=== PATIENT | male | born 1945 | race Caucasian/White ===

== ENCOUNTER 2017-01-11 02:00 | Inpatient (IN) | payer SELFPAY ==
[~2017-01-11] VITALS: Ht 182.9 cm; Wt 85.3 kg
[2017-01-11] VITALS (7 sets, daily range): BP systolic 130–189; BP diastolic 72–105
--- NOTE | 2017-01-11 02:24 | NUR ---
Pt taken to bed 3.
--- NOTE | 2017-01-11 02:40 | NUR ---
71Y/M PRESENTS TO ER C/O WEAKNESS, AND ITCHING. PMH HTN, DM. NKA. PT STATES HE WAS GETTING OUT OF BED WHEN HE FELL, PT DENIES HITTING HIS HEAD OR LOC. PT STATES HE FELL BECAUSE HIS "SUGARS ARE LOW AND PRESSURE IS LOW". PT STATES HE HAS HAD ITCHING "ALL OVER" FOR 3 MONTHS. PT HAS BL EDEMA TO LOWER LEGS, SCALING, AND DRY SKIN, W/ DARKENING OF SKIN. PT DENIES PAIN AT THIS TIME. PT AA&O X4, VSS, ER NOTIFIED OF PT STATUS, FAMILY AT BEDSIDE. Addendum: 01/11/17 at 0432 by MEDWL weeping of serous fluid noted on bl lower legs
--- NOTE | 2017-01-11 02:55 | NUR ---
Dr. Winters evaluating patient at bedside.
[2017-01-11] MEDS ORDERED: ALBUTEROL SULFATE/IPRATROPIU 3 ML SOL IH ONE (03:00)
--- NOTE | 2017-01-11 03:25 | NUR ---
X-Ray at bedside.
[2017-01-11 03:26] LABS: BASOPHILS # (AUTO) 0.1 K/uL (0.00-0.22); BASOPHILS % (AUTO) 0.9 % (0.0-2.0); EOSINOPHILS # (AUTO) 0.4 K/uL (0-0.4); EOSINOPHILS % (AUTO) 4.3 % (0.0-4.0); HEMATOCRIT 31.5 % (36-52); HEMOGLOBIN 10.2 g/dL (12.0-18.0); LYMPHOCYTES # (AUTO) 0.9 K/uL (2.0-11.5); LYMPHOCYTES % (AUTO) 10.1 % (20.5-51.1); MEAN CORPUSCULAR HEMOGLOBIN 30 pg (27-31); MEAN CORPUSCULAR HGB CONC 32 g/dL (33-37); MEAN CORPUSCULAR VOLUME 93 fL (80-94); MONOCYTES # (AUTO) 0.9 K/uL (0.8-1.0); MONOCYTES % (AUTO) 9.4 % (1.7-9.3); NEUTROPHILS # (AUTO) 6.8 K/uL (1.8-7.7); NEUTROPHILS % (AUTO) 75.3 % (42.2-75.2); PLATELET COUNT (AUTO) 235 K/uL (140-450); RED CELL DISTRIBUTION WIDTH 14.8 % (11.6-13.7); WHITE BLOOD COUNT (AUTO) 9.1 K/uL (4.8-10.8)
[2017-01-11 03:38] LABS: ALBUMIN 2.8 g/dL (3.4-5.0); ANION GAP 14.9 (8-16); ASPARTATE AMINOTRANSFERASE 31 U/L (15-37); CARBON DIOXIDE 25.4 mmol/L (21-32); CHLORIDE 108 mmol/L (98-107); GLUCOSE 133 mg/dL (74-106); LIPASE 119 U/L (73-393); POTASSIUM 5.3 mmol/L (3.5-5.1); SODIUM SERUM 143 mmol/L (136-145); TOTAL BILIRUBIN 0.3 mg/dL (0.0-1.0); UREA NITROGEN, BLOOD 57 mg/dL (7-18)
[2017-01-11 03:45] LABS: CREATINE KINASE MB 3.9 ng/mL (0-3.6)
[2017-01-11] MEDS ORDERED: NACL 0.9% 1,000 ML IV ONE (04:00)
[2017-01-11] MEDS ORDERED: SODIUM POLYSTYRENE 15 GM/60 ML UDBTL PO ONE ×2 (04:00→16:05)
[2017-01-11] MEDS ORDERED: LANTUS SUBQ (04:11)
--- NOTE | 2017-01-11 05:15 | NUR ---
PER TELE FLOOR ASKED TO WAIT TO CALL REPORT TILL 0600
[2017-01-11] MEDS ORDERED: ONDANSETRON 4 MG/2 ML VIAL IVP PRN (05:20)
[2017-01-11] MEDS ORDERED: ACETAMINOPHEN 325 MG TAB PO PRN (05:20)
[2017-01-11] MEDS ORDERED: HYDROcodone/APAP 7.5/325 MG 1 TAB PO PRN (05:20)
[2017-01-11] MEDS ORDERED: MECLIZINE 25 MG TAB PO PRN (05:30)
--- NOTE | 2017-01-11 06:11 | NUR ---
PER CHARGE NURSE, MANJEET, ON TELE ASKED TO WAIT TO TRANSFER PT TILL .
[2017-01-11 06:45] LABS: PROTHROMBIN TIME 10.1 secs (10.8-13.4)
--- NOTE | 2017-01-11 06:46 | NUR ---
Patient will be admitted to [facility] Admited to TELE. Will go to room 114. Belongings list completed. Report to MANJEET.
--- NOTE | 2017-01-11 07:00 | NUR ---
RECEIVED PATIENT IN BED. NO S/S OF DISTRESS NOTED. PATIENT AWAKE, ALERT, ORIENTED AND AMBULATORY. PATIENT DENIES PAIN. PATIENT ON ROOM AIR. DRYNESS NOTED TO BLE. IV LINE NOTED TO THE LEFT AC. PATIENT PLACED ON TELE MONITORING. BED LOWERED WITH CALL LIGHT WITHIN REACH. WILL CONTINUE TO MONITOR
[2017-01-11] MEDS ORDERED: DEXTROSE 50% 50 ML SYR IVP PRN (07:05)
[2017-01-11 07:11] LABS: FREE T4 (FREE THYROXINE) 0.94 ng/dL (0.76-1.46); MAGNESIUM 2.8 mg/dL (1.8-2.4); PHOSPHORUS 5.4 mg/dL (2.5-4.9); THYROID STIMULATING HORMONE 2.32 uIU/mL (0.34-3.74)
[2017-01-11] MEDS: PANTOPRAZOLE 40 MG INJ VIAL IVP SCH (10:28)
[2017-01-11] MEDS: NACL 0.9% 1,000 ML IV SCH ×2 (10:28→21:02)
[2017-01-11] MEDS: DOCUSATE SODIUM 100 MG GELCAP PO SCH ×2 (10:29→21:01)
--- NOTE | 2017-01-11 10:30 | NUR ---
MADE DR FELTON AWARE OF PATIENT'S BP
[2017-01-11] MEDS ORDERED: LOSA50TA39 PO (10:44)
[2017-01-11] MEDS ORDERED: hydrALAZINE 20 MG/ML VIAL IVP PRN (10:45)
[2017-01-11] MEDS ORDERED: hydrALAZINE 20 MG/ML VIAL IVP SCH (11:04)
[2017-01-11] MEDS ORDERED: LOSARTAN 50 MG TAB PO SCH (11:15)
[2017-01-11] MEDS ORDERED: hydrALAZINE 20 MG/ML VIAL IVP ONE (12:40)
--- NOTE | 2017-01-11 14:30 | NUR ---
PATIENT SITTING IN THE CHAIR AT BEDSIDE. NO S/S OF DISTRESS NOTED. FAMILY MEMBERS IN THE ROOM
--- NOTE | 2017-01-11 14:45 | NUR ---
PATIENT ASLEEP NO S/S OF DISTRESS NOTED
[2017-01-11 14:49] LABS: CHOL/HDL RATIO 2.7 (1-4.5)
[2017-01-11] MEDS: BLOOD GLUCOSE MONITORING 1 DEV DEV FS SCH ×2 (16:37→21:43)
[2017-01-11] MEDS ORDERED: CALCIUM ACETATE 667 MG TAB PO SCH (17:00)
[2017-01-11] MEDS ORDERED: diphenhydrAMINE 50 MG/ML VIAL IVP SCH (17:00)
--- NOTE | 2017-01-11 19:29 | NUR ---
PATIENT REPORT GIVEN AT BEDSIDE. PATIENT ENDORSED IN STABLE CONDITION
--- NOTE | 2017-01-11 19:30 | NUR ---
RECEIVED PT SLEEPING, AROUSABLE BUT DROWSY, SERBIAN SPEAKING ONLY, DENIES ANY PAIN, VITAL SIGNS STABLE, IVF INFUSING WELL, SAFETY MEASURES IN PLACE, BED ALARM ON, CALL LIGHT WITHIN REACH, FRIEND AT BEDSIDE.
--- NOTE | 2017-01-11 21:00 | NUR ---
PT SLEEPING, AROUSABLE BUT DROWSY, BLOOD SUGAR CHECKED WITH 25 RESULT, PT INSTRUCTED TO EAT DINNER, COMPLIANT AND CONSUMED 100%, PT FEELING MUCH BETTER, MORE AWAKE AND CONVERSANT, DUE MEDS TAKEN, WILL RECHECKED BLOOD SUGAR.
[2017-01-11] MEDS: LOSARTAN 50 MG TAB PO SCH (21:01)
--- NOTE | 2017-01-11 21:45 | NUR ---
PT SLEEPING, EASILY AROUSABLE, BLOOD SUGAR RECHECKED WITH 101 RESULT, NO SIGNS OF DISTRESS, IVF INFUSING WELL, MONITORED CLOSELY.
[2017-01-12] VITALS: BP 141/77
--- NOTE | 2017-01-12 | NUR ---
PT AMBULATED TO BR AND VOIDED FREELY, VITAL SIGNS STABLE, DENIES ANY PAIN, IVF INFUSING WELL, CONTINUE TO MONITOR CLOSELY.
[2017-01-12] MEDS: NACL 0.9% 1,000 ML IV SCH ×2 (01:12→05:30)
[2017-01-12 04:00] VITALS: BP 148/79
--- NOTE | 2017-01-12 05:50 | NUR ---
BLOOD SUGAR CHECKED WITH 22 RESULT, PT EASILY AROUSABLE, VERBALLY RESPONSIVE, D50 1 AMP GIVEN IVP, [facility] DR Naida CROFT MADE AWARE, WITH NEW ORDER TO DC LEVIMIR INSULIN, MONITORED CLOSELY.
--- NOTE | 2017-01-12 06:15 | NUR ---
PT JUST FINISHED EATING 1/2 HAM SANDWICH AND 2 APPLE JUICE, BLOOD SUGAR RECHECKED WITH 90 RESULT, DR FELTON IN THE ROOM IS AWARE, PT AAOX4, NO DISTRESS NOTED.
[2017-01-12 06:29] LABS: BASOPHILS # (AUTO) 0.2 K/uL (0.00-0.22); BASOPHILS % (AUTO) 3.2 % (0.0-2.0); EOSINOPHILS # (AUTO) 0.8 K/uL (0-0.4); LYMPHOCYTES # (AUTO) 1.1 K/uL (2.0-11.5); LYMPHOCYTES % (AUTO) 13.8 % (20.5-51.1); MEAN CORPUSCULAR HEMOGLOBIN 29 pg (27-31); MEAN CORPUSCULAR HGB CONC 31 g/dL (33-37); MEAN CORPUSCULAR VOLUME 93 fL (80-94); MONOCYTES # (AUTO) 1.5 K/uL (0.8-1.0); MONOCYTES % (AUTO) 18.9 % (1.7-9.3); NEUTROPHILS # (AUTO) 4.1 K/uL (1.8-7.7); NEUTROPHILS % (AUTO) 53.1 % (42.2-75.2); PLATELET COUNT (AUTO) 212 K/uL (140-450); RED BLOOD CELL COUNT(AUTO) 3.14 MIL/uL (4.20-6.10); RED CELL DISTRIBUTION WIDTH 14.8 % (11.6-13.7); WHITE BLOOD COUNT (AUTO) 7.7 K/uL (4.8-10.8)
[2017-01-12] MEDS: BLOOD GLUCOSE MONITORING 1 DEV DEV FS SCH ×4 (06:37→20:46)
--- NOTE | 2017-01-12 07:20 | NUR ---
PT SLEEPING, NO SIGNS OF DISTRESS, REPORT GIVEN TO ARLENE HICKS FOR CONTINUITY OF CARE.
--- NOTE | 2017-01-12 07:21 | NUR ---
RECEIVED REPORT FROM BOTTOM SAW OPERATOR NURSE ANDREA AT BEDSIDE FOR CONTINUITY OF CARE. PT IS AWAKE AND ORIENTED. INTRODUCED SELF AND UPDATED BOARD. FAMILY MEMBER IS AT BEDSIDE AND TRANSLATED FOR PT IN MICRONESIAN. PT DENIES PAIN OR WEAKNESS WILL CONTINUE TO MONITOR.
[2017-01-12 07:24] LABS: MAGNESIUM 2.4 mg/dL (1.8-2.4); PHOSPHORUS 5.6 mg/dL (2.5-4.9)
[2017-01-12 07:37] LABS: ANION GAP 14.9 (8-16); CARBON DIOXIDE 23.4 mmol/L (21-32); CHLORIDE 110 mmol/L (98-107); POTASSIUM 4.3 mmol/L (3.5-5.1); SODIUM SERUM 144 mmol/L (136-145); UREA NITROGEN, BLOOD 46 mg/dL (7-18)
[2017-01-12 07:46] LABS: CREATININE 4.8 mg/dL (0.7-1.3); GLUCOSE 37 mg/dL (74-106)
[2017-01-12 08:00] VITALS: BP 141/77
--- NOTE | 2017-01-12 08:00 | NUR ---
CHECKED PT'S BLOOD GLUCOSE 116. PT IS EATING BREAKFAST TRAY RIGHT NOW. NO S/SX OF HYPOGLYCEMIA. WILL CONTINUE TO MONITOR.
[2017-01-12] MEDS: ASPIRIN 81 MG TAB.CHEW PO SCH (09:00)
[2017-01-12] MEDS ORDERED: INSULIN DETEMIR 100 UNITS/ML 10 ML VIAL SUBQ SCH (09:00)
[2017-01-12] MEDS: amLODIPine 5 MG TAB PO SCH (09:00)
[2017-01-12] MEDS: CALCIUM ACETATE 667 MG TAB PO SCH ×2 (09:00→20:05)
[2017-01-12] MEDS: PANTOPRAZOLE 40 MG INJ VIAL IVP SCH (09:00)
[2017-01-12] MEDS: DOCUSATE SODIUM 100 MG GELCAP PO SCH ×2 (09:00→20:04)
[2017-01-12] MEDS: LOSARTAN 50 MG TAB PO SCH ×2 (09:00→20:05)
--- NOTE | 2017-01-12 10:23 | NUR ---
PATIENT HAS BEEN SCREENED AND CATEGORIZED HIGH NUTRITION RISK. PATIENT WILL BE SEEN WITHIN 1-2 DAYS OF ADMISSION. 01/11/17 - 01/12/17 LORETO OCHOA MBA, RD
[2017-01-12 10:31] LABS: APPEARANCE,URINE HAZY (CLEAR); BILIRUBIN,URINE NEGATIVE (NEGATIVE); BLOOD, URINE 1+ (NEGATIVE); COLOR,URINE YELLOW (YELLOW); LEUKOCYTE ESTERASE ,URINE NEGATIVE (NEGATIVE); NITRITE, URINE NEGATIVE (NEGATIVE); UGLUCOSE NEGATIVE (NEGATIVE)
[2017-01-12 10:34] LABS: BARBITURATE, URINE NEG. ng/ml (NEG <=200); BENZODIAZEPINE, URINE NEG. ng/mL (NEG <=200); CANNABINOID, URINE NEG. ng/mL (NEG <=50); COCAINE, URINE NEG. ng/mL (NEG <=300); OPIATE, URINE NEG. ng/mL (NEG <=2000); PHENCYCLIDINE SCREEN,URINE NEG. ng/mL (NEG <=25)
[2017-01-12] MEDS: DEXT 5% / NACL 0.45% 1,000 ML IV SCH ×3 (10:46→22:42)
[2017-01-12 11:00] LABS: RBC,URINE 20-50 /HPF (0-5); WBC,URINE 0-5 (RARE) /HPF (0-5)
[2017-01-12 12:00] VITALS: BP 158/98
[2017-01-12 16:00] VITALS: BP 151/84
--- NOTE | 2017-01-12 16:30 | NUR ---
PT FAMILY MEMBERS ARE AT BEDSIDE. PT IS SITTING IN CHAIR RIGHT NOW. ASKED IF HE NEEDED ANYTHING PT STATED NO. BS IS 97. NO S/SX OF HYPOGLYCEMIA. PLACED CALL LIGHT NEXT TO PT. WILL CONTINUE TO MONITOR.
--- NOTE | 2017-01-12 16:37 | NUR ---
01/12/17 RD INITIAL ASSESSMENT COMPLETED. PLEASE REFER TO NUTRITION PROGRESS NOTES UNDER CARE ACTIVITY FOR ESTIMATED NUTRITIONAL NEEDS. RD RECOMMENDATIONS: 1- RECOMMEND CONTINUE 60G CCHO DIET 2- F/U 3-5 DAYS; MODERATE RISK. LORETO OCHOA MBA, RD
[2017-01-12] MEDS ORDERED: CALCIUM ACETATE 667 MG TAB PO SCH (17:00)
[2017-01-12] MEDS ORDERED: TETRAHYDROZOLINE 0.05% OP 15 ML BTL OP PRN (17:15)
[2017-01-12] MEDS ORDERED: PNEUMOCOCCAL VACCINE 23 MCG/0.5 ML VIAL IMVAC SCH (17:15)
[2017-01-12] MEDS ORDERED: INFLUENZA VIRUS VACCINE QUAD 0.5 ML SYR IMVAC SCH (17:15)
--- NOTE | 2017-01-12 19:29 | NUR ---
ENDORSED PT TO MANDOLIN REPAIR PERSON NURSE ANDREA AT BEDSIDE FOR CONTINUITY OF CARE. PT IN STABLE CONDITION.
--- NOTE | 2017-01-12 19:30 | NUR ---
RECEIVED PT SITTING ON SIDE OF BED, AAOX4, VITAL SIGNS TAKEN, BP SLIGHTLY ELEVATED, ASYMPTOMATIC, DENIES ANY PAIN, NO SOB NOTED, WILL GIVE DUE BP MEDICATION, IVF INFUSING WELL, SAFETY MEASURES IN PLACE, ENCOURAGE TO USE CALL LIGHT FOR ASSISTANCE, CALL LIGHT WITHIN REACH, VISITOR IN THE ROOM.
[2017-01-12 20:00] VITALS: BP 164/85
--- NOTE | 2017-01-12 20:30 | NUR ---
BLOOD SUGAR CHECKED WITH 104 RESULT, SNACK PROVIDED, DUE MEDS ADMINISTERED, ALL NEEDS ATTENDED.
--- NOTE | 2017-01-12 23:40 | NUR ---
PT SLEEPING, EASILY AROUSABLE, VITAL SIGNS STABLE, DENIES ANY PAIN, IVF INFUSING WELL, FAMILY MEMBER AT BEDSIDE, CONTINUE TO MONITOR CLOSELY.
[2017-01-13] VITALS: BP 133/84
--- NOTE | 2017-01-13 02:40 | NUR ---
SEEN AWAKE SITTING ON BEDSIDE CHAIR WATCHING TV, NO SIGNS OF DISTRESS, MONITORED CLOSELY.
[2017-01-13 04:00] VITALS: BP 151/76
--- NOTE | 2017-01-13 04:00 | NUR ---
PT SLEEPING, EASILY AROUSABLE, VITAL SIGNS TAKEN, BP SLIGHTLY ELEVATED, ASYMPTOMATIC, MONITORED CLOSELY.
--- NOTE | 2017-01-13 06:00 | NUR ---
PT SLEEPING, EASILY AROUSABLE, BLOOD SUGAR CHECKED WITH 75 RESULT, IVF INFUSING WELL, MONITORED CLOSELY.
[2017-01-13] MEDS: DEXT 5% / NACL 0.45% 1,000 ML IV SCH ×2 (06:15→16:15)
--- NOTE | 2017-01-13 07:10 | NUR ---
PT SLEEPING, NO SIGNS OF DISTRESS, REPORT GIVEN TO ARLENE HICKS FOR CONTINUITY OF CARE.
--- NOTE | 2017-01-13 07:11 | NUR ---
RECEIVED REPORT FROM PRIMER INSERTING MACHINE ADJUSTER NURSE ANDREA AT BEDSIDE FOR CONTINUITY OF CARE. PT IS SLEEPING RIGHT NOW. IN STABLE CONDITION.
[2017-01-13 07:17] LABS: BASOPHILS # (AUTO) 0.1 K/uL (0.00-0.22); BASOPHILS % (AUTO) 1.2 % (0.0-2.0); EOSINOPHILS # (AUTO) 1.1 K/uL (0-0.4); EOSINOPHILS % (AUTO) 13.4 % (0.0-4.0); HEMATOCRIT 30.7 % (36-52); HEMOGLOBIN 9.8 g/dL (12.0-18.0); LYMPHOCYTES # (AUTO) 1.4 K/uL (2.0-11.5); LYMPHOCYTES % (AUTO) 17.9 % (20.5-51.1); MEAN CORPUSCULAR HEMOGLOBIN 29 pg (27-31); MEAN CORPUSCULAR HGB CONC 32 g/dL (33-37); MEAN CORPUSCULAR VOLUME 91 fL (80-94); MONOCYTES # (AUTO) 1.1 K/uL (0.8-1.0); NEUTROPHILS # (AUTO) 4.3 K/uL (1.8-7.7); NEUTROPHILS % (AUTO) 53.5 % (42.2-75.2); PLATELET COUNT (AUTO) 230 K/uL (140-450); RED BLOOD CELL COUNT(AUTO) 3.39 MIL/uL (4.20-6.10); RED CELL DISTRIBUTION WIDTH 14.7 % (11.6-13.7)
[2017-01-13] MEDS: BLOOD GLUCOSE MONITORING 1 DEV DEV FS SCH ×4 (07:19→20:46)
[2017-01-13 07:44] LABS: MAGNESIUM 2.1 mg/dL (1.8-2.4); PHOSPHORUS 5.3 mg/dL (2.5-4.9)
[2017-01-13 07:46] LABS: ANION GAP 15.6 (8-16); CARBON DIOXIDE 21.9 mmol/L (21-32); CHLORIDE 107 mmol/L (98-107); GLUCOSE 83 mg/dL (74-106); POTASSIUM 4.5 mmol/L (3.5-5.1); SODIUM SERUM 140 mmol/L (136-145); UREA NITROGEN, BLOOD 41 mg/dL (7-18)
[2017-01-13 07:48] LABS: CREATININE 4.8 mg/dL (0.7-1.3)
[2017-01-13 08:00] VITALS: BP 164/88
[2017-01-13] MEDS ORDERED: ALBUTEROL SULFATE/IPRATROPIU 3 ML SOL IH PRN (08:15)
[2017-01-13] MEDS: PANTOPRAZOLE 40 MG INJ VIAL IVP SCH (08:30)
[2017-01-13] MEDS: amLODIPine 5 MG TAB PO SCH (08:31)
[2017-01-13] MEDS: LOSARTAN 50 MG TAB PO SCH ×2 (08:31→20:37)
[2017-01-13] MEDS: DOCUSATE SODIUM 100 MG GELCAP PO SCH ×2 (08:31→20:37)
[2017-01-13] MEDS: ASPIRIN 81 MG TAB.CHEW PO SCH (08:31)
[2017-01-13] MEDS ORDERED: CALCIUM ACETATE 667 MG TAB PO SCH (09:00)
[2017-01-13] MEDS ORDERED: diphenhydrAMINE 50 MG CAP PO SCH (10:03)
[2017-01-13] MEDS: CALCIUM ACETATE 667 MG TAB PO SCH ×2 (11:50→17:28)
[2017-01-13 12:00] VITALS: BP 151/83
--- NOTE | 2017-01-13 13:14 | NUR ---
PHYSICAL THERAPY WITH PT UP OUT OF BED WALKING DOWN THE HALLWAY WITH STEADY GAIT.
[2017-01-13] MEDS ORDERED: FUROSEMIDE 20 MG/2 ML VIAL IVP SCH (14:58)
--- NOTE | 2017-01-13 15:15 | NUR ---
PHYSICAL THERAPY CO-SIGN The Physical Therapy Progress Notes documented by Foundry Worker General have been reviewed. Reviewed/Co-Signed by: Pam Conte PT Documentation Done by:MABEL CAZARES IMPORT DISPATCHER POC REVIEWED W/ IMPORT DISPATCHER; PROGRESSING W/ FUNC MOB & GAIT ENDURANCE. Addendum: 01/14/17 at 1516 by Pam Conte PT Amended: Links added.
[2017-01-13] MEDS: ALBUTEROL SULFATE/IPRATROPIU 3 ML SOL IH SCH ×2 (15:17→19:21)
--- NOTE | 2017-01-13 15:44 | NUR ---
PHYSICAL THERAPY CO-SIGN The Physical Therapy Progress Notes documented by Slide Fastener Repairer have been reviewed. Reviewed/Co-Signed by: Pam Conte PT Documentation Done by:MABEL CAZARES RESPIRATORY THERAPY ASSISTANT POC REVIEWED W/ RESPIRATORY THERAPY ASSISTANT; WILL BENEFIT W/P.T.; PROGRESSING W/ FUNC MOB.
--- NOTE | 2017-01-13 15:45 | NUR ---
STARTED IV ON RIGHT HAND 22G. PT TOLERATED WELL. ADMINISTERED LASIX IVP. D5 1/2NS INFUSING AT 10ML/HR. ARACELIS BONDS TRANSLATED FOR PT ON INSTRUCTIONS FOR STRICT I/O. PT TO USE URINAL AND NURSING WOULD MEASURE OUTPUT. PT VERBALIZED UNDERSTANDING. NO SIGNS OF DISTRESS. CALL LIGHT WITHIN REACH
[2017-01-13 16:00] VITALS: BP 145/60
--- NOTE | 2017-01-13 19:30 | NUR ---
ENDORSED PT TO GAMEWELL OPERATOR NURSE MADHU AT BEDSIDE FOR CONTINUITY OF CARE. PT'S FAMILY MEMBERS AT BEDSIDE. PT IN STABLE CONDITION.
--- NOTE | 2017-01-13 19:31 | NUR ---
RECEIVED REPORT FROM DAY SHIFT RN. PT IS A/OX4, ON ROOM AIR, ONLY SPEAKS BOTS[place]NAN. PT HAS A RIGHT HAND 22G IV, INFUSING D5 0.45%NS@10ML/HR. SKIN INTACT, BUT PT HAS BLE DISCOLORATION AND XEROSIS. PT IS ON BEDREST. SAFETY PRECAUTIONS IN PLACE. UPDATED BOARD. DISCUSSED PLAN OF CARE WITH PT, PT VERBALIZED UNDERSTANDING. VITAL SIGNS WITHIN NORMAL LIMITS. VITAL SIGNS ARE WITHIN NORMAL LIMITS. PT IN STABLE CONDITION, NO SIGNS OF DISTRESS NOTED. BED IN LOW POSITION, CALL LIGHT WITHIN REACH. WILL CONTINUE TO MONITOR.
--- NOTE | 2017-01-13 19:45 | NUR ---
SPOKE WITH DR CROFT BECAUSE PT C/O SEVERE ITCHINESS. WILL ORDER BENADRYL.
[2017-01-13 19:50] VITALS: BP 152/78
[2017-01-13] MEDS: PIPER/TAZO 2.25GM/D5W PREMIX 50 ML IV SCH (20:38)
--- NOTE | 2017-01-13 20:47 | NUR ---
ADMINISTERED SCHEDULED MEDICATIONS, PT TOLERATED WELL. PT IN STABLE CONDITION, NO SIGNS OF DISTRESS NOTED. BED IN LOW POSITION, CALL LIGHT WITHIN REACH. WILL CONTINUE TO MONITOR.
[2017-01-13] MEDS: INSULIN LISPRO SLIDING SCALE 100 UNITS/ML VIAL SUBQ PRN (20:49)
--- NOTE | 2017-01-13 21:40 | NUR ---
SPOKE WITH DR CROFT ABOUT ORDERING BENADRYL FOR PT C/O ITCHINESS BECAUSE THERE HAS BEEN NO ORDER YET. SAID SHE WILL ORDER RIGHT AWAY.
[2017-01-13] MEDS ORDERED: diphenhydrAMINE 50 MG/ML VIAL IVP SCH (21:45)
--- NOTE | 2017-01-13 22:10 | NUR ---
ADMINISTERED ORDERED IVP NELL, PT TOLERATED WELL. ADVISED FAMILY VISITING HOURS WERE OVER AND PT'S SON STATED THEY WANTED TO SPEND THE NIGHT BECAUSE HE HAS BEEN SPENDING THE LAST FEW NIGHTS HERE. TOLD PT'S SON HE COULD STAY BUT THE LITTLE GIRL WITH HIM HAD TO GO, HE VERBALIZED UNDERSTANDING AND SAID HE WOULD HAVE SOMEONE PICK HER UP.
[2017-01-14] VITALS: BP 129/87
[2017-01-14 04:00] VITALS: BP 114/55
[2017-01-14] MEDS: PIPER/TAZO 2.25GM/D5W PREMIX 50 ML IV SCH ×2 (04:54→12:20)
--- NOTE | 2017-01-14 06:21 | NUR ---
PT BLOOD SUGAR IS 78, PT IS ASYMPTOMATIC BUT HE ASKED FOR A JUICE BECAUSE HE'S WORRIED HE WILL BECOME HYPOGLYCEMIC. GAVE PT ONE CRANBERRY JUICE. PT IN STABLE CONDITION, NO SIGNS OF DISTRESS NOTED. BED IN LOW POSITION, CALL LIGHT WITHIN REACH. WILL CONTINUE TO MONITOR.
[2017-01-14] MEDS: ALBUTEROL SULFATE/IPRATROPIU 3 ML SOL IH SCH ×2 (06:30→13:14)
[2017-01-14] MEDS: BLOOD GLUCOSE MONITORING 1 DEV DEV FS SCH ×2 (06:39→11:32)
--- NOTE | 2017-01-14 07:05 | NUR ---
RECEIVED PATIENT REPORT AT BEDSIDE. PATIENT AWAKE, ALERT AND ORIENTED. NO S/S OF DISTRESS NOTED. NO C/O PAIN AT THIS TIME. IV LINE NOTED TO THE RIGHT HAND WITH IVF INFUSING WELL. BED LOWERED WITH CALL LIGHT WITHIN REACH. WILL CONTINUE TO MONITOR
--- NOTE | 2017-01-14 07:15 | NUR ---
ENDORSED PT TO DAY SHIFT RN FOR CONTINUITY OF CARE. PT IN STABLE CONDITION.
[2017-01-14 07:46] LABS: BASOPHILS # (AUTO) 0.1 K/uL (0.00-0.22); BASOPHILS % (AUTO) 1.7 % (0.0-2.0); EOSINOPHILS # (AUTO) 0.8 K/uL (0-0.4); EOSINOPHILS % (AUTO) 9.7 % (0.0-4.0); HEMATOCRIT 28.9 % (36-52); HEMOGLOBIN 9.1 g/dL (12.0-18.0); LYMPHOCYTES # (AUTO) 0.7 K/uL (2.0-11.5); LYMPHOCYTES % (AUTO) 8.3 % (20.5-51.1); MEAN CORPUSCULAR HEMOGLOBIN 29 pg (27-31); MEAN CORPUSCULAR HGB CONC 32 g/dL (33-37); MEAN CORPUSCULAR VOLUME 91 fL (80-94); MONOCYTES # (AUTO) 1.1 K/uL (0.8-1.0); MONOCYTES % (AUTO) 13.3 % (1.7-9.3); NEUTROPHILS # (AUTO) 5.4 K/uL (1.8-7.7); PLATELET COUNT (AUTO) 223 K/uL (140-450); RED BLOOD CELL COUNT(AUTO) 3.18 MIL/uL (4.20-6.10); RED CELL DISTRIBUTION WIDTH 15.1 % (11.6-13.7); WHITE BLOOD COUNT (AUTO) 8.1 K/uL (4.8-10.8)
[2017-01-14 08:00] VITALS: BP 152/92
[2017-01-14 08:20] LABS: ANION GAP 15.4 (8-16); CARBON DIOXIDE 22.2 mmol/L (21-32); CHLORIDE 108 mmol/L (98-107); GLUCOSE 81 mg/dL (74-106); POTASSIUM 4.6 mmol/L (3.5-5.1); SODIUM SERUM 141 mmol/L (136-145); UREA NITROGEN, BLOOD 46 mg/dL (7-18)
[2017-01-14 08:23] LABS: CREATININE 5.1 mg/dL (0.7-1.3)
[2017-01-14 08:26] LABS: MAGNESIUM 2.1 mg/dL (1.8-2.4); PHOSPHORUS 5.7 mg/dL (2.5-4.9)
[2017-01-14] MEDS ORDERED: FUROSEMIDE 20 MG/2 ML VIAL IVP SCH (09:00)
--- NOTE | 2017-01-14 09:00 | NUR ---
ADMINISTERED DUE MEDICATIONS. PATIENT TOLERATED WELL
[2017-01-14] MEDS: ASPIRIN 81 MG TAB.CHEW PO SCH (09:19)
[2017-01-14] MEDS: CALCIUM ACETATE 667 MG TAB PO SCH ×2 (09:19→12:19)
[2017-01-14] MEDS: DOCUSATE SODIUM 100 MG GELCAP PO SCH (09:19)
[2017-01-14] MEDS: LOSARTAN 50 MG TAB PO SCH (09:20)
[2017-01-14] MEDS: PANTOPRAZOLE 40 MG INJ VIAL IVP SCH (09:20)
[2017-01-14] MEDS: amLODIPine 5 MG TAB PO SCH (09:20)
[2017-01-14] MEDS: DEXT 5% / NACL 0.45% 1,000 ML IV SCH (10:33)
[2017-01-14 12:00] VITALS: BP 145/72
[2017-01-14] MEDS: INSULIN LISPRO SLIDING SCALE 100 UNITS/ML VIAL SUBQ PRN (12:20)
--- NOTE | 2017-01-14 13:14 | NUR ---
PT SITTING IN CHAIR REFUSED BREATHING TX NO SIGNS OF DISTRESS NOTED AT THIS TIME
[2017-01-14] MEDS ORDERED: LEVOFLOXACIN 750 MG TAB PO SCH (13:30)
[2017-01-14] MEDS ORDERED: PHO667 PO (13:42)
[2017-01-14] MEDS ORDERED: AMLO-27 PO (13:42)
[2017-01-14] MEDS ORDERED: LEVO750T2 PO (13:42)
[2017-01-14] MEDS ORDERED: glucometer (13:42)
[2017-01-14] MEDS ORDERED: [UNRECOGNIZED DRUG - SUPPLY] (13:42)
[2017-01-14] MEDS ORDERED: [UNRECOGNIZED DRUG - CODE] MC (13:42)
[2017-01-14] MEDS ORDERED: CLIN300C2 PO (13:42)
[2017-01-14] MEDS ORDERED: HUMSLIDE SQ ×3 (13:42→14:07)
[2017-01-14] MEDS ORDERED: PRON INH (13:44)
--- NOTE | 2017-01-14 14:00 | NUR ---
PATIENT SITTING IN THE CHAIR. NO S/S OF DISTRESS NOTED
[2017-01-14] MEDS ORDERED: PNEUMOCOCCAL VACCINE 23 MCG/0.5 ML VIAL IMVAC SCH (14:30)
[2017-01-14] MEDS ORDERED: INFLUENZA VIRUS VACCINE QUAD 0.5 ML SYR IMVAC SCH (14:30)
--- NOTE | 2017-01-14 15:19 | NUR ---
PHYSICAL THERAPY CO-SIGN The Physical Therapy Progress Notes documented by Sales Representative Trainee have been reviewed. Reviewed/Co-Signed by: Pam Conte PT Documentation Done by:MABEL CAZARES RESEARCH TECH PROGRESSING W/ FUNC MOB & GAIT ENDURANCE; POC REVIEWED W/RESEARCH TECH. Addendum: 01/14/17 at 1520 by Pam Conte PT Amended: Links added.
--- NOTE | 2017-01-14 15:45 | NUR ---
PATIENT DISCHARGED TO HOME. DISCHARGE INSTRUCTIONS AND DISCHARGE PRESCRIPTIONS GIVEN. PATIENT VERBALIZED UNDERSTANDING. IV LINE DISCONTINUED. TELE LEADS TAKEN OFF. PATIENT LEFT WITH ALL HIS BELONGINGS AND DISCHARGE PAPERS. PATIENT LEFT IN STABLE CONDITION
== END 2017-01-14 15:20 | disposition home or self-care (01) | DRG 73 ==
LOC: MED 02:00 → MTU 05:28
PROVIDERS: ADMIT Family Medicine; ATTEND Family Medicine
PROC: 3E0234Z Introduction of Serum, Toxoid and Vaccine into Muscle, Percutaneous Approach (ICD-10-PCS; principal; 2017-01-14)
PROC: 3E0234Z Introduction of Serum, Toxoid and Vaccine into Muscle, Percutaneous Approach (ICD-10-PCS; 2017-01-14)
DX: G90.9 Disorder of the autonomic nervous system, unspecified (principal); N17.0 Acute kidney failure with tubular necrosis; E44.0 Moderate protein-calorie malnutrition; D68.59 Other primary thrombophilia; E11.65 Type 2 diabetes mellitus with hyperglycemia; E11.51 Type 2 diabetes mellitus with diabetic peripheral angiopathy without gangrene; N19 Unspecified kidney failure; I16.9 Hypertensive crisis, unspecified; R55 Syncope and collapse; E66.3 Overweight; E87.5 Hyperkalemia; F17.210 Nicotine dependence, cigarettes, uncomplicated; E87.8 Other disorders of electrolyte and fluid balance, not elsewhere classified; E83.41 Hypermagnesemia; E83.51 Hypocalcemia; E83.39 Other disorders of phosphorus metabolism; Z68.25 Body mass index [BMI] 25.0-25.9, adult; Z23 Encounter for immunization
CPT/HCPCS: 36415; 70450; 71010; 76770; 80048; 80053; 80305; 81001; 82140; 82150; 82550; 82553; 82948; 83036; 83605; 83690; 83735; 83880; 84100; 84439; 84443; 84484; 85025; 85610; 85730; 87081; 90658; 90732; 93005; 93880; 93925; 93970; 94640; 96360; 96361; 97110; 97116; 97530; 99285; C9113; J0360; J1200; J1815; J1940; J2543; J7030; J7620; Q0092; Q0163

== ENCOUNTER 2017-01-22 20:45 | Inpatient (IN) | payer MEDICAID, OTHER ==
--- NOTE | 2017-01-20 21:30 | NUR ---
PT IN BED, WATCHING TV. PT ASKED FOR SNACK. SNACK GIVEN. NO C/O PAIN OR DISCOMFORT. NO SOB NOTED. CALL LIGHT WITHIN REACH.
[~2017-01-22] VITALS: Ht 172.7 cm; Wt 89.8 kg
[~2017-01-22 20:45] MED LIST: AMLO-27 PO; CLIN300C2 PO; HUMSLIDE SQ; LEVO750T2 PO; LOSA50TA39 PO; PHO667 PO; PRON INH; [UNRECOGNIZED DRUG - CODE] MC; [UNRECOGNIZED DRUG - SUPPLY]; glucometer
[2017-01-22 20:47] VITALS: BP 116/62
--- NOTE | 2017-01-22 21:04 | NUR ---
Dr. Romero evaluating patient at bedside.
--- NOTE | 2017-01-22 21:04 | NUR ---
72/M BIB DAUGHTER C/O SOB AND CHEST TIGHTNESS X 1 WEEK. DENIES COUGHING, DENIES CHEST PAIN AT THIS TIME. WHEEZING THROUGHOUT LUNGS NOTED,16RR EVEN AND LABORED, PT SATS 92% ON 2LPMNC, HOB ELEVATED. RT CALLED. PT PLACED ON CARDIAC MONITORING AND PULSE OX. PMH: HTN, DM CURRENT BS 120
--- NOTE | 2017-01-22 21:04 | NUR ---
PT TAKEN TO BED 8
[2017-01-22] MEDS ORDERED: ALBUTEROL SULFATE/IPRATROPIU 3 ML SOL IH ONE (21:10)
[2017-01-22] MEDS ORDERED: NACL 0.9% 1,000 ML IV ONE (21:10)
[2017-01-22] MEDS ORDERED: methylPREDNISolone SS 125 MG/2 ML VIAL IVP ONE (21:10)
--- NOTE | 2017-01-22 21:19 | NUR ---
Respiratory Therapist at bedside for respiratory intervention.
--- NOTE | 2017-01-22 21:21 | NUR ---
PT MOVED TO BED 10
[2017-01-22] MEDS ORDERED: ALBUTEROL 0.083% 2.5 MG/3 ML NEBU INH ONE (21:35)
[2017-01-22 21:38] LABS: BASOPHILS # (AUTO) 0.1 K/uL (0.00-0.22); BASOPHILS % (AUTO) 0.9 % (0.0-2.0); EOSINOPHILS # (AUTO) 0.1 K/uL (0-0.4); HEMATOCRIT 30.1 % (36-52); HEMOGLOBIN 9.4 g/dL (12.0-18.0); LYMPHOCYTES # (AUTO) 0.5 K/uL (2.0-11.5); MEAN CORPUSCULAR HEMOGLOBIN 28 pg (27-31); MEAN CORPUSCULAR HGB CONC 31 g/dL (33-37); MEAN CORPUSCULAR VOLUME 91 fL (80-94); MONOCYTES # (AUTO) 0.9 K/uL (0.8-1.0); NEUTROPHILS # (AUTO) 7.6 K/uL (1.8-7.7); NEUTROPHILS % (AUTO) 82.4 % (42.2-75.2); PLATELET COUNT (AUTO) 245 K/uL (140-450); RED BLOOD CELL COUNT(AUTO) 3.31 MIL/uL (4.20-6.10); RED CELL DISTRIBUTION WIDTH 15.4 % (11.6-13.7); WHITE BLOOD COUNT (AUTO) 9.2 K/uL (4.8-10.8)
[2017-01-22] MEDS ORDERED: hydrALAZINE 20 MG/ML VIAL IVP ONE (21:45)
[2017-01-22 21:55] LABS: ALBUMIN 2.8 g/dL (3.4-5.0); ANION GAP 12.7 (8-16); ASPARTATE AMINOTRANSFERASE 22 U/L (15-37); CARBON DIOXIDE 22.8 mmol/L (21-32); CHLORIDE 104 mmol/L (98-107); GLUCOSE 123 mg/dL (74-106); POTASSIUM 5.5 mmol/L (3.5-5.1); SODIUM SERUM 134 mmol/L (136-145); TOTAL BILIRUBIN 0.2 mg/dL (0.0-1.0)
[2017-01-22 21:56] LABS: LYMPHOCYTES % (AUTO) 5.7 % (20.5-51.1)
[2017-01-22] MEDS ORDERED: VANCOMYCIN 1,000 MG in DEXTROSE 5% 250 ML IV ONE (22:10)
[2017-01-22] MEDS ORDERED: PIPERACILLIN/TAZOBACTAM 3.375 GM in DEXTROSE 5% 50 ML IV ONE (22:10)
[2017-01-22 22:16] LABS: UREA NITROGEN, BLOOD 74 mg/dL (7-18)
[2017-01-22 22:17] LABS: CREATININE 6.2 mg/dL (0.7-1.3)
[2017-01-22] MEDS ORDERED: VANCOMYCIN 1,000 MG VIAL ONE ×2 (22:25→22:33)
[2017-01-22] MEDS ORDERED: PIPERACILLIN/TAZOBACTAM 3.375 GM VIAL IV ONE (22:25)
--- NOTE | 2017-01-22 22:30 | NUR ---
PT DESATS TO 86-88% ON 4LPMNC, PT PUT ON HIGHFLO, SATS 98%. ER AWARE
[2017-01-22] MEDS ORDERED: DEXTROSE 50% 50 ML SYR IVP ONE (22:35)
[2017-01-22] MEDS ORDERED: INSULIN HUMAN REGULAR 100 UNITS/ML 10 ML VIAL IVP ONE (22:35)
[2017-01-22] MEDS ORDERED: SODIUM POLYSTYRENE 15 GM/60 ML UDBTL PR ONE (22:35)
[2017-01-22] MEDS ORDERED: SODIUM POLYSTYRENE 15 GM/60 ML UDBTL PO ONE (22:45)
[2017-01-22] MEDS ORDERED: ONDANSETRON 4 MG/2 ML VIAL IM/IVP PRN (22:50)
[2017-01-22] MEDS ORDERED: DOCUSATE SODIUM 100 MG GELCAP PO PRN (22:50)
[2017-01-22] MEDS ORDERED: ACETAMINOPHEN 325 MG TAB PO PRN (22:50)
[2017-01-22] MEDS ORDERED: NACL 0.9% 1,000 ML IV SCH (22:50)
--- NOTE | 2017-01-22 23:02 | NUR ---
Derek mast in [facility] - 01/22/17 at 2302 by ALAN PT TAKEN TO BED 10
--- NOTE | 2017-01-22 23:02 | NUR ---
PT TAKEN TO CT
--- NOTE | 2017-01-22 23:03 | NUR ---
Derek mast in [facility] - 01/22/17 at 2303 by ZULLY PT TAKEN TO CT
--- NOTE | 2017-01-22 23:11 | NUR ---
PT RETURN FROM CT
--- NOTE | 2017-01-22 23:24 | NUR ---
Patient will be admitted to care of PARAG. Admited to TELE. Will go to room 121A. Belongings list completed. TRANSPORTED VIA GURNEY WITH CARDIAC MONITORING, PT STABLE UPON TRANSFER, IV INFUSING, BENEDICT JACOBS INFORMED TO FINISH MEDICATION ON FLOOR. BEDSIDE Report to BENEDICT JACOBS.
--- NOTE | 2017-01-22 23:35 | NUR ---
PT ARRIVED TO UNIT VIA GURNEY ACCOMPANIED BY ER NURSE AND TECH. RECEIVED REPORT AT BEDSIDE. PT IS A/OX4, ON HIGH FLOW O2 VIA NONREBREATHER MASK. PT HAS AN 18G LEFT AC IV. SKIN INTACT, BUT THERE IS XEROSIS TO LOWER EXTREMITIES BILATERALLY. PT AMBULATES WITH ASSIST. SAFETY PRECAUTIONS IN PLACE, FALL RISK PROTOCOL INITIATED. MRSA SWAB OBTAINED. UPDATED BOARD. DISCUSSED PLAN OF CARE WITH PT, PT VERBALIZED UNDERSTANDING. VITAL SIGNS WITHIN NORMAL LIMITS. PT IN STABLE CONDITION, NO SIGNS OF DISTRESS NOTED. BED IN LOW POSITION, CALL LIGHT WITHIN REACH. WILL CONTINUE TO MONITOR.
[2017-01-22 23:39] LABS: FREE T4 (FREE THYROXINE) 0.96 ng/dL (0.76-1.46); MAGNESIUM 3.7 mg/dL (1.8-2.4); PHOSPHORUS 5.6 mg/dL (2.5-4.9); THYROID STIMULATING HORMONE 1.56 uIU/mL (0.34-3.74)
[2017-01-22 23:56] LABS: PROTHROMBIN TIME 10.3 secs (10.8-13.4)
[2017-01-23] MEDS: amLODIPine 5 MG TAB PO SCH ×2 (00:31→08:36)
[2017-01-23 00:57] VITALS: BP 157/68
[2017-01-23] MEDS ORDERED: SODIUM PHOSPHATE 118 ML ENEM RC ONE (01:20)
--- NOTE | 2017-01-23 01:55 | NUR ---
SPOKE TO DR ACOSTA TO VERIFY THAT HE WANTS THE ENEMA, LIPITOR, AND HEPARIN TO BE ADMINISTERED AT THIS TIME, DR ACOSTA SAID "YES."
[2017-01-23] MEDS ORDERED: ATORVASTATIN 20 MG TAB PO SCH (02:00)
[2017-01-23] MEDS: ATORVASTATIN 20 MG TAB PO SCH ×2 (02:12→08:37)
[2017-01-23 04:00] VITALS: BP 146/89
[2017-01-23] MEDS: PIPER/TAZO 2.25GM/D5W PREMIX 50 ML IV SCH ×2 (05:29→11:51)
[2017-01-23] MEDS ORDERED: PIPERACILLIN/TAZOBACTAM 2.25 GM VIAL IV ONE (05:35)
[2017-01-23] MEDS: INSULIN LISPRO SLIDING SCALE 100 UNITS/ML VIAL SUBQ PRN ×4 (06:17→21:10)
[2017-01-23] MEDS: BLOOD GLUCOSE MONITORING 1 DEV DEV FS SCH ×4 (06:17→20:54)
[2017-01-23 06:56] LABS: BASOPHILS % (AUTO) 0.2 % (0.0-2.0); EOSINOPHILS % (AUTO) 0.3 % (0.0-4.0); HEMATOCRIT 29.3 % (36-52); HEMOGLOBIN 9.3 g/dL (12.0-18.0); LYMPHOCYTES # (AUTO) 0.2 K/uL (2.0-11.5); LYMPHOCYTES % (AUTO) 2.8 % (20.5-51.1); MEAN CORPUSCULAR HEMOGLOBIN 29 pg (27-31); MEAN CORPUSCULAR HGB CONC 32 g/dL (33-37); MEAN CORPUSCULAR VOLUME 93 fL (80-94); MONOCYTES % (AUTO) 0.5 % (1.7-9.3); NEUTROPHILS # (AUTO) 7.5 K/uL (1.8-7.7); NEUTROPHILS % (AUTO) 96.2 % (42.2-75.2); PLATELET COUNT (AUTO) 226 K/uL (140-450); RED BLOOD CELL COUNT(AUTO) 3.17 MIL/uL (4.20-6.10); RED CELL DISTRIBUTION WIDTH 16.2 % (11.6-13.7)
[2017-01-23 07:13] LABS: MAGNESIUM 3.4 mg/dL (1.8-2.4); PHOSPHORUS 6.2 mg/dL (2.5-4.9)
--- NOTE | 2017-01-23 07:15 | NUR ---
ENDORSED PT TO DAY SHIFT RN FOR CONTINUITY OF CARE. PT IN STABLE CONDITION.
[2017-01-23 07:16] LABS: ANION GAP 16.5 (8-16); CARBON DIOXIDE 21.7 mmol/L (21-32); CHLORIDE 105 mmol/L (98-107); GLUCOSE 283 mg/dL (74-106); POTASSIUM 5.2 mmol/L (3.5-5.1); SODIUM SERUM 138 mmol/L (136-145)
--- NOTE | 2017-01-23 07:20 | NUR ---
PT BEDSIDE REPORT RECEIVED FROM MOLDING AND TRIM INSTALLER RN. PT IS A/OX4, ON 15L O2 VIA NONREBREATHER MASK. PT HAS AN 18G LEFT AC IV, INFUSING WELL, NO SWELLING OR INFILTRATION. SKIN INTACT, BUT THERE IS XEROSIS TO LOWER EXTREMITIES BILATERALLY. SKIN COLOR IS DUSKY ON BLE. NON PITTING EDEMA NOTED TO THE BLE AND BOTH HANDS. PT AMBULATES WITH ASSIST. FALL RISK PROTOCOL IN PLACE. UPDATED BOARD. DISCUSSED PLAN OF CARE WITH PT, PT VERBALIZED UNDERSTANDING. PT IN STABLE CONDITION, NO S/S OF DISTRESS NOTED. BED IN LOW POSITION, CALL LIGHT WITHIN REACH. WILL CONTINUE TO MONITOR.
[2017-01-23 07:22] LABS: CREATININE 6.2 mg/dL (0.7-1.3); UREA NITROGEN, BLOOD 73 mg/dL (7-18)
[2017-01-23 07:28] LABS: WHITE BLOOD COUNT (AUTO) 7.7 K/uL (4.8-10.8)
[2017-01-23 08:00] VITALS: BP 144/69
[2017-01-23] MEDS ORDERED: CALCIUM ACETATE 667 MG TAB PO SCH ×2 (08:00→08:20)
[2017-01-23] MEDS: ALBUTEROL SULFATE/IPRATROPIU 3 ML SOL IH PRN ×2 (08:26→21:15)
--- NOTE | 2017-01-23 08:29 | NUR ---
RECEIVED PT ON NON REBREATHER. PT REMOVED FROM MASK AND PLACED ON 3L NC. PT IS NOT SOB AND NOT IN RESPIRATORY DISTRESS AT THIS TIME. NRB NOT INDICATED AT THIS TIME. SPO2 94% ON 3L NC. EXPIRATORY WHEEZING HEARD ON AUSCULTATION PRN BREATHING TX ADMINISTERED.
[2017-01-23] MEDS: LACTOBACILLUS RHAMNOSUS GG 1 EACH CAP PO SCH (08:37)
[2017-01-23] MEDS: ASPIRIN 81 MG TAB.CHEW PO SCH (08:38)
[2017-01-23] MEDS ORDERED: SODIUM POLYSTYRENE 15 GM/60 ML UDBTL PO SCH (08:45)
--- NOTE | 2017-01-23 09:00 | NUR ---
PT IS ON 3L O2 VIA NC, O2 SAT IS 93%. NO S/S OF DISTRESS NOTED.
--- NOTE | 2017-01-23 09:30 | NUR ---
PT HAS BEEN SEEN BY SHAREE SUPERVISOR FIREARMS. DR RECOMMENDED HEMODIALYSIS AND ORDERED LASIX.
--- NOTE | 2017-01-23 10:00 | NUR ---
SPUTUM AND URINE CULTURE COLLECTED, SAMPLES SENT TO THE LAB.
[2017-01-23] MEDS ORDERED: FUROSEMIDE 100 MG/10 ML VIAL IV SCH (11:10)
[2017-01-23 11:28] LABS: BILIRUBIN,URINE NEGATIVE (NEGATIVE); BLOOD, URINE 2+ (NEGATIVE); COLOR,URINE YELLOW (YELLOW); LEUKOCYTE ESTERASE ,URINE NEGATIVE (NEGATIVE); NITRITE, URINE NEGATIVE (NEGATIVE); UGLUCOSE 1+ (NEGATIVE)
[2017-01-23 11:38] LABS: BARBITURATE, URINE NEG. ng/ml (NEG <=200); BENZODIAZEPINE, URINE NEG. ng/mL (NEG <=200); CANNABINOID, URINE NEG. ng/mL (NEG <=50); COCAINE, URINE NEG. ng/mL (NEG <=300); OPIATE, URINE POS. ng/mL (NEG <=2000); PHENCYCLIDINE SCREEN,URINE NEG. ng/mL (NEG <=25)
[2017-01-23 11:40] LABS: RBC,URINE 11-20 (MOD) /HPF (0-5); WBC,URINE 0-5 (RARE) /HPF (0-5)
[2017-01-23 11:41] LABS: APPEARANCE,URINE SLIGHTLY HAZY (CLEAR)
[2017-01-23 12:00] VITALS: BP 150/84
[2017-01-23 13:20] LABS: ANION GAP 17.8 (8-16); CHLORIDE 103 mmol/L (98-107); GLUCOSE 311 mg/dL (74-106); POTASSIUM 4.8 mmol/L (3.5-5.1); SODIUM SERUM 137 mmol/L (136-145)
[2017-01-23 13:24] LABS: CREATININE 6.1 mg/dL (0.7-1.3); UREA NITROGEN, BLOOD 70 mg/dL (7-18)
[2017-01-23] MEDS: HYDROcodone/APAP 7.5/325 MG 1 TAB PO PRN (14:05)
[2017-01-23] MEDS ORDERED: methylPREDNISolone SS 40 MG/ML VIAL IVP SCH (14:35)
--- NOTE | 2017-01-23 14:39 | NUR ---
PATIENT HAS BEEN SCREENED AND CATEGORIZED MODERATE NUTRITION RISK. PATIENT WILL BE SEEN WITHIN 3-5 DAYS OF ADMISSION. 01/25/17- CONNIE PURI RD Addendum: 01/23/17 at [address] DATE CORRECTION: 01/25/17 - 01/27/[address]
--- NOTE | 2017-01-23 15:00 | NUR ---
PT'S DAUGHTER LAVELL AND PT'S AT BEDSIDE. PT AGREES WITH TUNNEL CATH PLACEMENT FOR DIALYSIS.
[2017-01-23] MEDS: LEVOFLOXACIN 250 MG/D5 PREMIX 50 ML IV SCH (15:25)
[2017-01-23 16:00] VITALS: BP 160/98
--- NOTE | 2017-01-23 16:30 | NUR ---
PT SLEEPING. NO S/S OF DISTRESS NOTED.
[2017-01-23] MEDS: CALCIUM ACETATE 667 MG TAB PO SCH (17:33)
--- NOTE | 2017-01-23 19:26 | NUR ---
RECEIVED REPORT AT BEDSIDE FROM DAY SHIFT RN. PT IS A/OX4, ON 3L O2 VIA NASAL CANNULA. PT HAS AN 18G LEFT AC IV. SKIN INTACT, BUT THERE IS XEROSIS TO LOWER EXTREMITIES BILATERALLY. PT AMBULATES WITH ASSIST. SAFETY PRECAUTIONS IN PLACE. UPDATED BOARD. DISCUSSED PLAN OF CARE WITH PT, PT VERBALIZED UNDERSTANDING. VITAL SIGNS WITHIN NORMAL LIMITS. PT IN STABLE CONDITION, NO SIGNS OF DISTRESS NOTED. BED IN LOW POSITION, CALL LIGHT WITHIN REACH. WILL CONTINUE TO MONITOR.
--- NOTE | 2017-01-23 19:30 | NUR ---
ENDORSED PT TO TABLET TESTER. PT IN STABLE CONDITION.
[2017-01-23 19:55] VITALS: BP 128/63
[2017-01-23] MEDS: methylPREDNISolone SS 40 MG/ML VIAL IVP SCH (20:55)
[2017-01-23] MEDS: FUROSEMIDE 100 MG/10 ML VIAL IV SCH (20:56)
[2017-01-23] MEDS: BUDESONIDE 0.5 MG/2 ML NEBU INH SCH (21:15)
--- NOTE | 2017-01-23 21:16 | NUR ---
ADMINISTERED SCHEDULED MEDICATIONS, PUSHED LASIX OVER TWO MINUTES INDICATED. PT TOLERATED WELL. HELD HEPARIN BECAUSE PT MIGHT HAVE SURGERY TO PLACE A TUNNEL CATH TOMORROW. PT IN STABLE CONDITION, NO SIGNS OF DISTRESS NOTED. BED IN LOW POSITION, CALL LIGHT WITHIN REACH. WILL CONTINUE TO MONITOR.
[2017-01-24] VITALS: BP 133/69
[2017-01-24 04:00] VITALS: BP 139/71
[2017-01-24] MEDS: methylPREDNISolone SS 40 MG/ML VIAL IVP SCH ×3 (05:13→20:33)
[2017-01-24 06:25] LABS: BASOPHILS % (AUTO) 0.6 % (0.0-2.0); EOSINOPHILS # (AUTO) 0.1 K/uL (0-0.4); EOSINOPHILS % (AUTO) 0.9 % (0.0-4.0); HEMATOCRIT 29.3 % (36-52); HEMOGLOBIN 9.2 g/dL (12.0-18.0); LYMPHOCYTES # (AUTO) 0.3 K/uL (2.0-11.5); LYMPHOCYTES % (AUTO) 5.2 % (20.5-51.1); MEAN CORPUSCULAR HEMOGLOBIN 29 pg (27-31); MEAN CORPUSCULAR HGB CONC 31 g/dL (33-37); MEAN CORPUSCULAR VOLUME 91 fL (80-94); MONOCYTES # (AUTO) 0.3 K/uL (0.8-1.0); MONOCYTES % (AUTO) 4.3 % (1.7-9.3); NEUTROPHILS # (AUTO) 5.9 K/uL (1.8-7.7); PLATELET COUNT (AUTO) 247 K/uL (140-450); RED BLOOD CELL COUNT(AUTO) 3.22 MIL/uL (4.20-6.10); RED CELL DISTRIBUTION WIDTH 15.3 % (11.6-13.7); WHITE BLOOD COUNT (AUTO) 6.6 K/uL (4.8-10.8)
[2017-01-24] MEDS: BLOOD GLUCOSE MONITORING 1 DEV DEV FS SCH ×6 (06:35→20:31)
[2017-01-24] MEDS: INSULIN LISPRO SLIDING SCALE 100 UNITS/ML VIAL SUBQ PRN ×4 (06:36→20:36)
[2017-01-24 06:59] LABS: CARBON DIOXIDE 23.7 mmol/L (21-32); CHLORIDE 102 mmol/L (98-107); GLUCOSE 248 mg/dL (74-106); POTASSIUM 3.7 mmol/L (3.5-5.1); SODIUM SERUM 138 mmol/L (136-145)
[2017-01-24] MEDS: BUDESONIDE 0.5 MG/2 ML NEBU INH SCH ×2 (07:10→19:22)
[2017-01-24] MEDS: ALBUTEROL SULFATE/IPRATROPIU 3 ML SOL IH PRN (07:10)
--- NOTE | 2017-01-24 07:14 | NUR ---
RECEIVED A CRITICAL LAB RESULT FROM THE LAB. BUN IS 77 AND CREATININE IS 6.3. MADE DR WORLEY AWARE WHO SAID SHE WILL LET DR HUNT KNOW. DOCTORS ARE CURRENTLY ROUNDING. NO NEW ORDERS AT THIS TIME.
[2017-01-24 07:15] LABS: CREATININE 6.3 mg/dL (0.7-1.3); UREA NITROGEN, BLOOD 77 mg/dL (7-18)
--- NOTE | 2017-01-24 07:29 | NUR ---
ENDORSED PT TO DAY SHIFT RN FOR CONTINUITY OF CARE. PT IN STABLE CONDITION
--- NOTE | 2017-01-24 07:30 | NUR ---
RECEIVED REPORT FROM NIGHT RN. PATIENT IS RESTING IN BED AT THIS TIME. CURRENTLY RECEIVING A BREATHING TREATMENT. RESPIRATORY EFFORT EVEN AND UNLABORED. NO SIGNS AND SYMPTOMS OF DISTRESS NOTED AT THIS TIME. PATIENT HAS 18G TO LEFT AC, CURRENTLY SALINE LOCK. IV SITE IS CLEAN, DRY, PATENT AND INTACT. BEDSIDE COMMODE IS NEXT TO BED. BED IN LOWEST POSITION, SIDERAILS UP X2, CALL LIGHT PLACED WITHIN REACH. WILL CONTINUE TO MONITOR PATIENT.
[2017-01-24 08:00] VITALS: BP 157/84
[2017-01-24] MEDS: ATORVASTATIN 20 MG TAB PO SCH (08:40)
[2017-01-24] MEDS: LACTOBACILLUS RHAMNOSUS GG 1 EACH CAP PO SCH (08:40)
[2017-01-24] MEDS: CALCIUM ACETATE 667 MG TAB PO SCH ×3 (08:40→17:00)
[2017-01-24] MEDS: FAMOTIDINE 20 MG TAB PO SCH (08:41)
[2017-01-24] MEDS: amLODIPine 5 MG TAB PO SCH (08:41)
[2017-01-24] MEDS: ASPIRIN 81 MG TAB.CHEW PO SCH (08:41)
[2017-01-24] MEDS: HYDRAGUARD CREAM TP SCH ×2 (08:42→20:34)
[2017-01-24] MEDS: FUROSEMIDE 100 MG/10 ML VIAL IV SCH ×2 (08:43→20:31)
--- NOTE | 2017-01-24 11:25 | NUR ---
NOTIFIED DIALYSIS CENTER SPOKE WITH JAQUI REGARDING NEW DIALYSIS TODAY AFTER PATIENT HAS ACCESS
--- NOTE | 2017-01-24 11:30 | NUR ---
PATIENTS BLOOD SUGAR WAS 337. WILL ADMINISTER INSULIN. PATIENT HAS NO SIGNS AND SYMPTOMS OF DISTRESS NOTED AT THIS TIME.
[2017-01-24 12:00] VITALS: BP 148/84
[2017-01-24 12:19] LABS: T4 (THYROXINE) 6.2 ug/dL (4.5-12.0)
[2017-01-24] MEDS ORDERED: TUBERCULIN 5 TU/0.1 ML VIAL ID SCH (13:00)
--- NOTE | 2017-01-24 15:40 | NUR ---
PPD GIVEN TO PATIENT ON RIGHT FOREARM
[2017-01-24 16:00] VITALS: BP 152/74
--- NOTE | 2017-01-24 16:30 | NUR ---
PATIENTS BLOOD SUGAR 281, WILL COVER WITH INSULIN.
[2017-01-24] MEDS ORDERED: BUPIVACAINE-MPF 0.25% 30 ML VIAL INJ ONE (17:38)
[2017-01-24] MEDS ORDERED: LIDOCAINE 1% 50 ML ONE (17:38)
--- NOTE | 2017-01-24 17:40 | NUR ---
OR STAFF HERE TO DIRECTIONAL BORE OPERATOR PATIENT. CONSENT IS SIGNED AND IN THE CHART.
[2017-01-24] MEDS: NACL 0.9% 1,000 ML IV SCH (17:56)
[2017-01-24] MEDS ORDERED: ONDANSETRON 4 MG/2 ML VIAL IVP PRN (18:00)
[2017-01-24] MEDS ORDERED: HYDROmorphone PFS 2 MG/ML SYR IVP PRN (18:00)
[2017-01-24] MEDS ORDERED: diphenhydrAMINE 50 MG/ML VIAL IVP PRN (18:00)
[2017-01-24] MEDS ORDERED: fentaNYL 0.05 MG/ML VIAL ONE (18:08)
[2017-01-24] MEDS ORDERED: MIDAZOLAM 2 MG/2 ML VIAL ONE (18:08)
--- NOTE | 2017-01-24 19:26 | NUR ---
ENDORSED PATIENT TO RESIDENTIAL MORTGAGE MANAGER RN FOR CONTINUITY OF CARE. PATIENT NOT BACK YET FROM OR.
--- NOTE | 2017-01-24 19:30 | NUR ---
RECEIVED REPORT FROM AM NURSE. PT IS OUT OF THE UNIT AT THIS TIME FOR TUNNELED CATH PLACEMENT.
--- NOTE | 2017-01-24 19:45 | NUR ---
RECEIVED REPORT FROM OR NURSE. PT'S FAMILY AT BEDSIDE. PT BACK TO BED, AOX4, AMBULATORY WITH ASSIST, ABLE TO VERBALIZE NEEDS. LEATHER STITCHER IN PLACE. PT DENIES CHEST PAIN, PT REPORTS SLIGHT SOB, SPO2 98% ON O2 3L NC, RR 22 EVEN AND SLIGHTLY LABORED, PT PLACED ON HIGH AQUINO'S, WILL MONITOR. BUE AND BLE EDEMA NOTED. DRYNESS AND TIGHT SKIN NOTED ON BLE. IV ACCESS ASYMPTOMATIC, PATENT AND INTACT. WILL HOLD IVF AT THIS TIME DUE TO PT ABOUT TO RECEIVED DIALYSIS. DISCUSSED AND REVIEWED PLAN OF CARE WITH PT AND PT'S FAMILY WHO VERBALIZES UNDERSTANDING. ALL NEEDS MET. SAFETY MEASURES ENSURED. CALL LIGHT WITHIN REACH. WILL CONTINUE TO MONITOR.
--- NOTE | 2017-01-24 19:50 | NUR ---
PER OR DR CATERINA CARY HAS SEEN AND APPROVED USE OF R UPPER CHEST TUNNELED CATH.
[2017-01-24 20:00] VITALS: BP 157/83
--- NOTE | 2017-01-24 20:00 | NUR ---
USED SPA RECEPTIONIST PHONE SERVICE, MARCUS, [id number], IN OBTAINING HEMODIALYSIS CONSENT. RISK AND BENEFITS EXPLAINED BY DR LLANOS TO PT AND PT'S FAMILY WHO VERBALIZED UNDERSTANDING, ALL QUESTIONS AND CONCERNS ANSWERED. CONSENT FOR HEMODIALYSIS SIGNED BY PT.
--- NOTE | 2017-01-24 20:40 | NUR ---
HELD DUE MED LASIX IVP DUE TO PT ABOUT TO HAVE HEMODIALYSIS. BLOOD GLUCOSE 241, ADMINISTERED INSULIN COVERAGE AND REMAINING DUE MEDS WITH EDUCATION. PT VERBALIZED UNDERSTANDING, TOLERATED MEDS WELL. ALL NEEDS MET. SAFETY MEASURES ENSURED. CALL LIGHT WITHIN REACH. WILL CONTINUE TO MONITOR.
[2017-01-25] VITALS (8 sets, daily range): BP systolic 124–174; BP diastolic 58–92
[2017-01-25] MEDS: FUROSEMIDE 100 MG/10 ML VIAL IV SCH ×2 (01:37→09:00)
--- NOTE | 2017-01-25 01:43 | NUR ---
SPOKE WITH DR LLANOS, MADE AWARE THAT 2100 MED LASIX WAS HELD AT DUE TO PT'S HEMODIALYSIS, AND PT'S BP 154/82, HR 97 AT THIS TIME. RECEIVED ORDERS TO GIVE 2100 MED LASIX IVP AT THIS TIME. ADMINISTERED LASIX IVP WITH EDUCATION. PT VERBALIZED UNDERSTANDING, TOLERATED MED WELL. ALL NEEDS MET. SAFETY MEASURES ENSURED. CALL LIGHT WITHIN REACH. WILL CONTINUE TO MONITOR.
[2017-01-25] MEDS: methylPREDNISolone SS 40 MG/ML VIAL IVP SCH ×3 (04:17→20:16)
--- NOTE | 2017-01-25 04:20 | NUR ---
PT SLEEPING COMFORTABLY, EASILY AROUSABLE TO NAME, NO S/S OF ACUTE DISTRESS, SPO2 96% ON O2 3L NC, RR 22 EVEN AND AT BASELINE. ADMINISTERED DUE MED SOLUMEDROL IVP ORDERED WITH EDUCATION. PT STATED "OK," TOLERATED MED WELL. ALL NEEDS MET. IVF TKO. SAFETY MEASURES ENSURED. CALL LIGHT WITHIN REACH. WILL CONTINUE TO MONITOR.
[2017-01-25] MEDS: BLOOD GLUCOSE MONITORING 1 DEV DEV FS SCH ×4 (06:49→20:18)
[2017-01-25] MEDS: INSULIN LISPRO SLIDING SCALE 100 UNITS/ML VIAL SUBQ PRN ×4 (06:51→20:20)
[2017-01-25 07:10] LABS: HEPATITIS A ANTIBODY IGM Negative (Negative); HEPATITIS B CORE AB TOTAL Negative (Negative); HEPATITIS B SURFACE ANTIBODY Non Reactive (.); HEPATITIS B SURFACE ANTIGEN Negative (Negative)
--- NOTE | 2017-01-25 07:15 | NUR ---
ENDORSED PLAN OF CARE TO AM NURSE. CONDITION STABLE.
[2017-01-25 07:16] LABS: BASOPHILS % (AUTO) 0.3 % (0.0-2.0); EOSINOPHILS % (AUTO) 0.2 % (0.0-4.0); HEMATOCRIT 27.4 % (36-52); HEMOGLOBIN 8.9 g/dL (12.0-18.0); LYMPHOCYTES # (AUTO) 0.3 K/uL (2.0-11.5); LYMPHOCYTES % (AUTO) 3.2 % (20.5-51.1); MEAN CORPUSCULAR HEMOGLOBIN 29 pg (27-31); MEAN CORPUSCULAR HGB CONC 32 g/dL (33-37); MEAN CORPUSCULAR VOLUME 91 fL (80-94); MONOCYTES # (AUTO) 0.4 K/uL (0.8-1.0); MONOCYTES % (AUTO) 4.4 % (1.7-9.3); NEUTROPHILS # (AUTO) 9.2 K/uL (1.8-7.7); PLATELET COUNT (AUTO) 219 K/uL (140-450); RED BLOOD CELL COUNT(AUTO) 3.03 MIL/uL (4.20-6.10); RED CELL DISTRIBUTION WIDTH 15.3 % (11.6-13.7); WHITE BLOOD COUNT (AUTO) 9.9 K/uL (4.8-10.8)
--- NOTE | 2017-01-25 07:20 | NUR ---
RECEIVED PT REPORT AT BEDSIDE FROM NIGHT NURSE. PT IS SLEEPING AND EASILY AROUSABLE. PT AWOKEN AND IS AAOX4. PT DENIES PAIN. PT ON O2 @ 3L VIA NC. PT HAS NON PITTING EDEMA ON BUE/BLE EXTREMITIES WITH XEROSIS DRY AND TIGHT SKIN. PT ON TELE MONITOR. NOTED IV ON THE L AC PATENT AND INTACT AND RT UPPER CHEST TUNNELED CATH FOR HD. PT WAS EXPLAINED POC FOR TODAY AND VERBALIZED UNDERSTANDING. THE BED IS IN LOW POSITION WITH CALL LIGHT WITHIN REACH.
[2017-01-25] MEDS: BUDESONIDE 0.5 MG/2 ML NEBU INH SCH ×2 (07:22→19:45)
[2017-01-25 08:00] LABS: ANION GAP 12.9 (8-16); CARBON DIOXIDE 28.1 mmol/L (21-32); CHLORIDE 103 mmol/L (98-107); GLUCOSE 176 mg/dL (74-106); SODIUM SERUM 141 mmol/L (136-145)
[2017-01-25 08:06] LABS: NEUTROPHILS % (AUTO) 91.9 % (42.2-75.2)
[2017-01-25 08:08] LABS: MAGNESIUM 2.9 mg/dL (1.8-2.4); PHOSPHORUS 7.3 mg/dL (2.5-4.9)
[2017-01-25 08:14] LABS: UREA NITROGEN, BLOOD 64 mg/dL (7-18)
[2017-01-25] MEDS ORDERED: LACTOBACILLUS RHAMNOSUS GG 1 EACH CAP PO SCH (09:00)
[2017-01-25] MEDS: HYDRAGUARD CREAM TP SCH ×2 (09:00→20:16)
[2017-01-25] MEDS: amLODIPine 5 MG TAB PO SCH (09:00)
--- NOTE | 2017-01-25 10:00 | NUR ---
ADMINISTERED SCHEDULED MEDICATIONS. PT SWALLOWED WITH NO DIFFICULTY. FAMILY AT BEDSIDE AND WERE EXPLAINED FOR TODAY. PT BP AND LASIX 80 MG IVP WERE HELD D/T HD LATER TODAY.
[2017-01-25] MEDS: CALCIUM ACETATE 667 MG TAB PO SCH ×3 (10:07→16:39)
[2017-01-25] MEDS: VIT-B COMP/VIT-C/FOLIC ACID 1 TAB PO SCH (10:07)
[2017-01-25] MEDS: ASPIRIN 81 MG TAB.CHEW PO SCH (10:07)
[2017-01-25] MEDS: LACTOBACILLUS RHAMNOSUS GG 1 EACH CAP PO SCH (10:08)
[2017-01-25] MEDS: FAMOTIDINE 20 MG TAB PO SCH (10:08)
[2017-01-25] MEDS: ATORVASTATIN 20 MG TAB PO SCH (10:08)
--- NOTE | 2017-01-25 10:15 | NUR ---
PT BEING SEEN BY DR TOLLIVER.
[2017-01-25] MEDS ORDERED: POTASSIUM CHLORIDE 10 MEQ TABER PO SCH (11:15)
[2017-01-25] MEDS ORDERED: FUROSEMIDE 100 MG/10 ML VIAL IV SCH (12:40)
[2017-01-25] MEDS ORDERED: amLODIPine 5 MG TAB PO SCH (12:40)
--- NOTE | 2017-01-25 12:50 | NUR ---
CAME INTO PATIENT'S ROOM AND IV WAS FOUND DISCONTINUED WITH CANNULA INTACT. NEW IV WAS INSERTED ON THE LT AC 22 G. ADMINISTERED SCHEDULED MEDICATIONS. PATIENT SWALLOWED WITHOUT DIFFICULTY. PATIENT'S FAMILY AT BEDSIDE. PATIENT'S BP IS 174/84. PT'S BP MEDICATIONS WERE GIVEN AMLODIPINE 10 MG PO AND IV LASIX [address] HONEY OCAMPO. WILL REASSESS BP IN ONE HR.
--- NOTE | 2017-01-25 14:00 | NUR ---
PT BP IS 155/79 HR 94. PT DENIES CHEST PAIN AND SOB. PT ON O2 @ 3L VIA NC.
[2017-01-25] MEDS: LEVOFLOXACIN 250 MG/D5 PREMIX 50 ML IV SCH (14:44)
--- NOTE | 2017-01-25 15:55 | NUR ---
PT BLOOD SUGAR ELEVATED 448, DR MÉNDEZ IS AWARE ORDERED TO GIVE 10 UNITS OF HUMALOG INSULIN FROM SLIDING SCALE.
--- NOTE | 2017-01-25 16:00 | NUR ---
HD NURSE ON UNIT BEGAN HD.
--- NOTE | 2017-01-25 17:23 | NUR ---
PT IS SLEEPING, CURRENTLY GETTING HD. PATIENT'S BP IS 139/84, HR 88, O2 @ 3L VIA NC, RESPIRATIONS 20. THE BED IS IN LOW POSITION WITH CALL LIGHT WITHIN REACH. WILL CONTINUE TO MONITOR.
[2017-01-25] MEDS: NACL 0.9% 1,000 ML IV SCH (18:08)
--- NOTE | 2017-01-25 18:59 | NUR ---
PT FINISHED HD, OUTPUT OF 3L. PT IS IN STABLE CONDITION, V/S WNL AND CHARTED, DENIES PAIN. FAMILY AT BEDSIDE. WILL CONTINUE TO MONITOR.
--- NOTE | 2017-01-25 19:00 | NUR ---
PATIENT'S REPORT WAS GIVEN AT BEDSIDE TO NIGHT NURSE. PT ENDORSED IN STABLE CONDITION.
--- NOTE | 2017-01-25 19:10 | NUR ---
RECEIVED PT IN STABLE CONDITION FROM AM NURSE. AWAKE ,ALERT AND ORIENTED X4. L[place] SPEAKING. ON TELE MONITOR. HD JUST FINISHED FEW MINUTES AGO. HD STILL INSIDE ROOM. ACCESS ON THE RT INTERNAL JUGULAR TUNNELED CATHETER. WITH DRESSING DRY AND INTACT. NO C/O ANY PAIN NOTED. WITH EDEMA ON BUE. BLE WITH DARK THICK SKIN DISORDER. PLAN OF CARE DISCUSSED AND VERBALIZED UNDERSTANDING. IVF INFUSING WELL ON THE LT AC#22. CLEAR AND INTACT. BED ON LOW POSITION. CALL LIGHT PLACED WITHIN EASY REACH. HAS [employer]. INSTRUCTED TO CALL IF NEED ANY ASSISTANCE. WILL CONTINUE TO MONITOR.
[2017-01-25] MEDS: ALBUTEROL SULFATE/IPRATROPIU 3 ML SOL IH PRN (19:45)
--- NOTE | 2017-01-25 20:20 | NUR ---
BLOOD SUGAR WAS CHECKED RESULT 276. INSULIN COVERAGE GIVEN SUBQ. PROVIDED WITH SOME SNACK. WILL CONTINUE TO MONITOR.
--- NOTE | 2017-01-25 22:00 | NUR ---
ASSISTED PT TO POSITIONED WELL ON BED READY TO GET SOME SLEEP.
[2017-01-26 00:10] VITALS: BP 134/56
--- NOTE | 2017-01-26 00:10 | NUR ---
MADE ROUNDS. VITAL SIGNS TAKEN. STABLE. NO C/O ANY DISCOMFORT NOR PAIN NOTED. WILL CONTINUE TO MONITOR.
--- NOTE | 2017-01-26 02:05 | NUR ---
MADE ROUNDS. PT IS ASLEEP NO S/S OF ANY DISCOMFORT NOR DISTRESS NOTED. ON O23L/NC. WILL CONTINUE TO MONITOR.
[2017-01-26 03:54] VITALS: BP 141/70
[2017-01-26] MEDS: methylPREDNISolone SS 40 MG/ML VIAL IVP SCH ×3 (04:25→20:51)
[2017-01-26] MEDS: BLOOD GLUCOSE MONITORING 1 DEV DEV FS SCH ×4 (06:05→20:28)
[2017-01-26] MEDS: INSULIN LISPRO SLIDING SCALE 100 UNITS/ML VIAL SUBQ PRN (06:06)
[2017-01-26 06:52] LABS: BASOPHILS % (AUTO) 0.2 % (0.0-2.0); EOSINOPHILS % (AUTO) 0.2 % (0.0-4.0); HEMATOCRIT 27.8 % (36-52); HEMOGLOBIN 9.1 g/dL (12.0-18.0); LYMPHOCYTES # (AUTO) 0.3 K/uL (2.0-11.5); LYMPHOCYTES % (AUTO) 3.8 % (20.5-51.1); MEAN CORPUSCULAR HEMOGLOBIN 29 pg (27-31); MEAN CORPUSCULAR HGB CONC 33 g/dL (33-37); MEAN CORPUSCULAR VOLUME 90 fL (80-94); MONOCYTES # (AUTO) 0.4 K/uL (0.8-1.0); MONOCYTES % (AUTO) 5.3 % (1.7-9.3); NEUTROPHILS # (AUTO) 6.5 K/uL (1.8-7.7); NEUTROPHILS % (AUTO) 90.5 % (42.2-75.2); PLATELET COUNT (AUTO) 209 K/uL (140-450); RED BLOOD CELL COUNT(AUTO) 3.08 MIL/uL (4.20-6.10); RED CELL DISTRIBUTION WIDTH 15.3 % (11.6-13.7); WHITE BLOOD COUNT (AUTO) 7.2 K/uL (4.8-10.8)
[2017-01-26 07:08] LABS: ANION GAP 11.9 (8-16); CARBON DIOXIDE 27.9 mmol/L (21-32); CHLORIDE 99 mmol/L (98-107); GLUCOSE 343 mg/dL (74-106); POTASSIUM 3.8 mmol/L (3.5-5.1); SODIUM SERUM 135 mmol/L (136-145); UREA NITROGEN, BLOOD 56 mg/dL (7-18)
[2017-01-26 07:10] LABS: CREATININE 4.1 mg/dL (0.7-1.3)
--- NOTE | 2017-01-26 07:20 | NUR ---
ENDORSED PT IN STABLE CONDITION TO AM NURSE.
--- NOTE | 2017-01-26 07:22 | NUR ---
RECEIVED PATIENT FROM [place] HELPER RN AT BEDSIDE FOR CONTINUITY OF CARE. PATIENT AWAKE, ORIENTED X4, PATIENT ON BEDREST WITH BEDSIDE COMMODE. SAFETY PRECAUTIONS IN PLACE. CALL LIGHT WITHIN REACH.
[2017-01-26 07:24] LABS: MAGNESIUM 2.4 mg/dL (1.8-2.4); PHOSPHORUS 5.5 mg/dL (2.5-4.9)
[2017-01-26 07:46] VITALS: BP 156/79
--- NOTE | 2017-01-26 07:50 | NUR ---
AWAKE AND ALERT PATIENT WITH BREAKFAST TRAY PATIENT C/O SOB
[2017-01-26] MEDS: ALBUTEROL SULFATE/IPRATROPIU 3 ML SOL IH PRN ×2 (07:52→20:23)
[2017-01-26] MEDS: BUDESONIDE 0.5 MG/2 ML NEBU INH SCH ×2 (07:52→20:23)
[2017-01-26] MEDS: VIT-B COMP/VIT-C/FOLIC ACID 1 TAB PO SCH (08:09)
[2017-01-26] MEDS: LACTOBACILLUS RHAMNOSUS GG 1 EACH CAP PO SCH (08:10)
[2017-01-26] MEDS: CALCIUM ACETATE 667 MG TAB PO SCH ×3 (08:10→17:38)
[2017-01-26] MEDS: ATORVASTATIN 20 MG TAB PO SCH (08:10)
[2017-01-26] MEDS: amLODIPine 5 MG TAB PO SCH (08:10)
[2017-01-26] MEDS: ASPIRIN 81 MG TAB.CHEW PO SCH (08:11)
[2017-01-26] MEDS: FAMOTIDINE 20 MG TAB PO SCH (08:11)
[2017-01-26] MEDS: FUROSEMIDE 100 MG/10 ML VIAL IV SCH (08:13)
[2017-01-26] MEDS: HYDRAGUARD CREAM TP SCH ×2 (08:15→20:51)
--- NOTE | 2017-01-26 08:30 | NUR ---
PT SITTING ON BED, FINISHED BREAKFAST. DENIES ANY PAIN OR DISCOMFORT AT THIS TIME. PT COOPERATIVE. NO SIGNS AND SYMPTOMS OF DISTRESS.
--- NOTE | 2017-01-26 11:34 | NUR ---
PT ALERT, AWAKE. ABLE TO MAKE NEEDS KNOWN. BLOOD SUGAR LEVEL CHECKED AT 537MG/DL. DR. WORLEY MADE AWARE, TO LET DR. MÉNDEZ KNOW. WILL FOLLOW UP.
[2017-01-26 11:44] VITALS: BP 154/76
--- NOTE | 2017-01-26 11:55 | NUR ---
DR. MÉNDEZ MADE AWARE OF LATEST BLOOD SUGAR LEVEL. WITH ORDERS MADE AND CARRIED OUT.
[2017-01-26] MEDS ORDERED: INSULIN LISPRO 100 UNITS/ML VIAL SUBQ SCH ×3 (12:00→20:45)
--- NOTE | 2017-01-26 14:00 | NUR ---
PPD SITE ON LEFT UPPER ARM CHECKED WITH 0 INDURATION AND NO REACTION NOTED. PT DENIES ANY SIGNS AND SYMPTOMS OF DISCOMFORT AT THIS TIME. WILL LET MD KNOW. Addendum: 01/26/17 at 1736 by Toshia Quiñonez RN PPD SITE AT RIGHT UPPER ARM NOT ON LEFT ARM.
--- NOTE | 2017-01-26 14:47 | NUR ---
CALLED JAQUI [phone] FOR DIALYSIS SCHEDULE TOMORROW 01-27-17 AT 0900, MADE AWARE.
[2017-01-26 16:00] VITALS: BP 160/88
--- NOTE | 2017-01-26 16:12 | NUR ---
DR. WORLEY MADE AWARE OF LATEST BLOOD SUGAR OF 518 MG/DL, AND NOTICED THAT PT HAS OCCASIONAL DRY COUGH, AND LATEST BLOOD PRESSURE 160/88. PT ASYMPTOMATIC. NO SOB NOTED MAINTAINED ON 02 AT 3LPM. DENIES ANY PAIN OR DISCOMFORT AT THIS TIME. TO PUT ORDER.
--- NOTE | 2017-01-26 17:40 | NUR ---
DR. MÉNDEZ MADE AWARE OF LATEST BLOOD SUGAR 518 MG/DL. ORDERS JUST MADE AND CARRIED OUT. DR. MÉNDEZ AWARE OF BLOOD PRESSURE OF 160/88 HR 95 BPM, WITH NO NEW ORDERS.
[2017-01-26] MEDS ORDERED: INSULIN DETEMIR 100 UNITS/ML 10 ML VIAL SUBQ SCH (19:00)
--- NOTE | 2017-01-26 19:18 | NUR ---
PATIENT BLOOD SUGAR LEVEL OF 594 MG/DL AT 1840. LEVEMIR [address] PAEZ MADE AWARE. MD WOULD WANT TO CHECK BLOOD SUGAR AT 2000 AND WILL PUT IN AN ORDER.
--- NOTE | 2017-01-26 19:30 | NUR ---
RECEIVED PT REPORT FROM AM NURSE. PT IS SITTING UP IN THE CHAIR, WITH AT BEDSIDE. ON 03 24 VIA CO. NO SIGNS OF ACUTE DISTRESS NOTED.RESPIRATIONS EVEN AND UNLABORED. SKIN COLOR APPROPRIATE TO ETHNICITY. HAS PITTING EDEMA ON BUE/BLE. IV ACCESS ON LEFT AC INTACT, PATENT AND ASYMPTOMATIC. RIGHT UPPER CHEST CATH FOR HEMODIALYSIS. PLAN OF CARE DISCUSSED, PT VERBALIZED UNDERSTANDING. BED IN LOW POSITION, BILATERAL HALF SIDE RAILS UP, CALL LIGHT WITHIN REACH, WILL CONTINUE TO MONITOR.
--- NOTE | 2017-01-26 19:35 | NUR ---
PT KEPT CLEAN, DRY, AND COMFORTABLE. NEEDS ATTENDED. ENDORSED TO NEXT SHIFT. PT ON STABLE CONDITION. FOR CONTINUITY OF CARE. ENDORSED TO RECHECK BLOOD SUGAR AT 1999 AND LET MD KNOW.
[2017-01-26 20:00] VITALS: BP 157/89
--- NOTE | 2017-01-26 20:44 | NUR ---
DR. LLANOS NOTIFIED OF PT BLOOD SUGAR OF 578. DR LLANOS STATED SHE WILL LET ME KNOW WHAT WILL BE DONE AND NOTIFY ME OF ANY NEW ORDERS.
[2017-01-26] MEDS: CARVEDILOL 6.25 MG TAB PO SCH (20:50)
--- NOTE | 2017-01-26 22:00 | NUR ---
PER DR LLANOS, TO ADMINISTER 10 UNITS OF HUMALOG FOR BLOOD SUGAR OF 578. 10 UNITS ADMINISTERED, PT TOLERATED WELL. WILL CONTINUE TO MONITOR.
[2017-01-27] VITALS: BP 141/75
--- NOTE | 2017-01-27 02:35 | NUR ---
DR LLANOS, ORDERED TO CHECK PT BLOOD SUGAR AGAIN, AND ADMINISTER INSULIN BASED ON SLIDING SCALE. NOTED, WILL CARRY OUT.
--- NOTE | 2017-01-27 02:46 | NUR ---
BLOOD SUGAR IS 359. WILL ADMINISTER HUMALOG INSULIN 15 UNITS BASED ON SLIDING SCALE.
[2017-01-27] MEDS: INSULIN LISPRO SLIDING SCALE 100 UNITS/ML VIAL SUBQ PRN ×5 (02:48→21:56)
--- NOTE | 2017-01-27 02:55 | NUR ---
ADMINISTERED 15 UNITS INSULIN FOR BLOOD SUGAR OF 359. PT TOLERATED WELL, WILL CONTINUE TO MONITOR.
--- NOTE | 2017-01-27 03:25 | NUR ---
PT SLEEPING, AROUSABLE TO VOICE. RESPIRATIONS EVEN AND UNLABORED. NO SIGNS OF ACUTE DISTRESS NOTED. BED IN LOW POSITION, BILATERAL HALF SIDE RAILS UP, CALL LIGHT WITHIN REACH, WILL CONTINUE TO MONITOR.
[2017-01-27 04:00] VITALS: BP 145/70
--- NOTE | 2017-01-27 04:10 | NUR ---
RECHECKED BLOOD SUGAR. RESULTS OF 259. NOTIFIED DR. LLANOS OF RESULTS. NO NEED TO ADMINISTER MORE INSULIN AT THIS TIME. WILL RECHECK BLOOD SUGAR AT 0730 AND IF NEEDED ADMINISTER INSULIN THEN.
[2017-01-27 05:58] LABS: BASOPHILS % (AUTO) 0.3 % (0.0-2.0); EOSINOPHILS # (AUTO) 0.1 K/uL (0-0.4); EOSINOPHILS % (AUTO) 0.7 % (0.0-4.0); HEMOGLOBIN 9.2 g/dL (12.0-18.0); LYMPHOCYTES # (AUTO) 0.2 K/uL (2.0-11.5); MEAN CORPUSCULAR HEMOGLOBIN 29 pg (27-31); MEAN CORPUSCULAR HGB CONC 32 g/dL (33-37); MEAN CORPUSCULAR VOLUME 91 fL (80-94); MONOCYTES # (AUTO) 0.7 K/uL (0.8-1.0); MONOCYTES % (AUTO) 8.1 % (1.7-9.3); NEUTROPHILS % (AUTO) 87.9 % (42.2-75.2); PLATELET COUNT (AUTO) 196 K/uL (140-450); RED CELL DISTRIBUTION WIDTH 14.8 % (11.6-13.7)
[2017-01-27] MEDS: BLOOD GLUCOSE MONITORING 1 DEV DEV FS SCH ×4 (06:40→21:53)
[2017-01-27 06:46] LABS: ANION GAP 13.1 (8-16); CARBON DIOXIDE 26.4 mmol/L (21-32); CHLORIDE 96 mmol/L (98-107); GLUCOSE 244 mg/dL (74-106); POTASSIUM 3.5 mmol/L (3.5-5.1); SODIUM SERUM 132 mmol/L (136-145)
[2017-01-27 07:00] LABS: CREATININE 5.1 mg/dL (0.7-1.3); UREA NITROGEN, BLOOD 85 mg/dL (7-18)
--- NOTE | 2017-01-27 07:05 | NUR ---
ENDORSED PT TO AM NURSE FOR CONTINUITY OF CARE. PT IS IN STABLE CONDITION.
--- NOTE | 2017-01-27 07:13 | NUR ---
RECEIVED PT IN BED. AWAKE. ALERT ORIENTEDX4. NO SOB NOTED. DENIES ANY PAIN OR DISCOMFORT AT THIS TIME. AMBULATORY. SAFETY PRECAUTION IN PLACE. CALL LIGHT WITHIN REACH.
[2017-01-27] MEDS: BUDESONIDE 0.5 MG/2 ML NEBU INH SCH ×2 (07:51→20:02)
[2017-01-27] MEDS: CALCIUM ACETATE 667 MG TAB PO SCH ×3 (07:59→16:54)
[2017-01-27] MEDS: HYDROcodone/APAP 7.5/325 MG 1 TAB PO PRN (07:59)
[2017-01-27 08:00] VITALS: BP 135/62
[2017-01-27] MEDS: ATORVASTATIN 20 MG TAB PO SCH (08:19)
[2017-01-27] MEDS: VIT-B COMP/VIT-C/FOLIC ACID 1 TAB PO SCH (08:19)
[2017-01-27] MEDS: LACTOBACILLUS RHAMNOSUS GG 1 EACH CAP PO SCH (08:19)
[2017-01-27] MEDS: FAMOTIDINE 20 MG TAB PO SCH (08:20)
[2017-01-27] MEDS: ASPIRIN 81 MG TAB.CHEW PO SCH (08:20)
--- NOTE | 2017-01-27 08:24 | NUR ---
DIALYSIS NURSE CAME TO SEE PT FOR DIALYSIS TREATMENT. HELD LASIX AND BLOOD PRESSURE MEDS.
[2017-01-27] MEDS: FUROSEMIDE 100 MG/10 ML VIAL IV SCH (08:25)
[2017-01-27] MEDS: CARVEDILOL 6.25 MG TAB PO SCH ×2 (08:26→22:01)
[2017-01-27] MEDS: amLODIPine 5 MG TAB PO SCH (08:26)
--- NOTE | 2017-01-27 08:56 | NUR ---
DR. MÉNDEZ MADE AWARE OF LATEST BLOOD SUGAR 136 MG/DL AND PT HAS SCHEDULED LEVEMIR [address] MÉNDEZ SHE WILL CHANGE ORDER TO LEVEMIR AT HS.
[2017-01-27] MEDS ORDERED: INSULIN DETEMIR 100 UNITS/ML 10 ML VIAL SUBQ SCH ×3 (09:00→21:00)
[2017-01-27] MEDS: HYDRAGUARD CREAM TP SCH ×2 (09:00→21:00)
--- NOTE | 2017-01-27 09:49 | NUR ---
DIALYSIS NURSE NIHARIKA CAME WITH TORB FROM DR. TOLLIVER FOR HEPARIN 5,000 UNITS ONCE FOR HEMODIALYSIS. WITH ORDERS MADE AND CARRIED OUT.
[2017-01-27 12:00] VITALS: BP 133/72
--- NOTE | 2017-01-27 12:00 | NUR ---
DIALYSIS FINISHED WITH AN OUTPUT OF 3L. PT AWAKE. ALERT ORIENTEDX4. MAINTAINED ON 02 AT 3LPM NC. DENIES ANY PAIN OR DISCOMFORT AT THIS TIME.
--- NOTE | 2017-01-27 14:25 | NUR ---
01/27/17 RD INITIAL ASSESSMENT COMPLETED PLEASE REFER TO NUTRITION ASSESSMENT UNDER CARE ACTIVITY FOR ESTIMATED NUTRITIONAL NEEDS. 1. CONTINUE RENAL, CCHO 60 GM DIET TOLERATED PER MD -APPROPRIATE DIET FOR MEDICAL HISTORY -PT MEETING 100% OF ESTIMATED KCAL AND PROTEIN NEEDS 2. RD PROVIDED PT WITH RENAL DIET EDUCATION 3. RD TO FOLLOW-UP 5-7 DAYS, LOW RISK VIRY BRADSHAW, RD
[2017-01-27] MEDS: LEVOFLOXACIN 250 MG/D5 PREMIX 50 ML IV SCH (15:13)
--- NOTE | 2017-01-27 15:22 | NUR ---
RECEIVED A CALL FROM PHARMACIST REGARDING LEVAQUIN ORDER THAT NEEDS TO BE RENEWED. DR. MÉNDEZ MADE AWARE AND SAID WILL LOOK INTO IT.
[2017-01-27 15:59] VITALS: BP 142/74
--- NOTE | 2017-01-27 17:00 | NUR ---
DAUGHTER FIDEL CAME TO SEE PT. REQUESTED TO TALK TO DOCTOR. DR. MÉNDEZ MADE AWARE AND CAME TO SEE PT'S FAMILY.
--- NOTE | 2017-01-27 18:25 | NUR ---
PT KEPT CLEAN, DRY AND COMFORTABLE. NEEDS ATTENDED, WILL ENDORSE TO NEXT SHIFT. PT ON STABLE CONDITION FOR CONTINUITY OF CARE.
--- NOTE | 2017-01-27 19:15 | NUR ---
RECEIVED PT REPORT FROM AM NURSE. PT IS SITTING UP IN THE CHAIR, WITH FAMILY MEMBER AT BEDSIDE. NO SIGNS OF ACUTE DISTRESS NOTED. RESPIRATIONS EVEN AND UNLABORED. SKIN COLOR APPROPRIATE TO ETHNICITY. HAS PITTING EDEMA ON BUE/BLE. IV ACCESS ON LEFT AC INTACT, PATENT AND ASYMPTOMATIC. RIGHT UPPER CHEST CATH FOR HEMODIALYSIS. PLAN OF CARE DISCUSSED, PT VERBALIZED UNDERSTANDING. BED IN LOW POSITION, BILATERAL HALF SIDE RAILS UP, CALL LIGHT WITHIN REACH, WILL CONTINUE TO MONITOR
[2017-01-27 20:00] VITALS: BP 137/68
[2017-01-28] VITALS (8 sets, daily range): BP systolic 92–142; BP diastolic 46–73
[2017-01-28] MEDS: BLOOD GLUCOSE MONITORING 1 DEV DEV FS SCH ×4 (06:58→20:28)
--- NOTE | 2017-01-28 06:59 | NUR ---
BLOOD SUGAR RESULTS OF 69. PER HUMALOG SLIDING SCALE NO INSULIN COVERAGE NEEDED. GAVE PT ORANGE JUICE TO HELP BRING UP BLOOD SUGAR. NO SIGNS OF ACUTE DISTRESS, PT STATES HE FEELS WELL. WILL CONTINUE TO MONITOR.
[2017-01-28 07:07] LABS: BASOPHILS # (AUTO) 0.1 K/uL (0.00-0.22); BASOPHILS % (AUTO) 0.8 % (0.0-2.0); EOSINOPHILS # (AUTO) 0.1 K/uL (0-0.4); EOSINOPHILS % (AUTO) 0.8 % (0.0-4.0); HEMATOCRIT 29.4 % (36-52); HEMOGLOBIN 9.5 g/dL (12.0-18.0); LYMPHOCYTES # (AUTO) 1.4 K/uL (2.0-11.5); LYMPHOCYTES % (AUTO) 11.6 % (20.5-51.1); MEAN CORPUSCULAR HEMOGLOBIN 29 pg (27-31); MEAN CORPUSCULAR HGB CONC 32 g/dL (33-37); MEAN CORPUSCULAR VOLUME 90 fL (80-94); MONOCYTES # (AUTO) 1.1 K/uL (0.8-1.0); MONOCYTES % (AUTO) 8.9 % (1.7-9.3); NEUTROPHILS # (AUTO) 9.6 K/uL (1.8-7.7); NEUTROPHILS % (AUTO) 77.9 % (42.2-75.2); PLATELET COUNT (AUTO) 184 K/uL (140-450); RED BLOOD CELL COUNT(AUTO) 3.26 MIL/uL (4.20-6.10); RED CELL DISTRIBUTION WIDTH 14.8 % (11.6-13.7); WHITE BLOOD COUNT (AUTO) 12.3 K/uL (4.8-10.8)
--- NOTE | 2017-01-28 07:10 | NUR ---
RECEIVED PT REPORT AT BEDSIDE FROM NIGHT NURSE. PT IS SLEEPING AND EASILY AROUSABLE. PT AWOKEN AND IS AAOX3. PT STATED PAIN AT BOTH HIPS 6/10. PT ON ROOM AIR. PT HAS NON PITTING EDEMA ON BUE/BLE EXTREMITIES WITH XEROSIS DRY AND TIGHT SKIN. PT ON TELE MONITOR. NOTED IV ON THE L AC PATENT AND INTACT AND RT UPPER CHEST TUNNELED CATH FOR HD. PT WAS EXPLAINED POC FOR TODAY AND VERBALIZED UNDERSTANDING. THE BED IS IN LOW POSITION WITH CALL LIGHT WITHIN REACH.
[2017-01-28 07:19] LABS: CARBON DIOXIDE 29.2 mmol/L (21-32); CHLORIDE 100 mmol/L (98-107); GLUCOSE 91 mg/dL (74-106); POTASSIUM 3.2 mmol/L (3.5-5.1); SODIUM SERUM 136 mmol/L (136-145)
[2017-01-28 07:26] LABS: UREA NITROGEN, BLOOD 64 mg/dL (7-18)
[2017-01-28 07:27] LABS: CREATININE 4.1 mg/dL (0.7-1.3)
[2017-01-28] MEDS: BUDESONIDE 0.5 MG/2 ML NEBU INH SCH ×2 (07:30→20:02)
[2017-01-28 07:40] LABS: MAGNESIUM 2.2 mg/dL (1.8-2.4); PHOSPHORUS 4.5 mg/dL (2.5-4.9)
[2017-01-28] MEDS ORDERED: POTASSIUM CHLORIDE 10 MEQ TABER PO SCH (08:15)
[2017-01-28] MEDS: DEXTROSE 50% 50 ML SYR IVP PRN (08:50)
--- NOTE | 2017-01-28 08:50 | NUR ---
PT BLOOD SUGAR WAS 55. ADMINISTERED 50% DEXTROSE ORDERED FOR BLOOD SUGAR LESS THAN 60. PT DENIES SHAKINESS, DIZZINESS OR HUNGER. PT WAS SAT UP AND ENCOURAGED TO EAT BREAKFAST. PT SHOWS NO S/S OF ACUTE DISTRESS ON ROOM AIR. PT WAS GIVEN PAIN MEDICATION FOR BILATERAL HIP PAIN OF 6/10, WILL REASSESS IN ONE HR. BED IN LOW POSITION. WILL CONTINUE TO MONITOR.
[2017-01-28] MEDS: CALCIUM ACETATE 667 MG TAB PO SCH ×3 (08:51→17:54)
[2017-01-28] MEDS: FAMOTIDINE 20 MG TAB PO SCH (08:52)
[2017-01-28] MEDS: ASPIRIN 81 MG TAB.CHEW PO SCH (08:52)
[2017-01-28] MEDS: VIT-B COMP/VIT-C/FOLIC ACID 1 TAB PO SCH (08:52)
[2017-01-28] MEDS: LACTOBACILLUS RHAMNOSUS GG 1 EACH CAP PO SCH (08:52)
[2017-01-28] MEDS: ATORVASTATIN 20 MG TAB PO SCH (08:52)
[2017-01-28] MEDS: amLODIPine 5 MG TAB PO SCH (08:53)
[2017-01-28] MEDS: CARVEDILOL 6.25 MG TAB PO SCH ×2 (08:55→20:31)
[2017-01-28] MEDS: FUROSEMIDE 100 MG/10 ML VIAL IV SCH (08:56)
[2017-01-28] MEDS: HYDROcodone/APAP 7.5/325 MG 1 TAB PO PRN (09:06)
[2017-01-28] MEDS: HYDRAGUARD CREAM TP SCH ×2 (09:06→20:37)
--- NOTE | 2017-01-28 09:18 | NUR ---
PT BLOOD SUGAR IS NOW 170 POST MEAL AND 50% DEXTROSE. WILL CONTINUE TO MONITOR.
--- NOTE | 2017-01-28 11:59 | NUR ---
ADMINISTERED SCHEDULED MEDICATIONS. PT SWALLOWED WITHOUT DIFFICULTY. PT SITTING IN CHAIF AND SHOWS NO S/S OF ACUTE DISTRESS ON ROOM AIR. PATIENT'S FAMILY AT BEDSIDE.
--- NOTE | 2017-01-28 13:40 | NUR ---
PT IS RESTING IN CHAIR AND SHOWS NO S/S OF ACUTE DISTRESS ON ROOM AIR. FAMILY PRESENT AT SIDE. ALL OF PATIENT'S NEEDS MET AT THIS TIME. WILL CONTINUE TO MONITOR.
--- NOTE | 2017-01-28 15:35 | NUR ---
PT IS RESTING IN CHAIR AND SHOWS NO S/S OF ACUTE DISTRESS ON ROOM AIR. FAMILY PRESENT AT SIDE AND WATCHING TV. ALL OF PATIENT'S NEEDS MET AT THIS TIME. WILL CONTINUE TO MONITOR.
--- NOTE | 2017-01-28 16:11 | NUR ---
SPOKE WITH DR MÉNDEZ REGARDING PT NOT BEING ON ABX'S AT THIS TIME. IS AWARE.
[2017-01-28] MEDS: INSULIN LISPRO SLIDING SCALE 100 UNITS/ML VIAL SUBQ PRN ×2 (17:59→20:29)
--- NOTE | 2017-01-28 18:00 | NUR ---
ADMINISTERED SCHEDULED MEDICATIONS. PT SWALLOWED WITH NO DIFFICULTY. FAMILY IS AT BEDSIDE. PATIENT DENIES PAIN AND SOB. ALL OF PATIENT'S NEEDS ARE MET AT THIS TIME WILL CONTINUE TO MONITOR.
--- NOTE | 2017-01-28 19:15 | NUR ---
RECEIVED PT IN STABLE CONDITION FROM AM NURSE. AWAKE,ALERT AND ORIENTED X4. INDONESIAN SPEAKING. ON TELE MONITOR -SR. AMBULATORY TO BR WITH NO ACUTE RESPIRATORY DISTRESS NOTED. HAS HL ON THE LT AC#22, CLEAR AND PATENT. PT HAS ESRD , WITH RT INTERNAL JUGULAR CRISTINO SPLIT TUNNELED CATH. DRESSING CLEAN AND DRY. WITH BLE SKIN MARIVEL AND THICKNESS. PLAN OF CARE DISCUSSED AND VERBALIZED UNDERSTANDING. BED ON LOW POSITION, CALL LIGHT PLACED WITHIN EASY REACH. WILL CONTINUE TO MONITOR.
--- NOTE | 2017-01-28 20:42 | NUR ---
BLOOD SUGAR TONIGHT IS 216. HUMALOG 6 UNITS SUBQ COVERAGE GIVEN. DR. LLANOS,RESIDENT MADE AWARE THAT PT BS DROPPED TODAY LIKE ONLY 55. PT HAS LEVEMIR ORDER. SHE SAID SHE IS GOING TO CHANGE THE DOSAGE.
[2017-01-28] MEDS: INSULIN DETEMIR 100 UNITS/ML 10 ML VIAL SUBQ SCH (20:56)
--- NOTE | 2017-01-28 20:56 | NUR ---
BLOOD SUGAR WAS 216. INSULIN COVERAGE AND LEVEMIR ORDERED GIVEN SUB Q. PROVIDED SOME SNACK ,PIECE OF BREAD, APPLE JUICE. WILL CONTINUE TO MONITOR.
[2017-01-28] MEDS ORDERED: INSULIN DETEMIR 100 UNITS/ML 10 ML VIAL SUBQ SCH (21:00)
--- NOTE | 2017-01-28 22:00 | NUR ---
MADE ROUNDS. PT IS ASLEEP. NO S/S OF ANY DISCOMFORT NOR DISTRESS NOTED. WILL CONTINUE TO MONITOR.
--- NOTE | 2017-01-29 02:00 | NUR ---
MADE ROUNDS. PT ASLEEP. NO S/S OF ANY DISCOMFORT NOR PAIN NOTED.
[2017-01-29 03:50] VITALS: BP 142/75
[2017-01-29] MEDS: BLOOD GLUCOSE MONITORING 1 DEV DEV FS SCH ×4 (06:04→21:57)
[2017-01-29] MEDS: INSULIN LISPRO SLIDING SCALE 100 UNITS/ML VIAL SUBQ PRN ×4 (06:06→21:59)
--- NOTE | 2017-01-29 06:06 | NUR ---
BLOOD SUGAR WAS CHECKED THIS AM RESULT 160. INSULIN COVERAGE GIVEN.
[2017-01-29 07:04] LABS: HEMATOCRIT 29.6 % (36-52); HEMOGLOBIN 9.4 g/dL (12.0-18.0); MEAN CORPUSCULAR HEMOGLOBIN 29 pg (27-31); MEAN CORPUSCULAR HGB CONC 32 g/dL (33-37); MEAN CORPUSCULAR VOLUME 91 fL (80-94); PLATELET COUNT (AUTO) 178 K/uL (140-450); RED BLOOD CELL COUNT(AUTO) 3.27 MIL/uL (4.20-6.10); RED CELL DISTRIBUTION WIDTH 15.1 % (11.6-13.7)
--- NOTE | 2017-01-29 07:10 | NUR ---
ENDORSED PT IN STABLE CONDITION TO AM NURSE.
[2017-01-29 07:14] LABS: ANION GAP 11.3 (8-16); CARBON DIOXIDE 28.3 mmol/L (21-32); CHLORIDE 97 mmol/L (98-107); GLUCOSE 158 mg/dL (74-106); POTASSIUM 3.6 mmol/L (3.5-5.1); SODIUM SERUM 133 mmol/L (136-145)
[2017-01-29 07:15] LABS: MAGNESIUM 2.1 mg/dL (1.8-2.4); PHOSPHORUS 4.9 mg/dL (2.5-4.9)
[2017-01-29 07:23] LABS: CREATININE 4.7 mg/dL (0.7-1.3); UREA NITROGEN, BLOOD 80 mg/dL (7-18)
[2017-01-29] MEDS: BUDESONIDE 0.5 MG/2 ML NEBU INH SCH ×2 (07:30→20:40)
[2017-01-29 08:00] VITALS: BP 132/58
[2017-01-29] MEDS: amLODIPine 5 MG TAB PO SCH (08:28)
[2017-01-29] MEDS: VIT-B COMP/VIT-C/FOLIC ACID 1 TAB PO SCH (08:28)
[2017-01-29] MEDS: CALCIUM ACETATE 667 MG TAB PO SCH ×3 (08:28→16:12)
[2017-01-29] MEDS: CARVEDILOL 6.25 MG TAB PO SCH ×2 (08:29→20:15)
[2017-01-29] MEDS: LACTOBACILLUS RHAMNOSUS GG 1 EACH CAP PO SCH (08:29)
[2017-01-29] MEDS: ASPIRIN 81 MG TAB.CHEW PO SCH (08:29)
[2017-01-29] MEDS: HYDRAGUARD CREAM TP SCH ×2 (08:29→21:24)
[2017-01-29] MEDS: ATORVASTATIN 20 MG TAB PO SCH (08:29)
[2017-01-29] MEDS: FAMOTIDINE 20 MG TAB PO SCH (08:29)
[2017-01-29] MEDS: HYDROcodone/APAP 7.5/325 MG 1 TAB PO PRN ×2 (08:30→20:15)
--- NOTE | 2017-01-29 08:30 | NUR ---
ADMINISTERED SCHEDULED MEDICATION. PATIENT SWALLOWED WITHOUT DIFFICULTY. PT WAS GIVEN PAIN MEDICATION FOR BILATERAL HIP PAIN OF 6/10, WILL REASSESS IN ONE HR. BED IN LOW POSITION. WILL CONTINUE TO MONITOR.
[2017-01-29 08:34] LABS: BASOPHILS % (MANUAL) 0 % (0-2); EOSINOPHILS % (MANUAL) 3 % (0-4); LYMPHOCYTES % (MANUAL) 9 % (20-46); MONOCYTES % (MANUAL) 12 % (5-12)
--- NOTE | 2017-01-29 10:30 | NUR ---
PATIENT IS RESTING IN BED AND SHOWS NO S/S OF ACUTE DISTRESS ON ROOM AIR. THE BED IS IN LOW POSITION WITH CALL LIGHT WITHIN REACH. FAMILY MEMBER AT BEDSIDE.
--- NOTE | 2017-01-29 11:40 | NUR ---
SCHEDULED MEDICATIONS ADMINISTERED. PATIENT SWALLOWED WITH NO DIFFICULTY. FAMILY AT BEDSIDE. ALL OF PATIENT'S NEEDS MET AT THIS TIME.
[2017-01-29 12:00] VITALS: BP 112/51
--- NOTE | 2017-01-29 13:00 | NUR ---
PATIENT WAS TAKEN OF TELE, NOW ON MS. PATIENT IS RESTING COMFORTABLY ON SIDE OF THE BED. PATIENT'S FAMILY AT BEDSIDE. PATIENT DENIES PAIN AND SOB. WILL CONTINUE TO MONITOR.
--- NOTE | 2017-01-29 14:40 | NUR ---
PATIENT HAS FAMILY AT BEDSIDE. PATIENT DENIES SOB, DYSPNEA, AND PAIN. ALL OF PATIENT'S NEEDS MET AT THIS TIME. WILL CONTINUE TO MONITOR.
--- NOTE | 2017-01-29 15:30 | NUR ---
PATIENT SITTING AT SIDE OF THE BED. PATIENT DENIES SOB, DYSPNEA, AND PAIN. ALL OF PATIENT'S NEEDS MET AT THIS TIME. WILL CONTINUE TO MONITOR.
[2017-01-29 16:00] VITALS: BP 114/63
--- NOTE | 2017-01-29 16:30 | NUR ---
ADMINISTERED SCHEDULED MEDICATIONS. PATIENT SITTING ON CHAIR AT BEDSIDE. FAMILY AT BEDSIDE. PT DENIES PAIN AND SOB. WILL CONTINUE TO MONITOR.
--- NOTE | 2017-01-29 17:15 | NUR ---
PATIENT IS RESTING IN CHAIR AT BEDSIDE WITH FAMILY PRESENT AT SIDE. PATIENT IS AAOX3 AND DENIES SOB, DYSPNEA, AND PAIN. ALL OF PATIENTS NEEDS MET AT THIS TIME. WILL CONTINUE TO MONITOR.
--- NOTE | 2017-01-29 17:45 | NUR ---
DR TOLLIVER PLACED ORDERS FOR HD TOMORROW. JAQUI WAS NOTIFIED OF HD ORDER FOR TOMORROW AT 0800.
--- NOTE | 2017-01-29 19:10 | NUR ---
GAVE REPORT AT BEDSIDE TO NIGHT NURSE. PATIENT ENDORSED IN STABLE CONDITION.
--- NOTE | 2017-01-29 19:11 | NUR ---
PATIENT IS CURRENTLY AWAKE ALERT AND ORIENTED SITTING IN A CHAIR DENIES PAIN AT THIS TIME. AND DAUGHTER AT BEDSIDE TALKING TO THE PATIENT.IV SL CURRENTLY IN PLACE AND HAS A TUNNELED PERM A CATHETER TO HIS RT UPPER CHEST IN PLACE DRESSING REMAINS DRY AND INTACT.PATIENT HAS SOME WEAKNESS WHEN WALKING AND ENCOURAGED TO ASK FOR ASSISTANCE PATIENT VERBALIZES UNDERSTANDING I OFFERED THE URINAL TO THE PATIENT BUT PATIENT REFUSED.BOTH LOWER EXTREMITIES ARE VERY DRY AND SCALY.PATIENT NEEDS MET AT THIS TIME.WILL CONTINUE TO MONITOR.CALL LIGHT WITHIN REACH.
[2017-01-29 20:00] VITALS: BP 129/90
--- NOTE | 2017-01-29 20:00 | NUR ---
Patient's Plan of Care was discussed and reviewed with NARROW GAUGE ENGINEER: TAMIR FRANZ
--- NOTE | 2017-01-29 21:26 | NUR ---
PATIENT WAS GIVEN HIS ROUTINE MEDS PATIENT IS CALM AND VERY COMPLIANT. REINFORCEMENT DONE TO CALL FOR ASSISTANCE PATIENT VERBALIZES UNDERSTANDING.
[2017-01-29] MEDS: INSULIN DETEMIR 100 UNITS/ML 10 ML VIAL SUBQ SCH (22:00)
--- NOTE | 2017-01-29 22:10 | NUR ---
PATIENT WAS A GIVEN A HS SNACK AND WAS EDUCATED ON THE IMPORTANCE OF EATING HIS HS SNACK AND PATIENT VERBALIZES UNDERSTANDING HE SAID HE WILL EAT IT.WILL CONTINUE TO MONITOR.
--- NOTE | 2017-01-29 23:30 | NUR ---
I CALLED AND SPOKE TO JAQUI AND SHE TOLD ME SHE KNOWS AND ITS THE THIRD TIME SHE HAS BEEN CALLED TO BE INFORMED THAT PATIENT WILL HAVE DIALYSIS TOMORROW.
[2017-01-30 00:55] VITALS: BP 127/63
--- NOTE | 2017-01-30 00:55 | NUR ---
PATIENT IS SLEEPING COMFORTABLY IN BED WAS WOKEN UP FOR VITAL SIGNS PATIENT DENIES PAIN AND ANY SOB AT THIS TIME.WILL CONTINUE TO MONITOR.CALL LIGHT WITHIN REACH.
--- NOTE | 2017-01-30 02:38 | NUR ---
PATIENT IS CURRENTLY SLEEPING WELL IN BED NEEDS MET WILL CONTINUE TO MONITOR.
--- NOTE | 2017-01-30 03:40 | NUR ---
PATIENT SLEEPING IN BED COVERED WITH HIS BLANKETS. NO DISTRESS WILL CONTINUE TO MONITOR.
[2017-01-30] MEDS: BLOOD GLUCOSE MONITORING 1 DEV DEV FS SCH ×4 (05:49→21:06)
[2017-01-30] MEDS: INSULIN LISPRO SLIDING SCALE 100 UNITS/ML VIAL SUBQ PRN ×4 (05:51→21:13)
--- NOTE | 2017-01-30 06:00 | NUR ---
PATIENT STABLE SLEEPING IN BED.WILL CONTINUE TO MONITOR.
[2017-01-30 06:18] LABS: BASOPHILS # (AUTO) 0.1 K/uL (0.00-0.22); EOSINOPHILS # (AUTO) 0.5 K/uL (0-0.4); HEMATOCRIT 27.3 % (36-52); HEMOGLOBIN 8.8 g/dL (12.0-18.0); LYMPHOCYTES # (AUTO) 1.2 K/uL (2.0-11.5); LYMPHOCYTES % (AUTO) 10.2 % (20.5-51.1); MEAN CORPUSCULAR HEMOGLOBIN 29 pg (27-31); MEAN CORPUSCULAR HGB CONC 32 g/dL (33-37); MEAN CORPUSCULAR VOLUME 91 fL (80-94); MONOCYTES # (AUTO) 1.2 K/uL (0.8-1.0); MONOCYTES % (AUTO) 10.7 % (1.7-9.3); NEUTROPHILS # (AUTO) 8.6 K/uL (1.8-7.7); NEUTROPHILS % (AUTO) 74.1 % (42.2-75.2); PLATELET COUNT (AUTO) 164 K/uL (140-450); RED BLOOD CELL COUNT(AUTO) 3.01 MIL/uL (4.20-6.10); RED CELL DISTRIBUTION WIDTH 14.7 % (11.6-13.7); WHITE BLOOD COUNT (AUTO) 11.6 K/uL (4.8-10.8)
[2017-01-30 06:44] LABS: ANION GAP 12.9 (8-16); CARBON DIOXIDE 26.9 mmol/L (21-32); CHLORIDE 96 mmol/L (98-107); GLUCOSE 196 mg/dL (74-106); POTASSIUM 3.8 mmol/L (3.5-5.1); SODIUM SERUM 132 mmol/L (136-145)
[2017-01-30 06:47] LABS: CREATININE 5.7 mg/dL (0.7-1.3); UREA NITROGEN, BLOOD 94 mg/dL (7-18)
--- NOTE | 2017-01-30 07:30 | NUR ---
RECEIVED PT IN BED. ASLEEP. AROUSABLE TO VOICE. ALERT ORIENTED X4. NO SOB NOTED. DENIES ANY PAIN OR DISCOMFORT AT THIS TIME. PT AMBULATORY WITH ASSIST WITH BRP. SAFETY PRECAUTION IN PLACE. CALL LIGHT WITHIN REACH.
--- NOTE | 2017-01-30 07:33 | NUR ---
PATIENT STABLE REPORT ENDORSED TO ARLENE VERDUGO SHE WILL RESUME CARE OF THE PATIENT.
[2017-01-30] MEDS: BUDESONIDE 0.5 MG/2 ML NEBU INH SCH ×2 (07:45→19:30)
[2017-01-30 07:57] VITALS: BP 139/70
[2017-01-30] MEDS: CALCIUM ACETATE 667 MG TAB PO SCH ×3 (08:32→16:36)
[2017-01-30] MEDS: VIT-B COMP/VIT-C/FOLIC ACID 1 TAB PO SCH (08:32)
[2017-01-30] MEDS: FAMOTIDINE 20 MG TAB PO SCH (08:32)
[2017-01-30] MEDS: ATORVASTATIN 20 MG TAB PO SCH (08:33)
[2017-01-30] MEDS: ASPIRIN 81 MG TAB.CHEW PO SCH (08:33)
[2017-01-30] MEDS: amLODIPine 5 MG TAB PO SCH (08:37)
[2017-01-30] MEDS: CARVEDILOL 6.25 MG TAB PO SCH ×2 (08:37→21:08)
--- NOTE | 2017-01-30 08:58 | NUR ---
FOLLOWED UP WITH PHARMACY SPOKE WITH MARCELLUS REGARDING MEDICATION CULTURELLE CAP, OUT OF STOCK. HE SAID HE IS ALREADY AWARE.
--- NOTE | 2017-01-30 09:02 | NUR ---
CALLED JAQUI (DIALYSIS NURSE) [phone], TO FOLLOW UP WITH DIALYSIS SCHEDULE. ACCORDING TO HER SHE WILL COME AT AROUND 4PM TODAY AND ACCORDING TO HER PER LATEST BLOOD PRESSURE JUST HOLD BLOOD PRESSURE MEDICATION FOR NOW.
[2017-01-30] MEDS: HYDRAGUARD CREAM TP SCH ×2 (09:22→21:11)
[2017-01-30] MEDS: LACTOBACILLUS RHAMNOSUS GG 1 EACH CAP PO SCH (11:22)
--- NOTE | 2017-01-30 11:32 | NUR ---
FAMILY WITH PT. PT AWAKE. ALERT, ABLE TO MAKE NEEDS KNOWN. DAUGHTER FIDEL VERBALIZED THAT SHE IS HAPPY THAT HER FATHER LOOKS BETTER THAN THE PAST FEW DAYS. PT KEPT CLEAN, DRY , AND COMFORTABLE. GOOD SKIN CARE PROVIDED.
[2017-01-30] MEDS ORDERED: EPOETIN ALFA 2,000 UNITS/ML VIAL IV SCH (13:19)
--- NOTE | 2017-01-30 13:31 | NUR ---
CALLED PHARMACY REGARDING PROCRIT IV ORDER. PER PHARMACIST NYLA PROCRIT IV CAN BE GIVEN SLOW IV PUSH AFTER DIALYSIS.
[2017-01-30] MEDS: PIPER/TAZO 2.25GM/D5W PREMIX 50 ML IV SCH ×2 (14:47→21:10)
[2017-01-30 15:39] VITALS: BP 146/74
--- NOTE | 2017-01-30 16:17 | NUR ---
GIUSEPPE, HEMODIALYSIS NURSE, CAME TO SEE PT. PROVIDED WITH MD ORDER AND LATEST LABS.
--- NOTE | 2017-01-30 16:23 | NUR ---
HANDED PROCRIT 2000UNITS/ML IV TO DIALYSIS NURSE GIUSEPPE TO BE GIVEN TOWARDS THE END OF DIALYSIS TREATMENT.
--- NOTE | 2017-01-30 18:58 | NUR ---
DIALYSIS STILL ON GOING. FAMILY AT BEDSIDE. NO SIGNS AND SYMPTOMS OF ACUTE PAIN OR DISCOMFORT AT THIS TIME. NO SOB NOTED. DENIES ANY PAIN OR DISCOMFORT. PT KEPT CLEAN, DRY AND COMFORTABLE, NEEDS ATTENDED WILL ENDORSE TO NEXT SHIFT, PT ON STABLE CONDITION FOR CONTINUITY OF CARE.
--- NOTE | 2017-01-30 19:15 | NUR ---
RECEIVED REPORT FROM AM NURSE. PT IS AA0X4, ON ROOM AIR. PT IS CURRENTLY RECEIVING DIALYSIS, WITH DIALYSIS NURSE AT THE BEDSIDE. FAMILY AT THE BEDSIDE WELL. NO SIGNS OF ACUTE DISTRESS NOTED, RESPIRATIONS EVEN AND UNLABORED. SKIN COLOR APPROPRIATE TO ETHNICITY. PT DENIES ANY PAIN AT THIS TIME. IV ACCESS PATENT AND ASYMPTOMATIC SALINE LOCK. PLAN OF CARE DISCUSSED, PT VERBALIZED UNDERSTANDING. BED IN LOW POSITION, BILATERAL HALF SIDE RAILS UP, CALL LIGHT WITHIN REACH, WILL CONTINUE TO MONITOR.
--- NOTE | 2017-01-30 19:50 | NUR ---
PER DIALYSIS NURSE, TOTAL OUTPUT WAS 2.5L.
[2017-01-30] MEDS: INSULIN DETEMIR 100 UNITS/ML 10 ML VIAL SUBQ SCH (21:13)
--- NOTE | 2017-01-30 23:35 | NUR ---
PT SLEEPING, AROUSABLE TO VOICE. NO SIGNS OF ACUTE DISTRESS NOTED, RESPIRATIONS EVEN AND UNLABORED. BED IN LOW POSITION, BILATERAL HALF SIDE RAILS UP, CALL LIGHT WITHIN REACH, WILL CONTINUE TO MONITOR.
[2017-01-31] VITALS: BP 139/65
[2017-01-31] MEDS: PIPER/TAZO 2.25GM/D5W PREMIX 50 ML IV SCH ×3 (05:22→21:04)
[2017-01-31] MEDS: DEXTROSE 50% 50 ML SYR IVP PRN (06:35)
[2017-01-31] MEDS: BLOOD GLUCOSE MONITORING 1 DEV DEV FS SCH ×4 (06:39→20:56)
--- NOTE | 2017-01-31 06:39 | NUR ---
BLOOD SUGAR WAS 53. PUSHED 50% DEXTROSE. PT IS ALERT, NO SIGNS OF ACUTE DISTRESS NOTED. WILL RE-CHECK BLOOD SUGAR AND CONTINUE TO MONITOR.
--- NOTE | 2017-01-31 06:45 | NUR ---
RE-CHECKED PT BLOOD SUGAR. RESULTS ARE 165. PT IS AAOX4, NO SIGNS OF ACUTE DISTRESS NOTED. WILL CONTINUE TO MONITOR.
[2017-01-31] MEDS: BUDESONIDE 0.5 MG/2 ML NEBU INH SCH ×2 (06:49→20:12)
--- NOTE | 2017-01-31 07:13 | NUR ---
ENDORSED PT FOR CONTINUITY OF CARE. PT IS IN STABLE CONDITION.
--- NOTE | 2017-01-31 07:16 | NUR ---
ASSUMED CONTINUITY OF CARE. NO SIGNS AND SYMPTOMS OF ACUTE DISTRESS NOTED. INITIAL ASSESSMENT DONE. KEEP COMFORTABLE ON BED. EDEMA BUE AND BLE, NOTED. EXPLAINED DIAGNOSIS, PLAN OF CARE, PAIN MANAGEMENT TEACHING, USE OF CALL LIGHT/TV/BATHROOM. VERBALIZED UNDERSTANDING. CALL LIGHT WITHIN REACH.
[2017-01-31 07:34] LABS: BASOPHILS # (AUTO) 0.1 K/uL (0.00-0.22); BASOPHILS % (AUTO) 0.7 % (0.0-2.0); EOSINOPHILS # (AUTO) 0.3 K/uL (0-0.4); EOSINOPHILS % (AUTO) 3.1 % (0.0-4.0); HEMATOCRIT 29.2 % (36-52); HEMOGLOBIN 9.3 g/dL (12.0-18.0); LYMPHOCYTES # (AUTO) 1.1 K/uL (2.0-11.5); LYMPHOCYTES % (AUTO) 10.2 % (20.5-51.1); MEAN CORPUSCULAR HEMOGLOBIN 29 pg (27-31); MEAN CORPUSCULAR HGB CONC 32 g/dL (33-37); MEAN CORPUSCULAR VOLUME 91 fL (80-94); MONOCYTES # (AUTO) 1.6 K/uL (0.8-1.0); MONOCYTES % (AUTO) 14.5 % (1.7-9.3); NEUTROPHILS # (AUTO) 7.8 K/uL (1.8-7.7); NEUTROPHILS % (AUTO) 71.5 % (42.2-75.2); PLATELET COUNT (AUTO) 168 K/uL (140-450); RED CELL DISTRIBUTION WIDTH 14.8 % (11.6-13.7); WHITE BLOOD COUNT (AUTO) 10.9 K/uL (4.8-10.8)
[2017-01-31 08:00] VITALS: BP 125/72
--- NOTE | 2017-01-31 08:00 | NUR ---
Patient's Plan of Care was discussed and reviewed with NURSE LICENSED PRACTICAL: BLANCA HOBBS
[2017-01-31] MEDS: CALCIUM ACETATE 667 MG TAB PO SCH ×3 (08:36→17:09)
[2017-01-31 08:37] LABS: ANION GAP 11.7 (8-16); CARBON DIOXIDE 26.4 mmol/L (21-32); CHLORIDE 100 mmol/L (98-107); GLUCOSE 131 mg/dL (74-106); POTASSIUM 4.1 mmol/L (3.5-5.1); SODIUM SERUM 134 mmol/L (136-145); UREA NITROGEN, BLOOD 59 mg/dL (7-18)
[2017-01-31] MEDS: amLODIPine 5 MG TAB PO SCH (08:37)
[2017-01-31] MEDS: VIT-B COMP/VIT-C/FOLIC ACID 1 TAB PO SCH (08:37)
[2017-01-31] MEDS: ATORVASTATIN 20 MG TAB PO SCH (08:37)
[2017-01-31] MEDS: ASPIRIN 81 MG TAB.CHEW PO SCH (08:37)
[2017-01-31] MEDS: FAMOTIDINE 20 MG TAB PO SCH (08:38)
[2017-01-31] MEDS: LACTOBACILLUS RHAMNOSUS GG 1 EACH CAP PO SCH (08:39)
[2017-01-31] MEDS: CARVEDILOL 6.25 MG TAB PO SCH ×2 (08:39→20:56)
[2017-01-31 08:41] LABS: CREATININE 4.3 mg/dL (0.7-1.3)
[2017-01-31] MEDS: HYDRAGUARD CREAM TP SCH ×2 (08:44→21:07)
[2017-01-31] MEDS ORDERED: CYCLOBENZAPRINE 10 MG TAB PO PRN (10:10)
--- NOTE | 2017-01-31 10:20 | NUR ---
WENT TO BATHROOM WITHOUT ASSISTANCE. TOLERATED WELL. NO C/O PAIN. NO SOB, NOTED.
[2017-01-31] MEDS: INSULIN LISPRO SLIDING SCALE 100 UNITS/ML VIAL SUBQ PRN ×2 (11:03→21:14)
[2017-01-31 12:00] VITALS: BP 102/58
--- NOTE | 2017-01-31 14:27 | NUR ---
SPOKE WITH JAYDON FROM [facility], [phone]. FAXED INFORMATION TO HER ABOUT SETTING UP OUT PATIENT DIALYSIS. FAX [phone]. TOLD HER THAT HANNAH DO FROM [facility] IS ASSISTING IN GETTING MEDICAL.
--- NOTE | 2017-01-31 14:30 | NUR ---
CALLED DR. TOLLIVER AND SPOKE TO YUNIER REGARDING VERIFICATION OF HD ORDER. LEFT CALL BACK NUMBER.
--- NOTE | 2017-01-31 14:35 | NUR ---
DR. TOLLIVER CALLED BACK, VERIFIED ORDER OF PT HD. PER DR. TOLLIVER, HD ORDER IS FOR TOMORROW 02/01/17. INFORMED CHARGE NURSE DARRELL GODOY.
--- NOTE | 2017-01-31 14:37 | NUR ---
CALLED JAQUI CARRILLO AT AND INFORMED ABOUT DR. TOLLIVER ORDER OF PT. HD 02/01/17 AT 0800. INFORMED CHARGE NURSE DARRELL GODOY.
--- NOTE | 2017-01-31 19:13 | NUR ---
BEDSIDE REPORT GIVEN TO EMILY HENRIQUEZ -ARLENE. IN STABLE CONDITION.
--- NOTE | 2017-01-31 19:14 | NUR ---
REPORT RECEIVED FROM DAY NURSE BLANCA ESQUIVEL, PT IS IN STABLE CONDITION. NO S/S OF DISTRESS NOTED. PT IS AAOX3, ON ROOM AIR. EDEMA NOTED ON BUE AND BLE, NON PITTING. DRY SCALEY SKIN NOTED ON ON BLE. SKIN IS INTACT. SKIN IS WARM AND DRY TO TOUCH, COLOR WNL. INITIAL ASSESSMENT COMPLETED. PLAN OF CARE DISCUSSED WITH PT AT THE BEDSIDE, VERBALIZED UNDERSTANDING. ALL SAFETY PRECAUTIONS MET, CALL LIGHT WITHIN REACH, WILL CONTINUE TO MONITOR
[2017-01-31] MEDS: ALBUTEROL SULFATE/IPRATROPIU 3 ML SOL IH PRN (20:12)
[2017-01-31] MEDS: INSULIN DETEMIR 100 UNITS/ML 10 ML VIAL SUBQ SCH (20:59)
--- NOTE | 2017-01-31 21:00 | NUR ---
RING PACKER [id number] USED FOR MEDICATION ADMINISTRATION. EDUCATION GIVEN ON MEDICATION PURPOSE, EDUCATION ON SIDE EFFECTS EXPLAINED. PT VERBALIZED UNDERSTANDING
[2017-02-01] VITALS: BP 126/62
[2017-02-01] MEDS: PIPER/TAZO 2.25GM/D5W PREMIX 50 ML IV SCH ×3 (05:17→21:59)
--- NOTE | 2017-02-01 06:00 | NUR ---
PTS IV CAME OUT, NEW IV STARTED BY ANTONY MARTINEZ RN IN R AC 22G, ONLY 1 ATTEMPT. PATENT AND INTACT, INFUSING WELL.PT TOLERATED WELL.
[2017-02-01] MEDS: BLOOD GLUCOSE MONITORING 1 DEV DEV FS SCH ×4 (06:29→21:25)
--- NOTE | 2017-02-01 07:30 | NUR ---
GAVE REPORT TO DAY NURSE AT THE BEDSIDE FOR CONTINUITY OF CARE, PT IN STABLE CONDITION NO S/S OF DISTRESS NOTED
--- NOTE | 2017-02-01 07:35 | NUR ---
RECEIVED REPORT FROM ROBOTICS APPLICATION ENGINEER NURSE, PT IS SLEEPING IN BED, BUT EASILY AWAKEN, PT IS A/OX4, AMBULATORY, PT HAS IV ON THE LEFT AC, PATENT, INTACT, FLUSHING WELL, PT HAS AV SHUNT ON THE LEFT SIDE, MILDRED LOWER EXT DRYNESS NOTED, NO S/S OF RESPIRATORY DISTRESS OR DISCOMFORT NOTED, DISCUSSED PLAN OF CARE WITH PT, PT VERBALIZED UNDERSTANDING, CALL LIGHT IS WITHIN REACH, WILL CONTINUE TO MONITOR.
[2017-02-01 07:40] LABS: BASOPHILS # (AUTO) 0.1 K/uL (0.00-0.22); BASOPHILS % (AUTO) 0.6 % (0.0-2.0); EOSINOPHILS # (AUTO) 0.8 K/uL (0-0.4); EOSINOPHILS % (AUTO) 7.8 % (0.0-4.0); LYMPHOCYTES # (AUTO) 1.3 K/uL (2.0-11.5); LYMPHOCYTES % (AUTO) 12.9 % (20.5-51.1); MEAN CORPUSCULAR HEMOGLOBIN 29 pg (27-31); MEAN CORPUSCULAR HGB CONC 32 g/dL (33-37); MEAN CORPUSCULAR VOLUME 92 fL (80-94); MONOCYTES # (AUTO) 1.2 K/uL (0.8-1.0); MONOCYTES % (AUTO) 11.8 % (1.7-9.3); NEUTROPHILS # (AUTO) 6.6 K/uL (1.8-7.7); NEUTROPHILS % (AUTO) 66.9 % (42.2-75.2); PLATELET COUNT (AUTO) 205 K/uL (140-450); RED BLOOD CELL COUNT(AUTO) 3.06 MIL/uL (4.20-6.10); RED CELL DISTRIBUTION WIDTH 15.3 % (11.6-13.7)
[2017-02-01 08:00] VITALS: BP 102/44
[2017-02-01 08:08] LABS: ANION GAP 11.7 (8-16); CARBON DIOXIDE 27.8 mmol/L (21-32); CHLORIDE 100 mmol/L (98-107); GLUCOSE 60 mg/dL (74-106); POTASSIUM 4.5 mmol/L (3.5-5.1); SODIUM SERUM 135 mmol/L (136-145)
[2017-02-01 08:11] LABS: CREATININE 5.1 mg/dL (0.7-1.3); UREA NITROGEN, BLOOD 70 mg/dL (7-18)
[2017-02-01 08:26] LABS: PHOSPHORUS 4.7 mg/dL (2.5-4.9)
[2017-02-01] MEDS: BUDESONIDE 0.5 MG/2 ML NEBU INH SCH ×2 (08:30→19:35)
[2017-02-01] MEDS: HYDRAGUARD CREAM TP SCH ×2 (09:00→21:46)
[2017-02-01] MEDS: ASPIRIN 81 MG TAB.CHEW PO SCH (09:00)
[2017-02-01] MEDS: amLODIPine 5 MG TAB PO SCH (09:00)
[2017-02-01] MEDS: CARVEDILOL 6.25 MG TAB PO SCH ×2 (09:00→21:24)
[2017-02-01] MEDS: VIT-B COMP/VIT-C/FOLIC ACID 1 TAB PO SCH (10:10)
[2017-02-01] MEDS: FAMOTIDINE 20 MG TAB PO SCH (10:11)
[2017-02-01] MEDS: LACTOBACILLUS RHAMNOSUS GG 1 EACH CAP PO SCH (10:11)
[2017-02-01] MEDS: ATORVASTATIN 20 MG TAB PO SCH (10:11)
[2017-02-01] MEDS: CALCIUM ACETATE 667 MG TAB PO SCH ×3 (10:11→17:00)
--- NOTE | 2017-02-01 10:11 | NUR ---
DUE MEDICATIONS GIVEN, PT TOLERATED WELL, CALL LIGHT WITHIN REACH.
[2017-02-01] MEDS: EPOETIN ALFA 2,000 UNITS/ML VIAL IV SCH (10:12)
--- NOTE | 2017-02-01 13:15 | NUR ---
PT RESTING IN BED WATCHING TV, CALL LIGHT IS WITHIN REACH.
[2017-02-01 16:00] VITALS: BP 133/72
[2017-02-01] MEDS: INSULIN LISPRO SLIDING SCALE 100 UNITS/ML VIAL SUBQ PRN ×2 (16:37→21:30)
--- NOTE | 2017-02-01 17:00 | NUR ---
FAMILY IS AT PATIENT BEDSIDE AT THIS TIME, DIALYSIS NURSE ALSO AT BEDSIDE, CALL LIGHT WITHIN REACH.
--- NOTE | 2017-02-01 18:00 | NUR ---
2.5 LITER OUTPUT FROM DIALYSIS.
--- NOTE | 2017-02-01 19:34 | NUR ---
ENDORSED PT TO ROLL ON WORKER NURSE FOR CONTINUITY OF CARE, PT STABLE AT THIS TIME.
--- NOTE | 2017-02-01 19:35 | NUR ---
RECD. SITTING ON BED, AWAKE, A/OX4. RESPIRATION EVEN AND UNLABORED.NO COUGHING NOTED. IV SALINE LOCK AT THE LEFT AC, G22, PATENT. WITH AV SHUNT AT THE RIGHT UPPER ARM. AMBULATING WITHOUT ASSISTANCE. PLAN OF CARE DISCUSSED. VERBALIZED UNDERSTANDING. DENIES PAIN 0/10. FAMILY AT THE BEDSIDE.
--- NOTE | 2017-02-01 20:00 | NUR ---
Patient's Plan of Care was discussed and reviewed with DESIGN SALES CONSULTANT: NOELLE.
--- NOTE | 2017-02-01 21:24 | NUR ---
DUE PO MEDICATIONS GIVEN. ATE 100% OF SNACK.
[2017-02-01] MEDS: INSULIN DETEMIR 100 UNITS/ML 10 ML VIAL SUBQ SCH (21:29)
[2017-02-02] VITALS: BP 146/72
--- NOTE | 2017-02-02 | NUR ---
SLEEPING COMFORTABLY IN BED.
--- NOTE | 2017-02-02 04:00 | NUR ---
NO COMPLAINT OF PAIN 0/10. COMFORTABLE IN BED.
[2017-02-02] MEDS: PIPER/TAZO 2.25GM/D5W PREMIX 50 ML IV SCH ×3 (04:28→20:47)
[2017-02-02] MEDS: BLOOD GLUCOSE MONITORING 1 DEV DEV FS SCH ×4 (06:13→20:39)
--- NOTE | 2017-02-02 06:55 | NUR ---
SITTING ON BED, WITH UNPRODUCTIVE COUGHING NOTED. NO RESPIRATORY DISTRESS NOTED DURING SHIFT. CONDITION REMAIN STABLE. WILL ENDORSE TO AM NURSE FOR CONTINUITY OF CARE.
--- NOTE | 2017-02-02 07:25 | NUR ---
ECEIVED REPORT FROM AERIAL LINEMAN NURSE, PT IS SLEEPING IN BED, BUT EASILY AWAKEN, PT IS A/OX4, AMBULATORY, PT HAS IV ON THE LEFT AC, PATENT, INTACT, FLUSHING WELL, PT HAS AV SHUNT ON THE RIGHT SIDE, MILDRED LOWER EXT DRYNESS NOTED, NO S/S OF RESPIRATORY DISTRESS OR DISCOMFORT NOTED, DISCUSSED PLAN OF CARE WITH PT, PT VERBALIZED UNDERSTANDING, SAFETY/FALL PRECAUTIONS ARE IN PLACE, CALL LIGHT IS WITHIN REACH, WILL CONTINUE TO MONITOR.
[2017-02-02 07:28] LABS: BASOPHILS # (AUTO) 0.1 K/uL (0.00-0.22); BASOPHILS % (AUTO) 0.5 % (0.0-2.0); EOSINOPHILS # (AUTO) 0.7 K/uL (0-0.4); EOSINOPHILS % (AUTO) 7.3 % (0.0-4.0); HEMATOCRIT 28.2 % (36-52); HEMOGLOBIN 9.2 g/dL (12.0-18.0); LYMPHOCYTES # (AUTO) 1.3 K/uL (2.0-11.5); LYMPHOCYTES % (AUTO) 12.5 % (20.5-51.1); MEAN CORPUSCULAR HEMOGLOBIN 30 pg (27-31); MEAN CORPUSCULAR HGB CONC 33 g/dL (33-37); MEAN CORPUSCULAR VOLUME 91 fL (80-94); MONOCYTES # (AUTO) 1.5 K/uL (0.8-1.0); MONOCYTES % (AUTO) 14.6 % (1.7-9.3); NEUTROPHILS # (AUTO) 6.5 K/uL (1.8-7.7); NEUTROPHILS % (AUTO) 65.1 % (42.2-75.2); PLATELET COUNT (AUTO) 193 K/uL (140-450); RED BLOOD CELL COUNT(AUTO) 3.09 MIL/uL (4.20-6.10); RED CELL DISTRIBUTION WIDTH 14.9 % (11.6-13.7); WHITE BLOOD COUNT (AUTO) 10.1 K/uL (4.8-10.8)
[2017-02-02 07:39] LABS: ANION GAP 12.6 (8-16); CARBON DIOXIDE 28.7 mmol/L (21-32); CHLORIDE 99 mmol/L (98-107); GLUCOSE 113 mg/dL (74-106); POTASSIUM 4.3 mmol/L (3.5-5.1); SODIUM SERUM 136 mmol/L (136-145); UREA NITROGEN, BLOOD 44 mg/dL (7-18)
[2017-02-02 07:43] LABS: MAGNESIUM 1.7 mg/dL (1.8-2.4); PHOSPHORUS 4.4 mg/dL (2.5-4.9)
[2017-02-02 08:00] VITALS: BP 151/69
[2017-02-02 08:03] LABS: CREATININE 4.2 mg/dL (0.7-1.3)
[2017-02-02] MEDS: amLODIPine 5 MG TAB PO SCH (08:39)
[2017-02-02] MEDS: ATORVASTATIN 20 MG TAB PO SCH (08:39)
[2017-02-02] MEDS: CARVEDILOL 6.25 MG TAB PO SCH ×2 (08:39→20:47)
[2017-02-02] MEDS: CALCIUM ACETATE 667 MG TAB PO SCH ×3 (08:40→17:10)
[2017-02-02] MEDS: ASPIRIN 81 MG TAB.CHEW PO SCH (08:40)
[2017-02-02] MEDS: FAMOTIDINE 20 MG TAB PO SCH (08:40)
[2017-02-02] MEDS: VIT-B COMP/VIT-C/FOLIC ACID 1 TAB PO SCH (08:40)
[2017-02-02] MEDS: LACTOBACILLUS RHAMNOSUS GG 1 EACH CAP PO SCH (08:40)
[2017-02-02] MEDS: HYDRAGUARD CREAM TP SCH ×2 (09:15→21:00)
[2017-02-02] MEDS ORDERED: MAG SULF 2000 MG/WATER PREMIX 50 ML IV SCH (11:21)
--- NOTE | 2017-02-02 14:36 | NUR ---
CALLED DIALYSIS NURSE, JAQUI I LET HER KNOW THERE WAS A DIALYSIS ORDER FOR TOMORROW.
[2017-02-02 16:00] VITALS: BP 124/72
[2017-02-02] MEDS: INSULIN LISPRO SLIDING SCALE 100 UNITS/ML VIAL SUBQ PRN ×2 (17:09→20:56)
[2017-02-02] MEDS: BUDESONIDE 0.5 MG/2 ML NEBU INH SCH (18:59)
--- NOTE | 2017-02-02 19:10 | NUR ---
ENDORSED PT TO ABATEMENT WORKER NURSE FOR CONTINUITY OF CARE, PT STABLE AT THIS TIME.
--- NOTE | 2017-02-02 19:11 | NUR ---
PATIENT REPORT RECEIVED FROM MORNING NURSE. PATIENT IS AWAKE, ALERT AND ORIENTED. PATIENT'S FAMILY IS AT BEDSIDE. NO SIGNS AND SYMPTOMS OF DISTRESS NOTED. NO COMPLAINTS OF PAIN AT THIS TIME. IV SITE NOTED ON LEFT AC, IVF INFUSING WELL. RIJ TUNNELED CATH IN PLACE FOR DIALYSIS ACCESS. BED IN LOWEST POSITION, SIDE RAILS UP AND CALL LIGHT WITHIN REACH. WILL CONTINUE TO MONITOR.
[2017-02-02] MEDS: INSULIN DETEMIR 100 UNITS/ML 10 ML VIAL SUBQ SCH (20:55)
[2017-02-03] VITALS: BP 138/70
--- NOTE | 2017-02-03 | NUR ---
CHECKED ON PATIENT. PATIENT IS ASLEEP. NO SIGNS AND SYMPTOMS OF DISTRESS NOTED. BED IN LOWEST POSITION. SIDE RAILS UP AND CALL LIGHT WITHIN REACH. WILL CONTINUE TO MONITOR.
--- NOTE | 2017-02-03 03:30 | NUR ---
CHECKED ON PATIENT. PATIENT IS ASLEEP. NO SIGNS AND SYMPTOMS OF DISTRESS NOTED. BREATHING EVEN AND UNLABORED. BED IN LOWEST POSITION, SIDE RAILS UP AND CALL LIGHT WITHIN REACH. WILL CONTINUE TO MONITOR.
[2017-02-03] MEDS: PIPER/TAZO 2.25GM/D5W PREMIX 50 ML IV SCH ×3 (04:07→21:46)
[2017-02-03] MEDS: BLOOD GLUCOSE MONITORING 1 DEV DEV FS SCH ×5 (06:53→21:44)
--- NOTE | 2017-02-03 07:21 | NUR ---
PATIENT REPORT GIVEN TO MORNING NURSE AT BEDSIDE. PATIENT IS IN STABLE CONDITION.
--- NOTE | 2017-02-03 07:28 | NUR ---
ENDORSEMENT RECEIVED FROM JINGLE WRITER NURSE. PATIENT IS AWAKE, ALERT, SITTING ON THE CHAIR. RESPIRATION EVEN, UNLABOR. SKIN DRY AND WARM. CALL LIGHT WITHIN REACH. WILL CONTINUE TO MONITOR
[2017-02-03] MEDS: BUDESONIDE 0.5 MG/2 ML NEBU INH SCH ×2 (07:30→19:47)
[2017-02-03 07:41] LABS: BASOPHILS % (AUTO) 0.3 % (0.0-2.0); EOSINOPHILS % (AUTO) 8.9 % (0.0-4.0); HEMATOCRIT 26.6 % (36-52); HEMOGLOBIN 8.7 g/dL (12.0-18.0); LYMPHOCYTES # (AUTO) 1.2 K/uL (2.0-11.5); MEAN CORPUSCULAR HEMOGLOBIN 30 pg (27-31); MEAN CORPUSCULAR HGB CONC 33 g/dL (33-37); MEAN CORPUSCULAR VOLUME 91 fL (80-94); MONOCYTES # (AUTO) 1.3 K/uL (0.8-1.0); MONOCYTES % (AUTO) 11.5 % (1.7-9.3); NEUTROPHILS # (AUTO) 7.5 K/uL (1.8-7.7); NEUTROPHILS % (AUTO) 68.3 % (42.2-75.2); PLATELET COUNT (AUTO) 204 K/uL (140-450); RED BLOOD CELL COUNT(AUTO) 2.94 MIL/uL (4.20-6.10)
--- NOTE | 2017-02-03 07:54 | NUR ---
PT DOES NOT WANT BREATHING TX AT THIS TIME, PT STATES HE WANTS TO EAT. PT IS NOT SOB AND NOT IN RESPIRATORY DISTRESS. WILL CHECK AGAIN AT A LATER TIME IF PT WANTS TX. PT REMAINS ON ROOM AIR.
[2017-02-03 08:00] VITALS: BP 131/61
[2017-02-03] MEDS: ATORVASTATIN 20 MG TAB PO SCH (08:29)
[2017-02-03] MEDS: VIT-B COMP/VIT-C/FOLIC ACID 1 TAB PO SCH (08:29)
[2017-02-03] MEDS: CALCIUM ACETATE 667 MG TAB PO SCH ×3 (08:30→17:45)
[2017-02-03] MEDS: ASPIRIN 81 MG TAB.CHEW PO SCH (08:30)
[2017-02-03] MEDS: FAMOTIDINE 20 MG TAB PO SCH (08:30)
[2017-02-03] MEDS: LACTOBACILLUS RHAMNOSUS GG 1 EACH CAP PO SCH (08:30)
[2017-02-03] MEDS: EPOETIN ALFA 2,000 UNITS/ML VIAL IV SCH (08:31)
[2017-02-03] MEDS: HYDRAGUARD CREAM TP SCH ×2 (08:32→21:47)
[2017-02-03] MEDS: CARVEDILOL 6.25 MG TAB PO SCH ×2 (08:39→21:47)
[2017-02-03] MEDS: amLODIPine 5 MG TAB PO SCH (08:39)
[2017-02-03 09:20] LABS: MAGNESIUM 2.2 mg/dL (1.8-2.4); PHOSPHORUS 4.7 mg/dL (2.5-4.9)
[2017-02-03 09:25] LABS: SODIUM SERUM 136 mmol/L (136-145)
[2017-02-03 09:26] LABS: ANION GAP 12.5 (8-16); CARBON DIOXIDE 29.2 mmol/L (21-32); CHLORIDE 99 mmol/L (98-107); GLUCOSE 90 mg/dL (74-106); POTASSIUM 4.7 mmol/L (3.5-5.1); UREA NITROGEN, BLOOD 56 mg/dL (7-18)
[2017-02-03 09:27] LABS: CREATININE 5.1 mg/dL (0.7-1.3)
--- NOTE | 2017-02-03 10:45 | NUR ---
PATIENT IS AWAKE, ALERT. RESPIRATION EVEN, UNLABOR. DENIED PAIN AT THIS TIME. REQUEST TO SHOWER. FAMILY AT BEDSIDE. CALL LIGHT WITHIN REACH. WILL CONTINUE TO MONITOR
--- NOTE | 2017-02-03 12:00 | NUR ---
PATIENT IS IN THE SHOWER, UNABLE TO GIVE ZOSYN DUE TO DIALYSIS.
--- NOTE | 2017-02-03 12:30 | NUR ---
PATIENT IS AWAKE, ALERT. RESPIRATION EVEN, UNLABOR. NO DISTRESS NOTED. DENIED PAIN AT THIS TIME. FAMILY AT BEDSIDE. GLASS CYLINDER FLANGER IS AT BEDSIDE. MEDS WERE GIVEN PER ORDER. CALL LIGHT WITHIN REACH. WILL CONTINUE TO MONITOR
[2017-02-03] MEDS: INSULIN LISPRO SLIDING SCALE 100 UNITS/ML VIAL SUBQ PRN ×2 (12:37→22:07)
--- NOTE | 2017-02-03 14:15 | NUR ---
PATIENT IS SLEEPING, RESPIRATION EVEN, UNLABOR. NO DISTRESS NOTED. DIALYSIS AT BEDSIDE. FAMILY AT BEDSIDE. CALL LIGHT WITHIN REACH. WILL CONTINUE TO MONITOR
--- NOTE | 2017-02-03 14:20 | NUR ---
02/03/17 RD FOLLOW UP ASSESSMENT COMPLETED PLEASE REFER TO NUTRITION ASSESSMENT UNDER CARE ACTIVITY FOR ESTIMATED NUTRITIONAL NEEDS. 1. CONTINUE RENAL, CCHO 60 GM DIET TOLERATED PER MD -APPROPRIATE DIET FOR MEDICAL HISTORY -PT MEETING 100% OF ESTIMATED KCAL AND PROTEIN NEEDS 2. RD TO FOLLOW-UP 5-7 DAYS, LOW RISK VIRY BRADSHAW, RD
[2017-02-03 16:00] VITALS: BP 132/70
--- NOTE | 2017-02-03 16:00 | NUR ---
PATIENT AWAKE, ALERT. RESPIRATION EVEN, UNLABOR, DENIED PAIN AT THIS TIME. FAMILY AND DIALYSIS AT BEDSIDE. CALL LIGHT WITHIN REACH. WILL CONTINUE TO MONITOR
--- NOTE | 2017-02-03 16:37 | NUR ---
I CALLED JAYDON FROM [facility] THIS MORNING AND INFORMED HER WE ARE STILL WAITING FOR MEDICAL
--- NOTE | 2017-02-03 18:35 | NUR ---
PATIENT AWAKE, ALERT, EATING DINNER. RESPIRATION EVEN, UNLABOR. DENIED PAIN AT THIS TIME. FAMILY AT BEDSIDE. CALL LIGHT WITHIN REACH. WILL CONTINUE TO MONITOR
--- NOTE | 2017-02-03 19:16 | NUR ---
ENDORSEMENT GIVEN TO THE PLUMBER HELPER NURSE. PATIENT IS STABLE AT THIS TIME
--- NOTE | 2017-02-03 19:17 | NUR ---
PATIENT REPORT RECEIVED AT BEDSIDE FROM MORNING NURSE. PATIENT IS AWAKE, ALERT AND ORIENTED. NO SIGNS AND SYMPTOMS OF DISTRESS NOTED. NO COMPLAINTS OF PAIN AT THIS TIME. IV SITE NOTED ON LEFT AC, SALINE LOCKED. FAMILY IS AT BEDSIDE. PLAN OF CARE DISCUSSED, PATIENT AND PATIENT'S FAMILY VERBALIZED UNDERSTANDING. BED IN LOWEST POSITION, SIDE RAILS UP AND CALL LIGHT WITHIN REACH. WILL CONTINUE TO MONITOR.
[2017-02-03] MEDS: INSULIN DETEMIR 100 UNITS/ML 10 ML VIAL SUBQ SCH (21:00)
[2017-02-04] VITALS: BP 111/64
--- NOTE | 2017-02-04 07:06 | NUR ---
PATIENT REPORT GIVEN TO MORNING NURSE AT BEDSIDE. PATIENT IS IN STABLE CONDITION
--- NOTE | 2017-02-04 07:07 | NUR ---
ENDORSEMENT RECEIVED FROM RESIDENT INTERN NURSE. PATIENT'S RESPIRATION EVEN, UNLABOR. SKIN DRY AND WARM. CALL LIGHT WITHIN REACH. WILL CONTINUE TO MONITOR
[2017-02-04 07:16] LABS: BASOPHILS # (AUTO) 0.1 K/uL (0.00-0.22); BASOPHILS % (AUTO) 0.6 % (0.0-2.0); EOSINOPHILS # (AUTO) 0.8 K/uL (0-0.4); EOSINOPHILS % (AUTO) 6.8 % (0.0-4.0); HEMATOCRIT 26.9 % (36-52); HEMOGLOBIN 8.7 g/dL (12.0-18.0); LYMPHOCYTES # (AUTO) 1.4 K/uL (2.0-11.5); LYMPHOCYTES % (AUTO) 12.7 % (20.5-51.1); MEAN CORPUSCULAR HEMOGLOBIN 29 pg (27-31); MEAN CORPUSCULAR HGB CONC 32 g/dL (33-37); MEAN CORPUSCULAR VOLUME 91 fL (80-94); MONOCYTES # (AUTO) 1.5 K/uL (0.8-1.0); MONOCYTES % (AUTO) 13.8 % (1.7-9.3); NEUTROPHILS # (AUTO) 7.3 K/uL (1.8-7.7); NEUTROPHILS % (AUTO) 66.1 % (42.2-75.2); PLATELET COUNT (AUTO) 201 K/uL (140-450); RED BLOOD CELL COUNT(AUTO) 2.95 MIL/uL (4.20-6.10); RED CELL DISTRIBUTION WIDTH 15.1 % (11.6-13.7); WHITE BLOOD COUNT (AUTO) 11.1 K/uL (4.8-10.8)
[2017-02-04] MEDS: BUDESONIDE 0.5 MG/2 ML NEBU INH SCH ×2 (07:20→19:23)
[2017-02-04 07:30] LABS: MAGNESIUM 1.8 mg/dL (1.8-2.4); PHOSPHORUS 4.1 mg/dL (2.5-4.9)
[2017-02-04 07:55] LABS: ANION GAP 13.1 (8-16); CHLORIDE 101 mmol/L (98-107); CREATININE 3.6 mg/dL (0.7-1.3); GLUCOSE 116 mg/dL (74-106); POTASSIUM 4.1 mmol/L (3.5-5.1); SODIUM SERUM 139 mmol/L (136-145); UREA NITROGEN, BLOOD 30 mg/dL (7-18)
[2017-02-04 08:00] VITALS: BP 149/87
[2017-02-04] MEDS: VIT-B COMP/VIT-C/FOLIC ACID 1 TAB PO SCH (08:31)
[2017-02-04] MEDS: ATORVASTATIN 20 MG TAB PO SCH (08:31)
[2017-02-04] MEDS: amLODIPine 5 MG TAB PO SCH (08:32)
[2017-02-04] MEDS: FAMOTIDINE 20 MG TAB PO SCH (08:32)
[2017-02-04] MEDS: ASPIRIN 81 MG TAB.CHEW PO SCH (08:32)
[2017-02-04] MEDS: CARVEDILOL 6.25 MG TAB PO SCH ×2 (08:33→21:04)
[2017-02-04] MEDS: LACTOBACILLUS RHAMNOSUS GG 1 EACH CAP PO SCH (08:33)
[2017-02-04] MEDS: CALCIUM ACETATE 667 MG TAB PO SCH ×3 (08:33→16:40)
[2017-02-04] MEDS: HYDRAGUARD CREAM TP SCH ×2 (08:36→21:11)
--- NOTE | 2017-02-04 11:15 | NUR ---
PATIENT IS SITTING AND SLEEPING ON THE CHAIR, EASILY AROUSABLE BY NAME. RESPIRATION EVEN, UNLABOR. NO DISTRESS NOTED. DENIED PAIN AT THIS TIME. CALL LIGHT WITHIN REACH. WILL CONTINUE TO MONITOR
[2017-02-04] MEDS: BLOOD GLUCOSE MONITORING 1 DEV DEV FS SCH ×3 (11:29→21:12)
[2017-02-04] MEDS: INSULIN LISPRO SLIDING SCALE 100 UNITS/ML VIAL SUBQ PRN ×3 (11:59→21:01)
--- NOTE | 2017-02-04 13:20 | NUR ---
ENDORSEMENT GIVEN TO SHANE JACOBS. PATIENT IS STABLE AT THIS TIME
--- NOTE | 2017-02-04 13:25 | NUR ---
RECEIVED PATIENT REPORT FROM TEODORO JACOBS. PATIENT IS SITTING IN CHAIR. PATIENT IS AAOX3 AND SHOWS NO S/S OF ACUTE DISTRESS ON ROOM AIR. PATIENT DENIES PAIN AT THIS TIME. SKIN INTACT WITH NOTABLE DARK FLAKY DRY SKIN AT BLE. IV NOTED ON THE L AC SL. CALL LIGHT WITHIN REACH. SAFETY AND FALL PRECAUTIONS IN PLACE.. PATIENT WAS EXPLAINED POC FOR TODAY. WILL CONTINUE TO MONITOR.
--- NOTE | 2017-02-04 15:15 | NUR ---
Patient's Plan of Care was discussed and reviewed with E LEARNING SPECIALIST: BLANCA CONLEY.
--- NOTE | 2017-02-04 15:16 | NUR ---
ASSUMED CONTINUITY OF CARE FROM SHANE GODOY. PT. SITTING ON CHAIR. NO DISCOMFORT NOTED. PT. ON BEDSIDE.
[2017-02-04 16:00] VITALS: BP 135/70
--- NOTE | 2017-02-04 19:14 | NUR ---
BEDSIDE REPORT GIVEN TO MINNIE GODOY. IN STABLE CONDITION. PT. ON BEDSIDE.
--- NOTE | 2017-02-04 19:16 | NUR ---
RECEIVED PT FROM DAY SHIFT NURSE. PT STANDING IN THE ROOM WITH HIS WALKER, AT PT'S SIDE. NO DISTRESS NOTED. IV TO LEFT AC #22G, SALINE LOCK. RIGHT UPPER CHEST TUNNELED CATH, CLEAN AND INTACT. DISCUSSED PLAN OF CARE, PT VERBALIZED UNDERSTANDING. CALL LIGHT WITHIN REACH. WILL CONTINUE TO MONITOR.
[2017-02-04] MEDS: INSULIN DETEMIR 100 UNITS/ML 10 ML VIAL SUBQ SCH (21:00)
--- NOTE | 2017-02-04 21:45 | NUR ---
PT SITTING ON BED AND ASKED FOR SNACK. SNACK GIVEN. NO DISTRESS NOTED. CALL LIGHT WITHIN REACH.
[2017-02-05] VITALS: BP 135/60
--- NOTE | 2017-02-05 00:30 | NUR ---
PT SLEEPING IN BED. NO S/S OF PAIN OR DISCOMFORT. CALL LIGHT WITHIN REACH.
--- NOTE | 2017-02-05 03:20 | NUR ---
PT SITTING AND SLEEPING ON A CHAIR BUT WAKES EASILY. NO S/S DISTRESS. CALL LIGHT WITHIN REACH.
--- NOTE | 2017-02-05 06:10 | NUR ---
PT IN BED, AWAKE. BLOOD SUGAR CHECKED 85. PT ASKED FOR SNACK. SNACK GIVEN. NO C/O PAIN OR DISCOMFORT NOTED. CALL LIGHT WITHIN REACH.
[2017-02-05] MEDS: BLOOD GLUCOSE MONITORING 1 DEV DEV FS SCH ×4 (06:40→21:00)
--- NOTE | 2017-02-05 07:10 | NUR ---
ENDORSED PT TO DAY SHIFT NURSE. PT IN STABLE CONDITION.
--- NOTE | 2017-02-05 07:10 | NUR ---
ASSUMED CONTINUITY OF CARE. NO SIGNS AND SYMPTOMS OF ACUTE DISTRESS NOTED. INITIAL ASSESSMENT DONE. KEEP COMFORTABLE ON BED. FALL PRECAUTION APPLIED. CALL LIGHT WITHIN REACH.
[2017-02-05 07:47] LABS: BASOPHILS # (AUTO) 0.2 K/uL (0.00-0.22); BASOPHILS % (AUTO) 1.4 % (0.0-2.0); EOSINOPHILS % (AUTO) 7.7 % (0.0-4.0); HEMATOCRIT 26.2 % (36-52); HEMOGLOBIN 8.6 g/dL (12.0-18.0); LYMPHOCYTES # (AUTO) 1.3 K/uL (2.0-11.5); LYMPHOCYTES % (AUTO) 10.2 % (20.5-51.1); MEAN CORPUSCULAR HEMOGLOBIN 30 pg (27-31); MEAN CORPUSCULAR HGB CONC 33 g/dL (33-37); MEAN CORPUSCULAR VOLUME 91 fL (80-94); MONOCYTES # (AUTO) 1.4 K/uL (0.8-1.0); NEUTROPHILS # (AUTO) 8.8 K/uL (1.8-7.7); NEUTROPHILS % (AUTO) 69.7 % (42.2-75.2); PLATELET COUNT (AUTO) 192 K/uL (140-450); RED BLOOD CELL COUNT(AUTO) 2.89 MIL/uL (4.20-6.10); WHITE BLOOD COUNT (AUTO) 12.7 K/uL (4.8-10.8)
[2017-02-05 07:57] LABS: ANION GAP 12.9 (8-16); CARBON DIOXIDE 27.8 mmol/L (21-32); CHLORIDE 102 mmol/L (98-107); GLUCOSE 81 mg/dL (74-106); POTASSIUM 4.7 mmol/L (3.5-5.1); SODIUM SERUM 138 mmol/L (136-145); UREA NITROGEN, BLOOD 45 mg/dL (7-18)
[2017-02-05 08:00] VITALS: BP_SYST 107; BP_SYST 133; BP_DIAS 67; BP_DIAS 80
[2017-02-05 08:00] LABS: CREATININE 4.6 mg/dL (0.7-1.3)
--- NOTE | 2017-02-05 08:00 | NUR ---
Patient's Plan of Care was discussed and reviewed with TELESALES REPRESENTATIVE: BLANCA
[2017-02-05 08:05] LABS: MAGNESIUM 1.9 mg/dL (1.8-2.4); PHOSPHORUS 4.8 mg/dL (2.5-4.9)
[2017-02-05] MEDS: amLODIPine 5 MG TAB PO SCH (08:51)
[2017-02-05] MEDS: FAMOTIDINE 20 MG TAB PO SCH (08:52)
[2017-02-05] MEDS: ATORVASTATIN 20 MG TAB PO SCH (08:53)
[2017-02-05] MEDS: ASPIRIN 81 MG TAB.CHEW PO SCH (08:53)
[2017-02-05] MEDS: CARVEDILOL 6.25 MG TAB PO SCH ×2 (08:54→20:43)
[2017-02-05] MEDS: BUDESONIDE 0.5 MG/2 ML NEBU INH SCH ×2 (08:54→19:02)
[2017-02-05] MEDS: LACTOBACILLUS RHAMNOSUS GG 1 EACH CAP PO SCH (08:54)
[2017-02-05] MEDS: ALBUTEROL SULFATE/IPRATROPIU 3 ML SOL IH PRN ×2 (08:54→19:02)
[2017-02-05] MEDS: CALCIUM ACETATE 667 MG TAB PO SCH ×3 (08:54→16:47)
[2017-02-05] MEDS: VIT-B COMP/VIT-C/FOLIC ACID 1 TAB PO SCH (08:55)
[2017-02-05] MEDS: HYDRAGUARD CREAM TP SCH ×2 (09:22→20:50)
[2017-02-05 12:00] VITALS: BP 116/59
[2017-02-05] MEDS: INSULIN LISPRO SLIDING SCALE 100 UNITS/ML VIAL SUBQ PRN ×2 (12:36→20:48)
--- NOTE | 2017-02-05 14:15 | NUR ---
DR. GALEANA CAME AND SEEN PT.. NO ORDER RECEIVED.
--- NOTE | 2017-02-05 14:27 | NUR ---
CALLED JAQUI CARRILLO FROM [facility] AT AND INFORMED REGARDING MD ORDER FOR PT. HD 02/06/17. INFORMED CHARGE NURSE NOHELIA GODOY.
[2017-02-05 16:00] VITALS: BP 124/61
--- NOTE | 2017-02-05 17:06 | NUR ---
AMBULATES ON HALLWAY WITH FRONT WHEEL WALKER. TOLERATED WELL. NO SOB, NOTED.
--- NOTE | 2017-02-05 19:23 | NUR ---
REPORT GIVEN TO CHARGE NURSE STANLEY INIGUEZ -ARLENE. IN STABLE CONDITION.
--- NOTE | 2017-02-05 19:58 | NUR ---
RECEIVED REPORT FROM CHARGE NURSE. PT LYING IN BED, WATCHING TV. IV TO LEFT AC #22G, SALINE LOCK. RIGHT UPPER CHEST TUNNELED CATH, CLEAN, DRY AND INTACT. CALL LIGHT WITHIN REACH. WILL CONTINUE TO MONITOR.
[2017-02-05] MEDS: INSULIN DETEMIR 100 UNITS/ML 10 ML VIAL SUBQ SCH (20:45)
--- NOTE | 2017-02-05 21:15 | NUR ---
DUE MEDS GIVEN. BLOOD SUGAR CHECKED 159. INSULIN COVERAGE ADMINISTERED SQ. PROVIDED PT WITH SOME SNACK. ALL NEEDS MET AT THIS TIME. CALL LIGHT WITHIN REACH.
[2017-02-06] VITALS: BP 115/62
--- NOTE | 2017-02-06 00:03 | NUR ---
PT IN BED, WATCHING. NO C/O PAIN OR DISCOMFORT NOTED. CALL LIGHT WITHIN REACH.
--- NOTE | 2017-02-06 03:45 | NUR ---
PT SLEEPING. NO S/S OF DISTRESS NOTED. CALL LIGHT WITHIN REACH.
[2017-02-06] MEDS: BLOOD GLUCOSE MONITORING 1 DEV DEV FS SCH ×4 (05:27→21:36)
--- NOTE | 2017-02-06 06:00 | NUR ---
BLOOD SUGAR CHECKED 127. NO INSULIN COVERAGE NEEDED. NO C/O PAIN OR DISCOMFORT. NO SOB NOTED. CALL LIGHT WITHIN REACH.
--- NOTE | 2017-02-06 07:15 | NUR ---
RECEIVED PATIENT REPORT AT BEDSIDE. PATIENT AWAKE, ALERT AND ORIENTED. NO S/S OF DISTRESS NOTED. PATIENT ON ROOM AIR. IV LINE NOTED TO THE LEFT AC SALINE LOCKED. DIALYSIS ACCESS NOTED TO THE RIGHT UPPER CHEST. PATIENT SCHEDULED TO HAVE HEMODIALYSIS TODAY. DRYNESS NOTED TO BLE. BED LOWERED WITH CALL LIGHT WITHIN REACH. WILL CONTINUE TO MONITOR
--- NOTE | 2017-02-06 07:15 | NUR ---
ENDORSED PT TO DAY SHIFT NURSE. PT IN STABLE CONDITION.
[2017-02-06 07:34] LABS: ANION GAP 13.3 (8-16); CHLORIDE 101 mmol/L (98-107); GLUCOSE 123 mg/dL (74-106); POTASSIUM 4.3 mmol/L (3.5-5.1); SODIUM SERUM 135 mmol/L (136-145); UREA NITROGEN, BLOOD 57 mg/dL (7-18)
[2017-02-06 07:39] LABS: CREATININE 5.4 mg/dL (0.7-1.3)
[2017-02-06 08:00] VITALS: BP 140/69
[2017-02-06] MEDS: CALCIUM ACETATE 667 MG TAB PO SCH ×3 (08:00→16:46)
[2017-02-06] MEDS: BUDESONIDE 0.5 MG/2 ML NEBU INH SCH ×2 (08:17→19:03)
--- NOTE | 2017-02-06 08:17 | NUR ---
HEMODIALYSIS PROCEDURE IN PROGRESS
[2017-02-06] MEDS: amLODIPine 5 MG TAB PO SCH (09:00)
[2017-02-06] MEDS: CARVEDILOL 6.25 MG TAB PO SCH ×2 (09:00→21:04)
[2017-02-06] MEDS: EPOETIN ALFA 2,000 UNITS/ML VIAL IV SCH (09:45)
[2017-02-06] MEDS: HYDRAGUARD CREAM TP SCH ×2 (09:47→21:36)
--- NOTE | 2017-02-06 10:40 | NUR ---
HEMODIALYSIS DONE. 2L OUT. BP: 120/57 HR: 76 TEMP: 98.6. NO S/S OF DISTRESS NOTED
[2017-02-06] MEDS: LACTOBACILLUS RHAMNOSUS GG 1 EACH CAP PO SCH (10:57)
[2017-02-06] MEDS: ATORVASTATIN 20 MG TAB PO SCH (10:57)
[2017-02-06] MEDS: ASPIRIN 81 MG TAB.CHEW PO SCH (10:58)
[2017-02-06] MEDS: VIT-B COMP/VIT-C/FOLIC ACID 1 TAB PO SCH (10:58)
[2017-02-06] MEDS: FAMOTIDINE 20 MG TAB PO SCH (10:58)
[2017-02-06 16:00] VITALS: BP 126/63
[2017-02-06] MEDS: INSULIN LISPRO SLIDING SCALE 100 UNITS/ML VIAL SUBQ PRN (17:36)
[2017-02-06] MEDS: ALBUTEROL SULFATE/IPRATROPIU 3 ML SOL IH PRN (19:03)
--- NOTE | 2017-02-06 19:11 | NUR ---
PATIENT REPORT GIVEN AT BEDSIDE. PATIENT ENDORSED IN STABLE CONDITION
--- NOTE | 2017-02-06 19:12 | NUR ---
RECD. SITTING ON CHAIR, AWAKE, A/OX4. RESPIRATION AND UNLABORED. DIALYSIS LINE AT RIGHT UPPER CHEST TUNNEL CATH, INTACT. IV SALINE LOCK AT THE LEFT AC G 22, PATENT AND INTACT. PLAN OF CARE FOR THE SHIFT DISCUSSED. VERBALIZED UNDERSTANDING. DENIES PAIN 0/10. AT THE BEDSIDE.
[2017-02-06 20:00] VITALS: BP 159/75
--- NOTE | 2017-02-06 20:00 | NUR ---
Patient's Plan of Care was discussed and reviewed with AERIAL GUNNER: JOSÉ ANTONIO DRAKE
--- NOTE | 2017-02-06 21:05 | NUR ---
DUE PO MEDICATION GIVEN, ATE 100% OF SNACK FOR THE NIGHT.
[2017-02-06] MEDS: INSULIN DETEMIR 100 UNITS/ML 10 ML VIAL SUBQ SCH (21:18)
[2017-02-07] VITALS: BP 115/81
--- NOTE | 2017-02-07 | NUR ---
SLEEPING COMFORTABLY IN BED.
--- NOTE | 2017-02-07 06:00 | NUR ---
ABLE TO SLEEP WELL. BS CHECKED - 73, 2 PACKS CRANBERRY JUICES GIVEN.
[2017-02-07 06:04] LABS: BASOPHILS # (AUTO) 0.1 K/uL (0.00-0.22); BASOPHILS % (AUTO) 1.3 % (0.0-2.0); EOSINOPHILS # (AUTO) 0.8 K/uL (0-0.4); EOSINOPHILS % (AUTO) 8.3 % (0.0-4.0); HEMATOCRIT 24.6 % (36-52); HEMOGLOBIN 7.8 g/dL (12.0-18.0); LYMPHOCYTES # (AUTO) 1.2 K/uL (2.0-11.5); LYMPHOCYTES % (AUTO) 11.4 % (20.5-51.1); MEAN CORPUSCULAR HEMOGLOBIN 29 pg (27-31); MEAN CORPUSCULAR HGB CONC 32 g/dL (33-37); MEAN CORPUSCULAR VOLUME 92 fL (80-94); MONOCYTES # (AUTO) 1.3 K/uL (0.8-1.0); MONOCYTES % (AUTO) 12.3 % (1.7-9.3); NEUTROPHILS # (AUTO) 6.8 K/uL (1.8-7.7); NEUTROPHILS % (AUTO) 66.7 % (42.2-75.2); PLATELET COUNT (AUTO) 152 K/uL (140-450); RED BLOOD CELL COUNT(AUTO) 2.69 MIL/uL (4.20-6.10); RED CELL DISTRIBUTION WIDTH 15.6 % (11.6-13.7); WHITE BLOOD COUNT (AUTO) 10.2 K/uL (4.8-10.8)
[2017-02-07] MEDS: BLOOD GLUCOSE MONITORING 1 DEV DEV FS SCH ×4 (06:10→21:21)
[2017-02-07 06:47] LABS: ANION GAP 9.4 (8-16); CARBON DIOXIDE 31.4 mmol/L (21-32); CHLORIDE 101 mmol/L (98-107); GLUCOSE 82 mg/dL (74-106); POTASSIUM 3.8 mmol/L (3.5-5.1); SODIUM SERUM 138 mmol/L (136-145); UREA NITROGEN, BLOOD 43 mg/dL (7-18)
--- NOTE | 2017-02-07 06:49 | NUR ---
CONDITION REMAIN STABLE. WILL ENDORSED TO AM NURSE FOR CONTINUITY OF CARE.
[2017-02-07 07:10] LABS: CREATININE 4.3 mg/dL (0.7-1.3)
--- NOTE | 2017-02-07 07:10 | NUR ---
ENDORSED TO ARLENE HARRELL FOR CONTINUITY OF CARE.
--- NOTE | 2017-02-07 07:11 | NUR ---
RECEIVED REPORT FROM PROFESSOR OF PRACTICE NURSE. PATIENT LYING IN BED SLEEPING, AROUSABLE BY VOICE. IN STABLE CONDITION. NO DISTRESS NOTED. RESPIRATIONS EVEN, UNLABORED, ON ROOM AIR. AAOX4, CALM, COOPERATIVE, SKIN COLOR APPROPRIATE TO ETHNICITY, WARM TO TOUCH. DENIES ANY PAIN AT THIS TIME. SKIN IS INTACT. HAS DIALYSIS ACCESS DEVICE ON RIGHT UPPER CHEST, DRESSING IS INTACT. IV SITE IS INTACT, PATENT, ON SALINE LOCK. ABDOMEN SOFT, NON-DISTENDED. LUNGS CTA ON ALL LOBES. REVIEWED PLAN OF CARE WITH PATIENT. PATIENT VERBALIZED UNDERSTANDING. SAFETY MEASURES IN PLACE, CALL LIGHT WITHIN REACH. WILL CONTINUE TO MONITOR.
[2017-02-07] MEDS: BUDESONIDE 0.5 MG/2 ML NEBU INH SCH (07:34)
[2017-02-07 08:00] VITALS: BP 145/74
[2017-02-07] MEDS: amLODIPine 5 MG TAB PO SCH (09:00)
[2017-02-07] MEDS: VIT-B COMP/VIT-C/FOLIC ACID 1 TAB PO SCH (09:11)
[2017-02-07] MEDS: FAMOTIDINE 20 MG TAB PO SCH (09:11)
[2017-02-07] MEDS: LACTOBACILLUS RHAMNOSUS GG 1 EACH CAP PO SCH (09:11)
[2017-02-07] MEDS: ATORVASTATIN 20 MG TAB PO SCH (09:11)
[2017-02-07] MEDS: ASPIRIN 81 MG TAB.CHEW PO SCH (09:12)
[2017-02-07] MEDS: CARVEDILOL 6.25 MG TAB PO SCH ×2 (09:12→21:14)
[2017-02-07] MEDS: CALCIUM ACETATE 667 MG TAB PO SCH ×3 (09:16→16:40)
[2017-02-07] MEDS: HYDRAGUARD CREAM TP SCH ×2 (09:16→21:21)
--- NOTE | 2017-02-07 09:20 | NUR ---
PATIENT SITTING IN CHAIR WATCHING TV. NO DISTRESS NOTED. DENIES ANY PAIN. CONDITION UNCHANGED. SCHEDULED MEDICATIONS DUE GIVEN. SAFETY MEASURES IN PLACE, CALL LIGHT WITHIN REACH. WILL CONTINUE TO MONITOR.
--- NOTE | 2017-02-07 10:50 | NUR ---
PATIENT SITTING IN CHAIR WATCHING TV WITH AT BEDSIDE. NO DISTRESS NOTED. DENIES ANY PAIN. CONDITION UNCHANGED. WILL CONTINUE TO MONITOR.
--- NOTE | 2017-02-07 12:07 | NUR ---
PATIENT SITTING IN CHAIR NEXT TO WINDOW WITH AT BEDSIDE. NO DISTRESS NOTED. DENIES ANY PAIN AT THIS TIME. RESPIRATIONS EVEN, UNLABORED, ON ROOM AIR. SCHEDULED MEDICATIONS DUE GIVEN. SAFETY MEASURES IN PLACE. WILL CONTINUE TO MONITOR.
--- NOTE | 2017-02-07 13:39 | NUR ---
PATIENT SITTING IN CHAIR TALKING TO AT BEDSIDE. ABLE TO AMBULATE WITH STEADY GAIT AROUND ROOM. NO DISTRESS NOTED. DENIES ANY PAIN. CONDITION UNCHANGED. SAFETY MEASURES IN PLACE, CALL LIGHT WITHIN REACH. WILL CONTINUE TO MONITOR.
--- NOTE | 2017-02-07 13:57 | NUR ---
CALLED [facility] AND SPOKE WITH JAYDON, . SHE SAID SHE HAS EVERYTHING FOR THIS PATIENT EXCEPT THE INSURANCE. PLAN [facility] ON [place] WHEN WE GET MEDICAL NUMBER, [phone].
--- NOTE | 2017-02-07 14:05 | NUR ---
DID CALL HANNAH FROM [employer]. HE WILL BE CALLING TODAY TO SEE IF THERE IS A MEDICAL NUMBER YET.
[2017-02-07 16:00] VITALS: BP 145/75
[2017-02-07] MEDS: INSULIN LISPRO SLIDING SCALE 100 UNITS/ML VIAL SUBQ PRN ×2 (16:40→21:20)
--- NOTE | 2017-02-07 16:45 | NUR ---
PATIENT SITTING IN CHAIR WITH AT BEDSIDE. NO DISTRESS NOTED. DENIES ANY PAIN. CONDITION UNCHANGED. SCHEDULED MEDICATIONS DUE GIVEN. SAFETY MEASURES IN PLACE, CALL LIGHT WITHIN REACH. WILL CONTINUE TO MONITOR.
--- NOTE | 2017-02-07 17:00 | NUR ---
PATIENT TAKING A SHOWER INSIDE ROOM. AT BEDSIDE TO ASSIST PATIENT. WILL CONTINUE TO MONITOR.
--- NOTE | 2017-02-07 17:46 | NUR ---
PATIENT SITTING AT BEDSIDE WITH DINNER TRAY IN FRONT. FAMILY MEMBERS AT BEDSIDE. NO DISTRESS NOTED. DENIES ANY PAIN. CONDITION UNCHANGED. SAFETY MEASURES IN PLACE, CALL LIGHT WITHIN REACH. WILL CONTINUE TO MONITOR.
--- NOTE | 2017-02-07 18:37 | NUR ---
PATIENT SITTING IN BED WATCHING TV WITH FAMILY MEMBERS AT BEDSIDE. NO DISTRESS NOTED. DENIES ANY PAIN. CONDITION UNCHANGED. SAFETY MEASURES IN PLACE, CALL LIGHT WITHIN REACH. WILL CONTINUE TO MONITOR.
--- NOTE | 2017-02-07 19:29 | NUR ---
GAVE REPORT TO INSTRUCTIONAL TECHNOLOGY COORDINATOR NURSE FOR CONTINUITY OF CARE. PATIENT IN STABLE CONDITION.
--- NOTE | 2017-02-07 19:30 | NUR ---
Recieved patient on bed alertand oreinted x4 breathing even and unlabored or room air. Willcontinue monitor patient.
[2017-02-07 20:00] VITALS: BP 150/74
[2017-02-07] MEDS: INSULIN DETEMIR 100 UNITS/ML 10 ML VIAL SUBQ SCH (21:20)
[2017-02-07 23:30] VITALS: BP 154/74
[2017-02-08] MEDS: BLOOD GLUCOSE MONITORING 1 DEV DEV FS SCH ×4 (07:12→21:07)
--- NOTE | 2017-02-08 07:25 | NUR ---
RECEIVED REPORT FROM ORDER SCHEDULE CLERK NURSE. PATIENT SITTING IN BED WATCHING TV. IN STABLE CONDITION. NO DISTRESS NOTED. RESPIRATIONS EVEN, UNLABORED, ON ROOM AIR. AAOX4, CALM, COOPERATIVE, SKIN COLOR APPROPRIATE TO ETHNICITY, WARM TO TOUCH. DENIES ANY PAIN AT THIS TIME. SKIN IS INTACT. HAS DIALYSIS ACCESS DEVICE ON RIGHT UPPER CHEST, DRESSING IS INTACT. PATIENT PULLED OUT NEW IV LINE INSERTED BY ORDER SCHEDULE CLERK NURSE. NO IV LINE ACCESS AT THIS TIME. WILL START ONE LATER. ABDOMEN SOFT, NON-DISTENDED. LUNGS CTA ON ALL LOBES. REVIEWED PLAN OF CARE WITH PATIENT. PATIENT VERBALIZED UNDERSTANDING. SAFETY MEASURES IN PLACE, CALL LIGHT WITHIN REACH. WILL CONTINUE TO MONITOR.
[2017-02-08 08:00] VITALS: BP 131/62
[2017-02-08] MEDS: VIT-B COMP/VIT-C/FOLIC ACID 1 TAB PO SCH (08:46)
[2017-02-08] MEDS: LACTOBACILLUS RHAMNOSUS GG 1 EACH CAP PO SCH (08:46)
[2017-02-08] MEDS: CALCIUM ACETATE 667 MG TAB PO SCH ×3 (08:46→16:37)
[2017-02-08] MEDS: FAMOTIDINE 20 MG TAB PO SCH (08:46)
[2017-02-08] MEDS: ATORVASTATIN 20 MG TAB PO SCH (08:46)
[2017-02-08] MEDS: ASPIRIN 81 MG TAB.CHEW PO SCH (08:46)
--- NOTE | 2017-02-08 08:55 | NUR ---
PATIENT SITTING IN CHAIR BY THE WINDOW. NO DISTRESS NOTED. DENIES ANY PAIN. ABLE TO AMBULATE INDEPENDENTLY WITH STEADY GAIT. CONDITION UNCHANGED. SCHEDULED MEDICATIONS DUE GIVEN. SAFETY MEASURES IN PLACE, CALL LIGHT WITHIN REACH. WILL CONTINUE TO MONITOR.
[2017-02-08] MEDS: CARVEDILOL 6.25 MG TAB PO SCH ×3 (09:00→23:06)
[2017-02-08] MEDS: amLODIPine 5 MG TAB PO SCH (09:00)
--- NOTE | 2017-02-08 09:15 | NUR ---
MS. NAILS, HEMODIALYSIS NURSE, NOTIFIED OF PATIENT'S SCHEDULED HEMODIALYSIS TODAY. MS. NAILS VERBALIZED THAT A HEMODIALYSIS NURSE WOULD BE COMING AROUND [id number] TODAY. WILL CONTINUE TO MONITOR.
[2017-02-08] MEDS: HYDRAGUARD CREAM TP SCH ×2 (09:49→21:19)
--- NOTE | 2017-02-08 11:50 | NUR ---
PATIENT SITTING IN CHAIR NEXT TO THE WINDOW WATCHING TV WITH FAMILY MEMBER AT BEDSIDE. NO DISTRESS NOTED. DENIES ANY PAIN. CONDITION UNCHANGED. NEW IV LINE STARTED ON LEFT HAND ON FIRST ATTEMPT DUE TO PATIENT PULLING OUT OLD IV LINE. SCHEDULED MEDICATIONS DUE GIVEN. PATIENT SCHEDULED FOR HEMODIALYSIS TODAY AND PATIENT IS AWARE. PROCRIT VIA IV SCHEDULED AT 0900 HELD AND TO BE GIVEN AFTER HEMODIALYSIS PER PHARMACISTNYLA, INSTRUCTED. SAFETY MEASURES IN PLACE, CALL LIGHT WITHIN REACH. WILL CONTINUE TO MONITOR.
--- NOTE | 2017-02-08 12:30 | NUR ---
CALLED MS. NAILS, HEMODIALYSIS NURSE FOR THE HOSPITAL, REGARDING HEMODIALYSIS TIME FOR PATIENT TODAY. MS. NAILS CONFIRMED VIA PHONE THAT SHE WAS AWARE THAT PATIENT IS SCHEDULED FOR HEMODIALYSIS TODAY AND THAT A HEMODIALYSIS NURSE WOULD BE COMING SOME TIME LATER TODAY. NO APPROXIMATE TIME GIVEN BY MS. NAILS. WILL CONTINUE TO MONITOR.
--- NOTE | 2017-02-08 14:20 | NUR ---
PATIENT LYING IN BED WATCHING TV. NO DISTRESS NOTED. DENIES ANY PAIN. CONDITION UNCHANGED. SAFETY MEASURES IN PLACE, CALL LIGHT WITHIN REACH. WILL CONTINUE TO MONITOR.
--- NOTE | 2017-02-08 15:00 | NUR ---
PATIENT WALKING AROUND HALLWAYS IN MST UNIT WITH STEADY GAIT. WILL CONTINUE TO MONITOR.
[2017-02-08 16:00] VITALS: BP 155/85
--- NOTE | 2017-02-08 16:00 | NUR ---
CALLED MS. NAILS, HEMODIALYSIS NURSE, TO VERIFY IF HEMODIALYSIS NURSE WAS COMING TODAY. MS. NAILS VERBALIZED THAT A HEMODIALYSIS NURSE WOULD BE COMING LATER TODAY ABOUT 2100. WILL CONTINUE TO MONITOR.
--- NOTE | 2017-02-08 17:15 | NUR ---
PATIENT SITTING IN CHAIR WITH FAMILY MEMBER AT BEDSIDE. NO DISTRESS NOTED. DENIES ANY PAIN. CONDITION UNCHANGED. SCHEDULED MEDICATIONS DUE GIVEN. SAFETY MEASURES IN PLACE, CALL LIGHT WITHIN REACH. WILL CONTINUE TO MONITOR.
--- NOTE | 2017-02-08 18:00 | NUR ---
PATIENT SITTING IN CHAIR WITH DINNER TRAY IN FRONT. FAMILY MEMBERS AT BEDSIDE. NO DISTRESS NOTED. DENIES ANY PAIN. CONDITION UNCHANGED. WILL CONTINUE TO MONITOR.
--- NOTE | 2017-02-08 19:20 | NUR ---
GAVE REPORT TO PIPE INSULATOR HELPER NURSE FOR CONTINUITY OF CARE. PATIENT IN STABLE CONDITION.
--- NOTE | 2017-02-08 19:21 | NUR ---
RECD. RESTING IN BED, AWAKE, A/OX4. RESPIRATION EVEN AND UNLABORED. AV SHUNT AT THE RIGHT UPPER ARM, INTACT. IV SALINE LOCK AT THE LEFT WRIST G22, PATENT AND INTACT. WAITING FOR DIALYSIS NURSE TO COME. AT THE BEDSIDE. DENIES PAIN 0.10.
--- NOTE | 2017-02-08 19:22 | NUR ---
Patient's Plan of Care was discussed and reviewed with GAMEROOM TECHNICIAN: JOSÉ ANTONIO DRAKE
--- NOTE | 2017-02-08 19:35 | NUR ---
DIALYSIS NURSE GIUSEPPE CAME TO DIALYZE PATIENT.
--- NOTE | 2017-02-08 21:07 | NUR ---
DIALYSIS ON-GOING. SNACK FOR THE NIGHT GIVEN, ATE 100%.
[2017-02-08] MEDS: INSULIN LISPRO SLIDING SCALE 100 UNITS/ML VIAL SUBQ PRN (21:09)
[2017-02-08] MEDS: INSULIN DETEMIR 100 UNITS/ML 10 ML VIAL SUBQ SCH (21:13)
--- NOTE | 2017-02-08 23:00 | NUR ---
DIALYSIS FINISHED, ABLE TO TAKE OUT 2 LITERS FLUID.
[2017-02-08] MEDS: EPOETIN ALFA 2,000 UNITS/ML VIAL IV SCH (23:06)
--- NOTE | 2017-02-08 23:06 | NUR ---
PROCRIT GIVEN BY DIALYSIS NURSE THROUGH DIALYSIS TUNNEL CATH. PATIENT RESTING COMFORTABLY IN BED.
[2017-02-09] VITALS: BP 138/93
--- NOTE | 2017-02-09 00:30 | NUR ---
SITTING ON BED, UNABLE TO SLEEP DUE TO ITCHINESS, SCRATCHING ARMS AND BACK, WILL INFORM DR. MÉNDEZ.
--- NOTE | 2017-02-09 02:31 | NUR ---
MEDICATED WITH BENADRYL 25 MG. PO ORDERED.
--- NOTE | 2017-02-09 03:30 | NUR ---
NO ITCHINESS NOTED, SLEEPING COMFORTABLY IN BED.
[2017-02-09] MEDS: BLOOD GLUCOSE MONITORING 1 DEV DEV FS SCH ×4 (06:27→21:29)
--- NOTE | 2017-02-09 07:04 | NUR ---
CONDITION REMAIN STABLE. WILL ENDORSE TO AM NURSE FOR CONTINUITY OF CARE.
--- NOTE | 2017-02-09 07:15 | NUR ---
ENDORSED TO ALVIN RIOS FOR CONTINUITY OF CARE.
--- NOTE | 2017-02-09 07:16 | NUR ---
ASSUMED CONTINUITY OF CARE. NO SIGNS AND SYMPTOMS OF ACUTE DISTRESS NOTICED. INITIAL ASSESSMENT DONE. KEEP COMFORTABLE ON BED. EXPLAINED DIAGNOSIS, PLAN OF CARE, PAIN MANAGEMENT TEACHING, USE OF CALL LIGHT/BED/TV/BATHROOM. VERBALIZED UNDERSTANDING. FALL PRECAUTION APPLIED. CALL LIGHT WITHIN REACH.
[2017-02-09 07:25] LABS: BASOPHILS # (AUTO) 0.1 K/uL (0.00-0.22); BASOPHILS % (AUTO) 1.5 % (0.0-2.0); EOSINOPHILS # (AUTO) 0.7 K/uL (0-0.4); EOSINOPHILS % (AUTO) 8.6 % (0.0-4.0); HEMATOCRIT 24.1 % (36-52); HEMOGLOBIN 7.9 g/dL (12.0-18.0); LYMPHOCYTES # (AUTO) 1.1 K/uL (2.0-11.5); LYMPHOCYTES % (AUTO) 14.5 % (20.5-51.1); MEAN CORPUSCULAR HEMOGLOBIN 30 pg (27-31); MEAN CORPUSCULAR HGB CONC 33 g/dL (33-37); MEAN CORPUSCULAR VOLUME 92 fL (80-94); MONOCYTES % (AUTO) 12.9 % (1.7-9.3); NEUTROPHILS # (AUTO) 4.9 K/uL (1.8-7.7); NEUTROPHILS % (AUTO) 62.5 % (42.2-75.2); PLATELET COUNT (AUTO) 135 K/uL (140-450); RED BLOOD CELL COUNT(AUTO) 2.64 MIL/uL (4.20-6.10); RED CELL DISTRIBUTION WIDTH 15.4 % (11.6-13.7); WHITE BLOOD COUNT (AUTO) 7.8 K/uL (4.8-10.8)
[2017-02-09 07:50] LABS: ANION GAP 10.2 (8-16); CARBON DIOXIDE 31.8 mmol/L (21-32); CHLORIDE 101 mmol/L (98-107); CREATININE 3.9 mg/dL (0.7-1.3); GLUCOSE 91 mg/dL (74-106); SODIUM SERUM 139 mmol/L (136-145); UREA NITROGEN, BLOOD 38 mg/dL (7-18)
--- NOTE | 2017-02-09 07:51 | NUR ---
Patient's Plan of Care was discussed and reviewed with HOUSE FELLOW: BLANCA CONLEY
[2017-02-09 08:00] VITALS: BP 142/73
[2017-02-09] MEDS: CALCIUM ACETATE 667 MG TAB PO SCH ×3 (08:44→16:35)
[2017-02-09] MEDS: amLODIPine 5 MG TAB PO SCH (08:45)
[2017-02-09] MEDS: ATORVASTATIN 20 MG TAB PO SCH (08:45)
[2017-02-09] MEDS: ASPIRIN 81 MG TAB.CHEW PO SCH (08:45)
[2017-02-09] MEDS: CARVEDILOL 6.25 MG TAB PO SCH ×2 (08:45→21:26)
[2017-02-09] MEDS: VIT-B COMP/VIT-C/FOLIC ACID 1 TAB PO SCH (08:46)
[2017-02-09] MEDS: LACTOBACILLUS RHAMNOSUS GG 1 EACH CAP PO SCH (08:46)
[2017-02-09] MEDS: FAMOTIDINE 20 MG TAB PO SCH (08:46)
[2017-02-09] MEDS: HYDRAGUARD CREAM TP SCH ×2 (08:59→21:38)
[2017-02-09 12:00] VITALS: BP 121/60
--- NOTE | 2017-02-09 15:15 | NUR ---
CALLED JAQUI CARRILLO AT AND INFORMED MD ORDER OF PT. HD FOR TOMORROW 02/10/17. INFORMED CHARGE NURSE DARRELL GODOY.
--- NOTE | 2017-02-09 16:25 | NUR ---
AMBULATES ON HALLWAY WITH FRONT WHEEL WALKER. TOLERATED WELL.
--- NOTE | 2017-02-09 19:10 | NUR ---
BEDSIDE REPORT GIVEN TO MAYLIN GODOY. IN STABLE CONDITION.
--- NOTE | 2017-02-09 19:11 | NUR ---
RECEIVED REPORT FROM AM NURSE. AA0X4, ON ROOM AIR. NO SIGNS OF ACUTE DISTRESS NOTED, RESPIRATIONS EVEN AND UNLABORED. AV SHUNT AT THE RIGHT UPPER ARM. IV ACCESS INTACT PATENT AND ASYMPTOMATIC, SL. PLAN OF CARE DISCUSSED, PT VERBALIZED UNDERSTANDING. BED IN LOW POSITION, BILATERAL HALF SIDE RAILS UP, CALL LIGHT WITHIN REACH, WILL CONTINUE TO MONITOR.
[2017-02-09] MEDS: INSULIN LISPRO SLIDING SCALE 100 UNITS/ML VIAL SUBQ PRN (21:34)
[2017-02-09] MEDS: INSULIN DETEMIR 100 UNITS/ML 10 ML VIAL SUBQ SCH (21:35)
[2017-02-10] VITALS: BP_SYST 107; BP_SYST 146; BP_DIAS 43; BP_DIAS 83
--- NOTE | 2017-02-10 02:20 | NUR ---
PT IS AWAKE, SITTING UP IN BED. NO SIGNS OF ACUTE DISTRESS NOTED. RESPIRATIONS EVEN AND UNLABORED. BED IN LOW POSITION, BILATERAL HALF SIDE RAILS UP, CALL LIGHT WITHIN REACH, WILL CONTINUE TO MONITOR.
[2017-02-10] MEDS: BLOOD GLUCOSE MONITORING 1 DEV DEV FS SCH ×4 (07:03→20:21)
--- NOTE | 2017-02-10 07:20 | NUR ---
ENDORSED PT TO AM NURSE FOR CONTINUITY OF CARE. PT IS IN STABLE CONDITION, CURRENTLY RECEIVING DIALYSIS WITH RN NURSE AT THE BEDSIDE.
--- NOTE | 2017-02-10 07:21 | NUR ---
RECEIVED REPORT FROM NIGHT RN. PATIENT IS RESTING IN BED AT THIS TIME. CURRENTLY RECEIVING DIALYSIS. RESPIRATORY EFFORT EVEN AND UNLABORED. NO SIGNS AND SYMPTOMS OF DISTRESS NOTED AT THIS TIME. PATIENT HAS 22G TO LEFT HAND, CURRENTLY SALINE LOCK. IV SITE IS CLEAN, DRY, PATENT AND INTACT. BED IN LOWEST POSITION, SIDERAILS UP X2, CALL LIGHT PLACED WITHIN REACH. WILL CONTINUE TO MONITOR PATIENT.
[2017-02-10 08:00] VITALS: BP 138/67
[2017-02-10] MEDS: HYDRAGUARD CREAM TP SCH ×2 (09:00→20:29)
--- NOTE | 2017-02-10 10:05 | NUR ---
DIALYSIS NURSE FINISHED. 1.6 L REMOVED. WILL CONTINUE TO MONITOR PATIENT.
[2017-02-10] MEDS: VIT-B COMP/VIT-C/FOLIC ACID 1 TAB PO SCH (10:20)
[2017-02-10] MEDS: FAMOTIDINE 20 MG TAB PO SCH (10:20)
[2017-02-10] MEDS: CALCIUM ACETATE 667 MG TAB PO SCH ×3 (10:20→16:22)
[2017-02-10] MEDS: amLODIPine 5 MG TAB PO SCH (10:21)
[2017-02-10] MEDS: LACTOBACILLUS RHAMNOSUS GG 1 EACH CAP PO SCH (10:21)
[2017-02-10] MEDS: ASPIRIN 81 MG TAB.CHEW PO SCH (10:21)
[2017-02-10] MEDS: ATORVASTATIN 20 MG TAB PO SCH (10:21)
[2017-02-10] MEDS: CARVEDILOL 6.25 MG TAB PO SCH ×2 (10:22→20:17)
[2017-02-10] MEDS: EPOETIN ALFA 2,000 UNITS/ML VIAL IV SCH (10:22)
[2017-02-10] MEDS: INSULIN LISPRO SLIDING SCALE 100 UNITS/ML VIAL SUBQ PRN ×3 (12:28→20:29)
--- NOTE | 2017-02-10 14:04 | NUR ---
02/10/17 RD FOLLOW UP COMPLETED PLEASE REFER TO NUTRITION PROGRESS NOTE UNDER CARE ACTIVITY FOR ESTIMATED NUTRITION NEEDS. 1. CONTINUE RENAL, CCHO 60 GM DIET TOLERATED PER MD -APPROPRIATE DIET FOR MEDICAL HISTORY -PT MEETING >90% OF ESTIMATED KCAL AND PROTEIN NEEDS 2. RD TO FOLLOW-UP 5-7 DAYS, LOW RISK MEGAN BUCHANAN, RD
[2017-02-10 16:00] VITALS: BP 120/52
--- NOTE | 2017-02-10 19:26 | NUR ---
ENDORSED PATIENT TO MANAGER MEMBERSHIP RN. PATIENT IN STABLE CONDITION.
--- NOTE | 2017-02-10 19:28 | NUR ---
RECEIVED REPORT FROM AM NURSE. PT IS SITTING UP IN BED. FAMILY AT BEDSIDE. AAOX4. ON ROOM AIR. NO SIGNS OF ACUTE DISTRESS NOTED, RESPIRATIONS EVEN AND UNLABORED. PLAN OF CARE DISCUSSED, PT VERBALIZED UNDERSTANDING. BED IN LOW POSITION, BILATERAL HALF SIDE RAILS UP, CALL LIGHT WITHIN REACH, WILL CONTINUE TO MONITOR.
[2017-02-10 20:00] VITALS: BP 134/96
[2017-02-10] MEDS: INSULIN DETEMIR 100 UNITS/ML 10 ML VIAL SUBQ SCH (20:28)
[2017-02-11] VITALS: BP 110/51
--- NOTE | 2017-02-11 02:45 | NUR ---
PT IS SLEEPING, AROUSABLE TO VOICE. NO SIGNS OF ACUTE DISTRESS, RESPIRATIONS EVEN AND UNLABORED. BED IN LOW POSITION, BILATERAL HALF SIDE RAILS UP, CALL LIGHT WITHIN REACH, WILL CONTINUE TO MONITOR.
[2017-02-11] MEDS: BLOOD GLUCOSE MONITORING 1 DEV DEV FS SCH ×5 (06:45→22:13)
--- NOTE | 2017-02-11 07:20 | NUR ---
ENDORSED PT TO AM NURSE FOR CONTINUITY OF CARE. PT IS IN STABLE CONDITION.
--- NOTE | 2017-02-11 07:30 | NUR ---
RECEIVED REPORT FROM COAGULATING OPERATOR NURSE. PT IS AWAKE ALERT, OX4. NO S/S OF ACUTE DISTRESS NOTED ON ROOM AIR. PLAN OF CARE DISCUSSED, PT VERBALIZED UNDERSTANDING. IV LEFT HAND G22, PATENT AND INTACT. PICC LINE NOTED TO THE RIGHT UPPER CHEST. BED IN LOW POSITION, CALL LIGHT WITHIN REACH, WILL CONTINUE TO MONITOR.
[2017-02-11 08:00] VITALS: BP 125/70
[2017-02-11] MEDS: VIT-B COMP/VIT-C/FOLIC ACID 1 TAB PO SCH (08:30)
[2017-02-11] MEDS: ASPIRIN 81 MG TAB.CHEW PO SCH (08:31)
[2017-02-11] MEDS: CARVEDILOL 6.25 MG TAB PO SCH ×2 (08:32→21:42)
[2017-02-11] MEDS: ATORVASTATIN 20 MG TAB PO SCH (08:32)
[2017-02-11] MEDS: amLODIPine 5 MG TAB PO SCH (08:32)
[2017-02-11] MEDS: FAMOTIDINE 20 MG TAB PO SCH (08:32)
[2017-02-11] MEDS: LACTOBACILLUS RHAMNOSUS GG 1 EACH CAP PO SCH (08:32)
[2017-02-11] MEDS: CALCIUM ACETATE 667 MG TAB PO SCH ×3 (08:32→17:23)
[2017-02-11] MEDS: HYDRAGUARD CREAM TP SCH ×2 (08:59→21:43)
[2017-02-11] MEDS: INSULIN LISPRO SLIDING SCALE 100 UNITS/ML VIAL SUBQ PRN ×2 (12:29→22:16)
--- NOTE | 2017-02-11 15:00 | NUR ---
PT IS WALKING WITH WALKER AROUND THE UNIT. NO S/S OF ACUTE DISTRESS. WILL CONTINUE TO MONITOR.
[2017-02-11 16:00] VITALS: BP 123/75
--- NOTE | 2017-02-11 17:05 | NUR ---
PT CHATTING WITH FAMILY MEMBER AND FRIENDS. NO S/S OF ACUTE DISTRESS NOTED. WILL CONTINUE TO MONITOR.
--- NOTE | 2017-02-11 19:36 | NUR ---
ENDORSED PT TO BURNER TECHNICIAN NURSE. PT IN STABLE CONDITION.
--- NOTE | 2017-02-11 19:37 | NUR ---
Patient's Plan of Care was discussed and reviewed with POWER LINEMAN: TAMIR FRANZ
[2017-02-11 20:00] VITALS: BP 133/80
[2017-02-11] MEDS: INSULIN DETEMIR 100 UNITS/ML 10 ML VIAL SUBQ SCH (22:14)
--- NOTE | 2017-02-11 22:22 | NUR ---
PATIENT STABLE WATCHING TV AT THIS TIME. WAS GIVEN AND HS SNACK.WILL CONTINUE TO MONITOR.CALL LIGHT WITHIN REACH.
--- NOTE | 2017-02-12 00:25 | NUR ---
PATIENT WOKEN UP FOR VITAL SIGNS PATIENT CALM AND COOPERATIVE DENIES PAIN AND DISCOMFORT.WILL CONTINUE TO MONITOR.CALL LIGHT WITHIN REACH.
[2017-02-12 00:30] VITALS: BP 96/52
--- NOTE | 2017-02-12 02:41 | NUR ---
PATIENT CURRENTLY SLEEPING AND STABLE WILL CONTINUE TO MONITOR.
--- NOTE | 2017-02-12 04:02 | NUR ---
PATIENT STABLE RESTING IN BED AT THIS TIME.
--- NOTE | 2017-02-12 05:30 | NUR ---
PATIENT SEEN AMBULATING IN THE HALLWAY DOING FINE.
[2017-02-12] MEDS: BLOOD GLUCOSE MONITORING 1 DEV DEV FS SCH ×3 (06:21→20:31)
--- NOTE | 2017-02-12 07:30 | NUR ---
RECEIVED REPORT FROM TREASURY SPECIALIST NURSE. PT IS AWAKE ALERT, OX4. NO S/S OF ACUTE DISTRESS NOTED ON ROOM AIR. PLAN OF CARE DISCUSSED, PT VERBALIZED UNDERSTANDING. IV LEFT HAND G22, PATENT AND INTACT. PICC LINE NOTED TO THE RIGHT UPPER CHEST. BED IN LOW POSITION, CALL LIGHT WITHIN REACH, WILL CONTINUE TO MONITOR.
--- NOTE | 2017-02-12 07:34 | NUR ---
PATIENT AWAKE AND STABLE REPORT ENDORSED TO ARLENE BALLARD. HE WILL RESUME CARE.
[2017-02-12 08:00] VITALS: BP 146/95
[2017-02-12] MEDS: FAMOTIDINE 20 MG TAB PO SCH (08:35)
[2017-02-12] MEDS: CALCIUM ACETATE 667 MG TAB PO SCH ×3 (08:35→17:37)
[2017-02-12] MEDS: CARVEDILOL 6.25 MG TAB PO SCH ×2 (08:36→20:31)
[2017-02-12] MEDS: ATORVASTATIN 20 MG TAB PO SCH (08:36)
[2017-02-12] MEDS: VIT-B COMP/VIT-C/FOLIC ACID 1 TAB PO SCH (08:36)
[2017-02-12] MEDS: ASPIRIN 81 MG TAB.CHEW PO SCH (08:37)
[2017-02-12] MEDS: LACTOBACILLUS RHAMNOSUS GG 1 EACH CAP PO SCH (08:37)
[2017-02-12] MEDS: amLODIPine 5 MG TAB PO SCH (08:37)
--- NOTE | 2017-02-12 10:08 | NUR ---
PT IS WALKING WITH WALKER AROUND THE UNIT. NO S/S OF ACUTE DISTRESS. WILL CONTINUE TO MONITOR.
--- NOTE | 2017-02-12 10:50 | NUR ---
HYDRAGUARD APPLIED TO BLE. SKIN IS DUSKY AND SCALY. WILL CONTINUE TO MONITOR.
--- NOTE | 2017-02-12 12:20 | NUR ---
PT IS SITTING BY THE WINDOW AND EATING LUNCH. NO S/S OF ACUTE DISTRESS NOTED. WILL CONTINUE TO MONITOR.
[2017-02-12] MEDS: HYDRAGUARD CREAM TP SCH ×2 (12:59→20:33)
[2017-02-12] MEDS: INSULIN LISPRO SLIDING SCALE 100 UNITS/ML VIAL SUBQ PRN ×3 (13:06→20:35)
[2017-02-12 16:00] VITALS: BP 131/72
--- NOTE | 2017-02-12 17:08 | NUR ---
PT'S FAMILY MEMBERS AT BEDSIDE, CHATTING WITH PT. NO S/S OF ACUTE DISTRESS NOTED. WILL CONTINUE TO MONITOR.
--- NOTE | 2017-02-12 19:10 | NUR ---
RECEIVED REPORT FROM DAY RN, PATIENT IS SITTING UP IN BED, NO S/S OF DISTRESS NOTED, RESPIRATION EVEN AND UNLABORED, PLAN OF CARE DISCUSSED, PATIENT VERBALIZED UNDERSTANDING. CALL LIGHT WITHIN REACH, SAFETY MEASURE ENSURED, WILL CONTINUE TO MONITOR.
--- NOTE | 2017-02-12 19:30 | NUR ---
ENDORSED PT TO EXTERMINATOR HELPER. PT IS IN STABLE CONDITION.
[2017-02-12] MEDS: INSULIN DETEMIR 100 UNITS/ML 10 ML VIAL SUBQ SCH (20:33)
--- NOTE | 2017-02-12 20:35 | NUR ---
DUE MEDICATION GIVEN, PATIENT TOLERATED WELL, NO S/S OF DISTRESS NOTED, RESPIRATION EVEN AND UNLABORED, CALL LIGHT WITHIN REACH, SAFETY MEASURE ENSURED, WILL CONTINUE TO MONITOR.
--- NOTE | 2017-02-12 21:27 | NUR ---
IV ON LEFT HAND IS NOT PATENT, STARTED NEW IV 22G ON LT FOREARM, PATIENT TOLERATED WELL, OLD IV TAKEN OUT, TIP INTACT, NO ACTIVE BLEEDING AT THE IV SITE. WILL CONTINUE TO MONITOR.
[2017-02-13 00:05] VITALS: BP 129/66
--- NOTE | 2017-02-13 00:08 | NUR ---
PATIENT WAS SLEEPING, BUT EASY TO AROUSE, NO S/S OF DISTRESS NOTED, VITAL SIGNS ARE WITHIN NORMAL RANGE. CALL LIGHT WITHIN REACH, SAFETY MEASURE ENSURED, WILL CONTINUE TO MONITOR.
--- NOTE | 2017-02-13 02:19 | NUR ---
NO CHANGE IN CONDITION, PATIENT IS SLEEPING, RESPIRATION EVEN AND UNLABORED, CALL LIGHT WITHIN REACH, SAFETY MEASURE ENSURED ,WILL CONTINUE TO MONITOR.
--- NOTE | 2017-02-13 04:13 | NUR ---
PATIENT IS SLEEPING, RESPIRATION EVEN AND UNLABORED, CALL LIGHT WITHIN REACH, SAFETY MEASURE ENSURED ,WILL CONTINUE TO MONITOR.
--- NOTE | 2017-02-13 05:50 | NUR ---
NO CHANGE IN CONDITION, PATIENT IS SLEEPING, RESPIRATION EVEN AND UNLABORED, NO S/S OF DISTRESS NOTED, CALL LIGHT WITHIN REACH, SAFETY MEASURE ENSURED, WILL CONTINUE TO MONITOR.
--- NOTE | 2017-02-13 06:34 | NUR ---
DIALYSIS NURSE IS AT BEDSIDE, PATIENT RESTING IN BED, NO S/S OF DISTRESS NOTED AT THIS TIME.
[2017-02-13] MEDS: BLOOD GLUCOSE MONITORING 1 DEV DEV FS SCH ×4 (06:46→21:59)
--- NOTE | 2017-02-13 07:04 | NUR ---
DIALYSIS NURSE AT BEDSIDE. AND PT WITH ORDER FOR TIGHT HEPARIN PER DR. ANDREIA ROACH, WITH ORDERS MADE AND CARRIED OUT TORB.
--- NOTE | 2017-02-13 07:05 | NUR ---
RECEIVED PT CURRENTLY UNDERGOING DIALYSIS. ASLEEP. AROUSABLE TO VOICE. ALERT [id number]. NO SOB NOTED. DENIES ANY PAIN OR DISCOMFORT AT THIS TIME. DIALYSIS NURSE AT BEDSIDE. SAFETY PRECAUTION IN PLACE. CALL LIGHT WITHIN REACH.
[2017-02-13 07:08] LABS: ANION GAP 13.2 (8-16); CARBON DIOXIDE 26.7 mmol/L (21-32); CHLORIDE 101 mmol/L (98-107); GLUCOSE 116 mg/dL (74-106); POTASSIUM 3.9 mmol/L (3.5-5.1); SODIUM SERUM 137 mmol/L (136-145); UREA NITROGEN, BLOOD 57 mg/dL (7-18)
[2017-02-13 07:12] LABS: CREATININE 6.5 mg/dL (0.7-1.3)
--- NOTE | 2017-02-13 07:14 | NUR ---
ENDORSED PLAN OF CARE TO DAY RN, PATIENT IS IN STABLE CONDITION.
--- NOTE | 2017-02-13 07:31 | NUR ---
PER DIALYSIS NURSE CHANTAL, HEMODIALYSIS ORDER SHOULD BE UNDER ANDREIA SANTIAGO, TORB RECEIVED BY DIALYSIS NURSE AND CARRIED OUT. AND ORDER FOR TIGHT HEPARIN MADE TORB AND CARRIED OUT.
[2017-02-13 08:00] VITALS: BP 116/60
[2017-02-13] MEDS: ATORVASTATIN 20 MG TAB PO SCH (08:41)
[2017-02-13] MEDS: CALCIUM ACETATE 667 MG TAB PO SCH ×3 (08:41→16:57)
[2017-02-13] MEDS: VIT-B COMP/VIT-C/FOLIC ACID 1 TAB PO SCH (08:41)
[2017-02-13] MEDS: ASPIRIN 81 MG TAB.CHEW PO SCH (08:41)
[2017-02-13] MEDS: LACTOBACILLUS RHAMNOSUS GG 1 EACH CAP PO SCH (08:41)
[2017-02-13] MEDS: FAMOTIDINE 20 MG TAB PO SCH (08:41)
--- NOTE | 2017-02-13 08:45 | NUR ---
BLOOD PRESSURE MEDICATION HELD DUE TO ONGOING DIALYSIS. DIALYSIS NURSE AWARE. PROCRIT ORDERED IV HANDED TO DIALYSIS NURSE TO BE GIVEN AFTER PT DIALYSIS. ORDERED TIGHT HEPARIN DOSE GIVEN TO DIALYSIS NURSE.
[2017-02-13] MEDS: CARVEDILOL 6.25 MG TAB PO SCH ×2 (08:47→21:55)
[2017-02-13] MEDS: amLODIPine 5 MG TAB PO SCH (08:47)
[2017-02-13] MEDS: HYDRAGUARD CREAM TP SCH ×2 (08:48→21:55)
[2017-02-13] MEDS ORDERED: EPOETIN ALFA 2,000 UNITS/ML VIAL IV SCH (09:00)
--- NOTE | 2017-02-13 10:07 | NUR ---
DIALYSIS FINISHED. 2L OUTPUT FROM DIALYSIS TAKEN PER DIALYSIS NURSE CHANTAL.
--- NOTE | 2017-02-13 15:34 | NUR ---
FAMILY AT BEDSIDE. PT DENIES ANY PAIN OR DISCOMFORT AT THIS TIME. NO SOB NOTED. NEEDS ATTENDED.
[2017-02-13 16:00] VITALS: BP 147/72
[2017-02-13] MEDS: INSULIN LISPRO SLIDING SCALE 100 UNITS/ML VIAL SUBQ PRN ×2 (16:59→22:00)
--- NOTE | 2017-02-13 18:16 | NUR ---
PT KEPT CLEAN, DRY AND COMFORTABLE, NEEDS ATTENDED. FAMILY AT BEDSIDE. NO SOB NOTED. DENIES ANY PAIN OR DISCOMFORT AT THIS TIME. WILL ENDORSE TO NEXT SHIFT. PT ON STABLE CONDITION. FOR CONTINUITY OF CARE.
--- NOTE | 2017-02-13 19:10 | NUR ---
RECD. RESTING IN BED, AWAKE, A/OX4. RESPIRATION EVEN AND UNLABORED. DIALYSIS ACCESS AT THE RIGHT UPPER CHEST WITH DRESSING DRY AND INTACT.SALINE LOCK AT THE LEFT FOREARM G22, PATENT AND INTACT. PLAN OF CARE FOR THE SHIFT DISCUSSED. VERBALIZED UNDERSTANDING. DENIES PAIN 0/10. AT THE BEDSIDE.
--- NOTE | 2017-02-13 21:20 | NUR ---
ENDORSED TO ARLENE PARRA FOR CONTINUITY OF CARE.
--- NOTE | 2017-02-13 21:30 | NUR ---
RECEIVED REPORT FROM AM NURSE. PT RESTING COMFORTABLY, AOX4, AMBULATORY, ABLE TO VERBALIZE NEEDS. R UPPER CHEST DIALYSIS ACCESS NOTED, EXTREMITY RESTRICTIONS FOLLOWED. BLE XEROSIS NOTED. IV ACCESS ASYMPTOMATIC, PATENT AND INTACT. SALINE LOCKED. DISCUSSED AND REVIEWED PLAN OF CARE WITH PT. PT VERBALIZED UNDERSTANDING. ALL NEEDS MET. SAFETY MEASURES ENSURED. CALL LIGHT WITHIN REACH. WILL CONTINUE TO MONITOR.
[2017-02-13] MEDS: INSULIN DETEMIR 100 UNITS/ML 10 ML VIAL SUBQ SCH (21:56)
--- NOTE | 2017-02-13 22:00 | NUR ---
BLOOD GLUCOSE 160, ADMINISTERED INSULIN COVERAGE WITH EDUCATION. ADMINISTERED REMAINING DUE MEDS WITH EDUCATION. PT VERBALIZED UNDERSTANDING, ABLE TO TOLERATE MEDS WELL. ALL NEEDS MET. SAFETY MEASURES ENSURED. CALL LIGHT WITHIN REACH. WILL CONTINUE TO MONITOR.
[2017-02-14] VITALS: BP 133/60
--- NOTE | 2017-02-14 02:15 | NUR ---
PT RESTING COMFORTABLY IN BED, NO S/S OF ACUTE DISTRESS. ALL NEEDS MET. SAFETY MEASURES ENSURED. CALL LIGHT WITHIN REACH. WILL CONTINUE TO MONITOR.
[2017-02-14] MEDS: BLOOD GLUCOSE MONITORING 1 DEV DEV FS SCH ×4 (06:23→20:44)
[2017-02-14] MEDS: INSULIN LISPRO SLIDING SCALE 100 UNITS/ML VIAL SUBQ PRN ×4 (06:28→20:50)
[2017-02-14 06:29] LABS: BASOPHILS # (AUTO) 0.1 K/uL (0.00-0.22); BASOPHILS % (AUTO) 0.5 % (0.0-2.0); EOSINOPHILS # (AUTO) 0.9 K/uL (0-0.4); EOSINOPHILS % (AUTO) 8.5 % (0.0-4.0); HEMATOCRIT 24.8 % (36-52); HEMOGLOBIN 8.1 g/dL (12.0-18.0); LYMPHOCYTES # (AUTO) 1.3 K/uL (2.0-11.5); LYMPHOCYTES % (AUTO) 12.8 % (20.5-51.1); MEAN CORPUSCULAR HEMOGLOBIN 30 pg (27-31); MEAN CORPUSCULAR HGB CONC 33 g/dL (33-37); MEAN CORPUSCULAR VOLUME 93 fL (80-94); MONOCYTES % (AUTO) 10.1 % (1.7-9.3); NEUTROPHILS % (AUTO) 68.1 % (42.2-75.2); PLATELET COUNT (AUTO) 172 K/uL (140-450); RED BLOOD CELL COUNT(AUTO) 2.69 MIL/uL (4.20-6.10); RED CELL DISTRIBUTION WIDTH 15.5 % (11.6-13.7); WHITE BLOOD COUNT (AUTO) 10.3 K/uL (4.8-10.8)
--- NOTE | 2017-02-14 06:34 | NUR ---
BLOOD GLUCOSE 157, INSULIN COVERAGE ADMINISTERED WITH EDUCATION. PT VERBALIZED UNDERSTANDING, TOLERATED MED WELL. ALL NEEDS MET. SAFETY MEASURES ENSURED. CALL LIGHT WITHIN REACH. WILL CONTINUE TO MONITOR.
--- NOTE | 2017-02-14 07:15 | NUR ---
ENDORSED PLAN OF CARE TO AM NURSE. CONDITION STABLE.
--- NOTE | 2017-02-14 07:19 | NUR ---
RECEIVED PT IN BED. AWAKE. ALERT ORIENTEDX4. NO SOB NOTED. DENIES ANY PAIN OR DISCOMFORT AT THIS TIME. PT AMBULATORY. SAFETY PRECAUTION IN PLACE. CALL LIGHT WITHIN REACH.
[2017-02-14 08:00] VITALS: BP 125/56
[2017-02-14] MEDS: VIT-B COMP/VIT-C/FOLIC ACID 1 TAB PO SCH (08:20)
[2017-02-14] MEDS: CARVEDILOL 6.25 MG TAB PO SCH ×2 (08:21→20:44)
[2017-02-14] MEDS: LACTOBACILLUS RHAMNOSUS GG 1 EACH CAP PO SCH (08:21)
[2017-02-14] MEDS: FAMOTIDINE 20 MG TAB PO SCH (08:21)
[2017-02-14] MEDS: amLODIPine 5 MG TAB PO SCH (08:21)
[2017-02-14] MEDS: CALCIUM ACETATE 667 MG TAB PO SCH ×3 (08:21→17:14)
[2017-02-14] MEDS: ASPIRIN 81 MG TAB.CHEW PO SCH (08:22)
[2017-02-14] MEDS: ATORVASTATIN 20 MG TAB PO SCH (08:22)
[2017-02-14] MEDS: HYDRAGUARD CREAM TP SCH ×2 (08:26→20:56)
[2017-02-14 16:00] VITALS: BP 140/74
--- NOTE | 2017-02-14 16:00 | NUR ---
CALLED KEVIN THIS MORNING FROM [facility] AND TOLD HER WE STILL DIDN'T HAVE MEDICAL NUMBER YET. I CALLED HANNAH FROM [employer], AND LEFT 2 MESSAGE ABOUT THE MEDICAL NUMBER. NO CALL BACK.
--- NOTE | 2017-02-14 16:11 | NUR ---
PT REQUESTED FOR A SHOWER. PROVIDED WITH SHOWER MATERIALS. COVERED IV SITE AND DIALYSIS PORT TO PROTECT FROM WATER, SECURED WITH TAPE.
--- NOTE | 2017-02-14 17:00 | NUR ---
PT AMBULATING ALONG THE HALLWAY WITH A WALKER. ACTIVITY TOLERATED WELL. NO SOB NOTED. PT DENIES ANY PAIN OR DISCOMFORT AT THIS TIME.
--- NOTE | 2017-02-14 18:18 | NUR ---
PT KEPT CLEAN, DRY AND COMFORTABLE. NEEDS ATTENDED. NO SOB NOTED ON SHIFT. DENIES ANY PAIN OR DISCOMFORT AT THIS TIME. WILL ENDORSE TO NEXT SHIFT. PT ON STABLE CONDITION, FOR CONTINUITY OF CARE.
--- NOTE | 2017-02-14 19:10 | NUR ---
RECD. SITTING ON CHAIR, A/OX4. RESPIRATION EVEN AND UNLABORED. IV SALINE LOCK AT THE LEFT FOREARM G22, PATENT AND INTACT. WITH DIALYSIS LINE AT THE RIGHT UPPER CHEST INTACT. AMBULATORY TO BR. WITH DISCOLORATION OF BLE, SKIN SEEMS THICK AND HARD. PLAN OF CARE FOR THE SHIFT DISCUSSED. VERBALIZED UNDERSTANDING. DENIES PAIN 0/10.
--- NOTE | 2017-02-14 19:11 | NUR ---
Patient's Plan of Care was discussed and reviewed with FEDERAL AID COORDINATOR: JOSÉ ANTONIO DRAKE LVN
--- NOTE | 2017-02-14 20:44 | NUR ---
DUE PO MEDICATIONS GIVEN. INSTRUCTED TO ALWAYS CLEAN WITH TOWEL BLE BEFORE APPLYING LOTION. VERBALIZED UNDERSTANDING. ATE 100% OF SNACK FOR THE NIGHT.
[2017-02-14] MEDS: INSULIN DETEMIR 100 UNITS/ML 10 ML VIAL SUBQ SCH (20:48)
--- NOTE | 2017-02-14 23:00 | NUR ---
SLEEPING COMFORTABLY IN BED.
[2017-02-15] VITALS: BP 129/62
--- NOTE | 2017-02-15 04:00 | NUR ---
AMBULATED TO BR, HAD BM. BACK TO BED AND WENT BACK TO SLEEP.
--- NOTE | 2017-02-15 06:48 | NUR ---
CONDITION REMAIN STABLE. WILL ENDORSE TO AM NURSE FOR CONTINUITY OF CARE.
--- NOTE | 2017-02-15 07:10 | NUR ---
ENDORSED TO ARLENE CONDON FOR CONTINUITY OF CARE.
[2017-02-15] MEDS: BLOOD GLUCOSE MONITORING 1 DEV DEV FS SCH ×4 (07:19→21:09)
[2017-02-15 08:00] VITALS: BP 128/56
--- NOTE | 2017-02-15 08:37 | NUR ---
RECEIVED A CALL FROM RENZO FROM [employer]. THE CASE NUMBER FOR MEDICAL IS [id number]. THE CASE WOKER IS FIDEL HENLEY [phone]. I CALLED JAYDON FROM [facility] AND INFORMED HER. I SENT THE LAST PROGRESS NOTES, LAST HD RUN AND LABS TO HER AT [phone] PHONE [phone]
[2017-02-15] MEDS: amLODIPine 5 MG TAB PO SCH (09:00)
[2017-02-15] MEDS: CARVEDILOL 6.25 MG TAB PO SCH ×2 (09:00→21:03)
[2017-02-15] MEDS ORDERED: EPOETIN ALFA 4,000 UNITS/ML VIAL HD SCH (09:12)
[2017-02-15] MEDS: LACTOBACILLUS RHAMNOSUS GG 1 EACH CAP PO SCH (09:30)
[2017-02-15] MEDS: CALCIUM ACETATE 667 MG TAB PO SCH ×3 (09:30→16:50)
[2017-02-15] MEDS: VIT-B COMP/VIT-C/FOLIC ACID 1 TAB PO SCH (09:31)
[2017-02-15] MEDS: ATORVASTATIN 20 MG TAB PO SCH (09:31)
[2017-02-15] MEDS: FAMOTIDINE 20 MG TAB PO SCH (09:31)
[2017-02-15] MEDS: ASPIRIN 81 MG TAB.CHEW PO SCH (09:34)
[2017-02-15] MEDS: HYDRAGUARD CREAM TP SCH ×2 (09:35→21:09)
--- NOTE | 2017-02-15 09:35 | NUR ---
SPOKE WITH JAQUI REGARDING TIME FOR DIALYSIS. SHE STATED THEY WILL BE HERE AROUND 12. HOLDING PATIENTS BLOOD PRESSURE MEDICATION AND EPOGEN UNTIL AFTER DIALYSIS.
--- NOTE | 2017-02-15 13:30 | NUR ---
PATIENT RECEIVING DIALYSIS. DIALYSIS NURSE AT THE BEDSIDE. WILL CONTINUE TO MONITOR.
[2017-02-15 15:11] LABS: ANION GAP 12.5 (8-16); CARBON DIOXIDE 27.8 mmol/L (21-32); CHLORIDE 99 mmol/L (98-107); GLUCOSE 183 mg/dL (74-106); POTASSIUM 3.3 mmol/L (3.5-5.1); SODIUM SERUM 136 mmol/L (136-145); UREA NITROGEN, BLOOD 47 mg/dL (7-18)
[2017-02-15 15:14] LABS: CREATININE 4.6 mg/dL (0.7-1.3)
--- NOTE | 2017-02-15 15:19 | NUR ---
RECEIVED A CALL FROM JAYDON FROM [facility]. SHE SAID SHE STILL NEEDED THE JOSÉ MIGUEL ID NUMBER. I GAVE HER THE PHONE NUMBER TO HANNAH. I CALLED HANNAH AND ALSO TOLD HIM THAT HE NEEDED TO CALL JAYDON AT [facility]. I LATER CALLED JAYDON AND SHE SAID SHE SPOKE WITH HANNAH FROM [facility] AND HE IS WORKING ON GETTING THE JOSÉ MIGUEL ID NUMBER.
[2017-02-15 16:00] VITALS: BP 145/58
--- NOTE | 2017-02-15 16:40 | NUR ---
PATIENT DONE BEING DIALYZED. 2.5L REMOVED. PATIENT HAS NO SIGNS AND SYMPTOMS OF ACUTE DISTRESS NOTED AT THIS TIME.
[2017-02-15] MEDS: INSULIN LISPRO SLIDING SCALE 100 UNITS/ML VIAL SUBQ PRN (16:53)
--- NOTE | 2017-02-15 19:22 | NUR ---
ENDORSED PATIENT TO LINE CONSTRUCTION SUPERINTENDENT NURSE FOR CONTINUITY OF CARE. PATIENT IN STABLE CONDITION.
--- NOTE | 2017-02-15 19:23 | NUR ---
RECD. SITTING ON CHAIR, AWAKE, A/OX4. RESPIRATION EVEN AND UNLABORED. SALINE LOCK AT THE LEFT FOREARM G22, PATENT AND INTACT. WITH RIGHT UPPER CHEST TUNNELED CATH FOR DIALYSIS. PLAN OF CARE FOR THE SHIFT DISCUSSED. VERBALIZED UNDERSTANDING. DENIES PAIN 0/10. AT THE BEDSIDE.
--- NOTE | 2017-02-15 19:30 | NUR ---
INQUIRED TO LUIS MCMULLEN NURSE REGARDING HEPARIN 1000 UNITS AND BENADRYL 25 MG. PO STILL PINKISH IN THE EMAR. STATED DIALYSIS NURSE GAVE THE HEPARIN AFTER AND DIALYSIS AND SHE GAVE THE BENADRYL PO.
--- NOTE | 2017-02-15 20:00 | NUR ---
Patient's Plan of Care was discussed and reviewed with UNDERWRITING ANALYST: NOELLE
--- NOTE | 2017-02-15 21:03 | NUR ---
DUE PO MEDICATION GIVEN. ATE 100% OF THE SNACK FOR THE NIGHT.
[2017-02-15] MEDS: INSULIN DETEMIR 100 UNITS/ML 10 ML VIAL SUBQ SCH (21:08)
--- NOTE | 2017-02-15 22:30 | NUR ---
SLEEPING COMFORTABLY IN BED.
[2017-02-16] VITALS: BP 130/62
--- NOTE | 2017-02-16 04:00 | NUR ---
AWAKE IN BED, WATCHING TV.
--- NOTE | 2017-02-16 06:00 | NUR ---
SLEEPING COMFORTABLY IN BED.
--- NOTE | 2017-02-16 06:53 | NUR ---
CONDITION REMAIN STABLE. WILL ENDORSE TO AM NURSE FOR CONTINUITY OF CARE.
[2017-02-16] MEDS: BLOOD GLUCOSE MONITORING 1 DEV DEV FS SCH ×4 (07:08→20:57)
--- NOTE | 2017-02-16 07:25 | NUR ---
RECEIVED REPORT FROM HIDE SORTER NURSE, PT IS SITTING ON CHAIR AT BEDSIDE, PT IS A/OX4, AMBULATORY, PT HAS IV ON HIS LEFT FA, PATENT, INTACT, FLUSHING WELL, PT HAS DRYNESS ON MILDRED LOWER EXT, NO S/S OF RESPIRATORY DISTRESS OR DISCOMFORT NOTED, DISCUSSED PLAN OF CARE WITH PT, PT VERBALIZED UNDERSTANDING, CALL LIGHT IS WITHIN REACH, WILL CONTINUE TO MONITOR.
[2017-02-16 07:41] LABS: BASOPHILS # (AUTO) 0.1 K/uL (0.00-0.22); BASOPHILS % (AUTO) 0.7 % (0.0-2.0); EOSINOPHILS # (AUTO) 1.1 K/uL (0-0.4); EOSINOPHILS % (AUTO) 14.6 % (0.0-4.0); HEMATOCRIT 25.2 % (36-52); HEMOGLOBIN 8.4 g/dL (12.0-18.0); LYMPHOCYTES # (AUTO) 1.4 K/uL (2.0-11.5); LYMPHOCYTES % (AUTO) 18.5 % (20.5-51.1); MEAN CORPUSCULAR HEMOGLOBIN 30 pg (27-31); MEAN CORPUSCULAR HGB CONC 33 g/dL (33-37); MEAN CORPUSCULAR VOLUME 90 fL (80-94); MONOCYTES % (AUTO) 13.8 % (1.7-9.3); NEUTROPHILS # (AUTO) 3.9 K/uL (1.8-7.7); NEUTROPHILS % (AUTO) 52.4 % (42.2-75.2); PLATELET COUNT (AUTO) 160 K/uL (140-450); RED BLOOD CELL COUNT(AUTO) 2.82 MIL/uL (4.20-6.10); RED CELL DISTRIBUTION WIDTH 15.5 % (11.6-13.7); WHITE BLOOD COUNT (AUTO) 7.5 K/uL (4.8-10.8)
[2017-02-16 07:45] LABS: ANION GAP 9.7 (8-16); CHLORIDE 100 mmol/L (98-107); GLUCOSE 82 mg/dL (74-106); POTASSIUM 3.7 mmol/L (3.5-5.1); SODIUM SERUM 137 mmol/L (136-145); UREA NITROGEN, BLOOD 47 mg/dL (7-18)
[2017-02-16 08:00] VITALS: BP 137/71
[2017-02-16] MEDS: CARVEDILOL 6.25 MG TAB PO SCH ×2 (08:24→20:49)
[2017-02-16 08:25] LABS: CREATININE 4.9 mg/dL (0.7-1.3)
[2017-02-16] MEDS: amLODIPine 5 MG TAB PO SCH (08:25)
[2017-02-16] MEDS: ASPIRIN 81 MG TAB.CHEW PO SCH (08:25)
[2017-02-16] MEDS: CALCIUM ACETATE 667 MG TAB PO SCH ×3 (08:25→16:43)
[2017-02-16] MEDS: FAMOTIDINE 20 MG TAB PO SCH (08:26)
[2017-02-16] MEDS: ATORVASTATIN 20 MG TAB PO SCH (08:26)
[2017-02-16] MEDS: LACTOBACILLUS RHAMNOSUS GG 1 EACH CAP PO SCH (08:26)
[2017-02-16] MEDS: VIT-B COMP/VIT-C/FOLIC ACID 1 TAB PO SCH (08:26)
[2017-02-16] MEDS: HYDRAGUARD CREAM TP SCH ×2 (09:02→20:49)
--- NOTE | 2017-02-16 11:31 | NUR ---
PT SITTING ON CHAIR AT BEDSIDE WATCHING TV, CALL LIGHT WITHIN REACH.
[2017-02-16] MEDS: INSULIN LISPRO SLIDING SCALE 100 UNITS/ML VIAL SUBQ PRN ×2 (12:49→16:42)
--- NOTE | 2017-02-16 14:19 | NUR ---
CALLED DIALYSIS NURSE, JAQUI, I REACHED HER VOICEMAIL, I LEFT HER A MESSAGE LETTING HER KNOW I WAS CALLING FROM [facility] TO CONFIRM DIALYSIS FOR PATIENT TOMORROW.
--- NOTE | 2017-02-16 14:35 | NUR ---
PT IS SITTING ON CHAIR AT BEDSIDE, WATCHING TV, CALL LIGHT IS WITHIN REACH.
[2017-02-16 16:00] VITALS: BP 110/57
--- NOTE | 2017-02-16 18:30 | NUR ---
PT IS SITTING ON CHAIR AT BEDSIDE, PATIENT'S IS ALSO AT BEDSIDE, CALL LIGHT WITHIN REACH.
--- NOTE | 2017-02-16 19:25 | NUR ---
ENDORSED PT TO SHRIMP PICKER NURSE FOR CONTINUITY OF CARE, PT STABLE AT THIS TIME.
--- NOTE | 2017-02-16 19:26 | NUR ---
Patient's Plan of Care was discussed and reviewed with INSTRUMENTAL MUSIC TEACHER: TAMIR FRANZ
--- NOTE | 2017-02-16 19:26 | NUR ---
PATIENT IS CURRENTLY SITTING IN HIS CHAIR FAMILY AT BEDSIDE WITH THE PATIENT.PATIENT DENIES ANY PAIN OR DISCOMFORT AT THIS TIME AND IS CURRENTLY WATCHING TV AND INTERACTING WITH HIS FAMILY.CALL LIGHT WITHIN REACH.
[2017-02-16 20:00] VITALS: BP 125/52
[2017-02-16] MEDS: INSULIN DETEMIR 100 UNITS/ML 10 ML VIAL SUBQ SCH (20:58)
--- NOTE | 2017-02-16 21:45 | NUR ---
PATIENT WAS GIVEN HIS MEDS ALREADY AND ALSO WAS GIVEN SOME WARM TEA AND A HS SNACK.NEEDS MET WILL CONTINUE TO MONITOR.CALL LIGHT WITHIN REACH.
--- NOTE | 2017-02-17 00:45 | NUR ---
PATIENT SLEEPING COMFORTABLY IN BED NEEDS MET.CALL LIGHT WITHIN REACH.
--- NOTE | 2017-02-17 01:30 | NUR ---
PATIENT SLEEPING COMFORTABLY IN BED IN NO DISTRESS WILL CONTINUE TO MONITOR.
--- NOTE | 2017-02-17 03:39 | NUR ---
PATIENT CURRENTLY STABLE AWAKE SITTING IN BED WATCHING TV NEEDS MET WILL CONTINUE TO MONITOR.
--- NOTE | 2017-02-17 04:41 | NUR ---
PATIENT RESTING IN BED IN NO DISTRESS WILL CONTINUE TO MONITOR.
[2017-02-17] MEDS: BLOOD GLUCOSE MONITORING 1 DEV DEV FS SCH ×4 (06:05→20:00)
[2017-02-17] MEDS: INSULIN LISPRO SLIDING SCALE 100 UNITS/ML VIAL SUBQ PRN ×3 (06:06→20:03)
--- NOTE | 2017-02-17 06:38 | NUR ---
PATIENT SLEEPING IN BED AT THIS TIME IN NO DISTRESS NEEDS MET WILL CONTINUE TO MONITOR.CALL LIGHT WITHIN REACH.
--- NOTE | 2017-02-17 06:44 | NUR ---
I CALLED [facility] AND I SPOKE TO JAQUI AND I INFORMED HER THAT PATIENT NEEDS DIALYSIS TODAY AND JAQUI SAYS SHE IS AWARE ALREADY.
--- NOTE | 2017-02-17 07:29 | NUR ---
PATIENT STABLE REPORT ENDORSED AT BEDSIDE TO ARLENE BARKER PATIENT STABLE SHE WILL RESUME CARE OF THE PATIENT.
--- NOTE | 2017-02-17 07:30 | NUR ---
ENDORSEMENT RECEIVED FROM PAYROLL REPRESENTATIVE NURSE. PATIENT IS AWAKE, ALERT. RESPIRATION EVEN, UNLABOR. SKIN DRY AND WARM. IV PATENT AND INTACT. DENIED PAIN, N/V AT THIS TIME. PLAN OF CARE WAS DISCUSSED WITH PATIENT. BED AT LOW POSITION, SIDE RAILS UP. CALL LIGHT WITHIN REACH. WILL CONTINUE TO MONITOR
[2017-02-17 08:00] VITALS: BP 115/62
[2017-02-17] MEDS: ATORVASTATIN 20 MG TAB PO SCH (08:42)
[2017-02-17] MEDS: LACTOBACILLUS RHAMNOSUS GG 1 EACH CAP PO SCH (08:43)
[2017-02-17] MEDS: ASPIRIN 81 MG TAB.CHEW PO SCH (08:43)
[2017-02-17] MEDS: CALCIUM ACETATE 667 MG TAB PO SCH ×3 (08:43→16:48)
[2017-02-17] MEDS: VIT-B COMP/VIT-C/FOLIC ACID 1 TAB PO SCH (08:43)
[2017-02-17] MEDS: FAMOTIDINE 20 MG TAB PO SCH (08:43)
[2017-02-17] MEDS: EPOETIN ALFA 4,000 UNITS/ML VIAL IV SCH (08:44)
[2017-02-17] MEDS: HYDRAGUARD CREAM TP SCH ×2 (08:49→20:04)
[2017-02-17] MEDS: CARVEDILOL 6.25 MG TAB PO SCH ×2 (08:49→20:03)
[2017-02-17] MEDS: amLODIPine 5 MG TAB PO SCH (08:49)
--- NOTE | 2017-02-17 12:00 | NUR ---
PATIENT IS AWAKE, ALERT. RESPIRATION EVEN, UNLABOR. DENIED PAIN, N/V. DIALYSIS IS AT BEDSIDE. CALL LIGHT WITHIN REACH. WILL CONTINUE TO MONITOR
--- NOTE | 2017-02-17 15:23 | NUR ---
02/17/17 RD FOLLOW UP COMPLETED PLEASE REFER TO NUTRITION PROGRESS NOTE UNDER CARE ACTIVITY FOR ESTIMATED NUTRITION NEEDS. 1. CONTINUE RENAL, CCHO 60 GM DIET TOLERATED PER MD -APPROPRIATE DIET FOR MEDICAL HISTORY -PT MEETING 100% OF ESTIMATED KCAL AND PROTEIN NEEDS 2. RD TO FOLLOW-UP 2-3 DAYS, HIGH RISK MEGAN BUCHANAN, RD
[2017-02-17 16:00] VITALS: BP 135/62
--- NOTE | 2017-02-17 16:52 | NUR ---
PATIENT IS AWAKE, ALERT, SITTING ON THE CHAIR. RESPIRATION EVEN, UNLABOR. DENIED PAIN, SOB. MED WAS GIVEN PER ORDER. CALL LIGHT WITHIN REACH.FAMILY AT BEDSIDE
--- NOTE | 2017-02-17 19:24 | NUR ---
ENDORSEMENT IS GIVEN TO THE FIELD SALES CONSULTANT NURSE. PATIENT IS STABLE AT THIS TIME
--- NOTE | 2017-02-17 19:30 | NUR ---
RECEIVED REPORT FROM AM NURSE. PT SITTING COMFORTABLY IN CHAIR, AOX4, AMBULATORY, ABLE TO VERBALIZE NEEDS. R UPPER CHEST DIALYSIS ACCESS NOTED, EXTREMITY RESTRICTIONS FOLLOWED. BLE XEROSIS NOTED. IV ACCESS ASYMPTOMATIC, PATENT AND INTACT. SALINE LOCKED. DISCUSSED AND REVIEWED PLAN OF CARE WITH PT. PT VERBALIZED UNDERSTANDING. ALL NEEDS MET. SAFETY MEASURES ENSURED. CALL LIGHT WITHIN REACH. WILL CONTINUE TO MONITOR.
[2017-02-17 20:00] VITALS: BP 137/72
[2017-02-17] MEDS: INSULIN DETEMIR 100 UNITS/ML 10 ML VIAL SUBQ SCH (20:01)
--- NOTE | 2017-02-17 20:05 | NUR ---
BLOOD GLUCOSE 164, INSULIN COVERAGE ADMINISTERED WITH EVENING SNACK. REMAINING DUE MEDS ADMINISTERED WITH EDUCATION. PT VERBALIZED UNDERSTANDING, TOLERATED MEDS WELL. ALL NEEDS MET. SAFETY MEASURES ENSURED. CALL LIGHT WITHIN REACH. WILL CONTINUE TO MONITOR.
--- NOTE | 2017-02-17 21:16 | NUR ---
PT C/O CONSTIPATION, ADMINISTERED COLACE PO PRN ORDERED WITH EDUCATION. PT VERBALIZED UNDERSTANDING, TOLERATED MED WELL.
--- NOTE | 2017-02-17 23:30 | NUR ---
PT SLEEPING COMFORTABLY, NO S/S OF ACUTE DISTRESS. SPO2 100% ON ROOM AIR, RR 16 EVEN AND UNLABORED. ALL NEEDS MET. SAFETY MEASURES ENSURED. CALL LIGHT WITHIN REACH. WILL CONTINUE TO MONITOR.
[2017-02-18] VITALS: BP 128/65
--- NOTE | 2017-02-18 04:30 | NUR ---
PT SLEEPING COMFORTABLY, NO S/S OF ACUTE DISTRESS. ALL NEEDS MET. SAFETY MEASURES ENSURED. CALL LIGHT WITHIN REACH. WILL CONTINUE TO MONITOR.
[2017-02-18] MEDS: BLOOD GLUCOSE MONITORING 1 DEV DEV FS SCH ×5 (06:27→21:57)
--- NOTE | 2017-02-18 06:28 | NUR ---
BLOOD GLUCOSE 66, PT ASYMPTOMATIC, ABLE TO COMMUNICATE WELL AND AMBULATE. PROVIDED SNACKS. WILL RECHECK BLOOD GLUCOSE.
--- NOTE | 2017-02-18 07:15 | NUR ---
BLOOD GLUCOSE 113, CONDITION STABLE. ENDORSED PLAN OF CARE TO AM NURSE.
--- NOTE | 2017-02-18 07:16 | NUR ---
RECEIVED REPORT FROM WHEAT WASHER NURSE FIDEL AT BEDSIDE FOR CONTINUITY OF CARE. PT IS AWAKE AND ORIENTED. INTRODUCED SELF AND UPDATED BOARD. PT IS SITTING IN CHAIR BY WINDOW. NO SIGNS OF DISTRESS. DENIES PAIN. CALL LIGHT WITHIN REACH. WILL CONTINUE TO MONITOR.
[2017-02-18 08:00] VITALS: BP 127/75
[2017-02-18] MEDS: ASPIRIN 81 MG TAB.CHEW PO SCH (08:27)
[2017-02-18] MEDS: CALCIUM ACETATE 667 MG TAB PO SCH ×3 (08:27→17:33)
[2017-02-18] MEDS: CARVEDILOL 6.25 MG TAB PO SCH ×2 (08:28→21:54)
[2017-02-18] MEDS: ATORVASTATIN 20 MG TAB PO SCH (08:28)
[2017-02-18] MEDS: LACTOBACILLUS RHAMNOSUS GG 1 EACH CAP PO SCH (08:28)
[2017-02-18] MEDS: FAMOTIDINE 20 MG TAB PO SCH (08:28)
[2017-02-18] MEDS: VIT-B COMP/VIT-C/FOLIC ACID 1 TAB PO SCH (08:28)
[2017-02-18] MEDS: amLODIPine 5 MG TAB PO SCH (08:37)
[2017-02-18] MEDS: HYDRAGUARD CREAM TP SCH ×2 (08:37→21:00)
--- NOTE | 2017-02-18 12:00 | NUR ---
PT IS SITTING UP IN CHAIR RIGHT NOW. NO SIGNS OF DISTRESS. FAMILY AT BEDSIDE. WILL CONTINUE TO MONITOR.
[2017-02-18 16:00] VITALS: BP 143/70
[2017-02-18] MEDS: INSULIN LISPRO SLIDING SCALE 100 UNITS/ML VIAL SUBQ PRN ×2 (17:32→22:03)
--- NOTE | 2017-02-18 17:35 | NUR ---
CHECKED PT'S BS WAS 199. ADMINISTERED 3UNITS INSULIN PER SLIDING SCALE AND SCHEDULED MEDS. PT TOLERATED WELL. FAMILY IS AT BEDSIDE. PT HAS NO COMPLAINTS AT THIS TIME. DENIES PAIN. WILL CONTINUE TO MONITOR.
[2017-02-18] MEDS ORDERED: MAGNESIUM CITRATE 300 ML BTL PO SCH (18:00)
--- NOTE | 2017-02-18 19:05 | NUR ---
ENDORSED PT TO ENERGY PROFESSIONAL NURSE AT BEDSIDE FOR CONTINUITY OF CARE. PT IN STABLE CONDITION. FAMILY AT BEDSIDE.
--- NOTE | 2017-02-18 19:30 | NUR ---
RECEIVED REPORT FROM AM NURSE. PT IS AAOX4. ON ROOM AIR. IV ACCESS INTACT, PATENT AND ASYMPTOMATIC. NO SIGNS OF ACUTE DISTRESS NOTED, RESPIRATIONS EVEN AND UNLABORED. PLAN OF CARE DISCUSSED, PT VERBALIZED UNDERSTANDING. BED IN LOW POSITION, BILATERAL HALF SIDE RAIL UP, CALL LIGHT WITHIN REACH, WILL CONTINUE TO MONITOR.
[2017-02-18] MEDS: INSULIN DETEMIR 100 UNITS/ML 10 ML VIAL SUBQ SCH (21:00)
[2017-02-19] VITALS: BP 117/57
[2017-02-19] MEDS: BLOOD GLUCOSE MONITORING 1 DEV DEV FS SCH ×4 (06:53→21:24)
--- NOTE | 2017-02-19 07:14 | NUR ---
ENDORSED TO AM NURSE FOR CONTINUITY OF CARE. PT IN STABLE IN CONDITION.
--- NOTE | 2017-02-19 07:30 | NUR ---
RECEIVED REPORT FROM RECONSIGNMENT CLERK NURSE. PT IS AWAKE, ALERT, ORIENTEDX4. ON ROOM AIR. NO S/S OF DISTRESS NOTED. IV ACCESS INTACT, PATENT AND ASYMPTOMATIC. PLAN OF CARE DISCUSSED, PT VERBALIZED UNDERSTANDING. BED IN LOW POSITION, CALL LIGHT WITHIN REACH, WILL CONTINUE TO MONITOR.
[2017-02-19 08:00] VITALS: BP 125/68
[2017-02-19] MEDS: CARVEDILOL 6.25 MG TAB PO SCH ×2 (08:38→21:22)
[2017-02-19] MEDS: VIT-B COMP/VIT-C/FOLIC ACID 1 TAB PO SCH (08:38)
[2017-02-19] MEDS: amLODIPine 5 MG TAB PO SCH (08:39)
[2017-02-19] MEDS: CALCIUM ACETATE 667 MG TAB PO SCH ×3 (08:39→17:42)
[2017-02-19] MEDS: LACTOBACILLUS RHAMNOSUS GG 1 EACH CAP PO SCH (08:39)
[2017-02-19] MEDS: ATORVASTATIN 20 MG TAB PO SCH (08:39)
[2017-02-19] MEDS: ASPIRIN 81 MG TAB.CHEW PO SCH (08:40)
[2017-02-19] MEDS: FAMOTIDINE 20 MG TAB PO SCH (08:40)
[2017-02-19 08:42] LABS: BASOPHILS # (AUTO) 0.1 K/uL (0.00-0.22); BASOPHILS % (AUTO) 1.2 % (0.0-2.0); EOSINOPHILS % (AUTO) 11.6 % (0.0-4.0); HEMATOCRIT 28.9 % (36-52); HEMOGLOBIN 9.4 g/dL (12.0-18.0); LYMPHOCYTES # (AUTO) 1.5 K/uL (2.0-11.5); LYMPHOCYTES % (AUTO) 17.2 % (20.5-51.1); MEAN CORPUSCULAR HEMOGLOBIN 30 pg (27-31); MEAN CORPUSCULAR HGB CONC 33 g/dL (33-37); MEAN CORPUSCULAR VOLUME 91 fL (80-94); MONOCYTES # (AUTO) 1.1 K/uL (0.8-1.0); MONOCYTES % (AUTO) 13.2 % (1.7-9.3); NEUTROPHILS # (AUTO) 4.8 K/uL (1.8-7.7); NEUTROPHILS % (AUTO) 56.8 % (42.2-75.2); PLATELET COUNT (AUTO) 215 K/uL (140-450); RED BLOOD CELL COUNT(AUTO) 3.19 MIL/uL (4.20-6.10); RED CELL DISTRIBUTION WIDTH 15.8 % (11.6-13.7); WHITE BLOOD COUNT (AUTO) 8.4 K/uL (4.8-10.8)
[2017-02-19] MEDS: HYDRAGUARD CREAM TP SCH ×2 (09:00→21:25)
[2017-02-19 09:32] LABS: CARBON DIOXIDE 32.6 mmol/L (21-32); CHLORIDE 99 mmol/L (98-107); GLUCOSE 105 mg/dL (74-106); POTASSIUM 4.6 mmol/L (3.5-5.1); SODIUM SERUM 138 mmol/L (136-145); UREA NITROGEN, BLOOD 58 mg/dL (7-18)
[2017-02-19 09:33] LABS: CREATININE 5.9 mg/dL (0.7-1.3)
[2017-02-19 09:36] LABS: MAGNESIUM 2.5 mg/dL (1.8-2.4); PHOSPHORUS 3.9 mg/dL (2.5-4.9)
--- NOTE | 2017-02-19 12:00 | NUR ---
HYDRAGUARD APPLIED TO BLE. PT TOLERATE WELL.
[2017-02-19] MEDS: INSULIN LISPRO SLIDING SCALE 100 UNITS/ML VIAL SUBQ PRN ×3 (12:54→21:57)
--- NOTE | 2017-02-19 13:00 | NUR ---
DIALYSIS NURSE IS HERE TO START DIALYSIS. LAB REPORT AND MD ORDER PROVIDED. DIALYSIS NURSE REQUESTED 3600 UNITS HEPARIN FLUSH, 1800 UNITS PER PORTX2. WILL ASK DR SCHAEFER TO PUT IN THE ORDER.
[2017-02-19 16:00] VITALS: BP 119/64
--- NOTE | 2017-02-19 16:00 | NUR ---
DIALYSIS FINISHED. VITALS TAKEN. 1L WAS REMOVED PER DIALYSIS NURSE.
--- NOTE | 2017-02-19 19:24 | NUR ---
ENDORSED PT TO LICENSED EMBALMER RN. PT IS IN STABLE CONDITION, NO DISTRESS NOTED.
--- NOTE | 2017-02-19 19:30 | NUR ---
RECEIVED REPORT FROM AM NURSE. PT IS AWAKE, SITTING UP IN BED. NO SIGNS OF ACUTE DISTRESS NOTED, RESPIRATIONS EVEN AND UNLABORED. IV ACCES INTACT, PATENT AND ASYMPTOMATIC. PLAN OF CARE DISCUSSED, PT VERBALIZED UNDERSTANDING. BED IN LOW POSITION, BILATERAL HALF SIDE RAIL UP, CALL LIGHT WITHIN REACH, WILL CONTINUE TO MONITOR.
[2017-02-19 20:00] VITALS: BP 133/65
[2017-02-19] MEDS: INSULIN DETEMIR 100 UNITS/ML 10 ML VIAL SUBQ SCH (21:56)
[2017-02-20] VITALS: BP 128/67
[2017-02-20] MEDS: BLOOD GLUCOSE MONITORING 1 DEV DEV FS SCH ×4 (06:18→20:55)
--- NOTE | 2017-02-20 06:28 | NUR ---
BLOOD SUGAR RESULT WAS 59. GAVE PATIENT APPLE JUICE TO DRINK AND WILL RECHECK BLOOD SUGAR IN 15 MINUTES.
--- NOTE | 2017-02-20 06:48 | NUR ---
RECHECKED PT BLOOD SUGAR, IT IS NOW 73. PATIENT IS STABLE, NO SIGNS OF ACUTE DISTRESS NOTED. PT STATES HE FEELS WELL. WILL CONTINUE TO MONITOR.
[2017-02-20 07:21] LABS: ANION GAP 7.2 (8-16); CARBON DIOXIDE 31.8 mmol/L (21-32); CHLORIDE 102 mmol/L (98-107); GLUCOSE 79 mg/dL (74-106); SODIUM SERUM 137 mmol/L (136-145); UREA NITROGEN, BLOOD 32 mg/dL (7-18)
[2017-02-20 07:25] LABS: BASOPHILS # (AUTO) 0.1 K/uL (0.00-0.22); BASOPHILS % (AUTO) 1.9 % (0.0-2.0); EOSINOPHILS # (AUTO) 0.9 K/uL (0-0.4); EOSINOPHILS % (AUTO) 14.1 % (0.0-4.0); HEMATOCRIT 25.6 % (36-52); HEMOGLOBIN 8.4 g/dL (12.0-18.0); LYMPHOCYTES # (AUTO) 1.6 K/uL (2.0-11.5); LYMPHOCYTES % (AUTO) 23.6 % (20.5-51.1); MEAN CORPUSCULAR HEMOGLOBIN 30 pg (27-31); MEAN CORPUSCULAR HGB CONC 33 g/dL (33-37); MEAN CORPUSCULAR VOLUME 91 fL (80-94); MONOCYTES # (AUTO) 1.1 K/uL (0.8-1.0); MONOCYTES % (AUTO) 16.3 % (1.7-9.3); NEUTROPHILS # (AUTO) 2.9 K/uL (1.8-7.7); NEUTROPHILS % (AUTO) 44.1 % (42.2-75.2); PLATELET COUNT (AUTO) 194 K/uL (140-450); RED BLOOD CELL COUNT(AUTO) 2.81 MIL/uL (4.20-6.10); RED CELL DISTRIBUTION WIDTH 15.2 % (11.6-13.7); WHITE BLOOD COUNT (AUTO) 6.6 K/uL (4.8-10.8)
--- NOTE | 2017-02-20 07:25 | NUR ---
ENDORSED PT TO AM NURSE FOR CONTINUITY OF CARE. PT IN STABLE CONDITION.
--- NOTE | 2017-02-20 07:30 | NUR ---
RECEIVED REPORT FROM MUD MILL TENDER NURSE. PT IS AWAKE, ALERT, ORIENTEDX4. ON ROOM AIR. NO S/S OF DISTRESS NOTED. IV ACCESS INTACT, PATENT AND ASYMPTOMATIC. PLAN OF CARE DISCUSSED, PT VERBALIZED UNDERSTANDING. BED IN LOW POSITION, CALL LIGHT WITHIN REACH, WILL CONTINUE TO MONITOR.
[2017-02-20 07:32] LABS: MAGNESIUM 2.2 mg/dL (1.8-2.4); PHOSPHORUS 3.3 mg/dL (2.5-4.9)
[2017-02-20 07:54] LABS: CREATININE 4.1 mg/dL (0.7-1.3)
[2017-02-20 08:00] VITALS: BP 131/56
[2017-02-20] MEDS: LACTOBACILLUS RHAMNOSUS GG 1 EACH CAP PO SCH (09:00)
[2017-02-20] MEDS: HYDRAGUARD CREAM TP SCH ×2 (09:00→20:52)
[2017-02-20] MEDS: amLODIPine 5 MG TAB PO SCH (10:00)
[2017-02-20] MEDS: ASPIRIN 81 MG TAB.CHEW PO SCH (10:00)
[2017-02-20] MEDS: FAMOTIDINE 20 MG TAB PO SCH (10:01)
[2017-02-20] MEDS: VIT-B COMP/VIT-C/FOLIC ACID 1 TAB PO SCH (10:01)
[2017-02-20] MEDS: CALCIUM ACETATE 667 MG TAB PO SCH ×3 (10:01→16:10)
[2017-02-20] MEDS: CARVEDILOL 6.25 MG TAB PO SCH ×2 (10:01→20:51)
[2017-02-20] MEDS: ATORVASTATIN 20 MG TAB PO SCH (10:02)
[2017-02-20] MEDS: EPOETIN ALFA 4,000 UNITS/ML VIAL IV SCH (10:04)
--- NOTE | 2017-02-20 10:30 | NUR ---
HYDRAGUARD APPLIED TO BLE. PT TOLERATE WELL. NO S/S OF DISTRESS.
[2017-02-20 16:00] VITALS: BP 140/62
--- NOTE | 2017-02-20 19:25 | NUR ---
RECEIVED REPORT FROM AM NURSE. PT IS AAOX4, ON ROOM AIR. NO SIGNS OF ACUTE DISTRESS NOTED, RESPIRATIONS EVEN AND UNLABORED. AT BEDSIDE. PLAN OF CARE DISCUSSED, PT VERBALIZED UNDERSTANDING. BED IN LOW POSITION, BILATERAL HALF SIDE RAILS UP, CALL LIGHT WITHIN REACH, WILL CONTINUE TO MONITOR.
--- NOTE | 2017-02-20 19:42 | NUR ---
ENDORSED PT TO FACING MACHINE OPERATOR RN. PT IS IN STABLE CONDITION, NO DISTRESS NOTED.
[2017-02-20 20:00] VITALS: BP 133/65
[2017-02-20] MEDS: INSULIN LISPRO SLIDING SCALE 100 UNITS/ML VIAL SUBQ PRN (21:01)
[2017-02-20] MEDS: INSULIN DETEMIR 100 UNITS/ML 10 ML VIAL SUBQ SCH (21:01)
[2017-02-21] VITALS: BP 118/58
--- NOTE | 2017-02-21 03:25 | NUR ---
PT IS SLEEPING, AROUSABLE TO VOICE. NO SIGNS OF ACUTE DISTRESS NOTED, RESPIRATIONS EVEN AND UNLABORED. BED IN LOW POSITION, BILATERAL HALF SIDE RAILS UP, CALL LIGHT WITHIN REACH, WILL CONTINUE TO MONITOR.
[2017-02-21] MEDS: BLOOD GLUCOSE MONITORING 1 DEV DEV FS SCH ×4 (06:38→21:41)
--- NOTE | 2017-02-21 06:40 | NUR ---
PT BLOOD SUGAR IS 53. GAVE PT APPLE JUICE WILL RE CHECK IN 15 MINUTES. PT STATES HE FEELS WELL, NO SIGNS OF ACUTE DISTRESS NOTED.
--- NOTE | 2017-02-21 07:05 | NUR ---
RECHECKED BLOOD SUGAR, BLOOD SUGAR IS NOW 100. PT STATES HE FEELS WELL, NO SIGNS OF ACUTE DISTRESS NOTED.
--- NOTE | 2017-02-21 07:15 | NUR ---
ENDORSED PT TO AM NURSE FOR CONTINUITY OF CARE. PT IS IN STABLE CONDITION.
--- NOTE | 2017-02-21 07:20 | NUR ---
RECEIVED REPORT FROM TRAFFIC MAINTENANCE OFFICER NURSE, PT IS RESTING IN BED, RECEIVING DIALYSIS AT THIS TIME, A/OX4, AMBULATORY, IV IS ON THE LEFT FOREARM, PATENT, INTACT, FLUSHING WELL, PT IS HAS BILATERAL LOWER EXT DRYNESS, NO S/S OF RESPIRATORY DISTRESS OR DISCOMFORT NOTED, DISCUSSED PLAN OF CARE WITH PT, PT VERBALIZED UNDERSTANDING, SAFETY/FALL PRECAUTIONS ARE IN PLACE, CALL LIGHT IS WITHIN REACH, WILL CONTINUE TO MONITOR.
[2017-02-21 08:00] VITALS: BP 111/60
[2017-02-21] MEDS: CALCIUM ACETATE 667 MG TAB PO SCH ×3 (08:00→16:41)
[2017-02-21] MEDS: CARVEDILOL 6.25 MG TAB PO SCH ×2 (08:13→21:38)
[2017-02-21] MEDS: LACTOBACILLUS RHAMNOSUS GG 1 EACH CAP PO SCH (08:13)
[2017-02-21] MEDS: ASPIRIN 81 MG TAB.CHEW PO SCH (08:13)
[2017-02-21 08:14] LABS: BASOPHILS # (AUTO) 0.1 K/uL (0.00-0.22); BASOPHILS % (AUTO) 1.6 % (0.0-2.0); EOSINOPHILS # (AUTO) 0.9 K/uL (0-0.4); EOSINOPHILS % (AUTO) 10.6 % (0.0-4.0); HEMATOCRIT 28.5 % (36-52); HEMOGLOBIN 9.1 g/dL (12.0-18.0); LYMPHOCYTES # (AUTO) 1.7 K/uL (2.0-11.5); LYMPHOCYTES % (AUTO) 20.3 % (20.5-51.1); MEAN CORPUSCULAR HEMOGLOBIN 30 pg (27-31); MEAN CORPUSCULAR HGB CONC 32 g/dL (33-37); MEAN CORPUSCULAR VOLUME 92 fL (80-94); MONOCYTES # (AUTO) 1.3 K/uL (0.8-1.0); MONOCYTES % (AUTO) 15.7 % (1.7-9.3); NEUTROPHILS # (AUTO) 4.2 K/uL (1.8-7.7); NEUTROPHILS % (AUTO) 51.8 % (42.2-75.2); PLATELET COUNT (AUTO) 222 K/uL (140-450); RED CELL DISTRIBUTION WIDTH 15.7 % (11.6-13.7); WHITE BLOOD COUNT (AUTO) 8.2 K/uL (4.8-10.8)
[2017-02-21] MEDS: ATORVASTATIN 20 MG TAB PO SCH (08:14)
[2017-02-21] MEDS: FAMOTIDINE 20 MG TAB PO SCH (08:14)
[2017-02-21] MEDS: VIT-B COMP/VIT-C/FOLIC ACID 1 TAB PO SCH (08:14)
[2017-02-21] MEDS: amLODIPine 5 MG TAB PO SCH (08:14)
[2017-02-21] MEDS: HYDRAGUARD CREAM TP SCH ×2 (08:15→21:41)
[2017-02-21 08:35] LABS: MAGNESIUM 2.5 mg/dL (1.8-2.4); PHOSPHORUS 4.3 mg/dL (2.5-4.9)
[2017-02-21 08:48] LABS: CARBON DIOXIDE 29.3 mmol/L (21-32); CHLORIDE 101 mmol/L (98-107); GLUCOSE 54 mg/dL (74-106); POTASSIUM 4.3 mmol/L (3.5-5.1); SODIUM SERUM 137 mmol/L (136-145); UREA NITROGEN, BLOOD 50 mg/dL (7-18)
[2017-02-21 08:51] LABS: CREATININE 5.8 mg/dL (0.7-1.3)
--- NOTE | 2017-02-21 12:00 | NUR ---
PT RESTING ON CHAIR AT BEDSIDE, PATIENT'S DAUGHTER IS ALSO AT BEDSIDE, CALL LIGHT WITHIN REACH.
[2017-02-21] MEDS: INSULIN LISPRO SLIDING SCALE 100 UNITS/ML VIAL SUBQ PRN ×2 (12:06→21:43)
[2017-02-21 16:00] VITALS: BP 132/70
--- NOTE | 2017-02-21 19:30 | NUR ---
RECEIVED FROM AM RN IN THE CHAIR SITTING AND WATCHING TV. A/O X 4. ROM X 4. CLEAR SPEECH. JAPANESE SPEAKING. RE-ORIENTED TO CALL LIGHT USE FOR ANY HELP HE MAY NEED OR IF IN PAIN. GOOD AFFECT. NO PAIN COMPLAINTS DONE.
--- NOTE | 2017-02-21 19:39 | NUR ---
ENDORSED PT TO HEALTH INFORMATION CLERK NURSE FOR CONTINUITY OF CARE, PT STABLE AT THIS TIME.
--- NOTE | 2017-02-21 21:30 | NUR ---
PT. SITTING IN CHAIR WATCHING TV. STATED NOT SLEEPY YET. ENCOURAGED TO CALL FOR ANY HELP HE MAY NEED. PT. ASKING WHAT TIME HE CAN GO HOME TOMORROW. EXCITED TO GO HOME. NO COMPLAINTS DONE. HD ACCESS RIGHT UPPER CHEST INTACT. NO BLEEDING.
[2017-02-21 21:35] VITALS: BP 133/70
[2017-02-21] MEDS: INSULIN DETEMIR 100 UNITS/ML 10 ML VIAL SUBQ SCH (21:44)
--- NOTE | 2017-02-22 02:05 | NUR ---
SLEEPING. NO RESTLESSNESS NOTED. INDEPENDENT. CALL LIGHT WITH IN REACH.
--- NOTE | 2017-02-22 04:33 | NUR ---
SLEEPING WELL THIS SHIFT. NO COMPLAINTS DONE . CALL LIGHT WITH IN REACH.
[2017-02-22] MEDS: BLOOD GLUCOSE MONITORING 1 DEV DEV FS SCH ×4 (06:22→21:22)
--- NOTE | 2017-02-22 06:23 | NUR ---
PT. BLOOD SUGAR 71 MG/DL PER FINGERSTICK. GAVE 120 ML OF APPLE JUICE TO SUSTAIN HIM TILL BREAKFAST.
--- NOTE | 2017-02-22 07:27 | NUR ---
ENDORSED TO THE NEXT RN FOR CONTINUITY OF CARE. PT. AWAKE AT THIS TIME AND SITTING IN CHAIR WATCHING TV. DENIES ANY PAIN THIS SHIFT.
--- NOTE | 2017-02-22 07:35 | NUR ---
RECEIVED PATIENT REPORT AT BEDSIDE FROM NIGHT NURSE. PATIENT IS AAOX4 AND SHOWS NO S/S OF ACUTE DISTRESS ON ROOM AIR. DENIES PAIN AT THIS TIME. IV NOTED ON THE LFT FA SL. BLE WITH DARK DISCOLORATION FLAKY SKIN. POC WAS DISCUSSED WITH PATIENT AND HE VERBALIZED UNDERSTANDING. SAFETY AND FALL RISK PRECAUTIONS ENFORCED. THE BED IS IN LOW POSITION WITH CALL LIGHT WITHIN REACH. ALL NEEDS MET AT THIS TIME.
[2017-02-22 07:41] LABS: ANION GAP 9.9 (8-16); CARBON DIOXIDE 31.2 mmol/L (21-32); CHLORIDE 101 mmol/L (98-107); GLUCOSE 63 mg/dL (74-106); POTASSIUM 4.1 mmol/L (3.5-5.1); SODIUM SERUM 138 mmol/L (136-145); UREA NITROGEN, BLOOD 34 mg/dL (7-18)
[2017-02-22 07:51] LABS: CREATININE 4.3 mg/dL (0.7-1.3)
[2017-02-22 07:57] LABS: HEMOGLOBIN 9.4 g/dL (12.0-18.0); MEAN CORPUSCULAR HEMOGLOBIN 30 pg (27-31); MEAN CORPUSCULAR HGB CONC 32 g/dL (33-37); MEAN CORPUSCULAR VOLUME 92 fL (80-94); PLATELET COUNT (AUTO) 189 K/uL (140-450); RED BLOOD CELL COUNT(AUTO) 3.17 MIL/uL (4.20-6.10); RED CELL DISTRIBUTION WIDTH 15.6 % (11.6-13.7); WHITE BLOOD COUNT (AUTO) 6.9 K/uL (4.8-10.8)
[2017-02-22 08:00] VITALS: BP 126/59
[2017-02-22] MEDS: ASPIRIN 81 MG TAB.CHEW PO SCH (08:44)
[2017-02-22] MEDS: FAMOTIDINE 20 MG TAB PO SCH (08:44)
[2017-02-22] MEDS: LACTOBACILLUS RHAMNOSUS GG 1 EACH CAP PO SCH (08:44)
[2017-02-22] MEDS: VIT-B COMP/VIT-C/FOLIC ACID 1 TAB PO SCH (08:44)
[2017-02-22] MEDS: CALCIUM ACETATE 667 MG TAB PO SCH ×3 (08:44→17:19)
[2017-02-22] MEDS: CARVEDILOL 6.25 MG TAB PO SCH ×2 (08:45→21:18)
[2017-02-22] MEDS: ATORVASTATIN 20 MG TAB PO SCH (08:45)
[2017-02-22] MEDS: amLODIPine 5 MG TAB PO SCH (08:45)
[2017-02-22] MEDS: EPOETIN ALFA 4,000 UNITS/ML VIAL IV SCH (08:45)
[2017-02-22] MEDS: HYDRAGUARD CREAM TP SCH ×2 (08:46→21:27)
--- NOTE | 2017-02-22 08:59 | NUR ---
PATIENT BLOOD SUGAR IS 109 AFTER EATING BREAKFAST AND SHOWS NO S/S OF ACUTE DISTRESS ON ROOM AIR. PATIENT WAS GIVEN SCHEDULED MEDICATIONS. PATIENT SWALLOWED WITHOUT DIFFICULTY. IV MEDICATION WAS ADMINISTERED AND IV IS PATENT, INTACT AND SHOWS NO S/S OF INFILTRATION. PATIENT'S NEEDS MET AT THIS TIME. WILL CONTINUE TO MONITOR.
[2017-02-22 09:44] LABS: EOSINOPHILS % (MANUAL) 2 % (0-4); LYMPHOCYTES % (MANUAL) 23 % (20-46); MONOCYTES % (MANUAL) 10 % (5-12)
--- NOTE | 2017-02-22 12:00 | NUR ---
ADMINISTERED SCHEDULED MEDICATIONS. PATIENT SWALLOWED WITHOUT DIFFICULTY. FAMILY AT BEDSIDE. ALL NEEDS MET AT THIS TIME.
--- NOTE | 2017-02-22 15:35 | NUR ---
PATIENT IS SITTING IN CHAIR BY WINDOW AND SHOWS NO S/S OF ACUTE DISTRESS ON ROOM AIR. PATIENT DENIES PAIN. ALL NEEDS MET AT THIS TIME.
[2017-02-22 16:00] VITALS: BP 129/80
--- NOTE | 2017-02-22 17:20 | NUR ---
ADMINISTERED SCHEDULED MEDICATIONS. PATIENT SWALLOWED WITHOUT DIFFICULTY. FAMILY AT BEDSIDE. ALL NEEDS MET AT THIS TIME.
[2017-02-22] MEDS ORDERED: ONDANSETRON 4 MG/2 ML VIAL IVP PRN (17:50)
[2017-02-22] MEDS ORDERED: ACETAMINOPHEN 650 MG/20.3 ML UDC PO PRN (17:50)
[2017-02-22] MEDS ORDERED: DEXTROSE 50% 50 ML SYR IVP PRN (17:50)
[2017-02-22] MEDS: INSULIN LISPRO SLIDING SCALE 100 UNITS/ML VIAL SUBQ PRN ×2 (18:44→21:29)
--- NOTE | 2017-02-22 19:10 | NUR ---
GAVE PATIENT REPORT AT BEDSIDE TO NIGHT NURSE. PATIENT ENDORSED IN STABLE CONDITION.
--- NOTE | 2017-02-22 19:15 | NUR ---
RECEIVED FROM AM RN IN THE SHOWER WITH FAMILY MEMBERS VISITING. NO COMPLAINTS DONE BY FAMILY MEMBERS. PT. AWAKE AND ALERT. NO SOB. DENIES ANY PAIN AT HIS TIME. DX. O F BILATERAL PNA AND ON SCHEDULED HEMODIALYSIS . CALL LIGHT WITH IN REACH.
[2017-02-22] MEDS: INSULIN DETEMIR 100 UNITS/ML 10 ML VIAL SUBQ SCH (21:26)
--- NOTE | 2017-02-22 21:35 | NUR ---
STILL AWAKE AND WATCHING TV. CALL LIGHT WITH IN REACH. NO COMPLAINTS DONE. NO SOB. ENCOURAGED TO CALL FOR ANY HELP HE MAY NEED OR IF IN PAIN.
[2017-02-23 00:20] VITALS: BP 136/60
--- NOTE | 2017-02-23 00:26 | NUR ---
SLEEPING WELL. NO RESTLESSNESS NOTED. CALL LIGHT WITH IN REACH. ABLE TO VERBALIZE NEEDS WELL. NO SOB.
--- NOTE | 2017-02-23 02:37 | NUR ---
SLEEPING. NO RESTLESSNESS. NO SOB. CALL LIGHT WITH IN REACH.
[2017-02-23] MEDS: BLOOD GLUCOSE MONITORING 1 DEV DEV FS SCH ×4 (05:45→21:20)
--- NOTE | 2017-02-23 05:47 | NUR ---
SLEPT WELL THIS SHIFT. LATEST BLOOD SUGAR CHECK 148 MG/DL. NO RISS COVERAGE.
--- NOTE | 2017-02-23 07:00 | NUR ---
[facility] CALLED AND STATED SHE WILL COME TO DO THE DIALYSIS TODAY AT 1000 HRS. PT MADE AWARE, VERBALIZED UNDERSTANDING. Addendum: 02/23/17 at 1653 by Alva Lennon RN DISREGARD ABOVE NOTES, WRONG TIME.
--- NOTE | 2017-02-23 07:30 | NUR ---
RECEIVED ON BED AAOX4. NO SOB NOTED. NO C/O PAIN AT THIS TIME. IV TO LT FOREARM PATENT AND INTACT. WITH RT CHEST NATAN CATH IN PLACE, SITE CLEAN AND DRY. CHEST CLEAR. ABDOMEN SOFT, BOWEL SOUNDS PRESENT. NO EDEMA NOTED. INSTRUCTED PT TO CALL FOR ASSISTANCE, CALL LIGHT WITHIN REACH. PT VERBALIZED UNDERSTANDING.
[2017-02-23 08:00] VITALS: BP 128/74
--- NOTE | 2017-02-23 08:00 | NUR ---
[facility] CALLED AND STATED SHE WILL COME TO DO THE DIALYSIS TODAY AT 1000 HRS. PT MADE AWARE, VERBALIZED UNDERSTANDING.
[2017-02-23] MEDS: CARVEDILOL 6.25 MG TAB PO SCH ×2 (09:00→21:20)
[2017-02-23] MEDS: amLODIPine 5 MG TAB PO SCH (09:00)
[2017-02-23] MEDS: FAMOTIDINE 20 MG TAB PO SCH (09:21)
[2017-02-23] MEDS: CALCIUM ACETATE 667 MG TAB PO SCH ×3 (09:21→17:53)
[2017-02-23] MEDS: ASPIRIN 81 MG TAB.CHEW PO SCH (09:21)
[2017-02-23] MEDS: LACTOBACILLUS RHAMNOSUS GG 1 EACH CAP PO SCH (09:30)
[2017-02-23] MEDS: VIT-B COMP/VIT-C/FOLIC ACID 1 TAB PO SCH (09:30)
[2017-02-23] MEDS: HYDRAGUARD CREAM TP SCH ×2 (09:30→21:20)
--- NOTE | 2017-02-23 10:40 | NUR ---
HEMODIALYSIS STARTED AT THE BEDSIDE.
[2017-02-23] MEDS: INSULIN LISPRO SLIDING SCALE 100 UNITS/ML VIAL SUBQ PRN ×2 (12:45→17:45)
--- NOTE | 2017-02-23 14:20 | NUR ---
HEMODIALYSIS ENDED. PT STABLE, NO SOB NOTED. NO COMPLAINTS MADE.
--- NOTE | 2017-02-23 14:25 | NUR ---
HD OUTPUT 1.6 LITERS.
[2017-02-23 16:00] VITALS: BP 128/73
--- NOTE | 2017-02-23 19:00 | NUR ---
PT AWAKE. NO SOB NOTED. NO COMPLAINTS MADE. WILL ENDORSE TO NEXT SHIFT NURSE TO CONTINUE WITH THE DISCHARGE PROCESS.
--- NOTE | 2017-02-23 20:13 | NUR ---
RECEIVED FROM AM RN IN BED SITTING UP AND WATCHING TV. FAMILY MEMBERS IN HERE VISITING. CALL LIGHT WITH IN REACH. NO SOB. DENIES PAIN AT THIS TIME. RIGHT NATAN CATH INTACT AND NO BLEEDING. IVF SITE TO LEFT FOREARM INTACT AND PATENT. ROM X 4. ORIENTED X 4. ABLE TO VERBALIZE SIMPLE NEEDS WELL. HD TODAY DONE.
[2017-02-23 21:08] VITALS: BP 132/70
[2017-02-23] MEDS: INSULIN DETEMIR 100 UNITS/ML 10 ML VIAL SUBQ SCH (21:22)
[2017-02-23] MEDS: DOCUSATE SODIUM 100 MG GELCAP PO PRN (21:25)
--- NOTE | 2017-02-24 | NUR ---
PT. SLEEPING AT THIS TIME. NO RESTLESSNESS. FLACC 0-. PT. ABLE TO VERBALIZE SIMPLE NEEDS WELL IN [place]. ROM X 4.
[2017-02-24] MEDS: BLOOD GLUCOSE MONITORING 1 DEV DEV FS SCH ×2 (05:45→11:30)
--- NOTE | 2017-02-24 06:47 | NUR ---
STILL SLEEPING. BLOOD SUGAR TAKEN EARLIER AND FED WITH SNACK REQUESTED. BLOOD SUGAR PER FINGERSTICK WNL. NO REGULAR INSULIN COVERAGE GIVEN.
[2017-02-24 08:00] VITALS: BP 139/68
[2017-02-24] MEDS: CALCIUM ACETATE 667 MG TAB PO SCH ×2 (08:59→12:46)
[2017-02-24] MEDS: DOCUSATE SODIUM 100 MG GELCAP PO PRN (08:59)
[2017-02-24] MEDS: VIT-B COMP/VIT-C/FOLIC ACID 1 TAB PO SCH (09:00)
[2017-02-24] MEDS: FAMOTIDINE 20 MG TAB PO SCH (09:00)
[2017-02-24] MEDS: CARVEDILOL 6.25 MG TAB PO SCH (09:00)
[2017-02-24] MEDS: LACTOBACILLUS RHAMNOSUS GG 1 EACH CAP PO SCH (09:00)
[2017-02-24] MEDS: ASPIRIN 81 MG TAB.CHEW PO SCH (09:00)
[2017-02-24] MEDS: amLODIPine 5 MG TAB PO SCH (09:01)
[2017-02-24] MEDS: HYDRAGUARD CREAM TP SCH (09:01)
[2017-02-24] MEDS: EPOETIN ALFA 4,000 UNITS/ML VIAL IV SCH (09:02)
[2017-02-24] MEDS: INSULIN LISPRO SLIDING SCALE 100 UNITS/ML VIAL SUBQ PRN (12:44)
--- NOTE | 2017-02-24 15:12 | NUR ---
[address] [facility] ELIGIBILITY FORM AND FAXED TO KEVIN AT [facility] [phone] PHONE [phone] AND VM LEFT. CALLED [facility] IN [place] [phone] AND SPOKE WITH IHSAN WHO REQUESTED THAT THE ELIGIBILITY FORM BE FAXED TO THE UNIT AT [phone]. IHSAN WILL CHECK ON SEAT SCHEDULE.
[2017-02-24] MEDS ORDERED: CYCL10TA14 PO (15:50)
[2017-02-24] MEDS ORDERED: LEVEMIR SUBQ (15:50)
[2017-02-24] MEDS ORDERED: CARV6.252 PO (15:50)
[2017-02-24] MEDS ORDERED: AMLO5TAB4 PO (15:50)
[2017-02-24] MEDS ORDERED: NEP PO (15:50)
[2017-02-24] MEDS ORDERED: PHO667 PO (15:50)
[2017-02-24] MEDS ORDERED: ASPI81CT95 PO (15:50)
[2017-02-24] MEDS ORDERED: FAMO20TA13 PO (15:50)
[2017-02-24 16:01] VITALS: BP 131/67
--- NOTE | 2017-02-24 16:04 | NUR ---
1525 SPOKE WITH KEVIN AT [facility] AND PT'S ASSIGNED CHAIR TIME IS MWF AT 1:15PM BUT ON MONDAY 02/27 PT NEEDS TO BE THERE AT 12:15PM AND BRING ANY FORM OF IDENTIFICATION HE HAS. [address] [id number] [phone]. 1545 MET WITH PT WITH CLAUDIA BARKEEP TO INTERPRET AND PROVIDED PT INFORMATION THAT HE NOW HAS AN ASSIGNED CHAIR TIME. INFORMED HIM THAT NURSING WILL CHECK WITH MD IF HE CAN DISCHARGE TODAY HIS LAST DIALYSIS TREATMENT WAS YESTERDAY AND HE IS NOT SCHEDULED FOR OP TILL MONDAY. INFORMED HIM OF OP SEAT DAYS AND TIME AND TO TAKE SOME FORM OF IDENTIFICATION.
--- NOTE | 2017-02-24 17:00 | NUR ---
SPOKE WITH DR. CHAHAL REGARDING PT'S FIRST DAY OF HD OUT PT, DR. CHAHAL STATED SHE ALREADY SPOKE WITH THE NON LICENSED NUCLEAR EQUIPMENT OPERATOR AND STATED IT IS OKAY TO START HD ON MONDAY.
--- NOTE | 2017-02-24 17:15 | NUR ---
DISCHARGE INSTRUCTIONS GIVEN TO PT AND DAUGHTER FIDEL. PRESCRIPTIONS WERE SENT TO PT'S PREFERRED PHARMACY, BOTH VERBALIZED UNDERSTANDING OF THE INSTRUCTIONS AND TEACHINGS GIVEN AND THE NEED TO FOLLOW UP WITH [facility] FOR FOLLOW UP APPOINTMENT. PT AND DAUGHTER ARE AWARE OF PT'S HEMODIALYSIS FIRST DAY SCHEDULE OUT PATIENT AT [facility]3]. ARM BANDS AND IV REMOVED, CANNULA TIP INTACT. PT'S DAUGHTER WHO SPEAKS INDONESIAN SIGNED THE D/C PAPERS.
--- NOTE | 2017-02-24 17:30 | NUR ---
PT ESCORTED TO THE PARKING LOT BY ARACELIS IN STABLE CONDITION. PT AMBULATORY. NO SOB NOTED. NO COMPLAINTS MADE. RT NATAN CATH IN PLACE, SITE CLEAN AND DRY. NO SIGNS OF INFECTION. PT IS D/C HOME WITH DAUGHTER FIDEL.
== END 2017-02-24 17:30 | disposition home or self-care (01) | DRG 469 ==
LOC: MED 20:45 → MTU 22:54
PROVIDERS: ADMIT Family Medicine; ATTEND Family Medicine
PROC: 02HV33Z Insertion of Infusion Device into Superior Vena Cava, Percutaneous Approach (ICD-10-PCS; 2017-01-24)
PROC: B5181ZA Fluoroscopy of Superior Vena Cava using Low Osmolar Contrast, Guidance (ICD-10-PCS; 2017-01-24)
PROC: B548ZZA Ultrasonography of Superior Vena Cava, Guidance (ICD-10-PCS; 2017-01-24)
PROC: 5A1D70Z Performance of Urinary Filtration, Intermittent, Less than 6 Hours Per Day (ICD-10-PCS; 2017-01-24)
PROC: 0JH60XZ Insertion of Tunneled Vascular Access Device into Chest Subcutaneous Tissue and Fascia, Open Approach (ICD-10-PCS; principal; 2017-01-24 12:40)
PROC: 5A1D70Z Performance of Urinary Filtration, Intermittent, Less than 6 Hours Per Day (ICD-10-PCS; 2017-01-25)
PROC: 5A1D70Z Performance of Urinary Filtration, Intermittent, Less than 6 Hours Per Day (ICD-10-PCS; 2017-01-27)
PROC: 5A1D70Z Performance of Urinary Filtration, Intermittent, Less than 6 Hours Per Day (ICD-10-PCS; 2017-01-30)
PROC: 5A1D70Z Performance of Urinary Filtration, Intermittent, Less than 6 Hours Per Day (ICD-10-PCS; 2017-02-01)
PROC: 5A1D70Z Performance of Urinary Filtration, Intermittent, Less than 6 Hours Per Day (ICD-10-PCS; 2017-02-03)
PROC: 5A1D70Z Performance of Urinary Filtration, Intermittent, Less than 6 Hours Per Day (ICD-10-PCS; 2017-02-06)
PROC: 5A1D70Z Performance of Urinary Filtration, Intermittent, Less than 6 Hours Per Day (ICD-10-PCS; 2017-02-08)
PROC: 5A1D70Z Performance of Urinary Filtration, Intermittent, Less than 6 Hours Per Day (ICD-10-PCS; 2017-02-10)
PROC: 5A1D70Z Performance of Urinary Filtration, Intermittent, Less than 6 Hours Per Day (ICD-10-PCS; 2017-02-13)
PROC: 5A1D70Z Performance of Urinary Filtration, Intermittent, Less than 6 Hours Per Day (ICD-10-PCS; 2017-02-15)
PROC: 5A1D70Z Performance of Urinary Filtration, Intermittent, Less than 6 Hours Per Day (ICD-10-PCS; 2017-02-17)
PROC: 5A1D70Z Performance of Urinary Filtration, Intermittent, Less than 6 Hours Per Day (ICD-10-PCS; 2017-02-19)
PROC: 5A1D70Z Performance of Urinary Filtration, Intermittent, Less than 6 Hours Per Day (ICD-10-PCS; 2017-02-21)
PROC: 5A1D70Z Performance of Urinary Filtration, Intermittent, Less than 6 Hours Per Day (ICD-10-PCS; 2017-02-23)
DX: N17.0 Acute kidney failure with tubular necrosis (principal); J69.0 Pneumonitis due to inhalation of food and vomit; J96.21 Acute and chronic respiratory failure with hypoxia; E43 Unspecified severe protein-calorie malnutrition; J90 Pleural effusion, not elsewhere classified; D68.59 Other primary thrombophilia; I12.0 Hypertensive chronic kidney disease with stage 5 chronic kidney disease or end stage renal disease; E11.22 Type 2 diabetes mellitus with diabetic chronic kidney disease; N18.6 End stage renal disease; E11.51 Type 2 diabetes mellitus with diabetic peripheral angiopathy without gangrene; E11.65 Type 2 diabetes mellitus with hyperglycemia; E87.5 Hyperkalemia; E83.41 Hypermagnesemia; E83.39 Other disorders of phosphorus metabolism; E86.0 Dehydration; Z68.30 Body mass index [BMI] 30.0-30.9, adult; E66.9 Obesity, unspecified; F17.210 Nicotine dependence, cigarettes, uncomplicated; E78.5 Hyperlipidemia, unspecified; E83.51 Hypocalcemia; J44.1 Chronic obstructive pulmonary disease with (acute) exacerbation; E87.1 Hypo-osmolality and hyponatremia; E87.70 Fluid overload, unspecified; D63.1 Anemia in chronic kidney disease; Z99.2 Dependence on renal dialysis; Z79.4 Long term (current) use of insulin; Z91.19 Patient's noncompliance with other medical treatment and regimen; E83.42 Hypomagnesemia; E87.6 Hypokalemia
CPT/HCPCS: 36415; 36600; 71010; 76604; 80048; 80053; 80305; 81001; 82150; 82728; 82803; 82948; 83036; 83540; 83605; 83690; 83735; 83880; 84100; 84436; 84439; 84443; 84479; 85025; 85610; 85730; 86704; 86706; 86708; 86709; 86803; 87040; 87070; 87081; 87086; 87205; 87340; 87804; 90935; 93005; 93970; 94640; 96361; 96365; 96375; 99285; C1750; J0360; J0885; J1642; J1644; J1815; J1940; J1956; J2001; J2250; J2543; J2920; J2930; J3010; J3370; J3475; J3490; J7030; J7060; J7613; J7620; J7626; Q0092; Q0163

== ENCOUNTER 2017-04-09 21:09 | Inpatient (IN) | payer MEDICAID ==
[~2017-04-09] VITALS: Ht 154.9 cm; Wt 65.8 kg
[~2017-04-09 21:09] MED LIST changes: -AMLO-27 PO; +AMLO5TAB4 PO; +ASPI81CT95 PO; +CARV6.252 PO; -CLIN300C2 PO; +CYCL10TA14 PO; +FAMO20TA13 PO; -HUMSLIDE SQ; +LEVEMIR SUBQ; -LEVO750T2 PO; -LOSA50TA39 PO; +NEP PO; -PRON INH; -[UNRECOGNIZED DRUG - CODE] MC; -[UNRECOGNIZED DRUG - SUPPLY]; -glucometer
--- NOTE | 2017-04-09 21:15 | NUR ---
BIB WHEELCHAIR TO ER BED 11
[2017-04-09 21:25] VITALS: BP 149/79
--- NOTE | 2017-04-09 21:33 | NUR ---
PT AO X1 FAMILY @ BEDSIDE. NSR 80S PT DENIES PAIN AT THIS TIME. PIV STARTED TO L AC 18 G SL. NO S/S OF DISTRESS NOTED. WILL CONTINUE TO MONITOR.
--- NOTE | 2017-04-09 21:35 | NUR ---
BLOOD DRAWN @ BEDSIDE, BY MESERET HAILE RN. PLACED IN LAB SPECIMEN SITE.
--- NOTE | 2017-04-09 22:15 | NUR ---
PT AND FAMILY INFORMED ABOUT STRAIGHT CATH PROCEDURE FOR UA, VERBALIZED UNDERSTANDING AND AGREEABLE. 300 OUTPUT CLEAR YELLOW URINE SENT TO LAB.
[2017-04-09 22:18] LABS: HEMOGLOBIN 9.7 g/dL (12.0-18.0); LYMPHOCYTES % (AUTO) 8.7 % (20.5-51.1); MEAN CORPUSCULAR HEMOGLOBIN 28 pg (27-31); MEAN CORPUSCULAR HGB CONC 32 g/dL (33-37); MEAN CORPUSCULAR VOLUME 87 fL (80-94); MONOCYTES % (AUTO) 7.9 % (1.7-9.3); NEUTROPHILS % (AUTO) 74.2 % (42.2-75.2); PLATELET COUNT (AUTO) 218 K/uL (140-450); RED BLOOD CELL COUNT(AUTO) 3.53 MIL/uL (4.20-6.10); RED CELL DISTRIBUTION WIDTH 16.5 % (11.6-13.7)
[2017-04-09 22:19] LABS: BASOPHILS # (AUTO) 0.1 K/uL (0.00-0.22); BASOPHILS % (AUTO) 0.8 % (0.0-2.0); EOSINOPHILS % (AUTO) 8.4 % (0.0-4.0); MONOCYTES # (AUTO) 0.9 K/uL (0.8-1.0)
--- NOTE | 2017-04-09 22:20 | NUR ---
DR. RAMIREZ @ BEDSIDE TALKING TO FAMILY @ PT.
--- NOTE | 2017-04-09 22:20 | NUR ---
LAB @ BEDSIDE FOR BLOOD CULTURES
--- NOTE | 2017-04-09 22:25 | NUR ---
RAD @ BEDSIDE FOR CXR.
[2017-04-09 22:27] LABS: ALBUMIN 2.5 g/dL (3.4-5.0); ANION GAP 13.9 (8-16); ASPARTATE AMINOTRANSFERASE 13 U/L (15-37); CARBON DIOXIDE 28.5 mmol/L (21-32); CHLORIDE 101 mmol/L (98-107); GLUCOSE 255 mg/dL (74-106); POTASSIUM 4.4 mmol/L (3.5-5.1); SODIUM SERUM 139 mmol/L (136-145); TOTAL BILIRUBIN 0.3 mg/dL (0.0-1.0); UREA NITROGEN, BLOOD 50 mg/dL (7-18)
[2017-04-09 22:28] LABS: APPEARANCE,URINE CLEAR (CLEAR); BILIRUBIN,URINE NEGATIVE (NEGATIVE); BLOOD, URINE 1+ (NEGATIVE); COLOR,URINE YELLOW (YELLOW); LEUKOCYTE ESTERASE ,URINE NEGATIVE (NEGATIVE); NITRITE, URINE NEGATIVE (NEGATIVE); UGLUCOSE 2+ (NEGATIVE)
[2017-04-09 22:29] LABS: CREATININE 7.2 mg/dL (0.7-1.3)
[2017-04-09 22:40] LABS: RBC,URINE 3-10 (FEW) /HPF (0-5); WBC,URINE 0-5 (RARE) /HPF (0-5)
[2017-04-09] MEDS ORDERED: MEROPENEM 1,000 MG in NACL 0.9% 100 ML IV ONE (22:55)
[2017-04-09] MEDS ORDERED: VANCOMYCIN 1,000 MG in DEXTROSE 5% 250 ML IV ONE (22:55)
[2017-04-09] MEDS ORDERED: MEROPENEM 1,000 MG VIAL IV ONE (23:02)
[2017-04-09] MEDS ORDERED: MORPHINE SULFATE 4 MG/ML SYR IVP PRN (23:15)
[2017-04-09] MEDS ORDERED: ONDANSETRON 4 MG/2 ML VIAL IM/IVP PRN (23:15)
[2017-04-09] MEDS ORDERED: ACETAMINOPHEN 325 MG TAB PO PRN (23:15)
[2017-04-09] MEDS ORDERED: DOCUSATE SODIUM 100 MG GELCAP PO PRN (23:15)
[2017-04-09] MEDS ORDERED: HYDROcodone/APAP 7.5/325 MG 1 TAB PO PRN (23:15)
--- NOTE | 2017-04-09 23:24 | NUR ---
iv abx given to pt via piv. no s/s of distress will continue to observe.
[2017-04-09] MEDS ORDERED: DEXTROSE 50% 50 ML SYR IVP PRN (23:25)
[2017-04-09 23:39] LABS: PROTHROMBIN TIME 11.1 secs (10.8-13.4)
[2017-04-09 23:41] LABS: BARBITURATE, URINE NEG. ng/ml (NEG <=200); BENZODIAZEPINE, URINE NEG. ng/mL (NEG <=200); CANNABINOID, URINE NEG. ng/mL (NEG <=50); COCAINE, URINE NEG. ng/mL (NEG <=300); OPIATE, URINE NEG. ng/mL (NEG <=2000); PHENCYCLIDINE SCREEN,URINE NEG. ng/mL (NEG <=25)
[2017-04-09 23:45] VITALS: BP 148/72
--- NOTE | 2017-04-09 23:45 | NUR ---
Admitted from ER, with chief complaint of X1 DAY GENERALIZED WEAKNESS, DX PNA; ESRD ON HD 72 y/o, Male, Guarded, PT SLEEPING, AROUSABLE TO TOUCH BUT UNWILLING TO TALK AT THIS TIME. SALES ANALYTICS MANAGER PLACED. NATAN CATH NOTED ON R UPPER CHEST. SPO2 99% RA, RR 20 EVEN AND UNLABORED. LUNG SOUNDS DIMINISHED BILATERALLY. ABD SOFT ROUND AND NONTENDER. BS ACTIVE X4 QUADRANT. IV ACCESS ASYMPTOMATIC, PATENT AND INTACT, WILL ADMINISTER IVF ORDERED. DISCUSSED AND REVIEWED PLAN OF CARE WITH PT, WILL REINFORCE. WILL orient PT to call light, bed, phone,television, bathroom, smoking policy, visiting hours, procedures IN THE AM. ID bracelet on. Belongings list checked. ALL NEEDS MET. BED ALARM AND SAFETY MEASURES ENSURED. CALL LIGHT WITHIN REACH.
[2017-04-09 23:50] LABS: CHOL/HDL RATIO 2.5 (1-4.5); FREE T4 (FREE THYROXINE) 0.85 ng/dL (0.76-1.46); MAGNESIUM 2.1 mg/dL (1.8-2.4); PHOSPHORUS 6.2 mg/dL (2.5-4.9); THYROID STIMULATING HORMONE 5.54 uIU/mL (0.34-3.74)
--- NOTE | 2017-04-09 23:50 | NUR ---
report given to floor nurse basilio. orders and meds endorsed to basilio. pt transported to bed via gurney, cardiac tele monitor in place.
[2017-04-10] MEDS: NACL 0.9% 1,000 ML IV SCH ×3 (00:14→23:15)
[2017-04-10] MEDS: BLOOD GLUCOSE MONITORING 1 DEV DEV FS SCH ×5 (00:16→21:28)
[2017-04-10] MEDS ORDERED: VANCOMYCIN 1,000 MG VIAL ONE (00:22)
--- NOTE | 2017-04-10 00:29 | NUR ---
CALLED DR ACOSTA, MADE AWARE OF BLOOD GLUCOSE 193 AT THIS TIME, ORDERS RECEIVED TO HOLD INSULIN COVERAGE AT THIS TIME, WILL RECHECK IN AM ORDERED. RECEIVED VANCO 1GM FROM CHARGE NURSE. ADMINISTERED VANCO 1GM IN D5W 250ML WITH EDUCATION, IVPB INFUSING WELL. ALL NEEDS MET. BED ALARM AND SAFETY MEASURES ENSURED. CALL LIGHT WITHIN REACH.
[2017-04-10] MEDS ORDERED: MECLIZINE 25 MG TAB PO PRN (00:50)
[2017-04-10] MEDS ORDERED: CYCLOBENZAPRINE 10 MG TAB PO PRN (03:50)
[2017-04-10 04:00] VITALS: BP 153/72
--- NOTE | 2017-04-10 04:14 | NUR ---
RECEIVED CALL FROM RADIOLOGY SERVICE FOR RESULTS OF CT HEAD W/O CONTRAST; POSTERIOR SCALP SOFT TISSUE SWELLING, NO ACUTE DISEASE, NO STROKE. REPORTED RESULTS TO DR ACOSTA, NO CHANGE IN ORDERS. PT SLEEPING COMFORTABLY, RESPIRATIONS EVEN AND UNLABORED. IVF INFUSING WELL. SAFETY MEASURES ENSURED. CALL LIGHT WITHIN REACH.
[2017-04-10] MEDS ORDERED: ALBUTEROL SULFATE/IPRATROPIU 3 ML SOL IH PRN ×2 (04:35→17:40)
[2017-04-10] MEDS ORDERED: LEVOFLOXACIN 750 MG/D5W PREMIX 150 ML IV SCH (05:00)
[2017-04-10] MEDS ORDERED: CLINDAMYCIN 600 MG/4 ML VIAL ONE (05:04)
[2017-04-10] MEDS: CLINDAMYCIN 600 MG in DEXTROSE 5% 50 ML IV SCH ×3 (05:25→21:30)
--- NOTE | 2017-04-10 05:30 | NUR ---
RECEIVED CLEOCIN 600MG VIAL AND LEVAQUIN 750MG IN 150ML D5W PREMIX FROM CHARGE NURSE. D5W 50ML UNAVAILABLE AT THIS TIME, ADMINISTERED CLEOCIN 600MG IN NS 50ML IVPB AT THIS TIME. WILL ADMINISTERED LEVAQUIN IVPB AFTER ORDERED.
[2017-04-10] MEDS: INSULIN LISPRO SLIDING SCALE 100 UNITS/ML VIAL SUBQ PRN (06:42)
--- NOTE | 2017-04-10 06:48 | NUR ---
PT IS ASLEEP UNABLE TO PERFORM IS OR GIVE SPUTUM SAMPLE WILL RETURN LATER TO HAVE PT DO THEM
--- NOTE | 2017-04-10 07:10 | NUR ---
ENDORSED PLAN OF CARE TO AM NURSE. CONDITION STABLE.
--- NOTE | 2017-04-10 07:10 | NUR ---
Patient's Plan of Care was discussed and reviewed with INDUSTRIAL PARAMEDIC: Rajendra CONLEY
[2017-04-10 08:00] VITALS: BP 115/57
[2017-04-10] MEDS: CALCIUM ACETATE 667 MG TAB PO SCH ×3 (08:00→17:00)
--- NOTE | 2017-04-10 08:29 | NUR ---
PATIENT HAS BEEN SCREENED AND CATEGORIZED MODERATE NUTRITION RISK. PATIENT WILL BE SEEN WITHIN 3-5 DAYS OF ADMISSION. 04/11/17-04/13/[address]
[2017-04-10] MEDS: CARVEDILOL 6.25 MG TAB PO SCH ×2 (09:00→21:00)
[2017-04-10] MEDS: amLODIPine 5 MG TAB PO SCH (09:00)
[2017-04-10] MEDS: FAMOTIDINE 20 MG TAB PO SCH (09:00)
[2017-04-10] MEDS: LACTOBACILLUS RHAMNOSUS GG 1 EACH CAP PO SCH (09:00)
[2017-04-10] MEDS: VIT-B COMP/VIT-C/FOLIC ACID 1 TAB PO SCH (09:00)
[2017-04-10] MEDS: ASPIRIN 81 MG TAB.CHEW PO SCH (09:00)
--- NOTE | 2017-04-10 10:00 | NUR ---
INFORMED DR. LR ABOUT SCHEDULED THAT WAS NOT GIVEN SINCE 0800 DUE TO PT. LETHARGIC CONDITION. INFORMED CHARGE NURSE SHAYLA GODOY.
[2017-04-10] MEDS ORDERED: RENAL DOSING PER PHARMACY MC PRN (10:25)
--- NOTE | 2017-04-10 10:35 | NUR ---
DR. SCHMITZ CAME, REVIEWED PT. CHART, AND SEEN PT.. INFORMED DR. SCHMITZ THAT PT. LETHARGIC SINCE THIS MORNING.
--- NOTE | 2017-04-10 11:34 | NUR ---
HYDRAULIC PRESS SERVICER TASHA CAME AND SPOKE TO PT. DAUGHTER AT BEDSIDE.
[2017-04-10 12:00] VITALS: BP 117/60
--- NOTE | 2017-04-10 13:00 | NUR ---
PT. NIECE SPOKE TO DR. LR REGARDING PT. CONDITION.
[2017-04-10 16:00] VITALS: BP 133/63
--- NOTE | 2017-04-10 16:14 | NUR ---
PT IS STILL SLEEPING UNABLE TO GET SPUTUM OR HAVE PT DO IS
--- NOTE | 2017-04-10 16:30 | NUR ---
DR. BA CAME, AND REVIEWED PT. CHART.
--- NOTE | 2017-04-10 16:37 | NUR ---
HD NURSE -CHANTAL CAME FOR PT. HD.
--- NOTE | 2017-04-10 17:30 | NUR ---
DR. BA WENT INSIDE PT. ROOM AND ASSESSED PT.. PT. FAMILY MEMBERS AND HD NURSE AT BEDSIDE.
[2017-04-10] MEDS ORDERED: ALBUTEROL SULFATE/IPRATROPIU 3 ML SOL IH SCH (18:00)
--- NOTE | 2017-04-10 19:09 | NUR ---
BEDSIDE REPORT GIVEN TO JOSEPH GODOY. IN STABLE CONDITION. ON HD NOW.
--- NOTE | 2017-04-10 19:10 | NUR ---
RECEIVED FROM AM NURSE IN BED , HEMODIALYSIS ON GOING TO RIGHT UPPER CHEST NATAN CATHETER. . NON VERBAL AT THIS TIME. CONFUSED. TENDENCY OF PULLING OUT TUBINGS. PER NURSE IN AM PT. BEEN LETHARGIC HIS SHIFT AND THAT MD AWARE OF STATUS. NEEDS WILL BE ANTICIPATED AND WILL BE MET. TOTAL CARE. BED ALARM ON.
[2017-04-10 20:00] VITALS: BP 106/66
--- NOTE | 2017-04-10 20:03 | NUR ---
DAUGHTER CRIS IN HERE AND EXPLAINED TO HER THAT WE NEED TO PUT MITTENS ON PT. RT PULLING OUT TUBINGS. AWARE AND STATED "IT IS ROSEMARY" WILL MONITOR PT. CLOSELY.
[2017-04-10] MEDS: INSULIN LANTUS 100 UNITS/ML 10 ML VIAL SUBQ SCH (21:00)
--- NOTE | 2017-04-10 21:23 | NUR ---
PT. HEMODIALYSIS DONE. 500 ML TAKEN OUT. SLEEPING. FAMILY MEMBERS INHERE EARLIER. LEFT . NO COMPLAINTS DONE. NEW IVF SITE RE-INSERTED BY CHARGE NURSE RT PT. PULLED IT OUT EARLIER IN THE SHIFT. IVF SITE/NEW TO LEFT HAND STILL #22. GOOD BLOOD RETURN.
--- NOTE | 2017-04-10 23:00 | NUR ---
PT. SLEEPING. WITH CONFUSION. TRIES TO PULL OUT TUBINGS IF AWAKE. GOES BACK TO SLEEP EASILY. NONE VERBAL AT THIS TIME. NATAN CATHETER TO RIGHT UPPER CHEST INTACT AND NO BLEEDING. IVF SITE TO LEFT HAND INTACT AND NO BLEEDING. WRAPPED WITH GAUZE TO PROTECT IT FROM PT. PULLING IT OUT. TURNED Q 2H. PILLOW SUPPORT TO PRESSURE AREAS.
[2017-04-10 23:52] VITALS: BP 142/76
--- NOTE | 2017-04-11 02:35 | NUR ---
SLEEPING. ON TELEMETRY MONITORING. O2 SAT 99 TO 100 %. ROOM AIR. TELEMETRY MONITORING. NO SOB. NO RESTLESSNESS.
[2017-04-11] MEDS: CLINDAMYCIN 600 MG in DEXTROSE 5% 50 ML IV SCH ×3 (05:26→21:47)
[2017-04-11] MEDS: BLOOD GLUCOSE MONITORING 1 DEV DEV FS SCH ×4 (05:59→21:46)
[2017-04-11 06:09] VITALS: BP 150/83
[2017-04-11 06:16] LABS: T4 (THYROXINE) 5.1 ug/dL (4.5-12.0)
[2017-04-11 06:23] LABS: BASOPHILS # (AUTO) 0.1 K/uL (0.00-0.22); BASOPHILS % (AUTO) 0.9 % (0.0-2.0); EOSINOPHILS # (AUTO) 0.7 K/uL (0-0.4); EOSINOPHILS % (AUTO) 6.3 % (0.0-4.0); HEMATOCRIT 32.6 % (36-52); HEMOGLOBIN 10.4 g/dL (12.0-18.0); LYMPHOCYTES # (AUTO) 1.4 K/uL (2.0-11.5); LYMPHOCYTES % (AUTO) 13.3 % (20.5-51.1); MEAN CORPUSCULAR HEMOGLOBIN 28 pg (27-31); MEAN CORPUSCULAR HGB CONC 32 g/dL (33-37); MEAN CORPUSCULAR VOLUME 88 fL (80-94); MONOCYTES # (AUTO) 1.1 K/uL (0.8-1.0); MONOCYTES % (AUTO) 10.2 % (1.7-9.3); NEUTROPHILS # (AUTO) 7.6 K/uL (1.8-7.7); NEUTROPHILS % (AUTO) 69.3 % (42.2-75.2); PLATELET COUNT (AUTO) 144 K/uL (140-450); RED BLOOD CELL COUNT(AUTO) 3.72 MIL/uL (4.20-6.10); RED CELL DISTRIBUTION WIDTH 17.5 % (11.6-13.7); WHITE BLOOD COUNT (AUTO) 10.9 K/uL (4.8-10.8)
--- NOTE | 2017-04-11 06:25 | NUR ---
ALL NEEDS ANTICIPATED AND MET. TOTAL CARE AT THIS TIME. MITTENS IN PLACE RT PT. WITH CONFUSION AND TRIES TO PULL OUT IVF TUBINGS. BLOOD SUGAR THIS A.M. 107 MG/DL. NO INSULIN COVERAGE GIVEN.
--- NOTE | 2017-04-11 07:15 | NUR ---
RECEIVED REPORT FROM BERRY PICKER MACHINE OPERATOR NURSE AT BEDSIDE FOR CONTINUITY OF CARE. PATIENT ASLEEP BUT AROUSABLE. THAI SPEAKING ONLY. UPDATED BOARD. RESPIRATIONS EVEN AND UNLABORED ON 2L O2 VIA NC. DENIES PAIN AT THIS TIME. IV ON L HAND 22G WITH NS AT 20 ML/HR INFUSING WELL, IV INTACT, ASYMPTOMATIC, AND PATENT. SKIN INTACT. PATIENT CAN VERBALIZE REQUESTS. ALL NEEDS MET AT THIS TIME, SAFETY PRECAUTIONS IN PLACE, BED ON LOWEST SETTING, BED ALARM ON, CALL LIGHT WITHIN REACH. WILL CONTINUE TO MONITOR PATIENT.
[2017-04-11 07:46] LABS: MAGNESIUM 1.9 mg/dL (1.8-2.4); PHOSPHORUS 4.9 mg/dL (2.5-4.9)
[2017-04-11 07:54] LABS: ANION GAP 12.5 (8-16); CARBON DIOXIDE 27.5 mmol/L (21-32); CHLORIDE 103 mmol/L (98-107); GLUCOSE 127 mg/dL (74-106); SODIUM SERUM 139 mmol/L (136-145); UREA NITROGEN, BLOOD 26 mg/dL (7-18)
[2017-04-11 07:55] LABS: CREATININE 5.1 mg/dL (0.7-1.3)
[2017-04-11 08:00] VITALS: BP 130/73
[2017-04-11] MEDS: FAMOTIDINE 20 MG TAB PO SCH (09:03)
[2017-04-11] MEDS: VIT-B COMP/VIT-C/FOLIC ACID 1 TAB PO SCH (09:03)
[2017-04-11] MEDS: ASPIRIN 81 MG TAB.CHEW PO SCH (09:03)
--- NOTE | 2017-04-11 09:03 | NUR ---
ADMINISTERED MORNING MEDICATIONS, PATIENT TOLERATED THEM WELL. NO SIGNS OF DISTRESS NOTED. BREATHING EVEN AND UNLABORED. CALL LIGHT WITHIN REACH, WILL CONTINUE TO MONITOR PATIENT.
[2017-04-11] MEDS: LACTOBACILLUS RHAMNOSUS GG 1 EACH CAP PO SCH (09:04)
[2017-04-11] MEDS: amLODIPine 5 MG TAB PO SCH (09:04)
[2017-04-11] MEDS: CARVEDILOL 6.25 MG TAB PO SCH ×2 (09:04→21:46)
[2017-04-11] MEDS: CALCIUM ACETATE 667 MG TAB PO SCH ×3 (09:04→18:04)
[2017-04-11] MEDS ORDERED: SERTRALINE 50 MG TAB PO SCH (10:00)
[2017-04-11 10:10] LABS: HEPATITIS B SURFACE ANTIBODY Non Reactive (.)
--- NOTE | 2017-04-11 11:16 | NUR ---
ADMINISTERED DUE MEDICATIONS. PATIENT TOLERATED THEM WELL. NO SIGNS OF DISTRESS NOTED. BREATHING EVEN AND UNLABORED. CALL LIGHT WITHIN REACH, WILL CONTINUE TO MONITOR PATIENT.
[2017-04-11 12:00] VITALS: BP 148/67
[2017-04-11] MEDS ORDERED: fentaNYL 0.05 MG/ML VIAL ONE (15:07)
--- NOTE | 2017-04-11 15:53 | NUR ---
PATIENT RESTING IN BED, DAUGHTER AT BEDSIDE. NO SIGNS OF DISTRESS NOTED. BREATHING EVEN AND UNLABORED. CALL LIGHT WITHIN REACH, WILL CONTINUE TO MONITOR PATIENT.
[2017-04-11 16:00] VITALS: BP 147/79
--- NOTE | 2017-04-11 18:04 | NUR ---
ADMINISTERED DUE MEDICATIONS. PATIENT TOLERATED THEM WELL. NO SIGNS OF DISTRESS NOTED. BREATHING EVEN AND UNLABORED. CALL LIGHT WITHIN REACH, WILL CONTINUE TO MONITOR PATIENT.
--- NOTE | 2017-04-11 19:05 | NUR ---
RECEIVED CRITICAL LAB VALUE, POSITIVE BLOOD CULTURE. MD AWARE. WILL AWAIT NEW ORDERS.
--- NOTE | 2017-04-11 19:25 | NUR ---
REPORT GIVEN TO GAGE DESIGNER RN AT BEDSIDE FOR CONTINUITY OF CARE. PATIENT IN STABLE CONDITION.
--- NOTE | 2017-04-11 19:26 | NUR ---
RECD. RESTING IN BED, AWAKE, A/OX2, RESPIRATION EVEN AND UNLABORED. ON 02 AT 2 LITERS VIA N/C, 02 SAT - 95%, IV OF NS AT 20 ML/HR INFUSING, LEFT HAND G22, WITH RIGHT UPPER CHEST NATAN CATH FOR DIALYSIS LINE, CLEAN AND DRY. SAFETY MEASURES ENFORCED. PLAN OF CARE FOR THE SHIFT DISCUSSED. NEEDS REINFORCEMENT. DAUGHTER AT THE BEDSIDE. DENIES PAIN 0/10.
--- NOTE | 2017-04-11 19:26 | NUR ---
Patient's Plan of Care was discussed and reviewed with MOLD STRIPPER: JOSÉ ANTONIO DRAKE
[2017-04-11 20:00] VITALS: BP 149/67
[2017-04-11] MEDS: INSULIN LANTUS 100 UNITS/ML 10 ML VIAL SUBQ SCH ×2 (21:00→21:48)
[2017-04-12] VITALS: BP 126/58
[2017-04-12] MEDS: CLINDAMYCIN 600 MG in DEXTROSE 5% 50 ML IV SCH ×3 (05:25→21:04)
[2017-04-12 05:49] LABS: BASOPHILS # (AUTO) 0.1 K/uL (0.00-0.22); BASOPHILS % (AUTO) 0.7 % (0.0-2.0); EOSINOPHILS # (AUTO) 0.8 K/uL (0-0.4); EOSINOPHILS % (AUTO) 10.3 % (0.0-4.0); HEMATOCRIT 30.4 % (36-52); HEMOGLOBIN 9.3 g/dL (12.0-18.0); LYMPHOCYTES # (AUTO) 1.9 K/uL (2.0-11.5); LYMPHOCYTES % (AUTO) 25.3 % (20.5-51.1); MEAN CORPUSCULAR HEMOGLOBIN 27 pg (27-31); MEAN CORPUSCULAR HGB CONC 31 g/dL (33-37); MEAN CORPUSCULAR VOLUME 88 fL (80-94); MONOCYTES # (AUTO) 1.1 K/uL (0.8-1.0); MONOCYTES % (AUTO) 14.9 % (1.7-9.3); NEUTROPHILS # (AUTO) 3.6 K/uL (1.8-7.7); NEUTROPHILS % (AUTO) 48.8 % (42.2-75.2); PLATELET COUNT (AUTO) 175 K/uL (140-450); RED BLOOD CELL COUNT(AUTO) 3.44 MIL/uL (4.20-6.10); RED CELL DISTRIBUTION WIDTH 17.3 % (11.6-13.7); WHITE BLOOD COUNT (AUTO) 7.5 K/uL (4.8-10.8)
[2017-04-12 06:22] LABS: ANION GAP 12.2 (8-16); CARBON DIOXIDE 27.1 mmol/L (21-32); CHLORIDE 105 mmol/L (98-107); GLUCOSE 126 mg/dL (74-106); POTASSIUM 4.3 mmol/L (3.5-5.1); SODIUM SERUM 140 mmol/L (136-145); UREA NITROGEN, BLOOD 35 mg/dL (7-18)
[2017-04-12 06:29] LABS: MAGNESIUM 1.9 mg/dL (1.8-2.4); PHOSPHORUS 5.8 mg/dL (2.5-4.9)
--- NOTE | 2017-04-12 07:20 | NUR ---
RECEIVED PATIENT REPORT AT BEDSIDE FROM NIGHT NURSE, PATIENT IS AAOX2 AND SHOWS NO S/S OF ACUTE DISTRESS ON ROOM AIR, DENIES PAIN AND SOB.NOTED DRY, DARK, SCALY SKIN ON BLE WITH NON-PITTING EDEMA, BUE WITH DRY SKIN INTACT. RIGHT UPPER CHEST NATAN CATH AND NOTED IV ON THE LEFT HAND SL. ON TELE MONITOR. DISCUSSED POC WITH PATIENT; HOWEVER PATIENT NEEDS CONSTANT REINFORCEMENT. SAFETY PRECAUTIONS IN PLACE. BED IN LOW POSITION WITH CALL LIGHT WITHIN REACH.
[2017-04-12 07:22] LABS: CREATININE 6.6 mg/dL (0.7-1.3)
[2017-04-12] MEDS: BLOOD GLUCOSE MONITORING 1 DEV DEV FS SCH ×4 (07:30→21:49)
[2017-04-12 08:00] VITALS: BP 154/74
[2017-04-12] MEDS: CALCIUM ACETATE 667 MG TAB PO SCH ×3 (08:49→16:29)
[2017-04-12] MEDS: LACTOBACILLUS RHAMNOSUS GG 1 EACH CAP PO SCH (08:50)
[2017-04-12] MEDS: CARVEDILOL 6.25 MG TAB PO SCH ×3 (08:50→21:47)
[2017-04-12] MEDS: VIT-B COMP/VIT-C/FOLIC ACID 1 TAB PO SCH (08:50)
[2017-04-12] MEDS: FAMOTIDINE 20 MG TAB PO SCH (08:50)
[2017-04-12] MEDS: ASPIRIN 81 MG TAB.CHEW PO SCH (08:50)
--- NOTE | 2017-04-12 08:50 | NUR ---
ADMINISTERED SCHEDULED MEDICATIONS, PATIENT SWALLOWED WITHOUT DIFFICULTY, BP MEDICATIONS NOT GIVEN D/T PATIENT RECEIVING HD. ALL NEEDS MET AT THIS TIME.
[2017-04-12] MEDS: NACL 0.9% 1,000 ML IV SCH ×2 (08:51→23:15)
[2017-04-12] MEDS: SERTRALINE 50 MG TAB PO SCH (08:51)
[2017-04-12] MEDS: amLODIPine 5 MG TAB PO SCH ×2 (08:51→13:15)
[2017-04-12] MEDS ORDERED: LEVOFLOXACIN 500 MG/D5W PREMIX 100 ML IV SCH (09:00)
[2017-04-12] MEDS ORDERED: SERTRALINE 50 MG TAB PO SCH (09:00)
[2017-04-12] MEDS ORDERED: ALBUMIN HUMAN 25% 100 ML IV SCH (10:00)
--- NOTE | 2017-04-12 10:00 | NUR ---
HD NURSE NOTIFIED ME OF PATIENT'S LOW BP, DR LR AWARE, PAGED DR BA. DR BA OKAYED TO GIVE ALBUMIN 25%, HD NURSE TOOK ORDER FROM DR BA. ORDERS GIVEN TO DR LR TO PLACE FOR PATIENT.
[2017-04-12 12:15] VITALS: BP 160/74
[2017-04-12] MEDS: INSULIN LISPRO SLIDING SCALE 100 UNITS/ML VIAL SUBQ PRN ×3 (13:11→22:02)
--- NOTE | 2017-04-12 13:17 | NUR ---
PATIENT'S BP IS ELEVATED AT 160/74 HR 86, DR BA NOTIFIED AND OKAYED TO GIVE PATIENT'S BP MEDICATIONS HELD FROM THIS AM FOR HD. ADMINISTERED MEDICATIONS, PATIENT SWALLOWED WITHOUT DIFFICULTY, BLOOD SUGAR WAS 200 AND INSULIS SLIDING SCALE WAS GIVEN 2 UNITS OF HUMALOG SQ. ALL NEEDS MET AT THIS TIME.
--- NOTE | 2017-04-12 14:08 | NUR ---
04/12/2017 RD INITIAL ASSESSMENT COMPLETED PLEASE REFER TO NUTRITION ASSESSMENT UNDER CARE ACTIVITY FOR ESTIMATED NUTRITIONAL NEEDS. CONTINUE CURRENT DIET ORDERED PT IS CONSUMING AN ESTIMATED 300 KCALS AND 12 GM PRO TO MEET 18% ESTIMATED ENERGY AND 17% ESTIMATED PROTEIN NEEDS PER DAY--INADEQUATE NURSING AND DIETARY STAFF TO ENCOURAGE INCREASED INTAKE RD TO FOLLOW-UP IN 3-5 DAYS PATIENT IS MODERATE RISK. MEGAN BUCHANAN, RD
--- NOTE | 2017-04-12 14:33 | NUR ---
PHYSICAL THERAPY CO-SIGN The Physical Therapy Progress Notes documented by Strike Operations Officer have been reviewed. Reviewed/Co-Signed by: Charly Lindsay PT Documentation Done by: RONALD SANDERS PTA PATIENT MAKING GOOD STEADY GAINS TOWARDS REHAB GOALS SET. Addendum: 04/12/17 at 1434 by Charly Lindsay PT Amended: Links added.
[2017-04-12 16:06] VITALS: BP 143/77
--- NOTE | 2017-04-12 19:25 | NUR ---
PATIENT REPORT GIVEN AT BEDSIDE TO NIGHT NURSE, PATIENT ENDORSED IN STABLE CONDITION.
--- NOTE | 2017-04-12 19:26 | NUR ---
RECD. RESTING IN BED, AWAKE, A/OX3, RESPIRATION EVEN AND UNLABORED. IV OF NS AT 20 ML/HR INFUSING,LEFT HAND G22. WITH RIGHT UPPER CHEST NATAN CATH FOR DIALYSIS, DRY AND INTACT. WATCHING TV. PLAN OF CARE FOR THE SHIFT DISCUSSED. VERBALIZED UNDERSTANDING. SAFETY MEASURES ENFORCED. INSTRUCTED TO CALL NURSE WHEN NEEDING HELP. VERBALIZED UNDERSTANDING. DENIES PAIN 0/10. AT THE BEDSIDE.
--- NOTE | 2017-04-12 20:00 | NUR ---
Patient's Plan of Care was discussed and reviewed with BOILING HOUSE HAND: JOSÉ ANTONIO DRAKE
[2017-04-12] MEDS ORDERED: ATORVASTATIN 20 MG TAB PO SCH (21:00)
--- NOTE | 2017-04-12 21:47 | NUR ---
SNACK FOR THE NIGHT GIVEN, ATE 100%.
[2017-04-12] MEDS: INSULIN LANTUS 100 UNITS/ML 10 ML VIAL SUBQ SCH (22:00)
--- NOTE | 2017-04-13 | NUR ---
STILL AWAKE, WATCHING TV. ADVISED TO GO TO SLEEP. STATED WILL FINISH FIRST THE MOVIE.
--- NOTE | 2017-04-13 01:00 | NUR ---
STILL AWAKE, WATCHING TV. NO RESPIRATORY DISTRESS NOTED.
--- NOTE | 2017-04-13 02:00 | NUR ---
SLEEPING COMFORTABLY IN BED.
[2017-04-13 04:00] VITALS: BP 127/69
--- NOTE | 2017-04-13 05:00 | NUR ---
FEELS CONGESTED, REQUESTED FOR BREATHING TREATMENT, RT CAME AND GIVE BREATHING TREATMENT.
[2017-04-13] MEDS: CLINDAMYCIN 600 MG in DEXTROSE 5% 50 ML IV SCH (05:14)
[2017-04-13 06:05] LABS: BASOPHILS # (AUTO) 0.1 K/uL (0.00-0.22); BASOPHILS % (AUTO) 1.1 % (0.0-2.0); EOSINOPHILS # (AUTO) 0.9 K/uL (0-0.4); HEMATOCRIT 28.6 % (36-52); HEMOGLOBIN 9.1 g/dL (12.0-18.0); LYMPHOCYTES # (AUTO) 1.5 K/uL (2.0-11.5); LYMPHOCYTES % (AUTO) 24.1 % (20.5-51.1); MEAN CORPUSCULAR HEMOGLOBIN 28 pg (27-31); MEAN CORPUSCULAR HGB CONC 32 g/dL (33-37); MEAN CORPUSCULAR VOLUME 87 fL (80-94); MONOCYTES % (AUTO) 14.9 % (1.7-9.3); NEUTROPHILS # (AUTO) 2.9 K/uL (1.8-7.7); NEUTROPHILS % (AUTO) 45.9 % (42.2-75.2); PLATELET COUNT (AUTO) 129 K/uL (140-450); RED CELL DISTRIBUTION WIDTH 17.3 % (11.6-13.7); WHITE BLOOD COUNT (AUTO) 6.4 K/uL (4.8-10.8)
[2017-04-13] MEDS: BLOOD GLUCOSE MONITORING 1 DEV DEV FS SCH (06:15)
[2017-04-13 06:23] LABS: ANION GAP 14.1 (8-16); CARBON DIOXIDE 26.7 mmol/L (21-32); CHLORIDE 101 mmol/L (98-107); GLUCOSE 144 mg/dL (74-106); POTASSIUM 3.8 mmol/L (3.5-5.1); SODIUM SERUM 138 mmol/L (136-145); UREA NITROGEN, BLOOD 26 mg/dL (7-18)
[2017-04-13 06:24] LABS: MAGNESIUM 1.7 mg/dL (1.8-2.4); PHOSPHORUS 5.2 mg/dL (2.5-4.9)
[2017-04-13 06:26] LABS: CREATININE 5.3 mg/dL (0.7-1.3)
--- NOTE | 2017-04-13 07:00 | NUR ---
CONDITION REMAIN STABLE. WANTS TO AMBULATE WITH WALKER. WILL ENDORSE TO AM NURSE TO ASK MD IF PT SERVICE CAN BE REQUESTED.
--- NOTE | 2017-04-13 07:40 | NUR ---
PATIENT IS AWAKE, ALERT. RESPIRATION EVEN, UNLABOR ON ROOM AIR. SKIN DRY AND WARM. DENIED PAIN, SOB AT THIS TIME. IV PATENT AND INTACT. PLAN OF CARE WAS DISCUSSED WITH PATIENT. BED AT LOW POSITION, SIDE RAILS UP. PT WAS AT BEDSIDE. CALL LIGHT WITHIN REACH
[2017-04-13] MEDS ORDERED: LACT1CAP63 PO (07:58)
[2017-04-13] MEDS ORDERED: CLIN300C2 PO (07:58)
[2017-04-13] MEDS ORDERED: ATOR20TA40 PO (07:58)
[2017-04-13] MEDS ORDERED: LEVO750T2 PO (07:58)
[2017-04-13 08:00] VITALS: BP 122/63
[2017-04-13] MEDS: SERTRALINE 50 MG TAB PO SCH (08:40)
[2017-04-13] MEDS: amLODIPine 5 MG TAB PO SCH (08:40)
[2017-04-13] MEDS: LACTOBACILLUS RHAMNOSUS GG 1 EACH CAP PO SCH (08:40)
[2017-04-13] MEDS: CARVEDILOL 6.25 MG TAB PO SCH (08:40)
[2017-04-13] MEDS: CALCIUM ACETATE 667 MG TAB PO SCH (08:41)
[2017-04-13] MEDS: FAMOTIDINE 20 MG TAB PO SCH (08:41)
[2017-04-13] MEDS: VIT-B COMP/VIT-C/FOLIC ACID 1 TAB PO SCH (08:41)
[2017-04-13] MEDS: ASPIRIN 81 MG TAB.CHEW PO SCH (08:41)
--- NOTE | 2017-04-13 09:30 | NUR ---
PATIENT NEEDS A WALKER TO AMBULATE PER PT. DR. AZEVEDO WAS MADE AWARE
--- NOTE | 2017-04-13 10:00 | NUR ---
I met Patient and Daughter Ellyn at bedside (Both Nepali speaking only). I informed both before discharge, Patient's need for a walker however; insurance is limited and will not cover for one at this time. Patient and Daughter agreed and stated that they will buy one for patient soon after discharge. They both thank me for my services and patient stated been ready to go home with his daughters.
--- NOTE | 2017-04-13 10:17 | NUR ---
DISCHARGE INSTRUCTION WAS GIVEN AND EXPLAINED TO PATIENT AND FAMILY. FILAMENT TESTER, DAUGHTER VERBALIZED UNDERSTANDING. IV WAS REMOVED, CATHETER TIP INTACT, NO ACTIVE BLEEDING SEEN, PATIENT TOLERATED WELL. ID BAND WAS REMOVED. ALL BELONGINGS WAS TAKEN WITH THE FAMILY. PATIENT WAS ESCORTED OUT IN WHEELCHAIR BY STAFF. PATIENT IS STABLE AT THIS TIME.
== END 2017-04-13 10:25 | disposition home or self-care (01) | DRG 137 ==
LOC: MED 21:09 → MTU 23:19
PROVIDERS: ADMIT Family Medicine Sports Medicine; ATTEND Family Medicine Sports Medicine
PROC: 5A1D70Z Performance of Urinary Filtration, Intermittent, Less than 6 Hours Per Day (ICD-10-PCS; principal; 2017-04-10)
PROC: 5A1D70Z Performance of Urinary Filtration, Intermittent, Less than 6 Hours Per Day (ICD-10-PCS; 2017-04-12)
DX: J69.0 Pneumonitis due to inhalation of food and vomit (principal); N17.0 Acute kidney failure with tubular necrosis; J96.01 Acute respiratory failure with hypoxia; E43 Unspecified severe protein-calorie malnutrition; G93.41 Metabolic encephalopathy; N18.6 End stage renal disease; D68.59 Other primary thrombophilia; I12.0 Hypertensive chronic kidney disease with stage 5 chronic kidney disease or end stage renal disease; E11.51 Type 2 diabetes mellitus with diabetic peripheral angiopathy without gangrene; I87.8 Other specified disorders of veins; E11.22 Type 2 diabetes mellitus with diabetic chronic kidney disease; E83.39 Other disorders of phosphorus metabolism; G90.9 Disorder of the autonomic nervous system, unspecified; I70.203 Unspecified atherosclerosis of native arteries of extremities, bilateral legs; F17.210 Nicotine dependence, cigarettes, uncomplicated; D63.1 Anemia in chronic kidney disease; E78.5 Hyperlipidemia, unspecified; R80.9 Proteinuria, unspecified; E11.65 Type 2 diabetes mellitus with hyperglycemia; E02 Subclinical iodine-deficiency hypothyroidism; Z99.2 Dependence on renal dialysis; Z79.899 Other long term (current) drug therapy; Z68.27 Body mass index [BMI] 27.0-27.9, adult
CPT/HCPCS: 36415; 36600; 70450; 71045; 80048; 80053; 80305; 81001; 82140; 82150; 82803; 82948; 83036; 83690; 83735; 83880; 84100; 84436; 84439; 84443; 84479; 85025; 85610; 85730; 86704; 86706; 86803; 87040; 87081; 87086; 87340; 93005; 96365; 97110; 97116; 97140; 97530; 99291; C1758; G0482; J1644; J1815; J1956; J2185; J3010; J3370; J3490; J7030; J7060; J7620; P9046; Q0092

== ENCOUNTER 2017-04-17 11:28 | Inpatient (IN) | payer MEDICAID ==
[~2017-04-17] VITALS: Ht 170.2 cm; Wt 90.7 kg
[~2017-04-17 11:28] MED LIST changes: +ATOR20TA40 PO; +CLIN300C2 PO; -CYCL10TA14 PO; +LACT1CAP63 PO; +LEVO750T2 PO
[2017-04-17 11:41] VITALS: BP 152/82
[2017-04-17] MEDS ORDERED: BACL10TA4 PO (11:47)
[2017-04-17 12:20] LABS: BASOPHILS # (AUTO) 0.1 K/uL (0.00-0.22); BASOPHILS % (AUTO) 1.5 % (0.0-2.0); EOSINOPHILS # (AUTO) 0.6 K/uL (0-0.4); HEMATOCRIT 32.5 % (36-52); HEMOGLOBIN 10.4 g/dL (12.0-18.0); LYMPHOCYTES # (AUTO) 1.5 K/uL (2.0-11.5); LYMPHOCYTES % (AUTO) 19.2 % (20.5-51.1); MEAN CORPUSCULAR HEMOGLOBIN 28 pg (27-31); MEAN CORPUSCULAR HGB CONC 32 g/dL (33-37); MEAN CORPUSCULAR VOLUME 86 fL (80-94); MONOCYTES # (AUTO) 0.6 K/uL (0.8-1.0); MONOCYTES % (AUTO) 8.1 % (1.7-9.3); NEUTROPHILS # (AUTO) 5.1 K/uL (1.8-7.7); NEUTROPHILS % (AUTO) 63.2 % (42.2-75.2); PLATELET COUNT (AUTO) 188 K/uL (140-450); RED BLOOD CELL COUNT(AUTO) 3.78 MIL/uL (4.20-6.10); RED CELL DISTRIBUTION WIDTH 17.1 % (11.6-13.7); WHITE BLOOD COUNT (AUTO) 7.9 K/uL (4.8-10.8)
--- NOTE | 2017-04-17 12:30 | NUR ---
arrived with family c/o aloc stated to have hd today butt been feeling weak and confused noted right chest hd cath c/d/i vitals stable call light in reach at bedside stroke scale neg pt with weakness but able to state name time place as well as understood who daughters where.family at bedside
[2017-04-17 12:31] LABS: ANION GAP 15.1 (8-16); CARBON DIOXIDE 28.2 mmol/L (21-32); CHLORIDE 102 mmol/L (98-107); GLUCOSE 186 mg/dL (74-106); POTASSIUM 4.3 mmol/L (3.5-5.1); SODIUM SERUM 141 mmol/L (136-145); UREA NITROGEN, BLOOD 56 mg/dL (7-18)
[2017-04-17 12:39] LABS: CREATININE 8.5 mg/dL (0.7-1.3)
[2017-04-17 12:45] LABS: ALBUMIN 2.9 g/dL (3.4-5.0); ASPARTATE AMINOTRANSFERASE 18 U/L (15-37); TOTAL BILIRUBIN 0.4 mg/dL (0.0-1.0)
[2017-04-17] MEDS ORDERED: MORPHINE SULFATE 2 MG/ML SYR IVP PRN (13:05)
[2017-04-17] MEDS ORDERED: HYDROcodone/APAP 7.5/325 MG 1 TAB PO PRN (13:05)
[2017-04-17] MEDS: NACL 0.9% 1,000 ML IV SCH (13:05)
[2017-04-17] MEDS ORDERED: ONDANSETRON 4 MG/2 ML VIAL IM/IVP PRN (13:05)
[2017-04-17] MEDS ORDERED: ACETAMINOPHEN 325 MG TAB PO PRN (13:05)
[2017-04-17] MEDS ORDERED: DOCUSATE SODIUM 100 MG GELCAP PO PRN (13:05)
[2017-04-17 13:53] LABS: CHOL/HDL RATIO 2.4 (1-4.5); FREE T4 (FREE THYROXINE) 1.02 ng/dL (0.76-1.46); MAGNESIUM 2.7 mg/dL (1.8-2.4); PHOSPHORUS 7.2 mg/dL (2.5-4.9); THYROID STIMULATING HORMONE 8.05 uIU/mL (0.34-3.74)
--- NOTE | 2017-04-17 15:26 | NUR ---
resting at this time with no s/s of distress iv attemped x2 charge nurse appled to left wrist ivf started at this time at 60ns.
--- NOTE | 2017-04-17 15:38 | NUR ---
PATIENT ARRIVED VIA GURNEY FROM ER. REPORT RECEIVED FROM ER NURSE, LUISANA, AT BEDSIDE FOR CONTINUITY OF CARE. PATIENT ASLEEP. BREATHING EVEN AND UNLABORED. NO SIGNS OF DISTRESS NOTED. FLACC-0. IV TO LEFT HAND 20G, PATENT, ASYMPTOMATIC, AND INTACT. BOWEL SOUNDS CLEAR. LUNG SOUNDS CLEAR. SKIN INTACT. COLOR DISCOLORATION OF BLE. MRSA SCREENING DONE. TELE MONITOR ATTACHED. SAFETY PRECAUTION IN PLACE, BED ON LOWEST POSITION, BED ALARM ON, CALL LIGHT WITHIN REACH. WILL CONTINUE TO MONITOR PATIENT.
--- NOTE | 2017-04-17 15:44 | NUR ---
floor nurse ky informed of need for urine. pt stable upon resport given
[2017-04-17] MEDS ORDERED: INSULIN LISPRO SLIDING SCALE 100 UNITS/ML VIAL SUBQ PRN (15:55)
[2017-04-17] MEDS ORDERED: DEXTROSE 50% 50 ML SYR IVP PRN (15:55)
[2017-04-17] MEDS: BLOOD GLUCOSE MONITORING 1 DEV DEV FS SCH ×2 (16:30→21:23)
[2017-04-17] MEDS ORDERED: LEVOFLOXACIN 500 MG/D5W PREMIX 100 ML IV SCH (17:00)
[2017-04-17] MEDS ORDERED: BACLOFEN 10 MG TAB PO SCH (17:00)
[2017-04-17] MEDS: CALCIUM ACETATE 667 MG TAB PO SCH (17:00)
--- NOTE | 2017-04-17 17:25 | NUR ---
STRAIGHT CATH PERFORMED. PATIENT TOLERATED IT WELL. PATIENT ASLEEP, FLACC-0. NO SIGNS OF DISTRESS NOTED. URINE SAMPLE OBTAINED. SAFETY PRECAUTION IN PLACE, CALL LIGHT WITHIN REACH. WILL CONTINUE TO MONITOR PATIENT.
--- NOTE | 2017-04-17 18:30 | NUR ---
ADMINISTERED LEVOQUIN, PATIENT TOLERATED IT WELL. BLOOD SUGAR 127, NO COVERAGE NEEDED. PATIENT ASLEEP, DAUGHTER AT BEDSIDE. DID NOT ADMINISTER PHOSLO BECAUSE PATIENT NOT AWAKE TO TAKE THEM. SAFETY PRECAUTION IN PLACE, CALL LIGHT WITHIN REACH. WILL CONTINUE TO MONITOR PATIENT.
[2017-04-17 18:37] LABS: APPEARANCE,URINE CLEAR (CLEAR); BILIRUBIN,URINE NEGATIVE (NEGATIVE); BLOOD, URINE 1+ (NEGATIVE); COLOR,URINE YELLOW (YELLOW); LEUKOCYTE ESTERASE ,URINE NEGATIVE (NEGATIVE); NITRITE, URINE NEGATIVE (NEGATIVE); UGLUCOSE 1+ (NEGATIVE)
[2017-04-17 19:29] LABS: RBC,URINE 0-5 (RARE) /HPF (0-5); WBC,URINE NONE SEEN /HPF (0-5)
--- NOTE | 2017-04-17 19:35 | NUR ---
GAVE REPORT TO BOY'S ADVISER RN AT BEDSIDE FOR CONTINUITY OF CARE. PATIENT IN STABLE CONDITION.
--- NOTE | 2017-04-17 19:37 | NUR ---
RECEIVED PT FROM JAYE RN PT DROWSY NOT EASY TO AROUSAL AOX1 BLE BLACKISH DISCOLORATION SCALY , DRY, NATAN CATH DIALYSIS ACCESS ON RT UPPER CHEST PT ON TELEMETRY SR, NOT SOB NOTED REPOSITIONED INITIAL ASSESSMENT DONE.
[2017-04-17 20:00] VITALS: BP 155/73
[2017-04-17] MEDS: INSULIN LANTUS 100 UNITS/ML 10 ML VIAL SUBQ SCH (21:00)
--- NOTE | 2017-04-17 21:00 | NUR ---
PT REPOSITIONED ON TELEMETRY SR , RESPOND TO PAINFUL STIMULUS , NOT DISTRESS NOTED CLEOCIN IVPB GIVEN ORDER.
[2017-04-17] MEDS: CARVEDILOL 6.25 MG TAB PO SCH (21:14)
[2017-04-17] MEDS: CLINDAMYCIN 600 MG in DEXTROSE 5% 50 ML IV SCH (21:20)
[2017-04-18] VITALS: BP 152/83
--- NOTE | 2017-04-18 01:00 | NUR ---
PT REPOSITIONED Q2H AOX1 DROWSY, ON TELEMETRY SR IV ON LEFT HAND INFUSING WELL
[2017-04-18] MEDS: NACL 0.9% 1,000 ML IV SCH ×2 (01:18→23:25)
[2017-04-18 04:00] VITALS: BP 148/72
--- NOTE | 2017-04-18 04:00 | NUR ---
SPONGE BATH GIVEN LINEN CHANGED PT SEEM MORE AWAKE AND FOLLOW COMMANDS ON TELEMETRY SRIV ON LEFT HAND INFUSING WELL
[2017-04-18] MEDS: CLINDAMYCIN 600 MG in DEXTROSE 5% 50 ML IV SCH ×3 (05:22→20:45)
[2017-04-18 06:42] LABS: T4 (THYROXINE) 6.5 ug/dL (4.5-12.0)
[2017-04-18] MEDS: BLOOD GLUCOSE MONITORING 1 DEV DEV FS SCH ×4 (06:45→20:03)
--- NOTE | 2017-04-18 06:59 | NUR ---
BLOOD SUGAR TEST 145
[2017-04-18 07:17] LABS: BASOPHILS # (AUTO) 0.1 K/uL (0.00-0.22); EOSINOPHILS # (AUTO) 0.6 K/uL (0-0.4); EOSINOPHILS % (AUTO) 8.3 % (0.0-4.0); HEMATOCRIT 30.7 % (36-52); LYMPHOCYTES # (AUTO) 1.3 K/uL (2.0-11.5); LYMPHOCYTES % (AUTO) 17.5 % (20.5-51.1); MEAN CORPUSCULAR HEMOGLOBIN 28 pg (27-31); MEAN CORPUSCULAR HGB CONC 32 g/dL (33-37); MEAN CORPUSCULAR VOLUME 87 fL (80-94); MONOCYTES # (AUTO) 0.8 K/uL (0.8-1.0); MONOCYTES % (AUTO) 10.4 % (1.7-9.3); NEUTROPHILS # (AUTO) 4.7 K/uL (1.8-7.7); NEUTROPHILS % (AUTO) 62.8 % (42.2-75.2); PLATELET COUNT (AUTO) 192 K/uL (140-450); RED BLOOD CELL COUNT(AUTO) 3.55 MIL/uL (4.20-6.10); RED CELL DISTRIBUTION WIDTH 17.2 % (11.6-13.7); WHITE BLOOD COUNT (AUTO) 7.5 K/uL (4.8-10.8)
--- NOTE | 2017-04-18 07:25 | NUR ---
REPORT RECEIVED FROM PROJECT LANDSCAPE ARCHITECT NURSE AT BEDSIDE FOR CONTINUITY OF CARE. PATIENT ASLEEP. BREATHING EVEN AND UNLABORED. NO SIGNS OF DISTRESS NOTED. FLACC-0. IV TO LEFT HAND 20G, PATENT, ASYMPTOMATIC, AND INTACT. SKIN INTACT. COLOR DISCOLORATION OF BLE. SAFETY PRECAUTION IN PLACE, BED ON LOWEST POSITION, BED ALARM ON, CALL LIGHT WITHIN REACH. WILL CONTINUE TO MONITOR PATIENT.
[2017-04-18 08:00] VITALS: BP 144/77
[2017-04-18] MEDS: CALCIUM ACETATE 667 MG TAB PO SCH ×3 (08:00→17:00)
[2017-04-18] MEDS: amLODIPine 5 MG TAB PO SCH (09:00)
[2017-04-18] MEDS: CARVEDILOL 6.25 MG TAB PO SCH ×2 (09:00→20:42)
[2017-04-18] MEDS: VIT-B COMP/VIT-C/FOLIC ACID 1 TAB PO SCH (09:00)
[2017-04-18] MEDS: LACTOBACILLUS RHAMNOSUS GG 1 EACH CAP PO SCH (09:00)
--- NOTE | 2017-04-18 09:02 | NUR ---
PATIENT HAS BEEN SCREENED AND CATEGORIZED MODERATE NUTRITION RISK. PATIENT WILL BE SEEN WITHIN 3-5 DAYS OF ADMISSION. 04/19/17-04/21/[address]
[2017-04-18 09:32] LABS: ANION GAP 19.7 (8-16); CARBON DIOXIDE 21.3 mmol/L (21-32); CHLORIDE 106 mmol/L (98-107); GLUCOSE 153 mg/dL (74-106); SODIUM SERUM 143 mmol/L (136-145)
[2017-04-18 09:58] LABS: UREA NITROGEN, BLOOD 61 mg/dL (7-18)
[2017-04-18 09:59] LABS: CREATININE 8.7 mg/dL (0.7-1.3)
--- NOTE | 2017-04-18 10:25 | NUR ---
FOLLOWED UP WITH DR. PARRA ABOUT PATIENT HAVING DIALYSIS TODAY. DR. SEPULVEDA IN CONSULT FOR DR. BEVERLY. WILL AWAIT NEW ORDERS.
[2017-04-18 12:00] VITALS: BP 157/89
[2017-04-18] MEDS: HYDRAGUARD CREAM TP SCH ×2 (12:30→20:17)
--- NOTE | 2017-04-18 13:40 | NUR ---
PATIENT RESTING IN BED, NO SIGNS OF DISTRESS NOTED. SAFETY PRECAUTION IN PLACE, CALL LIGHT WITHIN REACH. WILL CONTINUE TO MONITOR PATIENT.
--- NOTE | 2017-04-18 15:47 | NUR ---
P.T. NOTES DAUGHTER FIDEL AT BEDSIDE, ATTEMPTED P.T. EVAL BUT PER DAUGHTER "HE IS VERY SLEEPY AND LIKE LAST TIME WE BROUGHT HIM HERE, HE WAS MORE AWAKE AFTER HD. SO LET'S WAIT FOR HD FIRST. " NO KNOWN TIME FOR HD TODAY, DAUGHTER AGREEABLE FOR P.T. EVAL TOMORROW, NURSE MADE AWARE. PATIENT'S EYES KEPT CLOSED, VOLUNTARILY MOVES ARM BUT NOT TO COMMAND. PVE
--- NOTE | 2017-04-18 15:55 | NUR ---
PATIENT RESTING IN BED, NO SIGNS OF DISTRESS NOTED. SAFETY PRECAUTION IN PLACE, CALL LIGHT WITHIN REACH. WILL CONTINUE TO MONITOR PATIENT.
[2017-04-18 16:00] VITALS: BP 147/64
--- NOTE | 2017-04-18 17:05 | NUR ---
FAST FOOD SALES ASSISTANT HERE TO START PT ON HEMODIALYSIS. CALLED DAUGHTER FIDEL TO UPDATE HER ON PATIENT'S STATUS. PATIENT RESTING IN BED, NO SIGNS OF DISTRESS OR SOB NOTED. FLACC-0, PATIENT DENIES PAIN IN [place]ONGOL[place]. SAFETY PRECAUTION IN PLACE, CALL LIGHT WITHIN REACH, WILL CONTINUE TO MONITOR PATIENT.
--- NOTE | 2017-04-18 17:26 | NUR ---
PATIENT DROWSY BUT BEGAN PULLING ON HIS IV AND HEMODIALYSIS LINE. BID CLERK REQUESTED FOR SOFT RESTRAINT PRN. FORWARDED THIS INFORMATION TO DR. LR. NEW ORDER FOR PRN SOFT RESTRAINT PUT IN FOR PATIENT. PATIENT TOLERATED IT WELL. PATIENT RESTING. NO SIGNS OF DISTRESS OR SOB NOTED. SAFETY PRECAUTION IN PLACE, CALL LIGHT WITHIN REACH, WILL CONTINUE TO MONITOR PATIENT.
--- NOTE | 2017-04-18 19:10 | NUR ---
REPORT GIVEN TO GAS CONTROLLER NURSE AT BEDSIDE FOR CONTINUITY OF CARE. PATIENT IN STABLE CONDITION.
--- NOTE | 2017-04-18 19:11 | NUR ---
PATIENT REPORT RECEIVED FROM MORNING NURSE AT BEDSIDE. PATIENT IS CURRENTLY GETTING HEMODIALYSIS DONE. PATIENT IS AOX2. FAMILY AND HD NURSE IS AT BEDSIDE. NO SIGNS AND SYMPTOMS OF DISTRESS NOTED. PATIENT IS ON ROOM AIR. IV SITE IS ON LEFT HAND, IVF INFUSING WELL. NATAN CATH NOTED ON RIGHT UPPER CHEST. BED IN LOWEST POSITION, SIDE RAILS UP AND CALL LIGHT WITHIN REACH. WILL CONTINUE TO MONITOR.
[2017-04-18 20:00] VITALS: BP 131/78
[2017-04-18] MEDS: INSULIN LANTUS 100 UNITS/ML 10 ML VIAL SUBQ SCH (21:00)
--- NOTE | 2017-04-18 21:30 | NUR ---
STUDENT NURSE WITH SUPERVISION OF CLINICAL INSTRUCTOR ADMINISTERED PATIENT MEDS AND GAVE MEDICATION EDUCATION. PATIENT TOLERATED WELL. WILL CONTINUE TO MONITOR.
--- NOTE | 2017-04-18 21:45 | NUR ---
PATIENT VOIDED IN BED. PADS AND AND SHEETS CHANGED. PATIENT TOLERATED WELL. BED IN LOWEST POSITION, CALL LIGHT WITHIN REACH. WILL CONTINUE TO MONITOR.
--- NOTE | 2017-04-18 22:30 | NUR ---
CHECKED ON PATIENT. PATIENT IS ASLEEP. NO SIGNS AND SYMPTOMS OF DISTRESS NOTED. BREATHING EVEN AND UNLABORED. SAFETY PRECAUTIONS IN PLACE. WILL CONTINUE TO MONITOR.
[2017-04-19] VITALS: BP 135/75
--- NOTE | 2017-04-19 | NUR ---
CHECKED ON PATIENT. PATIENT IS ASLEEP. NO SIGNS AND SYMPTOMS OF DISTRESS NOTED. BREATHING EVEN AND UNLABORED. SAFETY PRECAUTIONS IN PLACE. WILL CONTINUE TO MONITOR.
--- NOTE | 2017-04-19 03:00 | NUR ---
CHECKED ON PATIENT. PATIENT IS ASLEEP. NO SIGNS AND SYMPTOMS OF DISTRESS NOTED. BREATHING EVEN AND UNLABORED. SAFETY PRECAUTIONS IN PLACE. WILL CONTINUE TO MONITOR.
[2017-04-19] MEDS: CLINDAMYCIN 600 MG in DEXTROSE 5% 50 ML IV SCH ×2 (04:21→13:00)
[2017-04-19 05:00] VITALS: BP 131/83
--- NOTE | 2017-04-19 05:30 | NUR ---
PATIENT TRYING TO GET OUT OF BED. TRIED TO REORIENT HIM, AND LET HIM KNOW THAT HE IS IN THE HOSPITAL. PATIENT VERBALIZED UNDERSTANDING. SAFETY PRECAUTIONS IN PLACE. WILL CONTINUE TO MONITOR HIM.
[2017-04-19] MEDS: BLOOD GLUCOSE MONITORING 1 DEV DEV FS SCH ×3 (06:39→16:31)
--- NOTE | 2017-04-19 07:10 | NUR ---
PATIENT REPORT GIVEN TO MORNING NURSE FOR CONTINUITY OF CARE. PATIENT IS IN STABLE CONDITION
--- NOTE | 2017-04-19 07:11 | NUR ---
RECEIVED REPORT FROM INSPECTOR SALVAGE NURSE JOHANA AT BEDSIDE FOR CONTINUITY OF CARE. PT IS AWAKE. INTRODUCED SELF AND UPDATED BOARD. PT'S DAUGHTER FIDEL AT BEDSIDE. PT IN STABLE CONDITION.
[2017-04-19 07:16] LABS: BASOPHILS # (AUTO) 0.2 K/uL (0.00-0.22); BASOPHILS % (AUTO) 2.6 % (0.0-2.0); EOSINOPHILS # (AUTO) 0.3 K/uL (0-0.4); EOSINOPHILS % (AUTO) 3.6 % (0.0-4.0); HEMOGLOBIN 10.9 g/dL (12.0-18.0); LYMPHOCYTES # (AUTO) 1.8 K/uL (2.0-11.5); LYMPHOCYTES % (AUTO) 22.1 % (20.5-51.1); MEAN CORPUSCULAR HEMOGLOBIN 29 pg (27-31); MEAN CORPUSCULAR HGB CONC 33 g/dL (33-37); MEAN CORPUSCULAR VOLUME 86 fL (80-94); MONOCYTES # (AUTO) 0.9 K/uL (0.8-1.0); MONOCYTES % (AUTO) 10.5 % (1.7-9.3); NEUTROPHILS % (AUTO) 61.2 % (42.2-75.2); PLATELET COUNT (AUTO) 197 K/uL (140-450); RED BLOOD CELL COUNT(AUTO) 3.82 MIL/uL (4.20-6.10); RED CELL DISTRIBUTION WIDTH 16.9 % (11.6-13.7); WHITE BLOOD COUNT (AUTO) 8.2 K/uL (4.8-10.8)
[2017-04-19 07:32] LABS: ANION GAP 14.2 (8-16); CARBON DIOXIDE 28.5 mmol/L (21-32); CHLORIDE 102 mmol/L (98-107); GLUCOSE 134 mg/dL (74-106); POTASSIUM 3.7 mmol/L (3.5-5.1); SODIUM SERUM 141 mmol/L (136-145); UREA NITROGEN, BLOOD 27 mg/dL (7-18)
[2017-04-19 07:36] LABS: CREATININE 5.3 mg/dL (0.7-1.3)
[2017-04-19 07:38] LABS: MAGNESIUM 1.8 mg/dL (1.8-2.4); PHOSPHORUS 4.4 mg/dL (2.5-4.9)
[2017-04-19 08:00] VITALS: BP 170/96
[2017-04-19] MEDS: CALCIUM ACETATE 667 MG TAB PO SCH ×3 (08:39→17:05)
[2017-04-19] MEDS: amLODIPine 5 MG TAB PO SCH (08:40)
[2017-04-19] MEDS: LACTOBACILLUS RHAMNOSUS GG 1 EACH CAP PO SCH (08:40)
[2017-04-19] MEDS: VIT-B COMP/VIT-C/FOLIC ACID 1 TAB PO SCH (08:40)
[2017-04-19] MEDS: CARVEDILOL 6.25 MG TAB PO SCH (08:40)
[2017-04-19] MEDS: HYDRAGUARD CREAM TP SCH (08:41)
[2017-04-19] MEDS ORDERED: LEVOFLOXACIN 250 MG/D5 PREMIX 50 ML IV SCH (09:00)
[2017-04-19 12:00] VITALS: BP 134/82
--- NOTE | 2017-04-19 12:15 | NUR ---
PT'S DAUGHTER FIDEL AT BEDSIDE. PT DENIES NAUSEA OR ABD PAIN. ADMINISTERED SCHEDULED MEDS. PT TOLERATED WELL. PT AND DAUGHTER AWARE OF PLAN FOR P/T TODAY. WILL CONTINUE TO MONITOR.
--- NOTE | 2017-04-19 13:31 | NUR ---
I met with Patient and daughter Ellyn at bed side, to discuss, confirm and asses for patient' s needed services upon discharge. Patient was awake and alert stated feeling better and wanting to go back home after he discharges from [facility]. Patient stated not having an advance directive completed however; having the documents and in the process of getting an appointment with notary to complete forms provided for patient and daughter during his last hospitalization about a week ago. Patient reported having a healthcare provider Dr. Catherine Osman and been able to make his own follow up appointments after he is discharge. Per Patient's daughter Ellyn, she is the one that picks up, monitors and dispenses patient's medications; and reported feeling really bad that she made the mistake of continuing one medication at home for his father after she was told to discontinue it by MD. Per Patient's Daughter she got his medications from the pharmacy and did not realized that a refill for discontinued medication was also included and on list and give it to patient causing him to get worse and returning back to the hospital. Per Ellyn she realized of what was happening after she spoke to MD here at [facility] and now is alert of the issue and will take better precautions with his medications. Per daughter; she was able to get a walker and a wheelchair for patient right after last discharge and reported been the only equipment patient has at home. Per Patient and Ellyn he is compliant with his dialysis appointments. Patient reported that he will be returning home with the assistance on care and transportation form his family support and daughters. Patient and daughter thank me for my assistance. Both did not have any questions or concerns at the time. Cuff Folder and/or Government Gauger will follow up as needed.
[2017-04-19 16:00] VITALS: BP 149/69
[2017-04-19] MEDS ORDERED: CLIN300C2 PO (16:12)
[2017-04-19] MEDS ORDERED: ASCO1CAP75 PO (16:12)
[2017-04-19] MEDS ORDERED: LEVO250T71 PO (16:12)
[2017-04-19] MEDS ORDERED: LEVO500T2 PO (16:12)
--- NOTE | 2017-04-19 18:20 | NUR ---
PT D/C TO GO HOME. GAVE D/C FORMS, INSTRUCTIONS, FOLLOW UP APPOINTMENT, RX, AND LABS TO PT'S DAUGHTER FIDEL. WENT OVER RX WITH ARLENE CONDON. FIDEL VERBALIZED UNDERSTANDING AND SIGNED FORMS. REMOVED IV CATHETER FROM L HAND 20G. IV CATHETER TIP INTACT. APPLIED DRESSING AND PRESSURE TO SITE. NO BLEEDING NOTED. REMOVED ID BAND AND TELE MONITOR. PT CHANGED IN OWN CLOTHES AND LEFT WITH ALL PERSONAL BELONGINGS. PT LEFT UNIT VIA WHEELCHAIR ACCOMPANIED BY DAUGHTER AND . PT LEFT IN STABLE CONDITION.
== END 2017-04-19 18:20 | disposition home or self-care (01) | DRG 469 ==
LOC: MED 11:28 → MTU 13:05
PROVIDERS: ADMIT Family Medicine Sports Medicine; ATTEND Family Medicine Sports Medicine
PROC: 5A1D70Z Performance of Urinary Filtration, Intermittent, Less than 6 Hours Per Day (ICD-10-PCS; principal; 2017-04-18)
DX: N17.0 Acute kidney failure with tubular necrosis (principal); J69.0 Pneumonitis due to inhalation of food and vomit; J96.21 Acute and chronic respiratory failure with hypoxia; E43 Unspecified severe protein-calorie malnutrition; G92 Toxic encephalopathy; I50.43 Acute on chronic combined systolic (congestive) and diastolic (congestive) heart failure; D68.59 Other primary thrombophilia; E11.22 Type 2 diabetes mellitus with diabetic chronic kidney disease; G90.9 Disorder of the autonomic nervous system, unspecified; N18.6 End stage renal disease; E11.65 Type 2 diabetes mellitus with hyperglycemia; Z99.2 Dependence on renal dialysis; F17.210 Nicotine dependence, cigarettes, uncomplicated; E11.51 Type 2 diabetes mellitus with diabetic peripheral angiopathy without gangrene; D63.1 Anemia in chronic kidney disease; E02 Subclinical iodine-deficiency hypothyroidism; J44.9 Chronic obstructive pulmonary disease, unspecified; T42.8X5A Adverse effect of antiparkinsonism drugs and other central muscle-tone depressants, initial encounter; I87.8 Other specified disorders of veins; E78.5 Hyperlipidemia, unspecified; E83.39 Other disorders of phosphorus metabolism; E83.41 Hypermagnesemia; I13.2 Hypertensive heart and chronic kidney disease with heart failure and with stage 5 chronic kidney disease, or end stage renal disease; Z79.4 Long term (current) use of insulin; Z79.899 Other long term (current) drug therapy; Z79.82 Long term (current) use of aspirin; Z68.31 Body mass index [BMI] 31.0-31.9, adult; Y92.89 Other specified places as the place of occurrence of the external cause
CPT/HCPCS: 36415; 36600; 70450; 71045; 80048; 80053; 81001; 82140; 82150; 82550; 82803; 82948; 83036; 83605; 83690; 83735; 83880; 84100; 84436; 84439; 84443; 84479; 84484; 85025; 85610; 85730; 87040; 87081; 87086; 93005; 93970; 99291; C1758; G0482; J1815; J1956; J2405; J3490; J7030; J7060; Q0092

== ENCOUNTER 2017-06-25 11:41 | Inpatient (IN) | payer MEDICAID ==
[~2017-06-25] VITALS: Ht 170.2 cm; Wt 86.2 kg
--- NOTE | 2017-06-25 01:00 | NUR ---
PT SITTING UP IN BED AWAKE WITH NO S/S OF PAIN OR DISTRESS NOTED. PT COOPERATIVE WITH ROUTINE V/S. IV SITE FLUSHED PATENT BED IN LOW POSITION, SIDE RAILS UP AND CALL HENLEY IN REACH
[~2017-06-25 11:41] MED LIST changes: +ASCO1CAP75 PO; -ASPI81CT95 PO; -ATOR20TA40 PO; -FAMO20TA13 PO; -LACT1CAP63 PO; +LEVO250T71 PO; +LEVO500T2 PO; -LEVO750T2 PO
[2017-06-25 11:49] VITALS: BP 125/78
--- NOTE | 2017-06-25 11:52 | NUR ---
ACCU CHECK [id number]
--- NOTE | 2017-06-25 12:18 | NUR ---
PT BIB DAUGHTER FOR C/O HEADAHCE AND LEFT SIDE FACIAL DROOP SINCE YESTERDAY. PT HAS EQUAL KNOCKOUT MACHINE OPERATOR/PUSHES, NORMAL GAIT, PERLLA, AXO X4. PT HAS NOTABLE LEFT SIDE FACIAL DROOOP AND TEARS COMING FROM LEFT EYE. DENIES SOB, N/V/DIZZINESS. PT WITH FISTULA TO LEFT AC, PALPABLE THRILL. PT WITH DIALYSIS ACCESS TO RT SUBCLAVIAN, DRESSING IS CDI. DR NOE AT BEDSIDE TO EVAL. PT PLACED ON ALL MONITORS, VS WNL.
--- NOTE | 2017-06-25 12:31 | NUR ---
PT AMBULATES WITH NORMAL GAIT FOR MD
--- NOTE | 2017-06-25 12:47 | NUR ---
Patient taken to CT scan via gurney by [employer].
[2017-06-25 13:01] LABS: APPEARANCE,URINE HAZY (CLEAR); BILIRUBIN,URINE NEGATIVE (NEGATIVE); BLOOD, URINE 2+ (NEGATIVE); COLOR,URINE YELLOW (YELLOW); LEUKOCYTE ESTERASE ,URINE NEGATIVE (NEGATIVE); NITRITE, URINE NEGATIVE (NEGATIVE); UGLUCOSE 3+ (NEGATIVE)
[2017-06-25 13:03] LABS: BASOPHILS % (AUTO) 0.5 % (0.0-2.0); EOSINOPHILS # (AUTO) 0.5 K/uL (0-0.4); EOSINOPHILS % (AUTO) 7.1 % (0.0-4.0); HEMATOCRIT 36.2 % (36-52); HEMOGLOBIN 11.6 g/dL (12.0-18.0); LYMPHOCYTES # (AUTO) 1.4 K/uL (2.0-11.5); LYMPHOCYTES % (AUTO) 18.8 % (20.5-51.1); MEAN CORPUSCULAR HEMOGLOBIN 28 pg (27-31); MEAN CORPUSCULAR HGB CONC 32 g/dL (33-37); MEAN CORPUSCULAR VOLUME 88.2 fL (80-94); MONOCYTES # (AUTO) 0.8 K/uL (0.8-1.0); MONOCYTES % (AUTO) 10.8 % (1.7-9.3); NEUTROPHILS # (AUTO) 4.8 K/uL (1.8-7.7); NEUTROPHILS % (AUTO) 62.8 % (42.2-75.2); PLATELET COUNT (AUTO) 102 K/uL (140-450); RED CELL DISTRIBUTION WIDTH 18.9 % (11.6-13.7); WHITE BLOOD COUNT (AUTO) 7.7 K/uL (4.8-10.8)
[2017-06-25 13:14] LABS: RBC,URINE 11-20 (MOD) /HPF (0-5); WBC,URINE 0-5 (RARE) /HPF (0-5)
[2017-06-25 13:22] LABS: ALBUMIN 3.1 g/dL (3.4-5.0); ANION GAP 13.8 (8-16); ASPARTATE AMINOTRANSFERASE 14 U/L (15-37); CARBON DIOXIDE 28.7 mmol/L (21-32); CHLORIDE 96 mmol/L (98-107); GLUCOSE 286 mg/dL (74-106); POTASSIUM 4.5 mmol/L (3.5-5.1); SODIUM SERUM 134 mmol/L (136-145); TOTAL BILIRUBIN 0.5 mg/dL (0.0-1.0)
[2017-06-25 13:24] LABS: CREATININE 9.6 mg/dL (0.7-1.3); UREA NITROGEN, BLOOD 65 mg/dL (7-18)
[2017-06-25] MEDS ORDERED: NACL 0.9% 1,000 ML IV SCH (15:12)
[2017-06-25] MEDS ORDERED: ACETAMINOPHEN 325 MG TAB PO PRN (15:15)
[2017-06-25] MEDS ORDERED: ONDANSETRON 4 MG/2 ML VIAL IVP PRN (15:15)
--- NOTE | 2017-06-25 15:56 | NUR ---
Patient will be admitted to care of MOYA. Admited to TELE. Will go to room 114. Belongings list completed. Report to PRIMARY RN.
[2017-06-25 16:00] VITALS: BP 176/80
--- NOTE | 2017-06-25 16:00 | NUR ---
RECEIVED PT ON UNIT VIA [employer], PT IS AAOX4, AMBULATES WITH ASSIST, PT HAS IV ON THE RIGHT HAND, PATENT, INTACT, FLUSHING WELL, NO S/S OF RESPIRATORY DISTRESS NOTED, PT HAS LEFT SIDE OF THE FACE FACIAL DROOP, ORIENTED PT TO ROOM, DISCUSSED PLAN OF CARE WITH PT, PT VERBALIZED UNDERSTANDING, SAFETY/FALL PRECAUTIONS ARE IN PLACE, CALL LIGHT WITHIN REACH, WILL CONTINUE TO MONITOR, FAMILY IS AT BEDSIDE.
[2017-06-25 17:03] LABS: PROTHROMBIN TIME 10.8 secs (10.8-13.4)
[2017-06-25 17:15] LABS: FREE T4 (FREE THYROXINE) 0.95 ng/dL (0.76-1.46); MAGNESIUM 2.9 mg/dL (1.8-2.4); PHOSPHORUS 6.5 mg/dL (2.5-4.9); THYROID STIMULATING HORMONE 1.07 uIU/mL (0.34-3.74)
--- NOTE | 2017-06-25 17:30 | NUR ---
DR. STYLES AND DR. MCKEON ARE AT PATIENT BEDSIDE EXAMINING PATIENT. FAMILY IS ALSO AT BEDSIDE.
[2017-06-25] MEDS ORDERED: ATA25 PO (17:50)
[2017-06-25] MEDS ORDERED: MECLIZINE 25 MG TAB PO PRN (18:20)
[2017-06-25] MEDS ORDERED: DEXTROSE 50% 50 ML SYR IVP PRN (18:20)
--- NOTE | 2017-06-25 19:40 | NUR ---
ENDORSED PT TO AIRLINE MANAGER NURSE FOR CONTINUITY OF CARE. PT STABLE AT THIS TIME, CALL LIGHT IS WITHIN REACH.
--- NOTE | 2017-06-25 19:45 | NUR ---
REPORT RECEIVED FORM GERARDO JACOBS AT BEDSIDE. PT SITTING UP IN BED ALERT AND ORIENTED X 4 HE HAS NACL RUNNING OREDERD. IV SITE ON L HAND 20 G SITE PATENT NO S/S OF REDNESS OR INFECTION. PT HAS POSITIVE SITE FOR THRILL AND BRUIT ON R ARM. RIGHT SUBCLAVIAN TUNNEL CATHETER INTACT BED LOW AND SIDE RAILS UP. PT HAD NO C/O AT THIS TIME.
[2017-06-25 20:00] VITALS: BP 173/82
[2017-06-25] MEDS: BLOOD GLUCOSE MONITORING 1 DEV DEV FS SCH (21:05)
[2017-06-25] MEDS: INSULIN LISPRO SLIDING SCALE 100 UNITS/ML VIAL SUBQ PRN (21:07)
--- NOTE | 2017-06-25 21:10 | NUR ---
ADMINISTERED SCHEDULED MEDICATION AND INSULIN COVERAGE (HUMALOG) FOR BS 332, PT TOLERATED WELL.
[2017-06-25] MEDS: DOCUSATE SODIUM 100 MG GELCAP PO SCH (21:13)
--- NOTE | 2017-06-25 22:53 | NUR ---
PT SLEEPING IN BED NO S/S OF PAIN AND DISTRESS NOTED. BED IN LOW POSITION SIDE RAILS UP AND CALL HENLEY IN REACH. NACL RUNNING ORDERED.AT 50MLS AN HOUR.
[2017-06-26] VITALS (7 sets, daily range): BP systolic 138–205; BP diastolic 77–94
--- NOTE | 2017-06-26 | NUR ---
V/S WNL. PT STABLE, NO SIGNS OF DISTRESS NOTED AT THIS TIME. BED IN LOWEST POSITION, CALL LIGHT WITHIN REACH. WILL CONTINUE TO MONITOR.
--- NOTE | 2017-06-26 04:00 | NUR ---
NO CHANGE IN CONDITION, VITAL SIGNS WITHIN SIMRAL. PT STABLE, NO SIGNS OF DISTRESS NOTED AT THIS TIME. BED IN LOWEST POSITION, CALL LIGHT WITHIN REACH. WILL CONTINUE TO MONITOR.
[2017-06-26 05:39] LABS: BASOPHILS % (AUTO) 0.4 % (0.0-2.0); EOSINOPHILS # (AUTO) 0.7 K/uL (0-0.4); EOSINOPHILS % (AUTO) 8.8 % (0.0-4.0); HEMATOCRIT 35.2 % (36-52); HEMOGLOBIN 11.3 g/dL (12.0-18.0); LYMPHOCYTES # (AUTO) 1.4 K/uL (2.0-11.5); MEAN CORPUSCULAR HEMOGLOBIN 29 pg (27-31); MEAN CORPUSCULAR HGB CONC 32 g/dL (33-37); MEAN CORPUSCULAR VOLUME 89.1 fL (80-94); MONOCYTES # (AUTO) 0.9 K/uL (0.8-1.0); MONOCYTES % (AUTO) 11.6 % (1.7-9.3); NEUTROPHILS # (AUTO) 4.9 K/uL (1.8-7.7); NEUTROPHILS % (AUTO) 61.2 % (42.2-75.2); PLATELET COUNT (AUTO) 107 K/uL (140-450); RED BLOOD CELL COUNT(AUTO) 3.95 MIL/uL (4.20-6.10); RED CELL DISTRIBUTION WIDTH 19.3 % (11.6-13.7)
[2017-06-26 06:23] LABS: PHOSPHORUS 6.9 mg/dL (2.5-4.9)
[2017-06-26 06:24] LABS: CHOL/HDL RATIO 2.3 (1-4.5)
[2017-06-26 06:27] LABS: ANION GAP 16.2 (8-16); CARBON DIOXIDE 26.4 mmol/L (21-32); CHLORIDE 97 mmol/L (98-107); GLUCOSE 132 mg/dL (74-106); POTASSIUM 4.6 mmol/L (3.5-5.1); SODIUM SERUM 135 mmol/L (136-145)
--- NOTE | 2017-06-26 06:28 | NUR ---
PT FINGERSTICK RETAKEN IT WAS 129.PT UP AND ALERT NO C/O VOICED.LEFT SIDE OF FACE STILL DISPLAYS SOME FACIAL DROPPING. PT BED IN LOW POSITION SIDE RAILS UP AND CALL HENLEY IN REACH.
[2017-06-26 06:36] LABS: CREATININE 10.6 mg/dL (0.7-1.3); UREA NITROGEN, BLOOD 75 mg/dL (7-18)
[2017-06-26] MEDS ORDERED: ACYCLOVIR IV PER PHARMACY MC PRN (06:40)
[2017-06-26] MEDS: BLOOD GLUCOSE MONITORING 1 DEV DEV FS SCH ×4 (06:45→21:35)
--- NOTE | 2017-06-26 07:22 | NUR ---
ENDORSED PT TO DAY SHIFT RN FOR CONTINUITY OF CARE. PT IN STABLE CONDITION.
--- NOTE | 2017-06-26 07:30 | NUR ---
RECEIVED PT REPORT FROM COMPRESSOR STATION CHIEF ENGINEER RN. PT IS AAOX4, PT HAS IV ON THE RIGHT HAND, PATENT, INTACT, FLUSHING WELL, NO S/S OF RESPIRATORY DISTRESS NOTED, PT HAS LEFT SIDE FACIAL DROOP, LEFT AV SHUNT FOR DIALYSIS NOTED. CENTRAL LINE NOTED ON THE RIGHT CHEST. COVERED WITH DRESSING, CLEAN AND INTACT. DISCUSSED PLAN OF CARE WITH PT, PT VERBALIZED UNDERSTANDING, SAFETY/FALL PRECAUTIONS ARE IN PLACE, CALL LIGHT WITHIN REACH, WILL CONTINUE TO MONITOR.
--- NOTE | 2017-06-26 08:10 | NUR ---
LEFT AV SHUNT FOR DIALYSIS AUSCULTATED AND FELTED. BRUIT AND THRILL PRESENTED. NOTICED LEFT EYE HEMORRHAGE. REPORTED TO DR DELCID.
[2017-06-26] MEDS: DOCUSATE SODIUM 100 MG GELCAP PO SCH ×2 (08:37→20:30)
[2017-06-26] MEDS: predniSONE 20 MG TAB PO SCH (08:38)
--- NOTE | 2017-06-26 09:07 | NUR ---
PATIENT HAS BEEN SCREENED AND CATEGORIZED MODERATE NUTRITION RISK. PATIENT WILL BE SEEN WITHIN 3-5 DAYS OF ADMISSION. 06/28/17 06/30/[address]
--- NOTE | 2017-06-26 12:05 | NUR ---
REPORTED BP 169/[address] DELCID. ORDERED TO RECHECK.
[2017-06-26] MEDS: INSULIN LISPRO SLIDING SCALE 100 UNITS/ML VIAL SUBQ PRN ×3 (12:18→21:39)
--- NOTE | 2017-06-26 12:20 | NUR ---
INSULIN WAS GIVEN PER ORDER FOR BS 275. PRIMARY NURSE ELIO WAS INFORMED
--- NOTE | 2017-06-26 12:50 | NUR ---
REPORTED BP 188/[address] DELCID. ORDERED BP MEDICATIONS SCHEDULED FOR EVENING. TO BE ADMINISTERED AFTER DIALYSIS.
[2017-06-26] MEDS: CALCIUM ACETATE 667 MG TAB PO SCH (16:57)
--- NOTE | 2017-06-26 17:30 | NUR ---
PT FINISHED DIALYSIS, NO S/S OF DISTRESS ON ROOM AIR. STARTED EATING DINNER. Addendum: 06/26/17 at 2006 by Gómez Oliviera RN 3L REMOVED DURING DIALYSIS.
--- NOTE | 2017-06-26 19:30 | NUR ---
ENDORSED PT TO EXECUTIVE ADMIN RN. PT IN BED AND INSTABLE CONDITION.
--- NOTE | 2017-06-26 19:31 | NUR ---
RECEIVED PT SAMSON RN PT IS AAOX4 AMBULATORY, SENEGALESE SPEAKER AV SHUNT ON LEFT ARM ,ONRT UPPER CHEST HD ACCESS, IV ONRT HAND PATENT ON TELEMETRY SR RELATIVES AT BED SIDE INITIAL ASSESSMENT DONE
--- NOTE | 2017-06-26 20:15 | NUR ---
BP HIGH 205/94 DR PARRA WAS NOTIFY AND ORDER TO FOLLOWK, BP WILL BE MONITORING PHARMACY WAS CALL TO VERIFY MED ORDER
[2017-06-26] MEDS: hydrOXYzine HCL 25 MG TAB PO SCH (20:31)
[2017-06-26] MEDS: CARVEDILOL 6.25 MG TAB PO SCH (20:55)
[2017-06-26] MEDS ORDERED: CARVEDILOL 6.25 MG TAB PO SCH (21:00)
[2017-06-26] MEDS ORDERED: NACL 0.9% IV SCH (21:00)
[2017-06-26] MEDS ORDERED: ACYCLOVIR IV SCH (21:00)
--- NOTE | 2017-06-26 22:35 | NUR ---
AT 2235 BP 164 /86 PULSE 86 PT DENIES ANY PAIN OR DISCOMFORT DR PARRA WAS NOTIFY ON TELEMTRY SR
[2017-06-27 00:30] VITALS: BP 173/87
--- NOTE | 2017-06-27 00:38 | NUR ---
PT SLEEPING NOT DISTRESS NOTED ON TELEMETRY SR DR PARRA WAS NOTIFY HIGH BP 173/87 HR 84 02 SAT 97
[2017-06-27] MEDS ORDERED: ENALAPRILAT 2.5 MG/2 ML VIAL IVP PRN (01:00)
[2017-06-27 02:08] VITALS: BP 161/82
--- NOTE | 2017-06-27 03:38 | NUR ---
PT DENIES ANY PAIN OR DISCOMFORT SLEEPING WELL ON TELEMETRY SR
--- NOTE | 2017-06-27 05:21 | NUR ---
SPONGE BATH GIVEN LINEN CHANGED, ON TELEMETRY SR, REPOSITIONED Q2H
[2017-06-27] MEDS: INSULIN LISPRO SLIDING SCALE 100 UNITS/ML VIAL SUBQ PRN ×2 (06:01→12:18)
[2017-06-27] MEDS: BLOOD GLUCOSE MONITORING 1 DEV DEV FS SCH ×2 (06:02→12:14)
[2017-06-27 06:16] LABS: BASOPHILS % (AUTO) 0.2 % (0.0-2.0); EOSINOPHILS % (AUTO) 0.1 % (0.0-4.0); HEMATOCRIT 35.3 % (36-52); HEMOGLOBIN 11.3 g/dL (12.0-18.0); MEAN CORPUSCULAR HEMOGLOBIN 28 pg (27-31); MEAN CORPUSCULAR HGB CONC 32 g/dL (33-37); MEAN CORPUSCULAR VOLUME 88.5 fL (80-94); MONOCYTES # (AUTO) 1.1 K/uL (0.8-1.0); MONOCYTES % (AUTO) 12.6 % (1.7-9.3); NEUTROPHILS # (AUTO) 6.3 K/uL (1.8-7.7); NEUTROPHILS % (AUTO) 75.1 % (42.2-75.2); PLATELET COUNT (AUTO) 106 K/uL (140-450); RED BLOOD CELL COUNT(AUTO) 3.99 MIL/uL (4.20-6.10); RED CELL DISTRIBUTION WIDTH 18.8 % (11.6-13.7); WHITE BLOOD COUNT (AUTO) 8.4 K/uL (4.8-10.8)
[2017-06-27 06:29] LABS: ANION GAP 15.4 (8-16); CARBON DIOXIDE 26.9 mmol/L (21-32); CHLORIDE 101 mmol/L (98-107); GLUCOSE 265 mg/dL (74-106); POTASSIUM 4.3 mmol/L (3.5-5.1); SODIUM SERUM 139 mmol/L (136-145); UREA NITROGEN, BLOOD 50 mg/dL (7-18)
[2017-06-27 06:43] LABS: CREATININE 7.7 mg/dL (0.7-1.3)
--- NOTE | 2017-06-27 06:57 | NUR ---
BLOOD SUGAR TEST 241 COVERAGE WITH 4 UNITS SUBQ HUMALOG ON RT ARM PT WILL BE ENDORSED TO DAY SHIFT FOR CONTINUITY OF CARE
--- NOTE | 2017-06-27 07:30 | NUR ---
RECEIVED REPORT FROM CARRY OUT CLERK NURSE. PT IS AAOX4, SITTING ON CHAIR AT BEDSIDE, AMBULATES WITH ASSIST, NO S/S OF RESPIRATORY DISTRESS OR DISCOMFORT NOTED, PT IV IS ON THE RIGHT HAND, PATENT, INTACT, FLUSHING WELL, PT HAS DISCOLORATION ON BILATERAL LOWER EXT. DISCUSSED PLAN OF CARE WITH PT, PT VERBALIZED UNDERSTANDING, SAFETY/FALL PRECAUTIONS ARE IN PLACE, CALL LIGHT IS WITHIN REACH, WILL CONTINUE TO MONITOR.
[2017-06-27 08:00] VITALS: BP 173/86
[2017-06-27] MEDS: CALCIUM ACETATE 667 MG TAB PO SCH ×2 (08:37→12:19)
[2017-06-27] MEDS: DOCUSATE SODIUM 100 MG GELCAP PO SCH (08:37)
[2017-06-27] MEDS: predniSONE 20 MG TAB PO SCH (08:37)
[2017-06-27] MEDS: hydrOXYzine HCL 25 MG TAB PO SCH (08:38)
[2017-06-27] MEDS: CARVEDILOL 6.25 MG TAB PO SCH (08:38)
--- NOTE | 2017-06-27 08:38 | NUR ---
DUE MEDICATIONS GIVEN, PT TOLERATED WELL, ALL NEEDS ARE MET AT THIS TIME, CALL LIGHT IS WITHIN REACH, WILL CONTINUE TO MONITOR.
[2017-06-27] MEDS ORDERED: INSULIN LANTUS 100 UNITS/ML 10 ML VIAL SUBQ SCH (09:00)
[2017-06-27] MEDS ORDERED: amLODIPine 5 MG TAB PO SCH (09:00)
[2017-06-27] MEDS ORDERED: ECOTRIN 81 MG TABEC PO SCH (09:00)
[2017-06-27] MEDS ORDERED: LISINOPRIL 20 MG TAB PO SCH (09:00)
[2017-06-27] MEDS ORDERED: VIT-B COMP/VIT-C/FOLIC ACID 1 TAB PO SCH (09:00)
[2017-06-27] MEDS ORDERED: ATORVASTATIN 20 MG TAB PO SCH (09:00)
[2017-06-27] MEDS ORDERED: CARV6.252 PO (09:19)
[2017-06-27] MEDS ORDERED: LISI-420 PO (09:19)
[2017-06-27] MEDS ORDERED: ASPI-1173 PO (09:19)
[2017-06-27] MEDS ORDERED: ATOR20TA40 PO (09:19)
[2017-06-27] MEDS ORDERED: PRED20TA6 PO ×2 (10:17→10:32)
[2017-06-27] MEDS ORDERED: ACYC400T1 PO (10:17)
[2017-06-27] MEDS ORDERED: DEXT1DRO4 OP (10:27)
--- NOTE | 2017-06-27 10:30 | NUR ---
PT RESTING IN BED, WATCHING TV, CALL LIGHT WITHIN REACH.
[2017-06-27 12:00] VITALS: BP 146/77
--- NOTE | 2017-06-27 12:30 | NUR ---
PT SITTING ON CHAIR AT BEDSIDE EATING LUNCH. PATIENT'S IS AT BEDSIDE.
[2017-06-27] MEDS ORDERED: POLYVINYL ALCOHOL 1.4% OP 15 ML SOL LEFT EYE SCH (13:00)
[2017-06-27] MEDS ORDERED: POLYVINYL ALCOHOL 1.4% OP 15 ML SOL OP SCH (13:00)
--- NOTE | 2017-06-27 15:00 | NUR ---
CALLED THE PATIENT'S DAUGHTER, FIDEL, I DID SPEAK WITH HER, I LET HER KNOW THE PATIENT WAS GOING TO BE DISCHARGED. FIDEL SAID SHE WOULD BE HERE TO LACING STRING CUTTER HER DAD IN ABOUT AN HOUR.
--- NOTE | 2017-06-27 16:20 | NUR ---
PT DISCHARGE INSTRUCTIONS GIVEN, IV REMOVED, CATHETER TIP INTACT, ID WRIST BAND REMOVED. PT STABLE UPON DISCHARGE.
[2017-06-28] MEDS ORDERED: LISINOPRIL 20 MG TAB PO SCH (09:00)
== END 2017-06-27 16:20 | disposition home or self-care (01) | DRG 48 ==
LOC: MED 11:41 → MTU 15:19
PROVIDERS: ADMIT Family Medicine; ATTEND Family Medicine
DX: G51.0 Bell's palsy (principal); N17.0 Acute kidney failure with tubular necrosis; I13.2 Hypertensive heart and chronic kidney disease with heart failure and with stage 5 chronic kidney disease, or end stage renal disease; G93.41 Metabolic encephalopathy; E44.0 Moderate protein-calorie malnutrition; D68.59 Other primary thrombophilia; N18.6 End stage renal disease; E11.22 Type 2 diabetes mellitus with diabetic chronic kidney disease; E11.51 Type 2 diabetes mellitus with diabetic peripheral angiopathy without gangrene; I50.9 Heart failure, unspecified; E66.3 Overweight; E11.65 Type 2 diabetes mellitus with hyperglycemia; Z99.2 Dependence on renal dialysis; Z68.29 Body mass index [BMI] 29.0-29.9, adult; D69.6 Thrombocytopenia, unspecified; M62.81 Muscle weakness (generalized); S53.402A Unspecified sprain of left elbow, initial encounter; E11.69 Type 2 diabetes mellitus with other specified complication; W18.30XA Fall on same level, unspecified, initial encounter; R31.9 Hematuria, unspecified; F17.210 Nicotine dependence, cigarettes, uncomplicated; E78.5 Hyperlipidemia, unspecified; I70.209 Unspecified atherosclerosis of native arteries of extremities, unspecified extremity; D63.1 Anemia in chronic kidney disease; I87.8 Other specified disorders of veins; R82.71 Bacteriuria; Z83.3 Family history of diabetes mellitus; Z82.49 Family history of ischemic heart disease and other diseases of the circulatory system; Z79.899 Other long term (current) drug therapy; Y93.89 Activity, other specified; Y92.89 Other specified places as the place of occurrence of the external cause; Y99.8 Other external cause status; Z79.4 Long term (current) use of insulin
CPT/HCPCS: 36415; 70450; 71045; 73080; 80048; 80053; 81001; 82140; 82150; 82948; 83690; 83735; 83880; 84100; 84439; 84443; 84484; 85025; 85610; 85730; 87081; 87086; 90935; 93005; 93880; 93970; 97110; 97116; 97530; 99285; J0133; J1815; J3490; J7030; J7512; Q0092

== ENCOUNTER 2018-12-03 16:27 | Inpatient (IN) | payer MEDICAID ==
[~2018-12-03] VITALS: Ht 182.9 cm; Wt 78.5 kg
[~2018-12-03 16:27] MED LIST changes: +ACYC400T1 PO; -AMLO5TAB4 PO; +AMLO5TAB6 PO; -ASCO1CAP75 PO; +ASPI-1173 PO; +ATA25 PO; +ATOR20TA40 PO; -CLIN300C2 PO; +DEXT1DRO4 OP; -LEVO250T71 PO; -LEVO500T2 PO; +LISI-420 PO; +PRED20TA6 PO
--- NOTE | 2018-12-03 16:46 | NUR ---
Pt w/c assisted to bed 7.
[2018-12-03 16:53] VITALS: BP 138/91
--- NOTE | 2018-12-03 16:54 | NUR ---
Dr. Romero evaluating patient at bedside.
--- NOTE | 2018-12-03 16:58 | NUR ---
Called code brain.
--- NOTE | 2018-12-03 17:00 | NUR ---
BIB DAUGHTER W/ C/O LETHARGY AND ALOC AFTER DIALYSIS TODAY W/ MULTIPLE EPISODES OF VOMITING. PT SKIN IS CLAMMY AND WARM, GCS 12/15 (3,5,4) PURPOSEFUL MOVEMENT ONLY. LBM 12/02/18, ABDOMEN SOFT/FLAT/NON TENDER TO PALPATION. BOWEL SOUNDS PRESENT X4. PT PRESENTS WITH WEAKNESS TO BUE/BLE, CONFUSION. PT O2 SAT RA 86%. PT PLACED ON 5LPM NC AT THIS TIME. RESPIRATIONS REGULAR AND SHALLOW. LUNG SOUNDS COARSE BUL, DIMINISHED BLL. FMAILY AT BEDSIDE. PT PLACED ON BANQUET MANAGER AND IN GOWN AT THIS TIME.
[2018-12-03] MEDS ORDERED: PHO667 PO (17:12)
[2018-12-03] MEDS ORDERED: INSU100S10 SUBQ (17:12)
--- NOTE | 2018-12-03 17:20 | NUR ---
ACCOMPANIED PATIENT TO CT SCAN
[2018-12-03] MEDS ORDERED: TRAM50TA1 PO (17:21)
[2018-12-03 17:26] LABS: HEMATOCRIT 40.2 % (36-52); HEMOGLOBIN 13.1 g/dL (12.0-18.0); MEAN CORPUSCULAR HEMOGLOBIN 33 pg (27-31); MEAN CORPUSCULAR HGB CONC 33 g/dL (33-37); MEAN CORPUSCULAR VOLUME 100.7 fL (80-94); PLATELET COUNT (AUTO) 138 K/uL (140-450); RED BLOOD CELL COUNT(AUTO) 3.99 MIL/uL (4.20-6.10); WHITE BLOOD COUNT (AUTO) 15.2 K/uL (4.8-10.8)
--- NOTE | 2018-12-03 17:32 | NUR ---
X-Ray at bedside.
--- NOTE | 2018-12-03 17:40 | NUR ---
PT RESTING IN BED, AROUSABLE TO VERBAL STIMULI
[2018-12-03 17:44] LABS: PROTHROMBIN TIME 10.4 secs (10.8-13.4)
[2018-12-03 18:14] LABS: LYMPHOCYTES % (MANUAL) 8 % (20-46); MONOCYTES % (MANUAL) 2 % (5-12); MYELOCYTES % 1 % (0-0); PROMYELOCYTES % 2 % (0-0)
[2018-12-03 18:23] LABS: BARBITURATE, URINE NEG. ng/ml (NEG <=200); BENZODIAZEPINE, URINE NEG. ng/mL (NEG <=200); CANNABINOID, URINE NEG. ng/mL (NEG <=50); COCAINE, URINE NEG. ng/mL (NEG <=300); OPIATE, URINE NEG. ng/mL (NEG <=2000); PHENCYCLIDINE SCREEN,URINE NEG. ng/mL (NEG <=25)
[2018-12-03 18:24] LABS: APPEARANCE,URINE HAZY (CLEAR); BILIRUBIN,URINE NEGATIVE (NEGATIVE); BLOOD, URINE 1+ (NEGATIVE); COLOR,URINE YELLOW (YELLOW); LEUKOCYTE ESTERASE ,URINE NEGATIVE (NEGATIVE); NITRITE, URINE NEGATIVE (NEGATIVE); PH,URINE 8.5 (5.0-9.0); UGLUCOSE 2+ (NEGATIVE)
--- NOTE | 2018-12-03 18:45 | NUR ---
PT RESTING IN BED, AROUSABLE TO VERBAL STIMULI. FAMILY AT BEDSIDE
[2018-12-03 18:46] LABS: SALICYLATE 2.9 mg/dL (2.8-20.0)
[2018-12-03 18:50] LABS: RBC,URINE 0-5 /HPF (0-5); WBC,URINE NONE SEEN /HPF (0-5)
[2018-12-03 18:54] LABS: ACETAMINOPHEN < 0.5 ug/ml (10-30)
[2018-12-03] MEDS ORDERED: PIPERACILLIN/TAZOBACTAM 3.375 GM in DEXTROSE 5% 50 ML IV ONE (18:55)
[2018-12-03] MEDS ORDERED: PIPERACILLIN/TAZOBACTAM 3.375 GM VIAL IV ONE ×2 (19:00→20:09)
[2018-12-03 19:17] LABS: ALBUMIN 3.1 g/dL (3.4-5.0); ANION GAP 17.4 (8-16); ASPARTATE AMINOTRANSFERASE 12 U/L (15-37); CARBON DIOXIDE 31.5 mmol/L (21-32); CHLORIDE 89 mmol/L (98-107); GLUCOSE 241 mg/dL (74-106); POTASSIUM 4.9 mmol/L (3.5-5.1); SODIUM SERUM 133 mmol/L (136-145); UREA NITROGEN, BLOOD 34 mg/dL (7-18)
--- NOTE | 2018-12-03 19:20 | NUR ---
accompanied pt to ct
[2018-12-03 19:21] LABS: CREATININE 5.8 mg/dL (0.7-1.3)
--- NOTE | 2018-12-03 19:49 | NUR ---
PATIENT IS IN NO DISTRESS AT THIS TIME. FOLLOWS COMMANDS. VSS. WILL CONTINUE TO MONITOR.
[2018-12-03] MEDS ORDERED: CLINDAMYCIN 600 MG in DEXTROSE 5% 50 ML IV ONE (20:00)
[2018-12-03] MEDS ORDERED: CLINDAMYCIN 600 MG/4 ML VIAL ONE ×2 (20:09→20:10)
[2018-12-03] MEDS ORDERED: NACL 0.9% 1,000 ML IV SCH (20:12)
[2018-12-03] MEDS ORDERED: DOCUSATE SODIUM 100 MG GELCAP PO PRN ×2 (20:15→22:35)
[2018-12-03] MEDS ORDERED: ONDANSETRON 4 MG/2 ML VIAL IM/IVP PRN ×2 (20:15→22:35)
[2018-12-03] MEDS ORDERED: ACETAMINOPHEN 325 MG TAB PO PRN ×2 (20:15→22:35)
[2018-12-03] MEDS ORDERED: HYDROcodone/APAP 7.5/325 MG 1 TAB PO PRN ×2 (20:15→22:35)
[2018-12-03] MEDS ORDERED: ALBUTEROL SULFATE/IPRATROPIU 3 ML SOL IH SCH (20:20)
[2018-12-03] MEDS ORDERED: ALBUTEROL SULFATE/IPRATROPIU 3 ML SOL IH PRN ×2 (20:20→22:50)
--- NOTE | 2018-12-03 20:41 | NUR ---
PATIENT IS CALM AND COOPERATIVE. NO DISTRESS NOTED. SON AND DAUGHTER AT BEDSIDE. WILL CONTINUE TO MONITOR.
[2018-12-03] MEDS ORDERED: PIPERACILLIN/TAZOBACTAM 3.375 GM in DEXTROSE 5% 50 ML IV SCH (21:00)
[2018-12-03 21:02] LABS: CHOL/HDL RATIO 5.2 (1-4.5); FREE T4 (FREE THYROXINE) 1.39 ng/dL (0.76-1.46); MAGNESIUM 2.3 mg/dL (1.8-2.4); PHOSPHORUS 4.7 mg/dL (2.5-4.9); THYROID STIMULATING HORMONE 0.95 uIU/mL (0.34-3.74)
--- NOTE | 2018-12-03 21:15 | NUR ---
Patient arrived in unit via [facility], accompanied by two PATIENT RELATIONS DIRECTOR's and daughter Ellyn. Patient not able to ambulate from [facility] to bed without assistance. Introduced self, updated board, oriented patient to room and hospital environment. No SOB or distress noted, on oxygen 2LPM via nasal cannula, O2Sat 94%. Chief complaint - ALOC for 1 day, diagnosis Pneumonia. IV site noted on right antecubital, 18 gauge, saline locked. AV shunt noted on left upper arm, dialysis on Mondays, Wednesdays and Fridays. Skin intact. Bed in the lowest position, call light within reach. Initial assessment done. Will continue to monitor.
--- NOTE | 2018-12-03 21:15 | NUR ---
Patient arrived in unit via [facility], accompanied by two INSPECTOR PRECISION's and daughter Claudia. Addendum: 12/04/18 at 0130 by Kit Muhammad RN Incomplete
--- NOTE | 2018-12-03 21:15 | NUR ---
Patient will be admitted to care of DR. العلي . Admited to TELE. Will go to room 121B. Belongings list completed. Report to ARLENE VAUGHN.
[2018-12-03] MEDS ORDERED: ALBUTEROL SULFATE/IPRATROPIU 3 ML SOL IH ONE (21:19)
[2018-12-03 21:30] VITALS: BP 134/51
--- NOTE | 2018-12-03 23:15 | NUR ---
Checks made; no SOB or distress noted.
[2018-12-04] VITALS (7 sets, daily range): BP systolic 101–161; BP diastolic 47–66
--- NOTE | 2018-12-04 00:20 | NUR ---
Vitals taken, no distress noted.
--- NOTE | 2018-12-04 02:20 | NUR ---
Rounds done; no distress noted. Addendum: 12/04/18 at 0225 by Kit Muhammad RN Patient asleep on right lateral side, visible chest rise and fall noted.
--- NOTE | 2018-12-04 04:15 | NUR ---
Vitals taken, no distress noted.
[2018-12-04] MEDS: BLOOD GLUCOSE MONITORING 1 DEV DEV FS SCH ×4 (05:21→21:44)
[2018-12-04] MEDS: INSULIN LISPRO SLIDING SCALE 100 UNITS/ML VIAL SUBQ PRN ×4 (05:25→21:46)
[2018-12-04] MEDS ORDERED: PIPERACILLIN/TAZOBACTAM 2.25 GM VIAL IV ONE (06:02)
--- NOTE | 2018-12-04 06:10 | NUR ---
Vitals stable, due meds given. Will endorse to AM shift RN for continuity of care.
[2018-12-04] MEDS: ALBUTEROL SULFATE/IPRATROPIU 3 ML SOL IH SCH ×3 (06:44→19:25)
[2018-12-04 06:45] LABS: BASOPHILS % (AUTO) 0.1 % (0.0-2.0); EOSINOPHILS % (AUTO) 0.1 % (0.0-4.0); HEMATOCRIT 38.3 % (36-52); HEMOGLOBIN 12.6 g/dL (12.0-18.0); LYMPHOCYTES # (AUTO) 1.2 K/uL (2.0-11.5); LYMPHOCYTES % (AUTO) 7.4 % (20.5-51.1); MEAN CORPUSCULAR HEMOGLOBIN 33 pg (27-31); MEAN CORPUSCULAR HGB CONC 33 g/dL (33-37); MEAN CORPUSCULAR VOLUME 100.5 fL (80-94); MONOCYTES # (AUTO) 2.1 K/uL (0.8-1.0); MONOCYTES % (AUTO) 12.7 % (1.7-9.3); NEUTROPHILS # (AUTO) 12.9 K/uL (1.8-7.7); NEUTROPHILS % (AUTO) 79.7 % (42.2-75.2); PLATELET COUNT (AUTO) 150 K/uL (140-450); RED BLOOD CELL COUNT(AUTO) 3.81 MIL/uL (4.20-6.10); WHITE BLOOD COUNT (AUTO) 16.2 K/uL (4.8-10.8)
[2018-12-04 06:50] LABS: GLUCOSE 282 mg/dL (74-106); UREA NITROGEN, BLOOD 50 mg/dL (7-18)
[2018-12-04 06:58] LABS: CHLORIDE 87 mmol/L (98-107); SODIUM SERUM 131 mmol/L (136-145)
[2018-12-04] MEDS ORDERED: PIPERACILLIN/TAZOBACTAM 2.25 GM in DEXTROSE 5% 50 ML IV SCH ×2 (07:00→07:15)
[2018-12-04 07:02] LABS: CARBON DIOXIDE 30.4 mmol/L (21-32); CREATININE 7.1 mg/dL (0.7-1.3)
[2018-12-04 07:03] LABS: ANION GAP 18.6 (8-16); MAGNESIUM 2.5 mg/dL (1.8-2.4); PHOSPHORUS 6.6 mg/dL (2.5-4.9)
--- NOTE | 2018-12-04 07:25 | NUR ---
REPORT RECEIVED FROM NURSE VAUGHN. PT SLEEPING APPEARS COMFORTABLE. SAFETY AND FALL PRECAUTIONS IN PLACE, CALL LIGHT AND PERSONAL ITEMS WITHIN EASY REACH, NO S/S OF ACUTE DISTRESS NOTED, WILL CONTINUE TO MONITOR.
--- NOTE | 2018-12-04 08:27 | NUR ---
PATIENT HAS BEEN SCREENED AND CATEGORIZED MODERATE NUTRITION RISK. PATIENT WILL BE SEEN WITHIN 3-5 DAYS OF ADMISSION. 12/06/18 12/08/[address]
[2018-12-04] MEDS: VIT-B COMP/VIT-C/FOLIC ACID 1 TAB PO SCH (09:50)
[2018-12-04] MEDS: ECOTRIN 81 MG TABEC PO SCH (09:50)
[2018-12-04] MEDS: CARVEDILOL 12.5 MG TAB PO SCH ×2 (09:50→21:14)
[2018-12-04] MEDS: CALCIUM ACETATE 667 MG TAB PO SCH ×3 (09:50→17:38)
[2018-12-04] MEDS: amLODIPine 5 MG TAB PO SCH (09:51)
--- NOTE | 2018-12-04 10:00 | NUR ---
PT A/O ABLE TO COMMUNICATE NEEDS, DENIES PAIN OR DISCOMFORT, FAMILY AT BEDSIDE. SAFETY AND FALL PRECAUTIONS IN PLACE, CALL LIGHT AND PERSONAL ITEMS WITHIN EASY REACH, NO S/S OF ACUTE DISTRESS NOTED, WILL CONTINUE TO MONITOR.
--- NOTE | 2018-12-04 10:23 | NUR ---
*S.T. Bedside Swallow Eval completed* See report for details. Pt presents w/ moderate oral difficulty managing solids due to dental pain and general lack of dentition and no partials or dentures. Pt also complains of moderate odynophagia and while he could not quantify pain (on scale of 10), he was observed to grimace with each swallow given at bedside. No dysphagia is suspected. No overt s/s aspiration observed with textures given. Recommend: 1) Downgrade diet texture to pureed; thin liquids okay. Straws okay. 2) P.O. meds okay whole one at a time, as tolerated. Pt may request crushed meds due to odynophagia. 3) Advance diet to mechanical soft ground if dental and throat pain subside. D/w pt and daughter at bedside. No further tx indicated as pt does not demonstrate clinical dysphagia. DC to [facility]. Endorsed to ARLENE Mcdaniel. Time [id number]
[2018-12-04] MEDS: NACL 0.9% 1,000 ML IV SCH (12:51)
--- NOTE | 2018-12-04 13:00 | NUR ---
PT SLEEPING APPEARS COMFORTABLE, FAMILY REMAINS AT BEDSIDE. SAFETY AND FALL PRECAUTIONS IN PLACE, CALL LIGHT AND PERSONAL ITEMS WITHIN EASY REACH, NO S/S OF ACUTE DISTRESS NOTED, WILL CONTINUE TO MONITOR.
[2018-12-04] MEDS ORDERED: LIDOCAINE 2% 1000 MG/50 ML VIAL INJ SCH (14:25)
--- NOTE | 2018-12-04 14:46 | NUR ---
PT GETTING DIALYSIS AT THIS TIME. UNABLE TO DO ECHO, WILL TRY TOMORROW. NOTIFIED THE NURSE.
--- NOTE | 2018-12-04 14:47 | NUR ---
ATTEMPTED TO OBTAIN HD CONSENT USUING TRANSLATION SERVICE, MACHINE REPAIRMAN BRANDIN # [id number]; PER PT AND , REQUESTED THAT THEIR DAUGHTER SIGN CONSENT FOR HD, OBTAINED TELEPHONE CONSENT FROM PT DAUGHTER W CHARGE NURSE.
--- NOTE | 2018-12-04 16:00 | NUR ---
PT SLEEPING APPEARS COMFORTABLE, FAMILY AT BEDSIDE, PT CURRENTLY RECEIVING HEMODIALYSIS. NO S/S OF ACUTE DISTRESS NOTED AT THIS TIME. SAFETY AND FALL PRECAUTIONS IN PLACE, CALL LIGHT AND PERSONAL ITEMS WITHIN EASY REACH, WILL CONTINUE TO MONITOR.
--- NOTE | 2018-12-04 19:00 | NUR ---
PT SLEEPING PT APPEARS COMFORTABLE. SAFETY, FALL PRECAUTIONS IN PLACE. CALL LIGHT AND PERSONAL ITEMS AT BEDSIDE. NO S/S OF ACUTE DISTRESS NOTED, REPORT ENDORSED TO ONCOMING SHIFT.
--- NOTE | 2018-12-04 19:30 | NUR ---
RECEIVED PT IN STABLE CONDITION FROM AM NURSE. AWAKE,ALERT AND ORIENTED X4. ON TELE MONITOR-SR. FAMILY MEMBERS AT BEDSIDE. NO C/O ANY DISCOMFORT NOR PAIN NOTED. HAS LT UPPER ARM AV SHUNT. IV ACCESS ON THE RT AC G# 20. CLEAR AND PATENT. PLAN OF CARE DISCUSSED AND VERBALIZED UNDERSTANDING. BED ON LOWEST POSITION,SIDE RAILS UP X2, CALL IGHT AND URINAL WITHIN EASY REACH. WILL CONTINUE TO MONITOR.
[2018-12-04] MEDS: PIPERACILLIN/TAZOBACTAM 2.25 GM in DEXTROSE 5% 50 ML IV SCH (21:05)
--- NOTE | 2018-12-04 21:15 | NUR ---
PT PICKED UP BY WHEELCHAIR TO XR. XR ACUTE ABDOMEN DONE. BACK IN STABLE CONDITION. WILL FOLLOW UP RESULT.
--- NOTE | 2018-12-04 21:46 | NUR ---
BLOOD SUGAR WAS CHECKED, RESULT 367. INSULIN COVERAGE HUMALOG 10 UNITS SUBQ GIVEN PROVIDED WITH SNACK. TOLERATED WELL. WILL CONTINUE TO MONITOR.
--- NOTE | 2018-12-04 22:30 | NUR ---
PT ASLEEP. NO S/S OF ANY DISTRESS NOR DISCOMFORT NOTED. WILL CONTINUE TO MONITOR.
--- NOTE | 2018-12-05 00:20 | NUR ---
PT AWAKE. WITH SOME COUGHING NOTED . BUT NO SPUTUM AT THIS TIME. NO SOB NOTED.
--- NOTE | 2018-12-05 02:00 | NUR ---
MADE ROUNDS. PT ASLEEP. NO S/S OF ANY DISCOMFORT /APIN NOTED. WILL CONTINUE TO MONITOR.
--- NOTE | 2018-12-05 04:30 | NUR ---
PT AWAKE. NO C/O ANY PAIN . VITAL SIGNS STABLE. WILL CONTINUE TO MONITOR.
[2018-12-05 04:38] VITALS: BP 157/74
[2018-12-05] MEDS: BLOOD GLUCOSE MONITORING 1 DEV DEV FS SCH ×4 (05:48→21:31)
[2018-12-05] MEDS: INSULIN LISPRO SLIDING SCALE 100 UNITS/ML VIAL SUBQ PRN ×4 (06:03→21:40)
--- NOTE | 2018-12-05 06:03 | NUR ---
BLOOD SUGAR WAS CHECKED RESULT 253. INSULIN COVERAGE SUBQ GIVEN. WILL CONTINUE TO MONITOR.
[2018-12-05 06:07] LABS: T4 (THYROXINE) 8.4 ug/dL (4.5-12.0)
[2018-12-05 07:01] LABS: BASOPHILS % (AUTO) 0.2 % (0.0-2.0); EOSINOPHILS # (AUTO) 0.1 K/uL (0-0.4); EOSINOPHILS % (AUTO) 0.5 % (0.0-4.0); HEMATOCRIT 36.9 % (36-52); HEMOGLOBIN 11.9 g/dL (12.0-18.0); LYMPHOCYTES # (AUTO) 1.1 K/uL (2.0-11.5); LYMPHOCYTES % (AUTO) 10.1 % (20.5-51.1); MEAN CORPUSCULAR HEMOGLOBIN 33 pg (27-31); MEAN CORPUSCULAR HGB CONC 32 g/dL (33-37); MEAN CORPUSCULAR VOLUME 100.9 fL (80-94); MONOCYTES # (AUTO) 1.8 K/uL (0.8-1.0); MONOCYTES % (AUTO) 16.8 % (1.7-9.3); NEUTROPHILS # (AUTO) 7.8 K/uL (1.8-7.7); NEUTROPHILS % (AUTO) 72.4 % (42.2-75.2); PLATELET COUNT (AUTO) 148 K/uL (140-450); RED BLOOD CELL COUNT(AUTO) 3.66 MIL/uL (4.20-6.10); RED CELL DISTRIBUTION WIDTH 16.1 % (11.6-13.7); WHITE BLOOD COUNT (AUTO) 10.7 K/uL (4.8-10.8)
[2018-12-05] MEDS: NACL 0.9% 1,000 ML IV SCH ×2 (07:02→12:20)
--- NOTE | 2018-12-05 07:15 | NUR ---
ENDORSED PT IN STABLE CONDITION TO AM NURSE.
--- NOTE | 2018-12-05 07:20 | NUR ---
RECEIVED PT FROM FLOOR DIRECTOR NURSESANTANA, PT IS AWAKE AND LYING ON THE BED WITH LEFT AV SHUNT FOR DIALYSIS ACCESS, IV LINE ON THE RT AC G. 20 ON SALINE LOCK, SIDE RAILS ARE UP AND CALL LIGHT WITHIN REACH, NO SIGN OF DISTRESS NOTED AND WILL MONITOR PT.
[2018-12-05 08:00] VITALS: BP 144/72
--- NOTE | 2018-12-05 08:10 | NUR ---
AWAKE AND ALERT VERBALLY RESPONSIVE CYMRO SPEAKING WITH LIMITED TURKISH NO PULMONARY DISTRESS NOTED PATIENT WITH BREAKFAST TRAY KEEPER HEAD TO ATTEMPT [facility] THERAPY AND RESPIRATORY DRUG AT A LATER TIME
[2018-12-05] MEDS: amLODIPine 5 MG TAB PO SCH (08:16)
[2018-12-05] MEDS: CALCIUM ACETATE 667 MG TAB PO SCH ×3 (08:16→17:56)
[2018-12-05] MEDS: CARVEDILOL 12.5 MG TAB PO SCH ×2 (08:17→21:31)
[2018-12-05] MEDS: VIT-B COMP/VIT-C/FOLIC ACID 1 TAB PO SCH (08:17)
[2018-12-05] MEDS: ECOTRIN 81 MG TABEC PO SCH (08:17)
--- NOTE | 2018-12-05 08:17 | NUR ---
PT IS AWAKE AND ORAL AND IVPB MEDICATIONS WERE GIVEN, PARAMETER CHECKED, PULSE IS 74 MANUALLY, BP IS 144/72, AND TOLERATED IT. WILL MONITOR PT.
[2018-12-05] MEDS: PIPERACILLIN/TAZOBACTAM 2.25 GM in DEXTROSE 5% 50 ML IV SCH ×2 (08:18→21:38)
[2018-12-05] MEDS: ALBUTEROL SULFATE/IPRATROPIU 3 ML SOL IH SCH ×3 (08:45→19:00)
--- NOTE | 2018-12-05 09:00 | NUR ---
PT'S IV WAS INFILTRATED AND A NEW PERIPHERAL LINE WAS INSERTED ON THE RT HAND G. 22.
[2018-12-05 09:17] LABS: SODIUM SERUM 136 mmol/L (136-145)
[2018-12-05 09:18] LABS: ANION GAP 17.7 (8-16); CARBON DIOXIDE 26.3 mmol/L (21-32); CHLORIDE 97 mmol/L (98-107); GLUCOSE 268 mg/dL (74-106); UREA NITROGEN, BLOOD 39 mg/dL (7-18)
[2018-12-05 09:20] LABS: CREATININE 5.6 mg/dL (0.7-1.3)
[2018-12-05 09:52] LABS: MAGNESIUM 2.3 mg/dL (1.8-2.4); PHOSPHORUS 4.1 mg/dL (2.5-4.9)
--- NOTE | 2018-12-05 11:30 | NUR ---
BLOOD GLUCOSE CHECK DONE TO PT NOW AND RESULT IS 294, V/S TAKEN AND IS STABLE. WILL MONITOR PT.
[2018-12-05 12:00] VITALS: BP 130/56
--- NOTE | 2018-12-05 13:13 | NUR ---
PT IS AWAKE AND ON THE BEDSIDE, ORAL MEDICATIONS GIVEN, CRUSHED AND PT TOLERATED IT, INSULIN 6 UNITS GIVEN ON THE RT UA FOR BLOOD GLUCOSE OF 294. WILL MONITOR PT.
[2018-12-05 16:00] VITALS: BP 135/66
--- NOTE | 2018-12-05 17:57 | NUR ---
PT IS AWAKE AND ORAL MEDICATION WAS GIVEN, CRUSHED, INSULIN 2 UNITS GIVEN ON THE ABDOMEN FOR BLOOD GLUCOSE OF 200. WILL MONITOR PT.
--- NOTE | 2018-12-05 19:10 | NUR ---
ENDORSED PT TO ORNAMENTAL METAL WORKER NURSEJOSÉ ANTONIO FOR CONTINUITY OF CARE.
--- NOTE | 2018-12-05 19:11 | NUR ---
Patient's Plan of Care was discussed and reviewed with ALVIN: JOSÉ ANTONIO. WILL CONTINUE TO MONITOR.
--- NOTE | 2018-12-05 19:12 | NUR ---
RECD. RESTING IN BED, AWAKE, A/OX4, RESPIRATION EVEN AND UNLABORED. IV SALINE LOCK AT THE RIGHT HAND G22, PATENT AND INTACT. WITH AV SHUNT AT THE LEFT UPPER ARM. SAFETY MEASURES ENFORCED. BED ON LOWEST POSITION, BED ON ALARM. PLAN OF CARE FOR THE SHIFT DISCUSSED. VERBALIZED UNDERSTANDING. DENIES PAIN 0/10.
[2018-12-05 20:00] VITALS: BP 159/71
--- NOTE | 2018-12-05 21:31 | NUR ---
DUE PO MEDICATIONS GIVEN. ATE 100% OF SNACK FOR THE NIGHT.
[2018-12-06] VITALS: BP 182/84
--- NOTE | 2018-12-06 00:20 | NUR ---
SLEEPING COMFORTABLY IN BED, SWEATING, BS CHECKED -213.
--- NOTE | 2018-12-06 00:30 | NUR ---
INFORMED DR. BELCHER, PT BP -182/84, HR - 77. WILL ORDER BP MEDICATION.
[2018-12-06] MEDS ORDERED: hydrALAZINE 20 MG/ML VIAL IVP SCH ×2 (01:00)
--- NOTE | 2018-12-06 01:09 | NUR ---
PT GIVEN HYDRAZALINE 5MG IVP FOR HTN, WILL MONITOR FOR EFFECT.
--- NOTE | 2018-12-06 01:15 | NUR ---
RECEIVED ENDORSEMENT FROM JOSÉ ANTONIO DRAKE LVN FOR CONTINUITY OF CARE, PT IN STABLE CONDITION. HE IS ASYMPTOMATIC, BUT HYPERTENSIVE, WILL REEVALUATE B/P LATER.
--- NOTE | 2018-12-06 02:10 | NUR ---
RE-ASSESSMENT OF B/P IS 157/86 P 66. JAQUI CARRILLO CONTACT AND REMINDED OF HD ORDERED TODAY 12/06/18 AT 2PM . SHE VERBALIZED UNDERSTANDING.
[2018-12-06 04:00] VITALS: BP 173/76
--- NOTE | 2018-12-06 04:00 | NUR ---
PT IN BED NO C/O VOICED, V/S FOLLOWS T 97.9 P 77 R 18 B/P 173/76 02 93 ON ROOM AIR. SPOKE WITH MD BELCHER REGRDING ELEVATED B/P, SHE ORDERED LISNOPRIL FOR 0600 10MG IN AM AND 1 TAB LISINOPRIL 10MG AT 0900.
[2018-12-06] MEDS ORDERED: LISINOPRIL 10 MG TAB PO SCH ×2 (06:00→09:00)
--- NOTE | 2018-12-06 06:00 | NUR ---
LISINOPRIL GIVEN ORDERED. AM FINGERSTICK IS 255, PT GIVEN 6 UNITS PER S/S. WILL ENDORSE POC TO AM NURSE.
[2018-12-06 06:07] LABS: BASOPHILS % (AUTO) 0.4 % (0.0-2.0); EOSINOPHILS # (AUTO) 0.3 K/uL (0-0.4); EOSINOPHILS % (AUTO) 2.7 % (0.0-4.0); HEMATOCRIT 35.9 % (36-52); HEMOGLOBIN 11.7 g/dL (12.0-18.0); LYMPHOCYTES # (AUTO) 1.4 K/uL (2.0-11.5); LYMPHOCYTES % (AUTO) 14.4 % (20.5-51.1); MEAN CORPUSCULAR HEMOGLOBIN 33 pg (27-31); MEAN CORPUSCULAR HGB CONC 33 g/dL (33-37); MEAN CORPUSCULAR VOLUME 100.2 fL (80-94); MONOCYTES # (AUTO) 1.2 K/uL (0.8-1.0); MONOCYTES % (AUTO) 12.6 % (1.7-9.3); NEUTROPHILS # (AUTO) 6.6 K/uL (1.8-7.7); NEUTROPHILS % (AUTO) 69.9 % (42.2-75.2); PLATELET COUNT (AUTO) 183 K/uL (140-450); RED BLOOD CELL COUNT(AUTO) 3.58 MIL/uL (4.20-6.10); RED CELL DISTRIBUTION WIDTH 16.3 % (11.6-13.7); WHITE BLOOD COUNT (AUTO) 9.5 K/uL (4.8-10.8)
[2018-12-06 06:29] LABS: ANION GAP 14.6 (8-16); CARBON DIOXIDE 27.8 mmol/L (21-32); CHLORIDE 91 mmol/L (98-107); GLUCOSE 231 mg/dL (74-106); POTASSIUM 5.4 mmol/L (3.5-5.1); SODIUM SERUM 128 mmol/L (136-145)
[2018-12-06] MEDS: INSULIN LISPRO SLIDING SCALE 100 UNITS/ML VIAL SUBQ PRN ×2 (06:31→11:41)
[2018-12-06] MEDS: BLOOD GLUCOSE MONITORING 1 DEV DEV FS SCH ×3 (06:33→16:30)
[2018-12-06 06:37] LABS: CREATININE 7.3 mg/dL (0.7-1.3); UREA NITROGEN, BLOOD 62 mg/dL (7-18)
[2018-12-06] MEDS ORDERED: BISACODYL 10 MG SUPP RC PRN ×2 (06:45→06:50)
[2018-12-06] MEDS ORDERED: LACTULOSE 20 GM/30 ML UDC PO ONE (06:45)
--- NOTE | 2018-12-06 06:45 | NUR ---
CRITICAL VALUES RECEIVED BY LAB, CREATINE 7.3. PT IS HAVING HD TODAY.
[2018-12-06] MEDS ORDERED: MAGNESIUM HYDROXIDE 2400 MG/30 ML UDC PO ONE (06:50)
[2018-12-06 06:56] LABS: MAGNESIUM 2.2 mg/dL (1.8-2.4)
[2018-12-06] MEDS: ALBUTEROL SULFATE/IPRATROPIU 3 ML SOL IH SCH ×2 (07:00→13:16)
--- NOTE | 2018-12-06 07:10 | NUR ---
RECEIVED PT FROM OIL SPECULATOR NURSE, STANLEY, PT IS ASLEEP LYING ON HIS LEFT LATERAL SIDE, PERIPHERAL ,LINE ON THE RT HAND G. 22 ON SALINE LOCK, PT IS A DIALYSIS PT AND WILL HAVE DIALYSIS TODAY, SIDE RAILS ARE UP AND CALL LIGHT WITHIN REACH, VITAL SIGNS TAKEN AND BP IS 99/54, PULSE IS 74, TEMP. IS 97.6 AND OI2 SATURATION IS 95%, NO SIGN OF DISTRESS NOTED AND WILL MONITOR PT.
[2018-12-06] MEDS ORDERED: MAGNESIUM HYDROXIDE 2400 MG/30 ML UDC PO SCH (07:30)
[2018-12-06] MEDS ORDERED: LACTULOSE 20 GM/30 ML UDC PO SCH (07:30)
[2018-12-06 07:41] VITALS: BP 99/54
[2018-12-06] MEDS ORDERED: BISACODYL 10 MG SUPP RC SCH (08:00)
[2018-12-06] MEDS: ECOTRIN 81 MG TABEC PO SCH (08:15)
[2018-12-06] MEDS: CARVEDILOL 12.5 MG TAB PO SCH (08:16)
[2018-12-06] MEDS: CALCIUM ACETATE 667 MG TAB PO SCH ×2 (08:16→11:40)
[2018-12-06] MEDS: VIT-B COMP/VIT-C/FOLIC ACID 1 TAB PO SCH (08:16)
[2018-12-06] MEDS: PIPERACILLIN/TAZOBACTAM 2.25 GM in DEXTROSE 5% 50 ML IV SCH (08:17)
--- NOTE | 2018-12-06 08:17 | NUR ---
PT IS AWAKE AND REFUSED TO TAKE ALL THE STOOL SOFTENER MEDICATIONS BECAUSE PT SAID FELICITA HE WILL HAVE DIALYSIS TODAY AND HE DOES NOT WANT TO BE BOTHERED OF HAVING TO GO, IVPB AND OTHER ORAL MEDICATIONS WERE GIVEN, BP MEDICATIONS WERE NOT GIVEN DUE TO PT SCHEDULED FOR DIALYSIS TODAY. WILL CONTINUE TO MONITOR PT.
[2018-12-06] MEDS: amLODIPine 5 MG TAB PO SCH (08:20)
--- NOTE | 2018-12-06 08:28 | NUR ---
EKG IS BEING DONE TO PT NOW.
[2018-12-06] MEDS ORDERED: FLUTICASONE NASAL 50 MCG/ACTUATION 16 GM BTL NS SCH ×2 (09:00)
--- NOTE | 2018-12-06 11:05 | NUR ---
DIALYSIS WAS STARTED NOW.
--- NOTE | 2018-12-06 11:41 | NUR ---
PT IS STILL HAVING DIALYSIS NOW, ORAL MEDICATION WAS GIVEN, CRUSHED, INSULIN N2 UNITS WAS GIVEN ON THE ABDOMEN FOR BLOOD GLUCOSE OF 190 ,WILL MONITOR PT.
[2018-12-06 12:00] VITALS: BP 122/58
[2018-12-06] MEDS: NACL 0.9% 1,000 ML IV SCH (12:00)
[2018-12-06] MEDS ORDERED: FLONAS NS (13:29)
[2018-12-06] MEDS ORDERED: CARV25TA2 PO (13:29)
[2018-12-06] MEDS ORDERED: AMOX1TAB15 PO (13:29)
[2018-12-06] MEDS ORDERED: LACT10CA1 PO (13:29)
--- NOTE | 2018-12-06 14:05 | NUR ---
DIALYSIS WAS FINISHED NOW.
--- NOTE | 2018-12-06 16:00 | NUR ---
DISCHARGED PT WITH AND DAUGHTER, TO HOME, PT AMBULATED TO THE LOBBY USING HIS WALKER, DISCHARGE TEACHINGS AND MEDICATION INSTRUCTIONS GIVEN TO PT PER DRAFTER REFRIGERATION, DUSTIN, #[id number], AND REMINDER TO CALL THE CLINIC OF DR. GIL TO MAKE AN APPOINTMENT WAS SAID TO PT AND VERBALIZED UNDERSTANDING. IV LINE AND ARM BANDS REMOVED AND PT IS STABLE AT THIS TIME. PT'S DAUGHTER WAS ADVISED ALSO OF THE TEACHINGS, MEDICATIONS AND SETTING UP OF APPOINTMENT FOR THE PT AND VERBALIZED UNDERSTANDING.
[2018-12-06] MEDS ORDERED: CARVEDILOL 12.5 MG TAB PO SCH (21:00)
== END 2018-12-06 16:00 | disposition home or self-care (01) | DRG 469 ==
LOC: MED 16:27 → MTU 20:12 → MMU 20:40 → MTU 21:15
PROVIDERS: ADMIT Family Medicine; ATTEND Family Medicine
PROC: 5A1D70Z Performance of Urinary Filtration, Intermittent, Less than 6 Hours Per Day (ICD-10-PCS; principal; 2018-12-04)
DX: N17.0 Acute kidney failure with tubular necrosis (principal); J69.0 Pneumonitis due to inhalation of food and vomit; E43 Unspecified severe protein-calorie malnutrition; G93.41 Metabolic encephalopathy; I12.0 Hypertensive chronic kidney disease with stage 5 chronic kidney disease or end stage renal disease; N18.6 End stage renal disease; E11.22 Type 2 diabetes mellitus with diabetic chronic kidney disease; E11.65 Type 2 diabetes mellitus with hyperglycemia; E87.1 Hypo-osmolality and hyponatremia; R31.9 Hematuria, unspecified; D63.8 Anemia in other chronic diseases classified elsewhere; E87.5 Hyperkalemia; E87.8 Other disorders of electrolyte and fluid balance, not elsewhere classified; R91.8 Other nonspecific abnormal finding of lung field; Z99.2 Dependence on renal dialysis; Z68.23 Body mass index [BMI] 23.0-23.9, adult; Z79.4 Long term (current) use of insulin; Z79.82 Long term (current) use of aspirin; Z79.899 Other long term (current) drug therapy; Z87.891 Personal history of nicotine dependence
CPT/HCPCS: 36415; 70450; 71045; 71250; 74022; 76770; 80048; 80053; 80305; 81001; 82140; 82150; 82948; 83036; 83605; 83690; 83735; 83880; 84100; 84436; 84439; 84443; 84479; 84484; 85025; 85610; 85730; 86886; 86900; 86901; 87040; 87070; 87081; 87086; 87205; 90935; 92610; 93005; 94640; 96365; 96367; 97110; 97116; 97161-GP; 97530; 99285; G0480; G0482; J0360; J1815; J2001; J2543; J3490; J7030; J7060; J7620; Q0092

== ENCOUNTER 2019-10-14 19:04 | Emergency (ER) | payer MEDICAID, SELFPAY ==
[~2019-10-14] VITALS: Ht 172.7 cm; Wt 68.0 kg
[~2019-10-14 19:04] MED LIST changes: -ACYC400T1 PO; -ASPI-1173 PO; +ASPI-1205 PO; -ATA25 PO; -ATOR20TA40 PO; +CARV25TA2 PO; -CARV6.252 PO; -DEXT1DRO4 OP; +HYDR-5092 PO; -LEVEMIR SUBQ; -LISI-420 PO; -PHO667 PO; -PRED20TA6 PO
[2019-10-14 19:21] VITALS: BP 121/55
--- NOTE | 2019-10-14 19:33 | NUR ---
PT CONTACT INFO: DAUGHTER, LAVELL SANDERS, . TO CALL DAUGHTER FOR ANY UPDATES.
--- NOTE | 2019-10-14 19:33 | NUR ---
PT BERENICE TO BED 07 VIA WHEELCHAIR.
[2019-10-14 20:02] LABS: BASOPHILS # (AUTO) 0.1 K/uL (0.00-0.22); BASOPHILS % (AUTO) 0.8 % (0.0-2.0); EOSINOPHILS # (AUTO) 0.6 K/uL (0-0.4); HEMATOCRIT 22.5 % (36-52); HEMOGLOBIN 7.3 g/dL (12.0-18.0); LYMPHOCYTES # (AUTO) 0.9 K/uL (2.0-11.5); LYMPHOCYTES % (AUTO) 10.1 % (20.5-51.1); MEAN CORPUSCULAR HEMOGLOBIN 32 pg (27-31); MEAN CORPUSCULAR HGB CONC 32 g/dL (33-37); MEAN CORPUSCULAR VOLUME 97.4 fL (80-94); MONOCYTES # (AUTO) 1.1 K/uL (0.8-1.0); MONOCYTES % (AUTO) 11.7 % (1.7-9.3); NEUTROPHILS # (AUTO) 6.6 K/uL (1.8-7.7); NEUTROPHILS % (AUTO) 71.4 % (42.2-75.2); PLATELET COUNT (AUTO) 350 K/uL (140-450); RED BLOOD CELL COUNT(AUTO) 2.31 MIL/uL (4.20-6.10); RED CELL DISTRIBUTION WIDTH 15.5 % (11.6-13.7); WHITE BLOOD COUNT (AUTO) 9.3 K/uL (4.8-10.8)
[2019-10-14 20:16] LABS: ALBUMIN 2.8 g/dL (3.4-5.0); ANION GAP 9.8 (8-16); ASPARTATE AMINOTRANSFERASE 12 U/L (15-37); CARBON DIOXIDE 33.8 mmol/L (21-32); CHLORIDE 98 mmol/L (98-107); GLUCOSE 152 mg/dL (74-106); POTASSIUM 4.6 mmol/L (3.5-5.1); SODIUM SERUM 137 mmol/L (136-145); TOTAL BILIRUBIN 0.4 mg/dL (0.0-1.0); UREA NITROGEN, BLOOD 26 mg/dL (7-18)
[2019-10-14 20:17] LABS: CREATININE 4.6 mg/dL (0.6-1.3)
--- NOTE | 2019-10-14 20:23 | NUR ---
PT WAS BROUGHT IN BY HIS DAUGHTER AFTER HIS DIALYSIS TREATMENT. THE RN THERE SAID HIS HEMOGLOBIN WAS TOO LOW. PT ALBANIAN SPEAKING, DENIES ANY PAIN OR PROBLEMS AT THIS TIME. A/O X 3. PT PLACED IN BED, BED IN LOWEST POSITION AND SIDE RAIL UP X 1.
[2019-10-14 20:59] VITALS: BP 164/69
--- NOTE | 2019-10-14 21:01 | NUR ---
Patient discharged with v/s stable. Written and verbal after care instructions given and explained. Patient verbalized understanding. Wheel Chair Assisted with to car. All questions addressed prior to discharge. Advised to follow up with PMD.
== END 2019-10-14 20:59 | disposition home or self-care (01) ==
LOC: MED 19:04
DX: D64.9 Anemia, unspecified (principal); E08.22 Diabetes mellitus due to underlying condition with diabetic chronic kidney disease; I13.2 Hypertensive heart and chronic kidney disease with heart failure and with stage 5 chronic kidney disease, or end stage renal disease; N18.6 End stage renal disease; I50.89 Other heart failure; Z99.2 Dependence on renal dialysis; Z79.899 Other long term (current) drug therapy; Z79.82 Long term (current) use of aspirin
CPT/HCPCS: 36415; 71045; 80053; 85025; 93005; 99285; Q0092

== ENCOUNTER 2019-10-22 10:04 | Emergency (ER) | payer MEDICAID, SELFPAY ==
[~2019-10-22] VITALS: Ht 177.8 cm; Wt 77.1 kg
--- NOTE | 2019-10-22 10:06 | NUR ---
PATIENT WHEELCHAIR ASSISTED TO BED 5.
[2019-10-22 10:10] VITALS: BP 199/99
--- NOTE | 2019-10-22 10:21 | NUR ---
74 YO MALE S/P LEFT HIP ARTHROPLASTY 10/03/19 PT FINISHED DIALYSIS TODAY--REF FOR STAPLE REMOVAL
[2019-10-22 10:50] VITALS: BP 153/89
--- NOTE | 2019-10-22 10:51 | NUR ---
Patient discharged with v/s stable. Written and verbal after care instructions given and explained. Patient verbalized understanding. Wheelchair assistance provided. All questions addressed prior to discharge. Advised to follow up with PMD.
== END 2019-10-22 10:51 | disposition home or self-care (01) ==
LOC: MED 10:04
DX: S72.002A Fracture of unspecified part of neck of left femur, initial encounter for closed fracture (principal); E11.9 Type 2 diabetes mellitus without complications; I10 Essential (primary) hypertension; I51.9 Heart disease, unspecified; N28.9 Disorder of kidney and ureter, unspecified; Z79.899 Other long term (current) drug therapy; Z48.00 Encounter for change or removal of nonsurgical wound dressing; Z48.02 Encounter for removal of sutures; W19.XXXA Unspecified fall, initial encounter; Y93.89 Activity, other specified; Y92.89 Other specified places as the place of occurrence of the external cause; Y99.8 Other external cause status
CPT/HCPCS: 99281

== ENCOUNTER 2020-03-16 08:13 | Inpatient (IN) | payer MEDICAID, SELFPAY ==
[2020-03-16] VITALS (19 sets, daily range): BP systolic 128–168; BP diastolic 60–78
[~2020-03-16] VITALS: Ht 177.8 cm; Wt 86.2 kg
[~2020-03-16 08:13] MED LIST changes: +AMLO-3 PO; -AMLO5TAB6 PO; +EPINEPHrine PFS 0.1 MG/ML SYR IVP ONE
--- NOTE | 2020-03-16 08:13 | NUR ---
Patient transferred to bed 10 via wheelchair by [facility]. CPR initiated by [facility] staff. Dr. Askew is evaluating the patient at bedside.
--- NOTE | 2020-03-16 08:15 | NUR ---
CALLED TO THE PTS ROOM, PT IN FULL ARREST. PROCEEDED TO INTUBATE THE PT WITH 7.5 @ 23CM. PLACED ON VENTILATOR AC 16 500 PEEP 5 100%. TOLERATING WELL.
[2020-03-16] MEDS ORDERED: DOPPLER MC ONE (08:23)
--- NOTE | 2020-03-16 08:23 | NUR ---
Refer to Code Blue Sheet
--- NOTE | 2020-03-16 08:32 | NUR ---
BRENNEN siddiqui at bedside for ETT placement confirmation CXR.
--- NOTE | 2020-03-16 08:35 | NUR ---
REPORTED ABG RESULTS TO DR WILSON. TITRATED FIO2 TO 60%.
[2020-03-16] MEDS ORDERED: PROPOFOL 1000 MG/100 ML PREMIX 100 ML IV ONE (08:36)
--- NOTE | 2020-03-16 08:39 | NUR ---
18G IV placed to right EJ with good blood return
[2020-03-16 08:46] LABS: BASOPHILS # (AUTO) 0.2 K/uL (0.00-0.22); EOSINOPHILS # (AUTO) 0.2 K/uL (0-0.4); EOSINOPHILS % (AUTO) 2.3 % (0.0-4.0); HEMOGLOBIN 8.2 g/dL (12.0-18.0); LYMPHOCYTES # (AUTO) 2.3 K/uL (2.0-11.5); LYMPHOCYTES % (AUTO) 28.4 % (20.5-51.1); MEAN CORPUSCULAR HEMOGLOBIN 29 pg (27-31); MEAN CORPUSCULAR HGB CONC 30 g/dL (33-37); MEAN CORPUSCULAR VOLUME 94.1 fL (80-94); MONOCYTES # (AUTO) 0.9 K/uL (0.8-1.0); MONOCYTES % (AUTO) 10.7 % (1.7-9.3); NEUTROPHILS # (AUTO) 4.6 K/uL (1.8-7.7); NEUTROPHILS % (AUTO) 55.6 % (42.2-75.2); PLATELET COUNT (AUTO) 209 K/uL (140-450); RED BLOOD CELL COUNT(AUTO) 2.87 MIL/uL (4.20-6.10); RED CELL DISTRIBUTION WIDTH 20.5 % (11.6-13.7); WHITE BLOOD COUNT (AUTO) 8.2 K/uL (4.8-10.8)
[2020-03-16 09:00] LABS: PROTHROMBIN TIME 11.8 secs (10.8-13.4)
[2020-03-16 09:02] LABS: ALBUMIN 2.9 g/dL (3.4-5.0); ANION GAP 24.2 (8-16); ASPARTATE AMINOTRANSFERASE 81 U/L (15-37); CARBON DIOXIDE 18.7 mmol/L (21-32); CHLORIDE 98 mmol/L (98-107); GLUCOSE 208 mg/dL (74-106); POTASSIUM 4.9 mmol/L (3.5-5.1); SODIUM SERUM 136 mmol/L (136-145); TOTAL BILIRUBIN 0.5 mg/dL (0.0-1.0); UREA NITROGEN, BLOOD 45 mg/dL (7-18)
[2020-03-16 09:05] LABS: LACTATE DEHYDROGENASE 352 U/L (85-227)
[2020-03-16 09:07] LABS: CREATININE 7.2 mg/dL (0.6-1.3)
--- NOTE | 2020-03-16 09:09 | NUR ---
BUN 45, creatinine 7.2--critical values received from lab. Dr Askew made aware.
--- NOTE | 2020-03-16 09:11 | NUR ---
Patient taken to CT via taylor, accompanied by RN
[2020-03-16 09:12] LABS: APPEARANCE,URINE CLEAR (CLEAR); BILIRUBIN,URINE NEGATIVE (NEGATIVE); BLOOD, URINE 1+ (NEGATIVE); COLOR,URINE YELLOW (YELLOW); LEUKOCYTE ESTERASE ,URINE NEGATIVE (NEGATIVE); NITRITE, URINE NEGATIVE (NEGATIVE); UGLUCOSE 1+ (NEGATIVE)
[2020-03-16 09:17] LABS: C-REACTIVE PROTEIN QUANT 13.1 mg/dL (0.0-0.9)
[2020-03-16 09:23] LABS: RBC,URINE 0-5 /HPF (0-5); WBC,URINE 0-5 /HPF (0-5)
[2020-03-16] MEDS ORDERED: NACL 0.9% 250 ML IV ONE (09:25)
--- NOTE | 2020-03-16 09:27 | NUR ---
BACK FROM CT PLACED BACK ON MONTIOR; NSR BP 90S/50S. PT TOLERATED CT WELL, GCS 3, MD AWARE
[2020-03-16] MEDS ORDERED: NOREPINEPHRINE 4 MG/4 ML VIAL IV ONE (09:50)
[2020-03-16] MEDS ORDERED: NOREPINEPHRINE 4 MG in DEXTROSE 5% 250 ML IV ONE (09:50)
[2020-03-16 10:04] LABS: RSV NEGATIVE (NEGATIVE)
[2020-03-16] MEDS ORDERED: NOREPINEPHRINE 8 MG in DEXTROSE 5% 250 ML IV PRN (10:05)
--- NOTE | 2020-03-16 10:25 | NUR ---
LEVOPHED GTT EFFECTIVE 4 MCG/MIN SHOWS BP 110/51, MAP OF 67, MD AWARE. NO NEW ORDERS AT THIS TIME. WILL CTM.
--- NOTE | 2020-03-16 10:38 | NUR ---
Dr. Garcia is evaluating the patient at bedside.
--- NOTE | 2020-03-16 10:46 | NUR ---
Patient will be admitted to care of DR العلي. Admited to ICU OVERFLOW. Will go to room 130-A. Belongings list completed. Report to ARLENE EVANS. ALL QUESTIONS ANSWERED, ENDORSED PT IN STABILIZED CONDITION.
--- NOTE | 2020-03-16 10:47 | NUR ---
Lactic Acid 9.8--critical value received from lab.
[2020-03-16] MEDS ORDERED: ZOLPIDEM 5 MG TAB PO PRN (10:50)
[2020-03-16] MEDS ORDERED: PIPERACILLIN/TAZOBACTAM 3.375 GM in DEXTROSE 5% 50 ML IV SCH (10:50)
[2020-03-16] MEDS ORDERED: ONDANSETRON 4 MG/2 ML VIAL IM/IVP PRN (10:50)
[2020-03-16] MEDS ORDERED: HYDROcodone/APAP 7.5/325 MG 1 TAB PO PRN (10:50)
[2020-03-16] MEDS ORDERED: POTASSIUM CHLORIDE 10 MEQ TABER PO PRN (10:50)
[2020-03-16] MEDS ORDERED: guaiFENesin DM 200/20 MG-10 ML 10 ML UDC PO PRN (10:50)
[2020-03-16] MEDS ORDERED: DOCUSATE SODIUM 100 MG GELCAP PO PRN (10:50)
[2020-03-16] MEDS ORDERED: ACETAMINOPHEN 325 MG TAB PO PRN (10:50)
[2020-03-16] MEDS ORDERED: MORPHINE SULFATE 50 MG in NACL 0.9% 45 ML IV PRN (10:55)
[2020-03-16] MEDS ORDERED: PIPERACILLIN/TAZOBACTAM 2.25 GM in DEXTROSE 5% 50 ML IV SCH (11:00)
--- NOTE | 2020-03-16 11:00 | NUR ---
PT ARRIVED AT UNIT VIA GURNEY, PT ON ETT TO VENT FIO2 60%, RATE 16, PEEP 5, NO SOB NOTED, SATURATING @ 99%. IV TO R EJ 18G PATENT INTACT, INFUSING LEVOPHED @ 3MCG/MIN, INFUSING WELL, IV TO R WRIST 18G PATENT INTACT, SL, OGT IN PLACE, CLAMPED, BURTON CATH IN PLACE DRAINING TO GRAVITY. INITIAL ASSESSMENT DONE, ALL SAFETY PRECAUTION MET, CALL LIGHT WITHIN REACH, WILL CONTINUE TO MONITOR.
[2020-03-16 11:12] LABS: CHOL/HDL RATIO 1.8 (1-4.5); FREE T4 (FREE THYROXINE) 1.04 ng/dL (0.76-1.46); THYROID STIMULATING HORMONE 4.93 uIU/mL (0.34-3.74)
[2020-03-16] MEDS: PROPOFOL 1000 MG/100 ML PREMIX 100 ML IV PRN ×2 (11:45→18:26)
--- NOTE | 2020-03-16 11:45 | NUR ---
RECEIVED TELEPHONE REPORT FROM ED RN MARCUS.
[2020-03-16] MEDS: NACL 0.9% 1,000 ML IV SCH (11:49)
--- NOTE | 2020-03-16 12:02 | NUR ---
CALLED DR BUCKNER REGARDING PT NEEDING PICC LINE, PER DR IF POSSIBLE TO INSERT CENTRAL LINE INSTEAD OF PICC LINE BECAUSE PT IS DIALYSIS PT. WILL NOTIFY PRIMARY
[2020-03-16] MEDS ORDERED: DEXTROSE 50% 50 ML SYR IVP PRN (12:35)
--- NOTE | 2020-03-16 14:20 | NUR ---
DR SCHMITZ AT BEDSIDE INSERTING CENTRAL LINE, TIME OUT CALLED. WILL CONTINUE TO MONITOR.
[2020-03-16] MEDS ORDERED: ROCURONIUM 50 MG/5 ML VIAL IV ONE ×2 (14:24→14:50)
--- NOTE | 2020-03-16 14:25 | NUR ---
ROCURONIUM 20MG GIVEN PER DR SCHMITZ ORDER. PT TOLERATED WELL, WILL CONTINUE TO MONITOR.
--- NOTE | 2020-03-16 15:40 | NUR ---
RECEIVED REPORT REGARDING PT HAS A RIGHT SIDED PNEUMOTHORAX 5-10% FROM RADIOLOGY DR SWAN. NOTIFIED DR. SCHMITZ AND DR العلي. PER DR العلي TO REORDER CXR FOR 2300 TONIGHT. WILL CONTINUE TO MONITOR.
[2020-03-16] MEDS: BLOOD GLUCOSE MONITORING 1 DEV DEV FS SCH (18:00)
--- NOTE | 2020-03-16 19:15 | NUR ---
ASSUMED RESPONSIBILITY OF CARE AT THIS TIME.
--- NOTE | 2020-03-16 19:21 | NUR ---
ENDORSED PT TO PEDIATRIC ACUTE CARE UNIT NURSE NURSE FOR CONTINUOUS OF CARE
[2020-03-16] MEDS: PIPERACILLIN/TAZOBACTAM 2.25 GM in DEXTROSE 5% 50 ML IV SCH (21:23)
[2020-03-17] VITALS (28 sets, daily range): BP systolic 110–192; BP diastolic 46–84
--- NOTE | 2020-03-17 | NUR ---
REPOSITIONED WITH PRESSURE AREAS OFFLOADED. FLACC 0. SAFETY PRECAUTIONS IN PLACE WITH BED LOW AND LOCKED. HOB REMAINS >30 DEGREES. WILL CONT TO MONITOR FOR CHANGES IN CONDITION.
[2020-03-17] MEDS: NACL 0.9% 1,000 ML IV SCH ×2 (03:30→11:35)
[2020-03-17] MEDS: PIPERACILLIN/TAZOBACTAM 2.25 GM in DEXTROSE 5% 50 ML IV SCH ×3 (05:00→21:36)
[2020-03-17] MEDS: PROPOFOL 1000 MG/100 ML PREMIX 100 ML IV PRN ×4 (05:30→23:08)
[2020-03-17 05:56] LABS: BASOPHILS # (AUTO) 0.1 K/uL (0.00-0.22); EOSINOPHILS # (AUTO) 0.1 K/uL (0-0.4); EOSINOPHILS % (AUTO) 1.3 % (0.0-4.0); HEMATOCRIT 25.7 % (36-52); HEMOGLOBIN 8.3 g/dL (12.0-18.0); LYMPHOCYTES # (AUTO) 0.8 K/uL (2.0-11.5); LYMPHOCYTES % (AUTO) 9.3 % (20.5-51.1); MEAN CORPUSCULAR HEMOGLOBIN 29 pg (27-31); MEAN CORPUSCULAR HGB CONC 32 g/dL (33-37); MEAN CORPUSCULAR VOLUME 89.1 fL (80-94); MONOCYTES # (AUTO) 0.7 K/uL (0.8-1.0); MONOCYTES % (AUTO) 8.5 % (1.7-9.3); NEUTROPHILS # (AUTO) 6.9 K/uL (1.8-7.7); NEUTROPHILS % (AUTO) 79.9 % (42.2-75.2); PLATELET COUNT (AUTO) 166 K/uL (140-450); RED BLOOD CELL COUNT(AUTO) 2.88 MIL/uL (4.20-6.10); RED CELL DISTRIBUTION WIDTH 20.4 % (11.6-13.7); WHITE BLOOD COUNT (AUTO) 8.7 K/uL (4.8-10.8)
[2020-03-17 06:42] LABS: ALBUMIN 2.8 g/dL (3.4-5.0); ANION GAP 19.8 (8-16); ASPARTATE AMINOTRANSFERASE 57 U/L (15-37); CARBON DIOXIDE 22.7 mmol/L (21-32); CHLORIDE 98 mmol/L (98-107); GLUCOSE 135 mg/dL (74-106); POTASSIUM 5.5 mmol/L (3.5-5.1); SODIUM SERUM 135 mmol/L (136-145); TOTAL BILIRUBIN 0.6 mg/dL (0.0-1.0); UREA NITROGEN, BLOOD 51 mg/dL (7-18)
[2020-03-17] MEDS: BLOOD GLUCOSE MONITORING 1 DEV DEV FS SCH ×5 (06:55→23:57)
--- NOTE | 2020-03-17 07:15 | NUR ---
REPORT GIVEN TO SHORTY RN, AT WINDOW, FOR CONTINUITY OF CARE. PICC LINE PATENT
--- NOTE | 2020-03-17 07:20 | NUR ---
RECEIVED BEDSIDE REPORT FROM CASTING AGENT NURSE TOREY RN, PT SEDATED RASS -3. DRY WEIGHT 83KG. PT ON ETT TO VENT, FIO2 50%. RATE 16, PEEP 5, SATURATING @ 100%, NO SOB NOTED. CENTRAL LINE TO LIJ TRIPLE LUMEN PATENT INTACT, INFUSING PROPOFOL @ 35MCG/KG/MIN, NS @ 60ML/HR, INFUSING WELL, LEFT ARM AV SHUNT NOTED, PERIPHERAL IV TO R WRIST 18G PATENT INTACT, SL. NGT TO RIGHT NARES IN PLACE CLAMPED NO RESIDUAL NOTED. BURTON CATH IN PLACE DRAINING TO GRAVITY, PT NOTED ANURIC. INITIAL ASSESSMENT DONE, ALL SAFETY PRECAUTION MET, CALL LIGHT WITHIN REACH, WILL CONTINUE TO MONITOR.
[2020-03-17 07:54] LABS: CREATININE 7.5 mg/dL (0.6-1.3)
[2020-03-17] MEDS ORDERED: PANTOPRAZOLE 40 MG TABEC PO SCH (09:00)
--- NOTE | 2020-03-17 09:19 | NUR ---
PATIENT HAS BEEN SCREENED AND CATEGORIZED HIGH NUTRITION RISK. PATIENT WILL BE SEEN WITHIN 1-2 DAYS OF ADMISSION. 03/17/[address]
[2020-03-17] MEDS: PANTOPRAZOLE 40 MG INJ VIAL IVP SCH (09:30)
--- NOTE | 2020-03-17 09:31 | NUR ---
DUE MEDICATIONS ADMINISTERED, PT TOLERATED WELL, NO DISTRESS NOTED, WILL CONTINUE TO MONITOR.
--- NOTE | 2020-03-17 10:07 | NUR ---
SOCIAL WORK NOTE: Patient's Orientation Unable To Assess Information Provided By LAVELL SANDERS - DAUGHTER Comments SW WAS UNABLE TO MEET PATIENT AT BEDSIDE TO COMPLETE ASSESSMENT. SW COMPLETED ASSESSMENT WITH PATIENT'S DAUGHTER. Geographical Historian, Realtionship and Phone Number LAVELL SANDERS DAUGHTER [phone] CRIS SANDERS DAUGHTER [phone] Healthcare Power of Second Language Tutor No Does Patient Have a POLST No Identifying Problems No Social Work Triggers Is A Social Work Consult Needed No Mandate Report Filed No Explanation Of Identifying Problems PATIENT IS A 75-YEAR-OLD LEONID DMITTED FOR S/P CARDIAC ARREST. PATIENT HAS PMHX OF ESRD, HYPERTENSION, AND DIABETES. Admitted From Home Pre-Admission Level Of Functioning Status Independent With DME Prior Resources/Services Used In Last 12 Months No Prior Resources Used Prior DME Walker Dialysis Hemodialysis Name And Phone Number of Dialysis Facility [facility] Time 0800 Living Situation Lives With Family House Patient Had Caregiver No Home Support No Caregiver Issues Financial Issues No Known Financial Issue Referral To The Financial Counselor Needed No Factors/Needs No D/C Needs Identified Pt/Rep Participated In Discharge Plan Yes Patient/Family Agress With Discharge Plan Yes Discharge Plan Comments TENTATIVE DISCHARGE PLAN IS FOR PATIENT TO RETURN HOME. DC Plan Status Initiated
[2020-03-17] MEDS: SEVELAMER CARBONATE 800 MG TAB PO SCH ×2 (11:40→17:17)
--- NOTE | 2020-03-17 11:40 | NUR ---
DUE MEDICATIONS ADMINISTERED, PT TOLERATED WELL, WILL CONTINUE TO MONITOR.
--- NOTE | 2020-03-17 14:10 | NUR ---
03/17/20 RD INITIAL ASSESSMENT COMPLETED PLEASE REFER TO NUTRITION ASSESSMENT UNDER CARE ACTIVITY FOR ESTIMATED NUTRITIONAL NEEDS. 1. RD RECOMMENDED NEPRO 1.8 @ 50 ML/HR X 24 HR -THIS WILL PROVIDE 1200 ML OF VOLUME, 872 ML OF WATER, 2160 KCAL AND 97 GM OF PROTEIN, WHICH MEETS >80% OF ESTIMATED NUTRIENT NEEDS 2. RD RECOMMENDED FREE WATER FLUSH OF [address] TO FOLLOW-UP 2-3 DAYS, HIGH RISK LOY SEWELL, RD
--- NOTE | 2020-03-17 15:11 | NUR ---
DISCHARGE PLANNING: THIS IS A 75 Y/O MALE PATIENT FROM HOME, WHO CAME IN DUE TO BEING FOUND UNRESPONSIVE DURING DIALYSIS SESSION. PAST MEDICAL HISTORY INCLUDE ESRD ON DIALYSIS, DIABETES. ORALLY INTUBATED TO VENT, FIO2 50%, PEEP 5, O2 SAT 100%. SEDATED WITH PROPOFOL. CURRENT LABS INCLUDE WBC 8.7, /H 8.3/25.7, NA/K 135/5.5, BUN/CREA 51/7.5, ALB 2.8, D DIMER 3820. ON ZOSYN. CARDIO, PULMO, SURGICAL AND NEPHRO CONSULTS IN PLACE. DC PLAN PENDING ON PATIENT'S RESPONSE TO TREATMENT. Addendum: 03/23/20 at 1457 by Dianna Petit REMAINS IN ICU. ETT TO VENT, FIO2 100%, PEEP 5, O2 SAT 100%. SEDATED WITH PROPOFOL. SEEN BY GERI - WILL HAVE FAMILY MEETING TOMORROW AT 1800 TO DISCUSS CODE STATUS.
--- NOTE | 2020-03-17 15:20 | NUR ---
TUBE FEEDING STARTED, WILL CONTINUE TO MONITOR.
--- NOTE | 2020-03-17 17:10 | NUR ---
DIALYSIS STARTED, DIALYSIS NURSE AT BEDSIDE
--- NOTE | 2020-03-17 17:54 | NUR ---
DUE MEDICATIONS ADMINISTERED, PT TOLERATED WELL, WILL CONTINUE TO MONITOR.
--- NOTE | 2020-03-17 19:14 | NUR ---
ENDORSED PT TO LOAN ADVISER NURSE AURA FOR CONTINUOUS OF CARE
--- NOTE | 2020-03-17 19:15 | NUR ---
RECEIVED PATIENT FROM AM SHIFT NURSE FOR CONTINUITY OF CARE. RASS -3. ETT TO VENT. VENT SETTINGS: AC/VC FIO2 50% RR 16 PEEP 5. RESPIRATIONS EVEN, SLIGHTLY LABORED. O2SAT 100%. SUCTIONED THIN WHITE SECRETIONS. SKIN WARM, DRY. LEFT IJ NOTED, INFUSING PROPOFOL AT 25 MCG/KG/MIN AND NS AT 60 ML/HR. SALINE LOCK TO RIGHT WRIST 18G PATENT/INTACT. LEFT AV SHUNT NOTED. FLACC 0. ABDOMEN SOFT, NONTENDER, NONDISTENDED. BOWEL SOUNDS ACTIVE X4 QUADRANTS. CONTINUES ON ENTERAL FEEDING, TOLERATING WELL. 25 ML OF RESIDUAL NOTED. HOB UP 30 DEGREES. BURTON CATHETER PATENT WITH YELLOW URINE DRAINING TO GRAVITY. PLAN OF CARE DISCUSSED. CALL LIGHT WITHIN REACH. ISOLATION PRECAUTIONS OBSERVED. SAFETY PRECAUTIONS IN PLACE.
--- NOTE | 2020-03-17 21:15 | NUR ---
DUE MEDS GIVEN. PATIENT TURNED AND REPOSITIONED TO MAINTAIN SKIN INTEGRITY. CALL LIGHT WITHIN REACH. ISOLATION PRECAUTIONS OBSERVED. SAFETY PRECAUTIONS IN PLACE.
--- NOTE | 2020-03-17 23:30 | NUR ---
PATIENT IS RESTING COMFORTABLY IN BED. CALL LIGHT WITHIN REACH. ISOLATION PRECAUTIONS OBSERVED. SAFETY PRECAUTIONS IN PLACE.
[2020-03-18] VITALS (32 sets, daily range): BP systolic 103–156; BP diastolic 48–86
--- NOTE | 2020-03-18 01:35 | NUR ---
SUCTIONED THIN WHITE SECRETIONS. CALL LIGHT WITHIN REACH. ISOLATION PRECAUTIONS OBSERVED. SAFETY PRECAUTIONS IN PLACE.
--- NOTE | 2020-03-18 03:00 | NUR ---
CHANGED IJ DRESSING DUE TO SOILAGE. PATIENT TOLERATED WELL. NO S/S ACUTE DISTRESS. CALL LIGHT WITHIN REACH. SAFETY PRECAUTIONS IN PLACE. ISOLATION PRECAUTIONS OBSERVED.
[2020-03-18] MEDS: PIPERACILLIN/TAZOBACTAM 2.25 GM in DEXTROSE 5% 50 ML IV SCH ×3 (05:00→21:29)
--- NOTE | 2020-03-18 05:00 | NUR ---
MADE ROUNDS. PATIENT TURNED AND REPOSITIONED TO MAINTAIN SKIN INTEGRITY. NO S/S ACUTE DISTRESS. CALL LIGHT WITHIN REACH. SAFETY PRECAUTIONS IN PLACE. ISOLATION PRECAUTIONS OBSERVED.
[2020-03-18] MEDS: PROPOFOL 1000 MG/100 ML PREMIX 100 ML IV PRN ×2 (05:05→21:40)
[2020-03-18 05:38] LABS: BASOPHILS # (AUTO) 0.1 K/uL (0.00-0.22); BASOPHILS % (AUTO) 0.6 % (0.0-2.0); EOSINOPHILS # (AUTO) 0.3 K/uL (0-0.4); EOSINOPHILS % (AUTO) 2.6 % (0.0-4.0); HEMATOCRIT 25.3 % (36-52); LYMPHOCYTES # (AUTO) 0.7 K/uL (2.0-11.5); LYMPHOCYTES % (AUTO) 5.9 % (20.5-51.1); MEAN CORPUSCULAR HEMOGLOBIN 28 pg (27-31); MEAN CORPUSCULAR HGB CONC 32 g/dL (33-37); MEAN CORPUSCULAR VOLUME 89.8 fL (80-94); MONOCYTES # (AUTO) 0.9 K/uL (0.8-1.0); MONOCYTES % (AUTO) 7.3 % (1.7-9.3); NEUTROPHILS # (AUTO) 9.7 K/uL (1.8-7.7); NEUTROPHILS % (AUTO) 83.6 % (42.2-75.2); PLATELET COUNT (AUTO) 137 K/uL (140-450); RED BLOOD CELL COUNT(AUTO) 2.82 MIL/uL (4.20-6.10); RED CELL DISTRIBUTION WIDTH 20.5 % (11.6-13.7); WHITE BLOOD COUNT (AUTO) 11.6 K/uL (4.8-10.8)
[2020-03-18 06:08] LABS: ALBUMIN 2.5 g/dL (3.4-5.0); ANION GAP 13.8 (8-16); ASPARTATE AMINOTRANSFERASE 29 U/L (15-37); CARBON DIOXIDE 27.6 mmol/L (21-32); CHLORIDE 99 mmol/L (98-107); GLUCOSE 123 mg/dL (74-106); POTASSIUM 4.4 mmol/L (3.5-5.1); SODIUM SERUM 136 mmol/L (136-145); TOTAL BILIRUBIN 0.6 mg/dL (0.0-1.0); UREA NITROGEN, BLOOD 32 mg/dL (7-18)
[2020-03-18] MEDS: BLOOD GLUCOSE MONITORING 1 DEV DEV FS SCH ×3 (06:11→17:51)
[2020-03-18 06:15] LABS: CREATININE 5.7 mg/dL (0.6-1.3)
--- NOTE | 2020-03-18 07:31 | NUR ---
REC'D PT ON CARESCAPE VENT SETTINGS AC 16 VT 500 PEEP 5 FIO2 50% ALARMS ON AND AUDIBLE AND VENT IS PLUGGED INTO RED OUTLET, SXN PT SMALL AMT OF CREAM COLOR SECRETIONS, B\S ARE CLEAR BILATERALLY PT IS ORALLY INTUBATED WITH 7.5 ETT AT 23CM PT IS NOT ALERT WILL CONTINUE TO MONITOR PT
--- NOTE | 2020-03-18 07:35 | NUR ---
RECEIVED PATIENT FROM DISHWASHING MACHINE OPERATOR NURSE FOR CONTINUITY OF CARE. RASS -3. ETT TO VENT. VENT SETTINGS: AC/VC FIO2 50% RR 16 PEEP 5. RESPIRATIONS EVEN, SLIGHTLY LABORED. O2SAT 197%. WITH LEFT IJ CENTRAL LINE, INFUSING PROPOFOL AT 25 MCG/KG/MIN AND NS AT 60 ML/HR. SALINE LOCK TO RIGHT WRIST 18G PATENT/INTACT. LEFT AV SHUNT NOTED. FLACC 0. ABDOMEN SOFT, NONTENDER, NONDISTENDED. WITH NGT INTACT ON ENTERAL FEEDING, TOLERATING WELL. HOB UP 30 DEGREES. BURTON CATHETER PATENT WITH NO OUTPUT NOTED. ISOLATION PRECAUTIONS OBSERVED. SAFETY PRECAUTIONS IN PLACE.
[2020-03-18] MEDS: SEVELAMER CARBONATE 800 MG TAB PO SCH ×3 (08:00→17:51)
[2020-03-18] MEDS: PANTOPRAZOLE 40 MG INJ VIAL IVP SCH (09:00)
[2020-03-18] MEDS: EPOETIN ALFA 10,000 UNITS/ML VIAL IV SCH (09:00)
--- NOTE | 2020-03-18 09:18 | NUR ---
PT. ADMITTED WITH LOW SHWETA SCALE AT RISK, CONTINUE TO FOLLOW PRESSURE INJURY PREVENTION INTERVENTIONS. -APPLY HYDRAGUARD TO DRY SKIN BID AND BUSINESS INFORMATION ANALYST -TURN AND REPOSITION PATIENT Q 2H -ASSESS AND MONITOR SKIN CONDITION DURING POSITION CHANGE -OFFLOAD BILATERAL HEELS BY PLACING PILLOWS UNDER CALVES AT ALL TIMES, UNLESS OTHERWISE CONTRAINDICATED -PRESSURE REDISTRIBUTION BY PLACING PILLOWS AND OFFLOADING SACRALCOCCYX -KEEP SKIN CLEAN AND DRY AT ALL TIMES.
[2020-03-18] MEDS ORDERED: ALBUTEROL HFA MDI 90 MCG/ACTUATION 8 GM INH PRN (10:30)
[2020-03-18] MEDS ORDERED: ALBUTEROL SULFATE/IPRATROPIU 3 ML SOL IH PRN (11:00)
--- NOTE | 2020-03-18 12:30 | NUR ---
HEMODIALYSIS DONE. VSS
[2020-03-18] MEDS: NACL 0.9% 1,000 ML IV SCH (12:50)
--- NOTE | 2020-03-18 15:20 | NUR ---
CONVALESCENT PLASMA STARTED
--- NOTE | 2020-03-18 16:00 | NUR ---
CONVALESCENT PLASMA DONE. NO ADVERSE REACTIONS, VSS
[2020-03-18] MEDS: ALBUTEROL SULFATE/IPRATROPIU 3 ML SOL IH SCH (19:27)
--- NOTE | 2020-03-18 19:27 | NUR ---
RECEIVED PT ON THE VENT FROM DAY SHIFT, INTUBATED WITH ETT SIZE 7.5 SECURED WITH ANCHORFAST @ 23CM @ TEETH. VENTILATOR PLUGGED INTO THE RED OUTLET, AIRWAY PATENT, B/S DIMINISHED. AMBU BAG AT BESIDE, ALARM SET AUDIBLE. WILL CONTINUE TO MONITOR.
[2020-03-18] MEDS ORDERED: CRUSHER, PILL MC ONE (22:53)
[2020-03-19] VITALS (35 sets, daily range): BP systolic 72–147; BP diastolic 40–69
[2020-03-19] MEDS: BLOOD GLUCOSE MONITORING 1 DEV DEV FS SCH ×4 (01:00→17:52)
[2020-03-19] MEDS: NACL 0.9% 1,000 ML IV SCH ×2 (01:08→20:56)
[2020-03-19] MEDS: ALBUTEROL SULFATE/IPRATROPIU 3 ML SOL IH SCH ×4 (01:11→19:48)
[2020-03-19] MEDS: PROPOFOL 1000 MG/100 ML PREMIX 100 ML IV PRN ×5 (02:18→23:00)
[2020-03-19] MEDS: PIPERACILLIN/TAZOBACTAM 2.25 GM in DEXTROSE 5% 50 ML IV SCH ×3 (05:45→20:56)
[2020-03-19 06:28] LABS: ALBUMIN 2.2 g/dL (3.4-5.0); ANION GAP 10.7 (8-16); ASPARTATE AMINOTRANSFERASE 17 U/L (15-37); CARBON DIOXIDE 27.9 mmol/L (21-32); CHLORIDE 101 mmol/L (98-107); GLUCOSE 161 mg/dL (74-106); POTASSIUM 3.6 mmol/L (3.5-5.1); SODIUM SERUM 136 mmol/L (136-145); TOTAL BILIRUBIN 0.5 mg/dL (0.0-1.0); UREA NITROGEN, BLOOD 25 mg/dL (7-18)
[2020-03-19 06:36] LABS: CREATININE 4.9 mg/dL (0.6-1.3)
[2020-03-19 07:06] LABS: BASOPHILS # (AUTO) 0.1 K/uL (0.00-0.22); BASOPHILS % (AUTO) 0.7 % (0.0-2.0); EOSINOPHILS # (AUTO) 0.4 K/uL (0-0.4); EOSINOPHILS % (AUTO) 3.5 % (0.0-4.0); HEMATOCRIT 22.1 % (36-52); LYMPHOCYTES # (AUTO) 0.7 K/uL (2.0-11.5); LYMPHOCYTES % (AUTO) 7.4 % (20.5-51.1); MEAN CORPUSCULAR HEMOGLOBIN 29 pg (27-31); MEAN CORPUSCULAR HGB CONC 32 g/dL (33-37); MEAN CORPUSCULAR VOLUME 90.1 fL (80-94); MONOCYTES % (AUTO) 10.3 % (1.7-9.3); NEUTROPHILS # (AUTO) 7.8 K/uL (1.8-7.7); NEUTROPHILS % (AUTO) 78.1 % (42.2-75.2); PLATELET COUNT (AUTO) 139 K/uL (140-450); RED BLOOD CELL COUNT(AUTO) 2.46 MIL/uL (4.20-6.10)
--- NOTE | 2020-03-19 08:20 | NUR ---
RECEIVED WINDOW SIDE REPORT FROM AIR LAUNCH WEAPONS TECHNICIAN NURSE. PATIENT IN BED SUPINE, ETT TO VENT: ACVC 45% FIO2, RR 15, PEEP 5, LABORED BREATHING WITH ACCESSORY MUSCLE USE. NG TUBE IN PLACE. BURTON IN PLACE, DRAINING TO GRAVITY. LIJ TRIPPLE LUMEN, LAV SHUNT. INFUSING PROPOFOL @ 35 MCG/KG/MIN, NS @ 60 ML/HR. USER INTERFACE ARTIST IN PLACE. SAFETY MEASURES IN PLACE.
--- NOTE | 2020-03-19 08:25 | NUR ---
ADMINISTERED SCHEDULED MEDS PER MED ORDER. MED EDUCATION PROVIDED, REINFORCEMENT NEEDED. G TUBE RESIDUAL 5 ML, FLUSHED BEFORE AND AFTER MEDS. MORNING HYGIENE PROVIDED: ORAL CARE, CATHETER CARE, HCG BATH, CHANGED ALL DIRTY LINEN. PATIENT REPOSITIONED AND OFFLOADED PRESSURE WITH PILLOWS. ACTIVITY TOLERATED WELL, NO SIGNS OF ACUTE DISTRESS NOTED. TOWER OPERATOR IN PLACE. SAFETY MEASURES IN PLACE.
[2020-03-19] MEDS: PANTOPRAZOLE 40 MG INJ VIAL IVP SCH (08:30)
[2020-03-19] MEDS: ASCORBIC ACID 500 MG TAB PO SCH (08:30)
[2020-03-19] MEDS: SEVELAMER CARBONATE 800 MG TAB PO SCH ×3 (08:35→17:34)
[2020-03-19] MEDS: ZINC SULF 220 MG CAP PO SCH (08:35)
[2020-03-19] MEDS: CLINICAL MONITORING MC SCH (09:00)
[2020-03-19] MEDS ORDERED: COMMUNICATION ORDER MC SCH (09:00)
--- NOTE | 2020-03-19 09:10 | NUR ---
DR العلي ROUNDING ON PATIENTS. MADE AWARE OF PATIENT SEIZURE OVER NIGHT PER APPEALS NURSE NURSE. PER DR العلي, KEPPRA 500MG IVPB Q 12HRS. WILL FOLLOW UP WITH ORDER.
[2020-03-19] MEDS: INSULIN LISPRO SLIDING SCALE 100 UNITS/ML VIAL SUBQ PRN ×2 (12:44→17:50)
[2020-03-19] MEDS ORDERED: PHENYTOIN 1,000 MG in NACL 0.9% 100 ML IV SCH (14:00)
--- NOTE | 2020-03-19 20:00 | NUR ---
Received pt. on bed on Propofol Drip @ 35 mcg & NS @ 60 ml/hr. SB to SR on the monitor. No seizures noted @ this time. Glucerna infusing @ 30 ml/hr. Bed low, brakes on. Will cont. to monitor.
[2020-03-19] MEDS: PHENYTOIN 100 MG/2 ML VIAL IVP SCH (20:58)
[2020-03-19] MEDS ORDERED: levETIRAcetam 500 MG in NACL 0.9% 100 ML IV SCH (21:00)
--- NOTE | 2020-03-19 23:45 | NUR ---
Pt. SBP decreased to 70s; Levophed started @ 5 mcg/min & Propofol titrated down. Repositioned for comfort. Secretions suctioned. Cardiac and resp. montoring cont.
[2020-03-20] VITALS (32 sets, daily range): BP systolic 110–175; BP diastolic 43–114
[2020-03-20] MEDS: BLOOD GLUCOSE MONITORING 1 DEV DEV FS SCH ×5 (00:52→18:47)
[2020-03-20] MEDS: INSULIN LISPRO SLIDING SCALE 100 UNITS/ML VIAL SUBQ PRN ×4 (01:21→18:00)
--- NOTE | 2020-03-20 01:30 | NUR ---
SB to SR on the scope. VSS, Propofol @ 20 mcg; no seizures noted. Levophed Drip off. Bicarb drip infusing as ord. Will cont. to monitor,.
[2020-03-20] MEDS: ALBUTEROL SULFATE/IPRATROPIU 3 ML SOL IH SCH ×4 (01:55→19:42)
[2020-03-20] MEDS: PIPERACILLIN/TAZOBACTAM 2.25 GM in DEXTROSE 5% 50 ML IV SCH ×3 (05:10→21:07)
--- NOTE | 2020-03-20 06:00 | NUR ---
SB on the scope. VSS. No seizures. Propofol @ 20 mcg. CHG Bed bath, Bolanos Cath care & pericare rendered. Secretions suctioned. Repositioned. Will cont. to monitor.
[2020-03-20] MEDS: PHENYTOIN 100 MG/2 ML VIAL IVP SCH ×3 (06:56→21:07)
--- NOTE | 2020-03-20 07:15 | NUR ---
REPORT GIVEN BY THE LINE AND FRAME POLER RN W ET TUBE ORALLY TO THE MECHANICAL VENTILATOR W/ O2 SAT RANGES TO 97-99%.ON PROPOFOL DRIP @ 20MCG/KG/MIN.. PT CALM AND QUIET.NOT IN ANY FORM OF DISTRESS.
[2020-03-20] MEDS: PROPOFOL 1000 MG/100 ML PREMIX 100 ML IV PRN ×3 (07:41→16:50)
[2020-03-20] MEDS: SEVELAMER CARBONATE 800 MG TAB PO SCH ×3 (08:49→16:50)
[2020-03-20] MEDS: PANTOPRAZOLE 40 MG INJ VIAL IVP SCH (08:50)
[2020-03-20] MEDS: ASCORBIC ACID 500 MG TAB PO SCH (08:51)
[2020-03-20] MEDS: ZINC SULF 220 MG CAP PO SCH (08:52)
[2020-03-20] MEDS: CLINICAL MONITORING MC SCH (09:00)
--- NOTE | 2020-03-20 10:00 | NUR ---
HD RN CAME IN AND SET-UP HD MACHINE AND STARTED THE HEMODIALYSIS.NO ADVERSE REACTIONS NOTED.VITAL SIGNS WITHIN NORMAL LIMITS. NO PROBLEMS ENCOUNTERED DURING DIALYSIS.
[2020-03-20 11:42] LABS: ANION GAP 17.3 (8-16); CARBON DIOXIDE 24.1 mmol/L (21-32); CHLORIDE 98 mmol/L (98-107); GLUCOSE 188 mg/dL (74-106); POTASSIUM 4.4 mmol/L (3.5-5.1); SODIUM SERUM 135 mmol/L (136-145); UREA NITROGEN, BLOOD 39 mg/dL (7-18)
[2020-03-20 12:13] LABS: CREATININE 6.1 mg/dL (0.6-1.3)
--- NOTE | 2020-03-20 13:54 | NUR ---
03/20/20 RD INITIAL ASSESSMENT COMPLETED PLEASE REFER TO NUTRITION ASSESSMENT UNDER CARE ACTIVITY FOR ESTIMATED NUTRITIONAL NEEDS. 1. RESTART TUBE FEEDING @ 15 ML/HR AND INCREASE BY 15 ML/HR Q2H. GOAL IS NEPRO 1.8 @ 50 ML/HR -THIS WILL PROVIDE 1200 ML OF VOLUME, 872 ML OF WATER, 2160 KCAL AND 97 GM OF PROTEIN, WHICH MEETS >80% OF ESTIMATED NUTRIENT NEEDS 2. CONT. FREE WATER FLUSH OF [address] TO FOLLOW-UP 2-3 DAYS, HIGH RISK LOY SEWELL RD
[2020-03-20] MEDS: EPOETIN ALFA 10,000 UNITS/ML VIAL IV SCH (14:00)
[2020-03-20] MEDS: NACL 0.9% 1,000 ML IV SCH (14:30)
--- NOTE | 2020-03-20 18:56 | NUR ---
ALL NEEDS ATTENDED AND MET DURING THE SHIFT. CONDITION UNCHANGED.TO BE ENDORSED TO VEGETABLE HARVEST WORKER RN CONDITION STATUS QUO.FOR CONTINUITY OF CARE. Addendum: 03/20/20 at 1900 by Angela Andre RN RN Amended: Links added.
[2020-03-21] VITALS (29 sets, daily range): BP systolic 100–190; BP diastolic 49–90
[2020-03-21] MEDS: ALBUTEROL SULFATE/IPRATROPIU 3 ML SOL IH SCH ×3 (01:59→13:39)
[2020-03-21] MEDS: PHENYTOIN 100 MG/2 ML VIAL IVP SCH ×3 (05:25→21:39)
[2020-03-21] MEDS: PIPERACILLIN/TAZOBACTAM 2.25 GM in DEXTROSE 5% 50 ML IV SCH (05:25)
[2020-03-21] MEDS: BLOOD GLUCOSE MONITORING 1 DEV DEV FS SCH ×3 (05:40→17:42)
[2020-03-21 06:16] LABS: ANION GAP 14.9 (8-16); CARBON DIOXIDE 26.6 mmol/L (21-32); CHLORIDE 98 mmol/L (98-107); GLUCOSE 206 mg/dL (74-106); POTASSIUM 4.5 mmol/L (3.5-5.1); SODIUM SERUM 135 mmol/L (136-145); UREA NITROGEN, BLOOD 35 mg/dL (7-18)
[2020-03-21 06:26] LABS: BASOPHILS % (AUTO) 0.1 % (0.0-2.0); EOSINOPHILS % (AUTO) 0.1 % (0.0-4.0); HEMATOCRIT 22.3 % (36-52); HEMOGLOBIN 7.3 g/dL (12.0-18.0); LYMPHOCYTES # (AUTO) 0.6 K/uL (2.0-11.5); LYMPHOCYTES % (AUTO) 6.8 % (20.5-51.1); MEAN CORPUSCULAR HEMOGLOBIN 29 pg (27-31); MEAN CORPUSCULAR HGB CONC 33 g/dL (33-37); MEAN CORPUSCULAR VOLUME 89.1 fL (80-94); MONOCYTES % (AUTO) 10.3 % (1.7-9.3); NEUTROPHILS # (AUTO) 7.8 K/uL (1.8-7.7); NEUTROPHILS % (AUTO) 82.7 % (42.2-75.2); PLATELET COUNT (AUTO) 164 K/uL (140-450); RED CELL DISTRIBUTION WIDTH 20.3 % (11.6-13.7); WHITE BLOOD COUNT (AUTO) 9.4 K/uL (4.8-10.8)
[2020-03-21 06:28] LABS: MAGNESIUM 2.2 mg/dL (1.8-2.4); PHOSPHORUS 5.4 mg/dL (2.5-4.9)
--- NOTE | 2020-03-21 07:05 | NUR ---
RECEIVED PT FROM INTEGRATED CIRCUIT FABRICATOR ARLENE FINLEY PT SEDATED ON PROPOFOL 30MCG/KG/MIN. NOT IN ANY FORM OF DISTRESS. W/ PATENT CONTRAPTIONS.
--- NOTE | 2020-03-21 07:22 | NUR ---
rec'd pt on carescape vent settings ac16 vt 500 peep 5 fio2 30% alarms on and audible and vent is plugged into red outlet, bvm at [facility] i\l tx given with duoneb 3ml with no adverse reaction post tx b\s are diminished bilaterally, sxn pt small amt of cream color secretions pt is orally intubated with 7.5 ett at 23cm pt is resting
[2020-03-21] MEDS: SEVELAMER CARBONATE 800 MG TAB PO SCH ×3 (08:00→16:53)
[2020-03-21] MEDS: CLINICAL MONITORING MC SCH (09:00)
[2020-03-21] MEDS: PANTOPRAZOLE 40 MG INJ VIAL IVP SCH (09:07)
[2020-03-21] MEDS: ASCORBIC ACID 500 MG TAB PO SCH (09:09)
[2020-03-21] MEDS: ZINC SULF 220 MG CAP PO SCH (09:10)
--- NOTE | 2020-03-21 10:46 | NUR ---
VISITED AND EXAMINED BY UPDATED TO PT'S CONDITION NO NEW ORDER MADE.
[2020-03-21] MEDS: INSULIN LISPRO SLIDING SCALE 100 UNITS/ML VIAL SUBQ PRN ×2 (11:45→17:43)
[2020-03-21] MEDS: PROPOFOL 1000 MG/100 ML PREMIX 100 ML IV PRN ×2 (13:50→19:01)
[2020-03-21] MEDS: NACL 0.9% 1,000 ML IV SCH (13:50)
--- NOTE | 2020-03-21 16:00 | NUR ---
PM CARE RENDERED. ORAL CARE DONE AND SUCTIONING OR ORAL AND VIA ET TUBE DONE OBTAINED MODERATE AMOUNT OF BHARGAV COLORED PHLEGM.REPOSITIONED AND MAINTAINED ON 30 DEGREES HOB TO FACILITATE EASY BREATHING AND PREVENT ASPIRATION.
--- NOTE | 2020-03-21 18:29 | NUR ---
ALL NEEDS ATTENDED AND MET DURING THE SHIFT.PT'S CONDITION STATUS QUO.TO BE ENDORSED TO HAND I BLOCKERSTAMP MACHINE SERVICER, FOR CONTINUITY OF CARE .
--- NOTE | 2020-03-21 20:00 | NUR ---
MISTI SANDERS, PATIENT'S [id number], WANTS TO SEE IF THEY CAN BRING A VOICE RECORDER AND/OR A CELL PHONE AT THE PATIENT'S BEDSIDE, SO HE CAN LISTEN TO HIS DAUGHTERS' VOICE BEFORE THEY CAN MAKE A DECISION REGARDING DO NOT RESUSCITATE STATUS. MESSAGE WILL BE PASS ONTO THE DAY NURSING STAFF TO FOLLOW PROPER CHANNELS.
--- NOTE | 2020-03-21 22:00 | NUR ---
ETT TO VENT. VENT ALARM WENT OFF. SUCTION PROVIDED AND REPOSITIONED. CALLED RT TO VERIFY VENT.
[2020-03-22] VITALS (32 sets, daily range): BP systolic 131–192; BP diastolic 47–115
--- NOTE | 2020-03-22 | NUR ---
VENT ALARM WENT OFF, SUCTIONED AND ORAL CARE PROVIDED
[2020-03-22] MEDS: NACL 0.9% 1,000 ML IV SCH ×2 (00:10→16:50)
[2020-03-22] MEDS: BLOOD GLUCOSE MONITORING 1 DEV DEV FS SCH ×4 (00:34→17:30)
[2020-03-22] MEDS: INSULIN LISPRO SLIDING SCALE 100 UNITS/ML VIAL SUBQ PRN ×4 (00:34→17:31)
--- NOTE | 2020-03-22 02:00 | NUR ---
CONTINUOUS ON PROPOFOL. SUCTIONED ORALLY.
[2020-03-22] MEDS: PROPOFOL 1000 MG/100 ML PREMIX 100 ML IV PRN ×5 (02:40→22:07)
--- NOTE | 2020-03-22 04:00 | NUR ---
UNABLE TO DRAW BLOOD FOR AM LABS.
[2020-03-22] MEDS: hydrALAZINE 20 MG/ML VIAL IVP PRN ×3 (04:35→11:00)
[2020-03-22] MEDS: PHENYTOIN 100 MG/2 ML VIAL IVP SCH ×3 (05:38→21:25)
--- NOTE | 2020-03-22 06:00 | NUR ---
VENT ALARM WENT OFF, CALLED RT.
[2020-03-22] MEDS: ALBUTEROL SULFATE/IPRATROPIU 3 ML SOL IH SCH ×3 (06:46→18:52)
--- NOTE | 2020-03-22 06:46 | NUR ---
REC'D PT ON CARESCAPE VENT SETTINGS AC16 VT 500 PEEP 5 FIO2 30% ALARMS ON AND AUDIBLE AND VENT IS PLUGGED INTO RED OUTLET, I\L TX GIVEN WITH DUONEB 3ML WITH NO ADVERSE REACTION POST TX B\S ARE DIMINISHED BILATERALLY, SXN PT MODERATE AMT OF THICK WHITE SECRETIONS PT IS ORALLY INTUBATED WITH 7.5 ETT SECURED AT 23CM PT IS RESTING WILL CONTINUE TO MONITOR PT
--- NOTE | 2020-03-22 07:01 | NUR ---
SBAR REPORT GIVEN TO AM SHIFT.
--- NOTE | 2020-03-22 07:05 | NUR ---
RECEIVED PT STILL ON PROPOFOL DRIP AGITATED AND VENTILATOR KEEP ON ALARMING. W/ PATENT CONTRAPTIONS.AM CARE RENDERED.SUCTIONING OF ORAL AND VIA ET TUBE OBTAINED MODERATE AMOUNT OF CREAMY COLORED SECRETIONS.REPOSITIONED AND MAINTAINED ON 30 DEGREES HOB TO FACILITATE EASY BREATHING AND PREVENT ASPIRATION,
[2020-03-22 08:12] LABS: BASOPHILS % (AUTO) 0.3 % (0.0-2.0); EOSINOPHILS # (AUTO) 0.4 K/uL (0-0.4); EOSINOPHILS % (AUTO) 3.8 % (0.0-4.0); HEMATOCRIT 24.7 % (36-52); HEMOGLOBIN 7.8 g/dL (12.0-18.0); LYMPHOCYTES # (AUTO) 1.4 K/uL (2.0-11.5); MEAN CORPUSCULAR HEMOGLOBIN 29 pg (27-31); MEAN CORPUSCULAR HGB CONC 32 g/dL (33-37); MEAN CORPUSCULAR VOLUME 90.4 fL (80-94); MONOCYTES # (AUTO) 1.2 K/uL (0.8-1.0); NEUTROPHILS # (AUTO) 7.3 K/uL (1.8-7.7); NEUTROPHILS % (AUTO) 71.1 % (42.2-75.2); PLATELET COUNT (AUTO) 205 K/uL (140-450); RED BLOOD CELL COUNT(AUTO) 2.73 MIL/uL (4.20-6.10); RED CELL DISTRIBUTION WIDTH 20.7 % (11.6-13.7); WHITE BLOOD COUNT (AUTO) 10.3 K/uL (4.8-10.8)
[2020-03-22] MEDS: SEVELAMER CARBONATE 800 MG TAB PO SCH ×3 (08:30→16:36)
[2020-03-22 08:35] LABS: ANION GAP 17.7 (8-16); CARBON DIOXIDE 24.6 mmol/L (21-32); CHLORIDE 96 mmol/L (98-107); GLUCOSE 165 mg/dL (74-106); POTASSIUM 4.3 mmol/L (3.5-5.1); SODIUM SERUM 134 mmol/L (136-145); UREA NITROGEN, BLOOD 51 mg/dL (7-18)
[2020-03-22 08:38] LABS: CREATININE 5.8 mg/dL (0.6-1.3)
[2020-03-22 08:53] LABS: LYMPHOCYTES % (AUTO) 13.3 % (20.5-51.1); MONOCYTES % (AUTO) 11.5 % (1.7-9.3)
[2020-03-22] MEDS: PANTOPRAZOLE 40 MG INJ VIAL IVP SCH (09:16)
[2020-03-22] MEDS: CLINICAL MONITORING MC SCH (09:17)
[2020-03-22] MEDS: ASCORBIC ACID 500 MG TAB PO SCH (09:18)
[2020-03-22] MEDS: ZINC SULF 220 MG CAP PO SCH (09:18)
--- NOTE | 2020-03-22 12:00 | NUR ---
ORAL CARE RENDERED. SUCTIONING OF ORAL AND VIA ET TUBE DONE. W/ MODERATE AMOUNT OF BEIGE COLORED SECRETIONS. REPOSITIONED AND MAINTAINED ON 30 DEGREES HOB TO FACILITATE EASY BREATHING AND PREVENT ASPIRATION.RESIDUAL CHECKED ONLY 10ML. ENTERAL FEEDING WELL TOLERATED.
--- NOTE | 2020-03-22 15:00 | NUR ---
COMPLETE BED BATH DONE AFTER PT HAD BM ONCE WELL FORMED YELLOW STOOL SMALL IN AMOUNT.MAINTAINED ON 30 DEGREES HOB @ ALL TIMES.
--- NOTE | 2020-03-22 18:13 | NUR ---
RESTING COMFORTABLY ON BED NO FACIAL GRIMACES SEEN. SEDATED ON 35MCG/KG/MIN PROPOFOL.ALL NEEDS ATTENDED AND MET DURING THE SHIFT. CONDITION UNCHANGED. TO BE ENDORSED TO INCOMING MOLD DRESSER RN ELISABETH CONTINUITY OF CARE AND OBSERVATION.
--- NOTE | 2020-03-22 19:36 | NUR ---
RECEIVED REPORT AT BEDSIDE FOR CONTINUITY OF CARE, PT IN STABLE CONDITION.
--- NOTE | 2020-03-22 20:00 | NUR ---
PT LYING IN BED AOX0-1, EYES CLOSED RASS AT -3, PT RESPONDS TO LIGHT PAIN. V/S FOLLOWS: T 97.6 P 66 R 20 B/P 151/56 02 99% WITH ALL CURRENT VENT SETTINGS FOLLOWS: FIO2 AT 30% VT 500 FLOW IS 35 PEEP IF 5. PT HAS TRIPLE LUMEN LEFT EJ RUINING PROPOFOL AT 35MCG/KG/MIN WELL NORMAL SALINE AT 60 MLS/HR. HE ALSO HAS NG TUBE IN RIGHT NARE RUNNING NEPHRO AT 40MLS/HR . PT HAS LEFT AV SHUNT INTACT WITH THRILL AND BRUIT FELT. PT HAS BURTON CATHETER INTACT NO URINE IN THE BAG AT THIS TIME. ALL ORDERED PRECAUTIONS IN PLACE.
--- NOTE | 2020-03-22 21:00 | NUR ---
PT GIVEN ORDERED HEPARIN SHOT SQ , PLATELETS 205, D-DIMER IS 2480, PT IS 11.8 INR IS 1.19. PT ALSO GIVEN IV DILANTIN ORDERED FOR SEIZURES. V/S FOLLOWS: T 97.0 P 63 R 20 B/P 160/60 02 100 ON ALLL CURRENT VENT SETTINGS. ALL ORDERED PRECAUTIONS IN PLACE.
--- NOTE | 2020-03-22 22:00 | NUR ---
PT WAS TURNED AND REPOSITIONED IN BED, ALL FLUIDS RUNNING ORDERED. V/S FOLLOWS: T 97 P 63 R 20 B/P 138/53 02 99% ON ALL CURRENT VENT SETTINGS. LEFT MSG FOR NAILS HD NURSE REGARDING 10 AM HD ORDER.
[2020-03-23] VITALS (29 sets, daily range): BP systolic 100–192; BP diastolic 44–132
--- NOTE | 2020-03-23 | NUR ---
PT IN BED HE WAS REPOSITIONED AND ORAL CARE PROVIDED. FINGERSTICK IS 101, NO HUMALOG COVERAGE NEEDED. V/S FOLLOWS: T 97.7 P 61 R 16 B/P 143/51 02 100%. ALL ORDERED PRECAUTIONS IN PLACE.
[2020-03-23] MEDS: ALBUTEROL SULFATE/IPRATROPIU 3 ML SOL IH SCH ×3 (01:00→12:50)
--- NOTE | 2020-03-23 02:30 | NUR ---
PT B/P WAS ELEVATED TO 178/89, PT WAS GIVEN IVP HYDRAZALINE 10MG, WILL CONTINUE TO MONITOR B/P.
--- NOTE | 2020-03-23 03:30 | NUR ---
NEW BOTTLE OF PROPOFOL HUNG AND RUNNING ORDERED. RETAKE OF PT B/P IS 159/67 OTHER V/S FOLLOWS; T 97 P 77 R 16 02 99% ON ALL CURRENT ETT TO VENT. ALL ORDERED PRECAUTIONS IN PLACE.
[2020-03-23] MEDS: hydrALAZINE 20 MG/ML VIAL IVP PRN ×2 (04:06→05:10)
[2020-03-23] MEDS: PROPOFOL 1000 MG/100 ML PREMIX 100 ML IV PRN (04:10)
[2020-03-23] MEDS: PHENYTOIN 100 MG/2 ML VIAL IVP SCH ×3 (05:00→20:27)
[2020-03-23] MEDS: BLOOD GLUCOSE MONITORING 1 DEV DEV FS SCH ×4 (06:00→17:26)
--- NOTE | 2020-03-23 06:00 | NUR ---
PT IN BED HE WAS GIVEN BED BATH , TURNED AND REPOSITIONED IN BED. ORAL CARE PROVIDED. NG TUBE IN PLACE NO RESIDUAL NOTED. NEPHRO RUNNING AT 40MLS HR ORDERED. FINGERSTICK IS 119, NO HUMALOG COVERAGE NEEDED. V/S FOLLOWS: T 97.8 P 75 R 18 B/P 158/63 02 98% ON ALL CURRENT VENT SETTINGS. PT HAD NO OUTPUT NOTED . ALL ORDERED PROTOCOLS IN PLACE.
[2020-03-23 06:38] LABS: BASOPHILS % (AUTO) 0.2 % (0.0-2.0); EOSINOPHILS # (AUTO) 0.5 K/uL (0-0.4); EOSINOPHILS % (AUTO) 4.7 % (0.0-4.0); HEMATOCRIT 25.2 % (36-52); HEMOGLOBIN 8.2 g/dL (12.0-18.0); LYMPHOCYTES # (AUTO) 1.2 K/uL (2.0-11.5); LYMPHOCYTES % (AUTO) 11.1 % (20.5-51.1); MEAN CORPUSCULAR HEMOGLOBIN 29 pg (27-31); MEAN CORPUSCULAR HGB CONC 33 g/dL (33-37); MEAN CORPUSCULAR VOLUME 88.6 fL (80-94); MONOCYTES # (AUTO) 1.2 K/uL (0.8-1.0); PLATELET COUNT (AUTO) 224 K/uL (140-450); RED BLOOD CELL COUNT(AUTO) 2.85 MIL/uL (4.20-6.10); RED CELL DISTRIBUTION WIDTH 20.4 % (11.6-13.7)
--- NOTE | 2020-03-23 07:00 | NUR ---
rec' d pt on carescape vent setting ac16 vt 500 peep 5 fio2 30% alarms on and audible and vent is plugged into red outlet, bvm at [facility], i\l tx given with duoneb 3ml with no adverse reaction post tx b\s are coarse bilaterally sxn pt small amt of thick yellow secretions pt orally intubated with 7.5 ett secured at 23cm pt resting
--- NOTE | 2020-03-23 07:00 | NUR ---
PT IN STABLE CONDITION, WILL ENDORSE CARE TO AM DAYSHIFT FOR CONTINUITY OF CARE.
--- NOTE | 2020-03-23 07:30 | NUR ---
RECEIVED PT VENTED VIA ETT, ON PROPOFOL DRIP TO KEEP RASS-3, WITH NGT CONNECTED TO CONTINUOUS FEEDING,WITH BURTON CATHETER PATENT.
[2020-03-23 07:40] LABS: CARBON DIOXIDE 22.6 mmol/L (21-32); CHLORIDE 95 mmol/L (98-107); GLUCOSE 126 mg/dL (74-106); POTASSIUM 4.6 mmol/L (3.5-5.1); SODIUM SERUM 133 mmol/L (136-145)
[2020-03-23] MEDS: PANTOPRAZOLE 40 MG INJ VIAL IVP SCH (08:18)
[2020-03-23] MEDS: ZINC SULF 220 MG CAP PO SCH (08:18)
[2020-03-23] MEDS: SEVELAMER CARBONATE 800 MG TAB PO SCH ×3 (08:19→17:24)
[2020-03-23] MEDS: ASCORBIC ACID 500 MG TAB PO SCH (08:19)
[2020-03-23] MEDS: EPOETIN ALFA 10,000 UNITS/ML VIAL IV SCH (08:20)
[2020-03-23 09:29] LABS: CREATININE 6.6 mg/dL (0.6-1.3)
--- NOTE | 2020-03-23 09:45 | NUR ---
dR CURRY HERE, SEEN PT, NOTED ALL PARAMETERS, CONTINUE PLAN OF CARE.
[2020-03-23 10:13] LABS: UREA NITROGEN, BLOOD 62 mg/dL (7-18)
[2020-03-23] MEDS: NACL 0.9% 1,000 ML IV SCH (10:21)
[2020-03-23] MEDS: INSULIN LISPRO SLIDING SCALE 100 UNITS/ML VIAL SUBQ PRN (12:11)
--- NOTE | 2020-03-23 12:17 | NUR ---
HD COMMENCED BY THE DIALYSIS NURSE, ANUSHA, SATURATING WELL.
--- NOTE | 2020-03-23 12:30 | NUR ---
CALLED BY HD NURSE THAT PT DESATURATING 45%, BP-125/44, FIO2 INCREASED TO 100%, RT ERWIN WAS CALLED AND SHE CAME IMMEDIATELY. AT 1236 , ASYSTOLE ON THE MONITOR, LEADS CHECKED PLACEMNET, NO PULSE, BP UNRECORDABLE, CODE BLUE SOUNDED,, HD STOPPED BY DIALYSIS NURSE, CPR, ACLS DRUGS GIVEN, ROSC AT 1243. DR LOONEY NOTIFIED BY DIALYSIS NURSE AND TO HOLD HD FOR TODAY. AT 1315 LATEST VS= 131/76, HR 95
--- NOTE | 2020-03-23 12:34 | NUR ---
FEEDING HELD FOR NOW,ASPIRATION PRECAUTION OBSERVE
--- NOTE | 2020-03-23 12:34 | NUR ---
CALLED TO PTS ROOM DUE TO PT DESAT TO 45% AND RN INDIGO INCREASED FIO2 TO 100% PT WAS RECEIVING DIALYSIS AND PT HAD NO PULSE AT THIS TIME AT 1236 CODE BLUE WAS CALLED AND CPR AND ACLS DRUGS GIVEN AND PT WAS BEING BVM WITH 100% FIO2 AND PT WAS SXN LARGE AMT OF THICK YELLOW SECRETIONS AND PT WAS EASIER TO BAG AND AT 1243 ROSC AND PT WAS PLACED BACK ON VENT WITH SAME SETTINGS AND BREATHING TX GIVEN WITH DUONEB 3ML WITH NO ADVERSE REACTION POST TX
--- NOTE | 2020-03-23 12:44 | NUR ---
SISTER IN LAW CRIS MADE AWARE OF PATIENT'S CURRENT CONDITION AND CODE TEAM IS CODING PATIENT. CRIS WAS AWARE AND ASKED FOR FULL TREATMENT. PER CRIS, SHE WILL CALL BACK.
[2020-03-23 13:03] LABS: BASOPHILS # (AUTO) 0.1 K/uL (0.00-0.22); BASOPHILS % (AUTO) 0.7 % (0.0-2.0); EOSINOPHILS # (AUTO) 0.3 K/uL (0-0.4); EOSINOPHILS % (AUTO) 2.2 % (0.0-4.0); HEMATOCRIT 27.5 % (36-52); HEMOGLOBIN 8.6 g/dL (12.0-18.0); LYMPHOCYTES # (AUTO) 1.7 K/uL (2.0-11.5); LYMPHOCYTES % (AUTO) 11.2 % (20.5-51.1); MEAN CORPUSCULAR HEMOGLOBIN 28 pg (27-31); MEAN CORPUSCULAR HGB CONC 31 g/dL (33-37); MEAN CORPUSCULAR VOLUME 90.8 fL (80-94); MONOCYTES # (AUTO) 0.6 K/uL (0.8-1.0); MONOCYTES % (AUTO) 3.6 % (1.7-9.3); NEUTROPHILS # (AUTO) 12.8 K/uL (1.8-7.7); NEUTROPHILS % (AUTO) 82.3 % (42.2-75.2); PLATELET COUNT (AUTO) 237 K/uL (140-450); RED BLOOD CELL COUNT(AUTO) 3.03 MIL/uL (4.20-6.10); RED CELL DISTRIBUTION WIDTH 20.5 % (11.6-13.7); WHITE BLOOD COUNT (AUTO) 15.5 K/uL (4.8-10.8)
[2020-03-23 13:25] LABS: CARBON DIOXIDE 21.1 mmol/L (21-32); CHLORIDE 97 mmol/L (98-107); GLUCOSE 307 mg/dL (74-106); POTASSIUM 4.1 mmol/L (3.5-5.1); SODIUM SERUM 137 mmol/L (136-145); UREA NITROGEN, BLOOD 52 mg/dL (7-18)
[2020-03-23 13:36] LABS: CREATININE 5.7 mg/dL (0.6-1.3)
--- NOTE | 2020-03-23 15:00 | NUR ---
NGT FEEDING RESUMED ,PT STABLE BUT NEEDS CLOSE MONITORING
--- NOTE | 2020-03-23 16:00 | NUR ---
DR SAMPSON HERE,SEEN PT,NOTED ALL PARAMETERS, TO DISCONTINUE PROPOFOL DRIP.
--- NOTE | 2020-03-23 16:39 | NUR ---
03/23/20 RD FOLLOW UP COMPLETED PLEASE REFER TO NUTRITION ASSESSMENT UNDER CARE ACTIVITY FOR ESTIMATED NUTRITIONAL NEEDS. 1. WHEN MEDICALLY STABLE RESTART TUBE FEEDING @ 15 ML/HR AND INCREASE BY 15 ML/HR Q2H. GOAL IS NEPRO 1.8 @ 50 ML/HR -THIS WILL PROVIDE 1200 ML OF VOLUME, 872 ML OF WATER, 2160 KCAL AND 97 GM OF PROTEIN 2. CONT. FREE WATER FLUSH OF [address] TO FOLLOW-UP 2-3 DAYS, HIGH RISK LOY SEWELL RD
--- NOTE | 2020-03-23 17:58 | NUR ---
DAUGHTER LAVELL MOYA CALLED AND WANTED TO SPEAK WITH THE DR PIRES MORNING REGARDING PT CRITICAL CONDITION.HER NUMBER IS [phone], ENDORSED.
--- NOTE | 2020-03-23 18:44 | NUR ---
ASSISTED WITH ADL,HOURLY ROUNDING DONE.ALL ORDERS REVIEWED AND CARRIED OUT.CONTINUE TO MONITOR. VITAL SIGNS STABLE, SATURATING WELL, STILL ON 100% FIO2 ON THE VENT.
--- NOTE | 2020-03-23 19:20 | NUR ---
PT CONDITION STILL SAME.VSS,ENDORSED TO DIMA FOR CONTINUITY OF CARE
--- NOTE | 2020-03-23 19:30 | NUR ---
RECEIVED REPORT FROM OFFGOING DAYSHIFT NURSE. PATIENT ETT TO VENT, HOB 30 DEGREES. PATIENT CURRENTLY UNRESPONSIVE, STATUS POST CARDIAC ARREST FROM 03/23/2020 APPROXIMATELY 1200 HOURS, PER PREVIOUS NURSE. VENT SETTINGS AC/PC, FIO2 100%, RR 16, PEEP 5, TV 500. PATIENT CURRENTLY TOLERATING VENT SETTINGS WELL. PATIENT HAS NG TUBE TO THE RIGHT NARE, SECURED, IN PLACE AND PATENT. TUBE FEEDING NEPRO RUNNING AT 40 ML/HR. PATIENT CONTINUOUS TELE MONITOR, NORMAL SINUS RHYTHM ON THE MONITOR, ZOLL MONITOR AT BEDSIDE, WILL CONTINUE TO MONITOR. IV ACCESS SITES ON THE PATIENT ARE LEFT IJ TRIPPLE LUMEN, RIGHT HAND 18G AND LEFT AV SHUNT. EXTREMITY PRECAUTION, NO BLOOD PRESSURES TO BE TAKEN ON THE LEFT ARM. DRIPS RUNNING CURRENTLY INCLUDE NS AT 60 ML/HR. PATIENT WEIGHT IS 86.1 KG. PATIENT HAS BURTON CATH IN PLACE, SECURED AND PATENT. DRY FLAKY SKIN ON BILATERAL LEGS AND FEET WITH MINOR BRUISING ON ABDOMEN. PATIENT OFFLOADED FROM PRESSURE POINTS WITH US OF PILLOWS AND REPOSITIONING. BED LOWERED AND LOCKED INTO A POSITION OF SAFETY AND COMFORT. WILL CONTINUE TO CLOSELY MONITOR AND FREQUENTLY ROUND THROUGHOUT SHIFT.
--- NOTE | 2020-03-23 21:30 | NUR ---
RT TITRATED FIO2 DOWN TO 90%, PATIENT TOLERATING WELL, WILL CONTINUE TO CLOSELY MONITOR AND FREQUENTLY ROUND.
--- NOTE | 2020-03-23 21:30 | NUR ---
PATIENT CONTINUES TO BE UNRESPONSIVE, RESTING IN A POSITION OF COMFORT. HOB 30 DEGREES. VAP ORAL CARE, ET TUBE/ORAL SUCTIONING, HYGIENE AND REPOSITIONING PROVIDED. NORMAL SINUS RHYTHM ON THE MONITOR, WILL CONTINUE TO CLOSELY MONITOR AND FREQUENTLY ROUND.
--- NOTE | 2020-03-23 22:10 | NUR ---
RT TITRATED FIO2 DOWN TO 80%, PATIENT TOLERATING WELL, WILL CONTINUE TO CLOSELY MONITOR AND FREQUENTLY ROUND.
[2020-03-24] VITALS (33 sets, daily range): BP systolic 112–168; BP diastolic 48–88
--- NOTE | 2020-03-24 | NUR ---
PATIENT CALM AND RESTING IN A POSITION OF COMFORT. CONTINUES TO BE UNRESPONSIVE. TOLERATING VENT SETTINGS WELL. VAP ORAL CARE, ET TUBE/ORAL SUCTIONING, HYGIENE AND REPOSITIONING PROVIDED. WILL CONTINUE TO MONITOR CLOSELY AND FREQUENTLY ROUND.
[2020-03-24] MEDS: BLOOD GLUCOSE MONITORING 1 DEV DEV FS SCH ×4 (00:04→18:00)
--- NOTE | 2020-03-24 01:20 | NUR ---
RT TITRATED FIO2 DOWN TO 70%, PATIENT TOLERATING WELL. WILL CONTINUE TO CLOSELY MONITOR AND FREQUENTLY ROUND.
--- NOTE | 2020-03-24 01:49 | NUR ---
RT TITRATED FIO2 DOWN TO 60%, PATIENT CONTINUES TO TOLERATE VENT SETTINGS WELL. HOB STILL AT 30 DEGREES. WILL CONTINUE TO CLOSELY MONITOR AND FREQUENTLY ROUND.
--- NOTE | 2020-03-24 02:00 | NUR ---
PATIENT STILL RESTING, CONTENT, STILL UNRESPONSIVE. HOB AT 30 DEGREES, INTUBATED. NORMAL SINUS RHYTHM ON THE MONITOR. WILL CONTINUE TO MONITOR CLOSELY AND ROUND FREQUENTLY.
--- NOTE | 2020-03-24 02:25 | NUR ---
PATIENT STARTING TO OPEN EYES SLIGHTLY AND SLIGHT CHANGE OF AN INCREASE IN VITAL SIGN PARAMETERS, HR AND BP. PATIENT RESTARTED ON SEDATION. WILL CONTINUE TO MONITOR CLOSELY AND ROUND FREQUENTLY.
[2020-03-24] MEDS: PROPOFOL 1000 MG/100 ML PREMIX 100 ML IV PRN ×3 (02:32→15:44)
[2020-03-24] MEDS: NACL 0.9% 1,000 ML IV SCH ×2 (02:35→18:47)
--- NOTE | 2020-03-24 02:40 | NUR ---
PATIENT TOLERATING SEDATION AND INTUBATION WELL. RESTING CALMLY AND COMFORTABLY IN THE BED. HOB AT 30 DEGREES. TOLERATING VENT SETTINGS WELL. WILL CONTINUE TO CLOSELY MONITOR AND FREQUENTLY ROUND.
--- NOTE | 2020-03-24 04:00 | NUR ---
TOLERATING VENT SETTINGS AND SEDATION WELL. NORMAL SINUS ON THE MONITOR. HOB 30 DEGREES. BED BATH GIVEN, LINEN CHANGED, HYGIENE, ET TUBE/ORAL SUCTIONING, REPOSITIONING. WILL CONTINUE TO CLOSELY MONITOR AND FREQUENTLY ROUND.
[2020-03-24] MEDS: PHENYTOIN 100 MG/2 ML VIAL IVP SCH ×3 (05:30→20:15)
[2020-03-24] MEDS: INSULIN LISPRO SLIDING SCALE 100 UNITS/ML VIAL SUBQ PRN (05:56)
--- NOTE | 2020-03-24 06:15 | NUR ---
PATIENT CALM AND CONTENT, RESTING IN THE BED. HOB 30 DEGREES, IN A POSITION OF COMFORT. INTUBATED AND SEDATED, RASS -3. WILL CONTINUE TO CLOSELY MONITOR AND FREQUENTLY ROUND.
[2020-03-24 06:22] LABS: BASOPHILS % (AUTO) 0.1 % (0.0-2.0); EOSINOPHILS # (AUTO) 0.2 K/uL (0-0.4); EOSINOPHILS % (AUTO) 1.7 % (0.0-4.0); HEMATOCRIT 23.2 % (36-52); HEMOGLOBIN 7.3 g/dL (12.0-18.0); LYMPHOCYTES % (AUTO) 7.8 % (20.5-51.1); MEAN CORPUSCULAR HEMOGLOBIN 28 pg (27-31); MEAN CORPUSCULAR HGB CONC 31 g/dL (33-37); MEAN CORPUSCULAR VOLUME 90.1 fL (80-94); MONOCYTES # (AUTO) 1.2 K/uL (0.8-1.0); MONOCYTES % (AUTO) 9.5 % (1.7-9.3); NEUTROPHILS # (AUTO) 10.3 K/uL (1.8-7.7); NEUTROPHILS % (AUTO) 80.9 % (42.2-75.2); PLATELET COUNT (AUTO) 224 K/uL (140-450); RED BLOOD CELL COUNT(AUTO) 2.58 MIL/uL (4.20-6.10); RED CELL DISTRIBUTION WIDTH 20.4 % (11.6-13.7); WHITE BLOOD COUNT (AUTO) 12.8 K/uL (4.8-10.8)
[2020-03-24 06:25] LABS: MAGNESIUM 2.3 mg/dL (1.8-2.4); PHOSPHORUS 4.7 mg/dL (2.5-4.9)
[2020-03-24 06:36] LABS: CARBON DIOXIDE 24.3 mmol/L (21-32); CHLORIDE 97 mmol/L (98-107); GLUCOSE 149 mg/dL (74-106); POTASSIUM 4.3 mmol/L (3.5-5.1); SODIUM SERUM 134 mmol/L (136-145)
[2020-03-24] MEDS: ALBUTEROL SULFATE/IPRATROPIU 3 ML SOL IH SCH ×3 (07:07→19:44)
--- NOTE | 2020-03-24 07:07 | NUR ---
REC'D PT ON [employer] VENT SETTINGS AC16 VT 500 PEEP 5 FIO2 60% ALARMS ON AND AUDIBLE AND VENT IS PLUGGED INTO RED OUTLET, I\L TX GIVEN WITH DUONEB 3ML WITH NO ADVERSE REACTION POST TX SXN PT MODERATE AMT OF THICK WHITE SECRETIONS, B\S ARE COARSE BILATERALLY, PT IS ORALLY INTUBATED WITH 7.5 ETT SECURED AT 23 CM AND PT IS NOT AWAKE AT THIS TIME WILL CONTINUE TO MONITOR PT
--- NOTE | 2020-03-24 07:30 | NUR ---
PATIENT RECEIVED ON 60% FIO2 AND PROPOFOL 25. PATIENT RASS -3. PATIENT SUCTIONED WITH LARGE AMOUNTS OF CLEAR AND BLOOD TINGED SECRETIONS VIA ORAL WELL ETT. PATIENT O2 SAT 100%. WITHOUT ANY NOTED SS PAIN SOB OR DISTRESS.
[2020-03-24] MEDS: SEVELAMER CARBONATE 800 MG TAB PO SCH ×3 (08:24→17:00)
[2020-03-24] MEDS: PANTOPRAZOLE 40 MG INJ VIAL IVP SCH (08:25)
[2020-03-24] MEDS: ASCORBIC ACID 500 MG TAB PO SCH (08:25)
[2020-03-24] MEDS: ZINC SULF 220 MG CAP PO SCH (08:25)
--- NOTE | 2020-03-24 08:30 | NUR ---
CALLED DR. SOLO OFFICE TO NOTIFY OF LABS. STATED TO FAX LABS TO OFFICE. LAB VALUES FACED OVER.
[2020-03-24 08:32] LABS: CREATININE 6.6 mg/dL (0.6-1.3); UREA NITROGEN, BLOOD 67 mg/dL (7-18)
--- NOTE | 2020-03-24 12:20 | NUR ---
DR. CURRY MADE ROUNDS AND NOTIFIED OF CURRENT PATIENT CONDITION WELL LAB VALUES. SHE STATED SHE WILL CALL FAMILY.
[2020-03-24] MEDS: DEXMEDETOMIDINE HCL 400 MCG in NACL 0.9% 96 ML IV PRN (18:46)
--- NOTE | 2020-03-24 19:30 | NUR ---
RECIEVED ENDORSMENT FROM DAY SHIFT RN, PT LYING IN BED SUPINE, HOD 30 DEGREES AND BED LOW, ETT TO VENT ACVC TV 500 60% FIO2 PEEP 5 RATE 20, RH PERIPHERAK IV 18 GAUGE SALINE LOCK, LIJ TRIPLE LUMEN INFUSING PRECEDEX AND NS. PATIENT RASS -3. NGT TO RN INFUSING FEEDING, FC IN PLACE DRAINING VIA GRAVITY, PT SHOWING NO SIGNS OF ACUTE DISTRESS, SAFETY MEASURES IN PLACE, WILL CONTINUE WITH CURRENT POC
--- NOTE | 2020-03-24 19:32 | NUR ---
DR. TRIANA MADE ROUNDS TODAY AND STATED SHE WILL POSSIBLY ORDER HD TOMORROW. DR. SAMPSON ALSO MADE ROUNDS AND DC PROPOFOL AND ORDERED PRECEDEX. WHILE IN PATIENT ROOM PATIENT NOTED TO HAVE JERKING MOVEMENTS. DR. SAMPSON AT BEDSIDE AT THIS TIME AND AWARE. HE STATED HE WILL CALL AND SPEAK TO FAMILY. PATIENT NOW ON PRECEDEX. SUCTIONED ORALLY WITH LARGE AMOUNTS OF SECRETIONS NOTED. LEFT IJ DRESSING CHANGED. FEEDING AT 50ML/HR TOLERATING WITHOUT ANY NOTED RESIDUALS. VITALS STABLE AT THIS TIME. REPORT GIVEN TO GARRISON JACOBS.
[2020-03-25] VITALS (32 sets, daily range): BP systolic 100–178; BP diastolic 47–116
[2020-03-25] MEDS: ALBUTEROL SULFATE/IPRATROPIU 3 ML SOL IH SCH ×3 (01:42→19:21)
[2020-03-25] MEDS: PHENYTOIN 100 MG/2 ML VIAL IVP SCH ×3 (04:12→22:19)
[2020-03-25] MEDS: BLOOD GLUCOSE MONITORING 1 DEV DEV FS SCH ×4 (05:43→18:00)
[2020-03-25 06:11] LABS: HEMATOCRIT 20.8 % (36-52); MEAN CORPUSCULAR HEMOGLOBIN 29 pg (27-31); MEAN CORPUSCULAR HGB CONC 32 g/dL (33-37); MEAN CORPUSCULAR VOLUME 90.4 fL (80-94); PLATELET COUNT (AUTO) 232 K/uL (140-450); RED CELL DISTRIBUTION WIDTH 20.8 % (11.6-13.7); WHITE BLOOD COUNT (AUTO) 11.8 K/uL (4.8-10.8)
[2020-03-25 06:37] LABS: ANION GAP 17.4 (8-16); CARBON DIOXIDE 24.1 mmol/L (21-32); CHLORIDE 97 mmol/L (98-107); GLUCOSE 154 mg/dL (74-106); POTASSIUM 4.5 mmol/L (3.5-5.1); SODIUM SERUM 134 mmol/L (136-145)
[2020-03-25 06:38] LABS: UREA NITROGEN, BLOOD 79 mg/dL (7-18)
[2020-03-25 06:39] LABS: CREATININE 7.7 mg/dL (0.6-1.3)
[2020-03-25 06:51] LABS: HEMOGLOBIN 6.7 g/dL (12.0-18.0)
--- NOTE | 2020-03-25 07:05 | NUR ---
REPORT GIVEN BY ARLENE ANDRADE,W/ PATENT CONTRAPTIONS. SEDATED W/ PRECEDEX @ 0.2 (4.3ML) ON ET TUBE TO VENT W/ O2 SAT-97%.W/ FOCAL SEIZURE NOTED ON THE FACE. V/S W/IN NORMAL LIMITS.ORAL CARE RENDERED AND SUCTIONED SECRETIONS AFTER. MAINTAINED ON 30 DEGREES HOB TO FACILITATE EASY BREATHING AND PREVENT ASPIRATION.
[2020-03-25 07:06] LABS: MAGNESIUM 2.5 mg/dL (1.8-2.4); PHOSPHORUS 5.6 mg/dL (2.5-4.9)
[2020-03-25] MEDS: SEVELAMER CARBONATE 800 MG TAB PO SCH ×3 (08:00→17:43)
[2020-03-25 09:01] LABS: EOSINOPHILS % (MANUAL) 4 % (0-4); MONOCYTES % (MANUAL) 9 % (5-12)
[2020-03-25 09:02] LABS: LYMPHOCYTES % (MANUAL) 8 % (20-46)
[2020-03-25] MEDS: ASCORBIC ACID 500 MG TAB PO SCH (09:28)
[2020-03-25] MEDS: PANTOPRAZOLE 40 MG INJ VIAL IVP SCH (09:28)
[2020-03-25] MEDS: ZINC SULF 220 MG CAP PO SCH (09:28)
[2020-03-25] MEDS: INSULIN LISPRO SLIDING SCALE 100 UNITS/ML VIAL SUBQ PRN (12:00)
--- NOTE | 2020-03-25 12:00 | NUR ---
HD ARLENE MOY CAME IN AND SET UP MACHINE AND STARTED HEMODIALYSIS.KEPT ON CLOSE MONITORING.V/S W/IN NORMAL RANGE. NO ADVERSE REACTION SEEN. W/ ON AND OFF FOCAL SEIZURES NOTED.
--- NOTE | 2020-03-25 12:51 | NUR ---
PT. WITH LOW SHWETA SCALE AT RISK, CONTINUE TO FOLLOW PRESSURE INJURY PREVENTION INTERVENTIONS. -TURN AND REPOSITION PATIENT Q 2H -ASSESS AND MONITOR SKIN CONDITION DURING POSITION CHANGE -OFFLOAD BILATERAL HEELS BY PLACING PILLOWS UNDER CALVES AT ALL TIMES, UNLESS OTHERWISE CONTRAINDICATED -PRESSURE REDISTRIBUTION BY PLACING PILLOWS AND OFFLOADING SACRALCOCCYX -KEEP SKIN CLEAN AND DRY AT ALL TIMES.
--- NOTE | 2020-03-25 14:30 | NUR ---
HD COMPLETED W/ 2000ML AN OUTPUT. PT RESTING COMFORTABLY ON BED. NO FACIAL GRIMACES SEEN.
--- NOTE | 2020-03-25 16:15 | NUR ---
COMPLETE BED BATH DONE. ORAL CARE RENDERED.SUCTIONING OF ORAL AND VIA ET TUBE DONE. REPOSITIONED AND MAINTAINED ON 30 DEGREES HOB. PACKED RBC'S NOT READY.STILL PROCESSING.
[2020-03-25] MEDS: EPOETIN ALFA 10,000 UNITS/ML VIAL IV SCH (17:30)
[2020-03-25] MEDS: DEXMEDETOMIDINE HCL 400 MCG in NACL 0.9% 96 ML IV PRN (18:19)
--- NOTE | 2020-03-25 18:26 | NUR ---
ALL NEEDS ATTENDED AND MET DURING THE SHIFT. CONDITION UNCHANGED W/ ON GOING BLOOD TRANSFUSION FOR CONTINUITY OF CARE.
--- NOTE | 2020-03-25 20:00 | NUR ---
Received pt. w/ focal seizures desaturating to 81-84% on 28% FiO2 on vent. (AC?VC Mode). Pt. given 100% O2 & FiO2 increased to 50% by RT. Secretions suctioned. Precedex dose titrated up for seizures & sedation. SR on the scope. No ectopi. PRBC # 1 transfusing w/ no adverse reactions noted @ this time. Nepro infusing @ 50 ml/hr w/ minimal residuals noted. Bed low, brakes set, alarms audible & seizure precautions enforced. Cardiac & resp. monitoring cont. needs anticipated.
--- NOTE | 2020-03-25 23:00 | NUR ---
PRBC # 1 transfusion completed w/ no adverse reactions @ this time. Precedex titrated up for seizures & sedation; mild focal seizures noted. Dilantin infusion completed. SR on the scope. No ectopi. Vardiac & resp. monitoring cont. Repositioned. Needs met.
[2020-03-26] VITALS (30 sets, daily range): BP systolic 114–182; BP diastolic 28–86
--- NOTE | 2020-03-26 00:15 | NUR ---
Family updated on patient status. Granddaughter Sarita @ requested for Dr. Nguyen to have the family meeting to discuss code status to be scheduled before Monday as sisters of patient are returning to [place] on Monday. Will leave a note on patient's chart & endorse to day RN as well. Emotional support given w/ all questions answered. Will cont. to monitor.
[2020-03-26] MEDS: BLOOD GLUCOSE MONITORING 1 DEV DEV FS SCH ×4 (01:00→23:26)
[2020-03-26] MEDS: INSULIN LISPRO SLIDING SCALE 100 UNITS/ML VIAL SUBQ PRN ×3 (01:10→23:27)
[2020-03-26] MEDS: ALBUTEROL SULFATE/IPRATROPIU 3 ML SOL IH SCH ×4 (01:18→19:11)
[2020-03-26] MEDS: DEXMEDETOMIDINE HCL 400 MCG in NACL 0.9% 96 ML IV PRN ×4 (01:35→22:19)
--- NOTE | 2020-03-26 03:45 | NUR ---
PRBC # 2 transfusion completed w/ no adverse reactions noted @ this time. SR on the scope. No seizures noted @ this time on Precedex Drip @ 0.8 mcg/Kg/hr. Secretions suctioned prn. Cardiac & resp. monitoriong cont. Seizure precautions enforced. Needs anticipated.
[2020-03-26] MEDS: hydrALAZINE 20 MG/ML VIAL IVP PRN (05:43)
[2020-03-26] MEDS: PHENYTOIN 100 MG/2 ML VIAL IVP SCH ×3 (05:43→20:39)
--- NOTE | 2020-03-26 06:00 | NUR ---
Pt. having seizures; Precedex titrated up to 1 mcg/Kg/hr; will obtain order for Ativan prn. SR on the scope. No ectopi. Bed bath rendered. Repositioned. VAP oral care done. Will cont. to monitor.
[2020-03-26 06:07] LABS: EOSINOPHILS # (AUTO) 0.8 K/uL (0-0.4); EOSINOPHILS % (AUTO) 6.4 % (0.0-4.0); HEMATOCRIT 28.8 % (36-52); HEMOGLOBIN 9.3 g/dL (12.0-18.0); LYMPHOCYTES # (AUTO) 0.1 K/uL (2.0-11.5); LYMPHOCYTES % (AUTO) 1.1 % (20.5-51.1); MEAN CORPUSCULAR HEMOGLOBIN 29 pg (27-31); MEAN CORPUSCULAR HGB CONC 32 g/dL (33-37); MEAN CORPUSCULAR VOLUME 88.8 fL (80-94); MONOCYTES # (AUTO) 0.9 K/uL (0.8-1.0); MONOCYTES % (AUTO) 7.4 % (1.7-9.3); NEUTROPHILS # (AUTO) 10.6 K/uL (1.8-7.7); NEUTROPHILS % (AUTO) 85.1 % (42.2-75.2); PLATELET COUNT (AUTO) 234 K/uL (140-450); RED BLOOD CELL COUNT(AUTO) 3.25 MIL/uL (4.20-6.10); WHITE BLOOD COUNT (AUTO) 12.4 K/uL (4.8-10.8)
[2020-03-26 06:41] LABS: ALBUMIN 2.3 g/dL (3.4-5.0); ASPARTATE AMINOTRANSFERASE 27 U/L (15-37); CARBON DIOXIDE 24.2 mmol/L (21-32); CHLORIDE 98 mmol/L (98-107); GLUCOSE 127 mg/dL (74-106); LACTATE DEHYDROGENASE 284 U/L (85-227); MAGNESIUM 2.4 mg/dL (1.8-2.4); PHOSPHORUS 5.1 mg/dL (2.5-4.9); POTASSIUM 4.2 mmol/L (3.5-5.1); SODIUM SERUM 135 mmol/L (136-145); TOTAL BILIRUBIN 0.5 mg/dL (0.0-1.0); UREA NITROGEN, BLOOD 60 mg/dL (7-18)
--- NOTE | 2020-03-26 07:05 | NUR ---
REPORT TAKEN FROM RN MAY.PT W/ PATENT CONTRAPTION NOT IN ANY FORM OF DISTRESS.LYING COMFORTABLY ON BED.NO FACIAL GRIMACES SEEN.ORAL CARE RENDERED AND SUCTIONING OF SECRETION VIA ORAL AND ET TUBE.REPOSITIONED AND MAINTAINED ON 30 DEGREES HOB TO FACILITATE EASY BREATHING AND PREVENT ASPIRATION.
--- NOTE | 2020-03-26 07:25 | NUR ---
Report given to ARLENE Bueno w/ all questions answered. Care endorsed.
[2020-03-26 07:41] LABS: CREATININE 6.2 mg/dL (0.6-1.3)
[2020-03-26] MEDS: SEVELAMER CARBONATE 800 MG TAB PO SCH ×3 (08:14→17:00)
--- NOTE | 2020-03-26 08:15 | NUR ---
VISITED AND EXAMINED BY DR. HARRINGTON UPDATED TO PT'S CONDITION AND PT'S FAMILY WOULD LIKE TO TALK TO HER REGARDING PT'S PROGNOSIS.
[2020-03-26] MEDS: PANTOPRAZOLE 40 MG INJ VIAL IVP SCH (09:40)
[2020-03-26] MEDS: ASCORBIC ACID 500 MG TAB PO SCH (09:40)
[2020-03-26] MEDS: ZINC SULF 220 MG CAP PO SCH (09:41)
[2020-03-26] MEDS: LORazepam 2 MG/ML VIAL IVP PRN (10:17)
--- NOTE | 2020-03-26 15:35 | NUR ---
03/26/20 FOLLOW UP COMPLETED PLEASE REFER TO NUTRITION ASSESSMENT UNDER CARE ACTIVITY FOR ESTIMATED NUTRITIONAL NEEDS. 1. CONTINUE NEPRO 1.8 @ 50 ML/HR -THIS WILL PROVIDE 1200 ML OF VOLUME, 872 ML OF WATER, 2160 KCAL AND 97 GM OF PROTEIN 2. CONT. FREE WATER FLUSH OF [address] TO FOLLOW-UP 2-3 DAYS, HIGH RISK [address]Y [address]
--- NOTE | 2020-03-26 16:00 | NUR ---
COMPLETE BED BATH DONE.ORAL CARE RENDERED AND SUCTIONED SECRETIONS AFTER.REPOSITIONED AND MAINTAINED ON 30 DEGREES HOB TO FACILITATE EASY BREATHING AND PREVENT ASPIRATION. PT QUIET,NO SEIZURE ACTIVITY NOTED.
--- NOTE | 2020-03-26 18:29 | NUR ---
SEEN AND EXAMINED BY DR. LIN UPDATED TO PT'S CONDITION NO NEW ORDER LEFT.ALL NEEDS ATTENDED AND MET DURING THE SHIFT. CONDITION UNCHANGED W/ ON AND OFF SEIZURES.TO BE ENDORSED TO PHOTOGRAPHER APPRENTICE LITHOGRAPHICLOOPING INSPECTOR FOR CONTINUITY OF CARE.
--- NOTE | 2020-03-26 19:30 | NUR ---
RECIEVED ENDORSMENT FROM DAY SHIFT RN, PT LYING IN BED SUPINE, HOD 30 DEGREES AND BED LOW, ETT TO VENT ACVC TV 500 FIO2 30% PEEP 5 RATE 16, SR ON MONITOR, PERIPHERAL PULSES PALPABLE BILATERAL, SKIN WARM AND DRY TO TOUCH, PT AFEBRILE, RH PERIPHERAK IV 18 GAUGE SALINE LOCK, LIJ TRIPLE LUMEN INFUSING PRECEDEX AND NS. PATIENT RASS -3. NGT TO RN INFUSING FEEDING, FC IN PLACE DRAINING VIA GRAVITY, PT SHOWING NO SIGNS OF ACUTE DISTRESS, SAFETY MEASURES IN PLACE, WILL CONTINUE WITH CURRENT POC
--- NOTE | 2020-03-26 21:30 | NUR ---
ADMINISTERED 2100H MEDICATIONS PER ORDERED
--- NOTE | 2020-03-26 22:15 | NUR ---
ADMINISTERED NEW BAG OF PRECEDEX
--- NOTE | 2020-03-26 23:59 | NUR ---
BLOOD GLUCOSE 172, ADMINISTERED 2 UNITS HUMALOG PER PROTOCOL
[2020-03-27] VITALS (25 sets, daily range): BP systolic 50–180; BP diastolic 6–88
[2020-03-27] MEDS: ALBUTEROL SULFATE/IPRATROPIU 3 ML SOL IH SCH ×3 (01:00→14:00)
[2020-03-27] MEDS: LORazepam 2 MG/ML VIAL IVP PRN ×4 (01:57→13:05)
[2020-03-27] MEDS: DEXMEDETOMIDINE HCL 400 MCG in NACL 0.9% 96 ML IV PRN ×3 (02:37→12:15)
[2020-03-27] MEDS: PHENYTOIN 100 MG/2 ML VIAL IVP SCH ×2 (04:24→13:00)
[2020-03-27] MEDS: BLOOD GLUCOSE MONITORING 1 DEV DEV FS SCH ×2 (05:59→12:00)
[2020-03-27 06:16] LABS: MAGNESIUM 2.5 mg/dL (1.8-2.4); PHOSPHORUS 4.9 mg/dL (2.5-4.9)
--- NOTE | 2020-03-27 07:10 | NUR ---
RECEIVED PT FROM LPN RN ARLENE ECHEVARRIA W/ FOCAL SEIZURES.W/ PATENT CONTRAPTIONS. O2 SAT ON THE LOW SIDE 86%.FIO2 UP TO 100% FOR FEW MINUTES AND O2 SAT WENT UP TO 95%. PRN MED FOR SEIZURES GIVEN.ORAL GASTRIC TUBE CLOGGED. SALEMS TUBE FR.18 INSERTED AND PATENCY CHECKED TAKEN 400ML RESIDUAL PREVIOUS ENTERAL FEEDING. FEEDING HELD FOR NOW.
--- NOTE | 2020-03-27 07:10 | NUR ---
ENDORSED TO DAY SHIFT RN FOR CONTINUITY OF CARE
[2020-03-27] MEDS: SEVELAMER CARBONATE 800 MG TAB PO SCH ×2 (08:00→12:00)
[2020-03-27] MEDS: PANTOPRAZOLE 40 MG INJ VIAL IVP SCH (09:03)
[2020-03-27] MEDS: ASCORBIC ACID 500 MG TAB PO SCH (09:04)
[2020-03-27] MEDS: ZINC SULF 220 MG CAP PO SCH (09:04)
--- NOTE | 2020-03-27 12:00 | NUR ---
EEG DONE RESULT TO BE READ BY NEUROLOGIST.ORAL CARE RENDERED AND SUCTIONED SECRETIONS AFTER. RESIDUAL CHECKED HAD 280ML OF PREVIOUSLY TAKEN MEDS AND FEEDING. DIETITIAN CAME IN AND MADE HER AWARE OF PT'S RESIDUAL AND PT'S DIGESTIVE SYSTEM IS NOT ABSORBED THE FEEDING.REPOSITIONED AND MAINTAINED ON 30 DEGREES HOB.
[2020-03-27] MEDS: INSULIN LISPRO SLIDING SCALE 100 UNITS/ML VIAL SUBQ PRN (12:10)
[2020-03-27] MEDS: EPOETIN ALFA 10,000 UNITS/ML VIAL IV SCH (13:05)
--- NOTE | 2020-03-27 14:30 | NUR ---
PT'S DAUGHTER IN [employer] CALLED UP AND PT'S FAMILY DECISION TO PULL OUT ET TUBE @ 1730.CALLED UP W/ ORDER TO START MORPHINE DRIP PRIOR TO EXTUBATION. PM CARE RENDERED. REPOSITIONED AND PT. RESTING NO FACIAL GRIMACES NOTED.
[2020-03-27] MEDS ORDERED: SCOPOLAMINE 1.5 MG/72 HR PATCH TD SCH ×2 (17:10→18:10)
[2020-03-27] MEDS ORDERED: MORPHINE SULFATE 50 MG in NACL 0.9% 45 ML IV PRN (17:10)
--- NOTE | 2020-03-27 17:30 | NUR ---
PT'S FAMILY CAME BY THE WINDOW.MORPHINE DRIP STARTED @ 1735 @ 5MG/HR.EXTUBATED @ 1740 AND O2 @ 2L/MIN VIA NASAL CANNULA.PRECEDEX AND NSS DISCONTINUED.PLACED ON HIGH FOWLERS POSITION.PT'S VITAL SIGNS W/IN NORMAL LIMITS.MORPHINE DRIP TITRATED ACCORDINGLY.
--- NOTE | 2020-03-27 18:06 | NUR ---
PATIENT EXTUBATED TO 2L NASAL CANNULA AT 1740 PER DOCTOR ORDERS. RN AT BEDSIDE. COMFORT MEASURES ONLY.
--- NOTE | 2020-03-27 18:55 | NUR ---
PT STILL W/ NORMAL VITAL SIGNS.TO BE ENDORSED TO PAYMENT ANALYSTHEALTH COMPANION FOR COMFORT CARE.
--- NOTE | 2020-03-27 20:28 | NUR ---
CALLED [facility] TO GIVE REPORT TO RN. CHARGE NURSE WILL CALL BACK.
[2020-03-27] MEDS ORDERED: clonazePAM 0.5 MG TAB GT SCH (21:00)
--- NOTE | 2020-03-27 21:05 | NUR ---
SPOKE TO [facility]. RELEASED THE BODY. [phone].
--- NOTE | 2020-03-27 21:05 | NUR ---
PATIENT ON 03/27/2020 AT 20:55 HOURS. CALLED THE AUTOMOTIVE COLLISION ESTIMATOR'S OFFICE AT [phone]. AUTOMOTIVE COLLISION ESTIMATOR'S WILL CALL BACK. CHARGE NURSE MADE AWARE OF.
--- NOTE | 2020-03-27 21:15 | NUR ---
SPOKE TO [employer]-DAUGHTER. SHE STATED THEY DO NOT HAVE MORTUARY AT THIS TIME AND THEY WILL CALL US BACK TOMORROW. THEY ARE AWARE THAT THE BODY WILL BE PLACE IN THE FRIDGE FOR THE MEAN TIME UPON RELEASING THE BODY BY THE DOOR MANAGER. AWAITING FOR DOOR MANAGER'S CALL.
--- NOTE | 2020-03-27 21:26 | NUR ---
RECEIVED A PHONE CALL FROM [facility] OFF[facility]. OFFICER, KYREE HENDERSON, RELEASED THE BODY TO THE MORTUARY/FAMILY. AT THIS POINT NO NUMBER WAS ISSUED.
--- NOTE | 2020-03-27 23:08 | NUR ---
POST MORTEM CARE PROVIDED. PT PLACED IN A BODY BAG VERIFIED BY TWO NURSES. BODY WAS PLACED IN THE FRIDGE AT THIS TIME BY 2 SECURITIES.
== END 2020-03-27 20:55 | DRG 720 ==
LOC: MED 08:13 → MMU 10:40
PROVIDERS: ADMIT Family Medicine; ATTEND Family Medicine
PROC: 5A1955Z Respiratory Ventilation, Greater than 96 Consecutive Hours (ICD-10-PCS; principal; 2020-03-16)
PROC: 0BH17EZ Insertion of Endotracheal Airway into Trachea, Via Natural or Artificial Opening (ICD-10-PCS; 2020-03-16)
PROC: 5A12012 Performance of Cardiac Output, Single, Manual (ICD-10-PCS; 2020-03-16)
PROC: 02HV33Z Insertion of Infusion Device into Superior Vena Cava, Percutaneous Approach (ICD-10-PCS; 2020-03-16)
PROC: B548ZZA Ultrasonography of Superior Vena Cava, Guidance (ICD-10-PCS; 2020-03-16)
PROC: 5A1D70Z Performance of Urinary Filtration, Intermittent, Less than 6 Hours Per Day (ICD-10-PCS; 2020-03-17)
PROC: 30233K1 Transfusion of Nonautologous Frozen Plasma into Peripheral Vein, Percutaneous Approach (ICD-10-PCS; 2020-03-18)
PROC: 5A1D70Z Performance of Urinary Filtration, Intermittent, Less than 6 Hours Per Day (ICD-10-PCS; 2020-03-19)
PROC: 4A00X4Z Measurement of Central Nervous Electrical Activity, External Approach (ICD-10-PCS; 2020-03-20)
PROC: 5A1D70Z Performance of Urinary Filtration, Intermittent, Less than 6 Hours Per Day (ICD-10-PCS; 2020-03-22)
PROC: 5A1D70Z Performance of Urinary Filtration, Intermittent, Less than 6 Hours Per Day (ICD-10-PCS; 2020-03-24)
PROC: 30233N1 Transfusion of Nonautologous Red Blood Cells into Peripheral Vein, Percutaneous Approach (ICD-10-PCS; 2020-03-25)
PROC: 5A1D70Z Performance of Urinary Filtration, Intermittent, Less than 6 Hours Per Day (ICD-10-PCS; 2020-03-26)
PROC: 5A1935Z Respiratory Ventilation, Less than 24 Consecutive Hours (ICD-10-PCS; 2020-03-27)
PROC: 4A00X4Z Measurement of Central Nervous Electrical Activity, External Approach (ICD-10-PCS; 2020-03-27)
DX: A41.9 Sepsis, unspecified organism (principal); J69.0 Pneumonitis due to inhalation of food and vomit; N17.0 Acute kidney failure with tubular necrosis; N18.6 End stage renal disease; Z99.2 Dependence on renal dialysis; I46.9 Cardiac arrest, cause unspecified; E11.22 Type 2 diabetes mellitus with diabetic chronic kidney disease; I13.2 Hypertensive heart and chronic kidney disease with heart failure and with stage 5 chronic kidney disease, or end stage renal disease; D63.8 Anemia in other chronic diseases classified elsewhere; R65.21 Severe sepsis with septic shock; R74.01 Elevation of levels of liver transaminase levels; D84.9 Immunodeficiency, unspecified; E44.0 Moderate protein-calorie malnutrition; Z68.27 Body mass index [BMI] 27.0-27.9, adult; D68.69 Other thrombophilia; U07.1 COVID-19; I50.43 Acute on chronic combined systolic (congestive) and diastolic (congestive) heart failure; J12.82 Pneumonia due to coronavirus disease 2019; E43 Unspecified severe protein-calorie malnutrition; J96.21 Acute and chronic respiratory failure with hypoxia; G93.1 Anoxic brain damage, not elsewhere classified; E88.09 Other disorders of plasma-protein metabolism, not elsewhere classified; E83.39 Other disorders of phosphorus metabolism; J93.9 Pneumothorax, unspecified; R56.9 Unspecified convulsions; E86.0 Dehydration
CPT/HCPCS: 36415; 36600; 70450; 71045; 80048; 80053; 80185; 81001; 82150; 82550; 82728; 82803; 82948; 83036; 83540; 83605; 83615; 83690; 83735; 83880; 84100; 84436; 84439; 84443; 84479; 84484; 85025; 85379; 85384; 85610; 85651; 85730; 86140; 86886; 86900; 86901; 86920; 87040; 87070; 87081; 87086; 87205; 87420; 87804; 90935; 92950; 93005; 94002; 94003; 94640; 99291; C9113; J0171; J0360; J0885; J1165; J1644; J1953; J2060; J2270; J2543; J2704; J3490; J7030; J7060; P9016; P9017; U0003